=== PATIENT | male | born 1985 | race Caucasian/White ===

== ENCOUNTER 2017-10-02 22:11 | Emergency (ER) | payer MEDICAID ==
[~2017-10-02] VITALS: Ht 177.8 cm; Wt 90.3 kg
[~2017-10-02 22:11] MED LIST: ARIP5TAB13 PO; CHLO100T PO; CLON0.3T47 PO; HALDOL 5 MG; LEVE500T13 PO; LISI-167 PO
[2017-10-02] MEDS ORDERED: ONDANSETRON ODT 8 MG ONE (23:49)
[2017-10-03] MEDS ORDERED: ONDANSETRON ODT 8 MG PO ONE
[2017-10-03 00:22] LABS: BASOPHILS # (AUTO) 0.03 x10^3/uL (0-0.1); BASOPHILS % (AUTO) 0 % (0-1); EOSINOPHILS # (AUTO) 0.02 x10^3/uL (0-0.4); EOSINOPHILS % (AUTO) 0 % (1-7); LYMPHOCYTES % (AUTO) 13 % (22-44); MD NO; MEAN CORPUSCULAR HEMOGLOBIN 32.1 pg (27.5-34.5); MEAN CORPUSCULAR HGB CONC 34.4 g/dL (33.2-36.2); MEAN CORPUSCULAR VOLUME 93.2 fL (81-97); MEAN PLATELET VOLUME 7.6 fL (7.4-10.4); MONOCYTES # (AUTO) 0.94 x10^3/uL (0.2-0.8); MONOCYTES % (AUTO) 11 % (2-9); NEUTROPHILS # (AUTO) 6.24 x10^3/uL (1.8-6.8); NEUTROPHILS % (AUTO) 75 % (42-75); PLATELET COUNT 277 x10^3/uL (130-400); RED BLOOD COUNT 3.97 x10^6/uL (4.38-5.82); RED CELL DISTRIBUTION WIDTH 14.3 % (9.4-14.8)
[2017-10-03 00:30] LABS: ALANINE AMINOTRANSFERASE 158 U/L (12-78); ALBUMIN 4.1 g/dL (3.4-5.0); ANION GAP 8 mmol/L (5-15); CALCIUM 9.3 mg/dL (8.5-10.1); CHLORIDE 103 mmol/L (98-107); CREATININE 1.27 mg/dL (0.7-1.3)
[2017-10-03 00:32] LABS: ALKALINE PHOSPHATASE 105 U/L (45-117); BILIRUBIN,TOTAL 0.5 mg/dL (0.2-1.0); TOTAL PROTEIN 7.9 g/dL (6.4-8.2)
[2017-10-03 00:44] VITALS: BP 128/80
[2017-10-04] MEDS ORDERED: LEVE500T53 PO (21:10)
[2017-10-04] MEDS ORDERED: LISI-170 PO (21:10)
[2017-10-04] MEDS ORDERED: ANTIBIOTIC PO (21:10)
[2017-10-04] MEDS ORDERED: DIVA500T2 PO (21:10)
== END 2017-10-03 01:40 | disposition home or self-care (01) ==
LOC: ED 23:35
DX: R11.2 Nausea with vomiting, unspecified (principal); E86.0 Dehydration; R74.0 Nonspecific elevation of levels of transaminase and lactic acid dehydrogenase [LDH]; I10 Essential (primary) hypertension; F17.210 Nicotine dependence, cigarettes, uncomplicated
CPT/HCPCS: 36415; 80053; 83690; 85025; 99284; Q0162

== ENCOUNTER 2017-10-04 20:10 | Inpatient (IN) | payer MEDICAID ==
[~2017-10-04] VITALS: Ht 177.8 cm; Wt 91.7 kg
[2017-10-04] MEDS ORDERED: LEVE500T53 PO (21:10)
[2017-10-04] MEDS ORDERED: ANTIBIOTIC PO (21:10)
[2017-10-04] MEDS ORDERED: LISI-170 PO (21:10)
[2017-10-04] MEDS ORDERED: DIVA500T2 PO (21:10)
[2017-10-04 21:41] LABS: AMPHETAMINE SCREEN, URINE Positive (Negative); BARBITURATE SCREEN, URINE Negative (Negative); BENZODIAZEPINE SCREEN, URINE Negative (Negative); CANNABINOID SCREEN, URINE Positive (Negative); COCAINE SCREEN, URINE Negative (Negative); METHADONE SCREEN, URINE Negative (Negative); OPIATE SCREEN, URINE Negative (Negative)
[2017-10-04 21:49] LABS: ALANINE AMINOTRANSFERASE 148 U/L (12-78); ALBUMIN 3.8 g/dL (3.4-5.0); ANION GAP 6 mmol/L (5-15); CALCIUM 8.7 mg/dL (8.5-10.1); CHLORIDE 109 mmol/L (98-107); CREATININE 0.92 mg/dL (0.7-1.3); SALICYLATE LEVEL 3.4 mg/dL (2.8-20.0)
[2017-10-04 21:51] LABS: ALKALINE PHOSPHATASE 109 U/L (45-117); BILIRUBIN,TOTAL 0.2 mg/dL (0.2-1.0); TOTAL PROTEIN 7.1 g/dL (6.4-8.2)
[2017-10-04 21:52] LABS: ACETAMINOPHEN < 2 mcg/mL (10-30)
[2017-10-04 22:00] LABS: BASOPHILS # (AUTO) 0.03 x10^3/uL (0-0.1); BASOPHILS % (AUTO) 0 % (0-1); EOSINOPHILS # (AUTO) 0.08 x10^3/uL (0-0.4); EOSINOPHILS % (AUTO) 1 % (1-7); LYMPHOCYTES # (AUTO) 1.45 x10^3/uL (1-3.4); LYMPHOCYTES % (AUTO) 19 % (22-44); MD NO; MEAN CORPUSCULAR HEMOGLOBIN 31.9 pg (27.5-34.5); MEAN CORPUSCULAR HGB CONC 34.2 g/dL (33.2-36.2); MEAN CORPUSCULAR VOLUME 93.6 fL (81-97); MONOCYTES # (AUTO) 0.92 x10^3/uL (0.2-0.8); MONOCYTES % (AUTO) 12 % (2-9); NEUTROPHILS % (AUTO) 68 % (42-75); PLATELET COUNT 263 x10^3/uL (130-400); RED BLOOD COUNT 3.73 x10^6/uL (4.38-5.82); RED CELL DISTRIBUTION WIDTH 13.9 % (9.4-14.8)
[2017-10-05] MEDS ORDERED: DOXYCYCLINE 100MG TABLET PO ONE (02:30)
[2017-10-05] MEDS ORDERED: DOXYCYCLINE 100MG TABLET ONE (03:05)
[2017-10-05 03:47] VITALS: BP 119/71
[2017-10-05] MEDS ORDERED: hydrALAzine 20 MG/ML, 1ML IVPush PRN (05:00)
[2017-10-05] MEDS ORDERED: GUAIFENESIN/DM 200-20MG, 10ML UDC PO PRN (05:00)
[2017-10-05] MEDS ORDERED: POLYETHYLENE GLYCOL 17 GM PACKET PO PRN (05:00)
[2017-10-05] MEDS: SODIUM CHLORIDE 0.9% 1,000 ML IV SCH ×3 (05:07→22:51)
[2017-10-05] MEDS: LEVOFLOXACIN/PMX 750MG/150ML 150 ML IV SCH (05:20)
[2017-10-05] MEDS ORDERED: ALBUTEROL SULFATE 2.5 MG/3 ML NPPB PRN (07:00)
[2017-10-05 07:37] VITALS: BP 120/69
[2017-10-05] MEDS: ENOXAPARIN 40 MG/0.4 ML SQ SCH (08:01)
[2017-10-05] MEDS: DIVALPROEX 500 MG TAB.ER.24H PO SCH (08:56)
[2017-10-05] MEDS: LEVETIRACETAM 500 MG TABLET PO SCH (08:56)
[2017-10-05] MEDS: LISINOPRIL 20 MG TABLET PO SCH (08:56)
[2017-10-05 13:17] VITALS: BP 107/66
[2017-10-05 18:47] VITALS: BP 101/65
[2017-10-06 02:30] VITALS: BP 105/66
[2017-10-06] MEDS: LEVOFLOXACIN/PMX 750MG/150ML 150 ML IV SCH (04:40)
[2017-10-06] MEDS: SODIUM CHLORIDE 0.9% 1,000 ML IV SCH ×2 (04:46→17:34)
[2017-10-06 05:34] LABS: BASOPHILS # (AUTO) 0.05 x10^3/uL (0-0.1); BASOPHILS % (AUTO) 1 % (0-1); EOSINOPHILS # (AUTO) 0.07 x10^3/uL (0-0.4); EOSINOPHILS % (AUTO) 1 % (1-7); LYMPHOCYTES # (AUTO) 1.41 x10^3/uL (1-3.4); LYMPHOCYTES % (AUTO) 26 % (22-44); MD NO; MEAN CORPUSCULAR HEMOGLOBIN 31.9 pg (27.5-34.5); MEAN CORPUSCULAR VOLUME 93.8 fL (81-97); MEAN PLATELET VOLUME 7.5 fL (7.4-10.4); MONOCYTES # (AUTO) 0.43 x10^3/uL (0.2-0.8); MONOCYTES % (AUTO) 8 % (2-9); NEUTROPHILS # (AUTO) 3.53 x10^3/uL (1.8-6.8); NEUTROPHILS % (AUTO) 64 % (42-75); PLATELET COUNT 213 x10^3/uL (130-400); RED BLOOD COUNT 3.49 x10^6/uL (4.38-5.82); RED CELL DISTRIBUTION WIDTH 13.6 % (9.4-14.8)
[2017-10-06 05:36] LABS: ALBUMIN 2.9 g/dL (3.4-5.0); CALCIUM 8.3 mg/dL (8.5-10.1); CHLORIDE 113 mmol/L (98-107)
[2017-10-06 05:41] LABS: ALANINE AMINOTRANSFERASE 180 U/L (12-78); ALKALINE PHOSPHATASE 85 U/L (45-117); ANION GAP 6 mmol/L (5-15); BILIRUBIN,TOTAL 0.4 mg/dL (0.2-1.0); CREATININE 0.92 mg/dL (0.7-1.3)
[2017-10-06 06:57] VITALS: BP 123/85
[2017-10-06] MEDS: DIVALPROEX 500 MG TAB.ER.24H PO SCH (09:16)
[2017-10-06] MEDS: LEVETIRACETAM 500 MG TABLET PO SCH (09:16)
[2017-10-06] MEDS: ENOXAPARIN 40 MG/0.4 ML SQ SCH (09:16)
[2017-10-06] MEDS: DOXYCYCLINE 100MG TABLET PO SCH ×2 (09:17→20:09)
[2017-10-06] MEDS: LISINOPRIL 20 MG TABLET PO SCH (09:17)
[2017-10-06] MEDS: CEFTRIAXONE PMX 2GM/50ML 50 ML IV SCH (12:18)
[2017-10-06] MEDS: ACETAMINOPHEN 325 MG TABLET PO PRN ×2 (12:21→20:24)
[2017-10-06 12:48] VITALS: BP 128/85
[2017-10-07 02:41] VITALS: BP 123/80
[2017-10-07 05:36] LABS: ANION GAP 6 mmol/L (5-15); CALCIUM 8.6 mg/dL (8.5-10.1); CHLORIDE 112 mmol/L (98-107); CREATININE 1.01 mg/dL (0.7-1.3)
[2017-10-07 05:40] LABS: BASOPHILS # (AUTO) 0.02 x10^3/uL (0-0.1); BASOPHILS % (AUTO) 0 % (0-1); EOSINOPHILS # (AUTO) 0.09 x10^3/uL (0-0.4); EOSINOPHILS % (AUTO) 2 % (1-7); LYMPHOCYTES # (AUTO) 1.26 x10^3/uL (1-3.4); LYMPHOCYTES % (AUTO) 24 % (22-44); MD NO; MEAN CORPUSCULAR HEMOGLOBIN 31.8 pg (27.5-34.5); MEAN CORPUSCULAR HGB CONC 34.2 g/dL (33.2-36.2); MEAN CORPUSCULAR VOLUME 93.1 fL (81-97); MONOCYTES # (AUTO) 0.48 x10^3/uL (0.2-0.8); MONOCYTES % (AUTO) 9 % (2-9); NEUTROPHILS # (AUTO) 3.53 x10^3/uL (1.8-6.8); NEUTROPHILS % (AUTO) 66 % (42-75); PLATELET COUNT 228 x10^3/uL (130-400); RED BLOOD COUNT 3.63 x10^6/uL (4.38-5.82); RED CELL DISTRIBUTION WIDTH 13.5 % (9.4-14.8)
[2017-10-07 06:56] VITALS: BP 146/90
[2017-10-07] MEDS: LEVETIRACETAM 500 MG TABLET PO SCH (08:33)
[2017-10-07] MEDS: ACETAMINOPHEN 325 MG TABLET PO PRN ×3 (08:33→23:05)
[2017-10-07] MEDS: ENOXAPARIN 40 MG/0.4 ML SQ SCH (08:33)
[2017-10-07] MEDS: DIVALPROEX 500 MG TAB.ER.24H PO SCH (08:33)
[2017-10-07] MEDS: DOXYCYCLINE 100MG TABLET PO SCH ×2 (08:33→20:42)
[2017-10-07] MEDS: CEFTRIAXONE PMX 2GM/50ML 50 ML IV SCH (08:33)
[2017-10-07] MEDS: LISINOPRIL 20 MG TABLET PO SCH (08:33)
[2017-10-07 13:39] VITALS: BP 128/79
[2017-10-07] MEDS: ONDANSETRON 2MG/ML, 2ML IVPush PRN (17:55)
[2017-10-07 19:00] VITALS: BP 151/84
[2017-10-08 01:12] VITALS: BP 144/78
[2017-10-08] MEDS: ONDANSETRON 2MG/ML, 2ML IVPush PRN ×2 (05:02→12:27)
[2017-10-08 05:24] LABS: BASOPHILS # (AUTO) 0.03 x10^3/uL (0-0.1); BASOPHILS % (AUTO) 1 % (0-1); EOSINOPHILS # (AUTO) 0.18 x10^3/uL (0-0.4); EOSINOPHILS % (AUTO) 4 % (1-7); LYMPHOCYTES # (AUTO) 1.46 x10^3/uL (1-3.4); LYMPHOCYTES % (AUTO) 31 % (22-44); MD NO; MEAN CORPUSCULAR HEMOGLOBIN 31.9 pg (27.5-34.5); MEAN CORPUSCULAR HGB CONC 34.2 g/dL (33.2-36.2); MEAN CORPUSCULAR VOLUME 93.4 fL (81-97); MEAN PLATELET VOLUME 7.9 fL (7.4-10.4); MONOCYTES # (AUTO) 0.47 x10^3/uL (0.2-0.8); MONOCYTES % (AUTO) 10 % (2-9); NEUTROPHILS # (AUTO) 2.63 x10^3/uL (1.8-6.8); NEUTROPHILS % (AUTO) 55 % (42-75); PLATELET COUNT 222 x10^3/uL (130-400); RED BLOOD COUNT 3.54 x10^6/uL (4.38-5.82); RED CELL DISTRIBUTION WIDTH 13.8 % (9.4-14.8)
[2017-10-08 05:36] LABS: ALBUMIN 2.9 g/dL (3.4-5.0); ANION GAP 7 mmol/L (5-15); CALCIUM 8.5 mg/dL (8.5-10.1); CHLORIDE 110 mmol/L (98-107); CREATININE 0.95 mg/dL (0.7-1.3)
[2017-10-08 06:44] VITALS: BP 127/80
[2017-10-08] MEDS: DOXYCYCLINE 100MG TABLET PO SCH ×2 (08:45→20:36)
[2017-10-08] MEDS: LEVETIRACETAM 500 MG TABLET PO SCH (08:45)
[2017-10-08] MEDS: DIVALPROEX 500 MG TAB.ER.24H PO SCH (08:45)
[2017-10-08] MEDS: LISINOPRIL 20 MG TABLET PO SCH (08:45)
[2017-10-08] MEDS: ENOXAPARIN 40 MG/0.4 ML SQ SCH (09:00)
[2017-10-08] MEDS: CEFTRIAXONE PMX 2GM/50ML 50 ML IV SCH (09:00)
[2017-10-08 15:15] VITALS: BP 121/71
[2017-10-08] MEDS: ACETAMINOPHEN 325 MG TABLET PO PRN (16:34)
[2017-10-08 19:34] VITALS: BP 104/64
[2017-10-09 02:44] VITALS: BP 121/81
[2017-10-09] MEDS: ACETAMINOPHEN 325 MG TABLET PO PRN ×2 (02:54→08:59)
[2017-10-09 07:00] VITALS: BP 132/79
[2017-10-09] MEDS: CEFTRIAXONE PMX 2GM/50ML 50 ML IV SCH ×2 (08:00→11:45)
[2017-10-09 08:09] LABS: BASOPHILS # (AUTO) 0.03 x10^3/uL (0-0.1); BASOPHILS % (AUTO) 1 % (0-1); EOSINOPHILS # (AUTO) 0.15 x10^3/uL (0-0.4); EOSINOPHILS % (AUTO) 3 % (1-7); LYMPHOCYTES # (AUTO) 1.08 x10^3/uL (1-3.4); LYMPHOCYTES % (AUTO) 20 % (22-44); MD NO; MEAN CORPUSCULAR HEMOGLOBIN 31.2 pg (27.5-34.5); MEAN CORPUSCULAR HGB CONC 33.8 g/dL (33.2-36.2); MEAN CORPUSCULAR VOLUME 92.3 fL (81-97); MEAN PLATELET VOLUME 7.9 fL (7.4-10.4); MONOCYTES # (AUTO) 0.37 x10^3/uL (0.2-0.8); MONOCYTES % (AUTO) 7 % (2-9); NEUTROPHILS # (AUTO) 3.88 x10^3/uL (1.8-6.8); NEUTROPHILS % (AUTO) 71 % (42-75); PLATELET COUNT 233 x10^3/uL (130-400); RED BLOOD COUNT 3.85 x10^6/uL (4.38-5.82)
[2017-10-09 08:19] LABS: ALBUMIN 3.3 g/dL (3.4-5.0); ANION GAP 7 mmol/L (5-15); CHLORIDE 109 mmol/L (98-107)
[2017-10-09 08:24] LABS: ALANINE AMINOTRANSFERASE 211 U/L (12-78); ALKALINE PHOSPHATASE 102 U/L (45-117); BILIRUBIN,TOTAL 0.4 mg/dL (0.2-1.0); CREATININE 0.88 mg/dL (0.7-1.3); TOTAL PROTEIN 6.7 g/dL (6.4-8.2)
[2017-10-09] MEDS: DIVALPROEX 500 MG TAB.ER.24H PO SCH (08:59)
[2017-10-09] MEDS: DOXYCYCLINE 100MG TABLET PO SCH ×2 (08:59→20:45)
[2017-10-09] MEDS: ONDANSETRON 2MG/ML, 2ML IVPush PRN (08:59)
[2017-10-09] MEDS: LISINOPRIL 20 MG TABLET PO SCH (09:00)
[2017-10-09] MEDS: LEVETIRACETAM 500 MG TABLET PO SCH (09:00)
[2017-10-09] MEDS: ENOXAPARIN 40 MG/0.4 ML SQ SCH (09:05)
[2017-10-09 14:33] VITALS: BP 139/94
[2017-10-09 19:37] VITALS: BP 134/83
[2017-10-10 07:26] VITALS: BP 144/89
[2017-10-10] MEDS: DOXYCYCLINE 100MG TABLET PO SCH ×2 (09:31→20:22)
[2017-10-10] MEDS: DIVALPROEX 500 MG TAB.ER.24H PO SCH (09:31)
[2017-10-10] MEDS: LEVETIRACETAM 500 MG TABLET PO SCH (09:31)
[2017-10-10] MEDS: ENOXAPARIN 40 MG/0.4 ML SQ SCH (09:31)
[2017-10-10] MEDS: LISINOPRIL 20 MG TABLET PO SCH (09:32)
[2017-10-10] MEDS ORDERED: ONDANSETRON ODT 4 MG ONE (18:30)
[2017-10-10] MEDS: ONDANSETRON 2MG/ML, 2ML IVPush PRN (18:34)
[2017-10-10 19:25] VITALS: BP 135/81
[2017-10-10] MEDS: ACETAMINOPHEN 325 MG TABLET PO PRN (20:22)
[2017-10-10] MEDS: TRAZODONE 50MG TABLET PO PRN (20:32)
[2017-10-11 07:51] VITALS: BP 113/71
[2017-10-11] MEDS: DOXYCYCLINE 100MG TABLET PO SCH ×2 (08:36→20:56)
[2017-10-11] MEDS: DIVALPROEX 500 MG TAB.ER.24H PO SCH (08:36)
[2017-10-11] MEDS: LEVETIRACETAM 500 MG TABLET PO SCH (08:36)
[2017-10-11] MEDS: LISINOPRIL 20 MG TABLET PO SCH (08:37)
[2017-10-11] MEDS: ENOXAPARIN 40 MG/0.4 ML SQ SCH (08:40)
[2017-10-11] MEDS: ZIPRASIDONE 20 MG INJ IM PRN (18:11)
[2017-10-11 21:01] VITALS: BP 107/66
[2017-10-12 07:54] VITALS: BP 116/78
[2017-10-12] MEDS: ENOXAPARIN 40 MG/0.4 ML SQ SCH (08:27)
[2017-10-12] MEDS: DIVALPROEX 500 MG TAB.ER.24H PO SCH (09:36)
[2017-10-12] MEDS: DOXYCYCLINE 100MG TABLET PO SCH ×2 (09:37→20:45)
[2017-10-12] MEDS: LISINOPRIL 20 MG TABLET PO SCH (09:38)
[2017-10-12] MEDS: LEVETIRACETAM 500 MG TABLET PO SCH (09:38)
[2017-10-12] MEDS: ZIPRASIDONE 20 MG INJ IM PRN (09:58)
[2017-10-12 20:50] VITALS: BP 99/66
[2017-10-13 01:25] VITALS: BP 124/85
[2017-10-13] MEDS: TRAZODONE 50MG TABLET PO PRN ×2 (01:26→21:51)
[2017-10-13] MEDS: ENOXAPARIN 40 MG/0.4 ML SQ SCH (08:00)
[2017-10-13 08:59] VITALS: BP 121/76
[2017-10-13] MEDS: DIVALPROEX 500 MG TAB.ER.24H PO SCH (09:05)
[2017-10-13] MEDS: LISINOPRIL 20 MG TABLET PO SCH (09:06)
[2017-10-13] MEDS: DOXYCYCLINE 100MG TABLET PO SCH ×2 (09:06→21:51)
[2017-10-13] MEDS: LEVETIRACETAM 500 MG TABLET PO SCH (09:06)
[2017-10-13] MEDS ORDERED: ONDANSETRON ODT 4 MG ONE (12:18)
[2017-10-13] MEDS: ONDANSETRON ODT 4 MG PO PRN (12:27)
[2017-10-13] MEDS: ZIPRASIDONE 20 MG INJ IM PRN (13:21)
[2017-10-13 20:00] VITALS: BP 84/52
[2017-10-14 07:57] VITALS: BP 115/78
[2017-10-14] MEDS: ENOXAPARIN 40 MG/0.4 ML SQ SCH (08:46)
[2017-10-14] MEDS: LISINOPRIL 20 MG TABLET PO SCH (08:47)
[2017-10-14] MEDS: DOXYCYCLINE 100MG TABLET PO SCH ×2 (08:47→21:00)
[2017-10-14] MEDS: LEVETIRACETAM 500 MG TABLET PO SCH (08:47)
[2017-10-14] MEDS: DIVALPROEX 500 MG TAB.ER.24H PO SCH (08:48)
[2017-10-14] MEDS: ZIPRASIDONE 20 MG INJ IM PRN (12:13)
[2017-10-14] MEDS: ONDANSETRON ODT 4 MG PO PRN (17:45)
[2017-10-14 19:27] VITALS: BP 90/57
[2017-10-14] MEDS: TRAZODONE 50MG TABLET PO PRN (21:15)
[2017-10-15 07:11] VITALS: BP 115/81
[2017-10-15] MEDS: ENOXAPARIN 40 MG/0.4 ML SQ SCH (08:17)
[2017-10-15] MEDS: LEVETIRACETAM 500 MG TABLET PO SCH (08:20)
[2017-10-15] MEDS: DIVALPROEX 500 MG TAB.ER.24H PO SCH (08:20)
[2017-10-15] MEDS: LISINOPRIL 20 MG TABLET PO SCH (08:20)
[2017-10-15] MEDS: DOXYCYCLINE 100MG TABLET PO SCH (08:20)
[2017-10-15] MEDS: ZIPRASIDONE 20 MG INJ IM PRN (11:26)
[2017-10-15] MEDS ORDERED: LEVE500T53 PO (12:40)
== END 2017-10-15 12:30 | DRG 193 ==
LOC: ED 21:23 → EDIP 10-05 02:39 → 3NE 10-05 03:30 → 2N 10-09 14:05
PROVIDERS: ADMIT Hospitalist; ATTEND Hospitalist
DX: J18.1 Lobar pneumonia, unspecified organism (principal); E43 Unspecified severe protein-calorie malnutrition; J96.01 Acute respiratory failure with hypoxia; R45.851 Suicidal ideations; E86.9 Volume depletion, unspecified; F12.90 Cannabis use, unspecified, uncomplicated; F17.210 Nicotine dependence, cigarettes, uncomplicated; F25.9 Schizoaffective disorder, unspecified; F32.9 Major depressive disorder, single episode, unspecified; G40.909 Epilepsy, unspecified, not intractable, without status epilepticus; I10 Essential (primary) hypertension; Z79.899 Other long term (current) drug therapy; Z91.14 Patient's other noncompliance with medication regimen; Z91.19 Patient's noncompliance with other medical treatment and regimen; Z91.5 Personal history of self-harm; Z68.29 Body mass index [BMI] 29.0-29.9, adult
CPT/HCPCS: 36415; 71046; 80048; 80053; 80307; 80329; 82040; 83735; 84100; 85025; 87040; 99285; J0696; J1650; J1956; J2405; J3486; Q0162; G0480; J7030

== ENCOUNTER 2017-11-03 21:41 | Emergency (ER) | payer MEDICAID ==
[~2017-11-03] VITALS: Ht 175.3 cm; Wt 100.0 kg
[~2017-11-03 21:41] MED LIST changes: +ANTIBIOTIC PO; +DIVA500T2 PO; +LEVE500T53 PO; +LISI-170 PO
[2017-11-03] MEDS ORDERED: BUSP5TAB2 PO (22:06)
[2017-11-03 22:50] LABS: BASOPHILS # (AUTO) 0.03 x10^3/uL (0-0.1); BASOPHILS % (AUTO) 0 % (0-1); EOSINOPHILS # (AUTO) 0.08 x10^3/uL (0-0.4); EOSINOPHILS % (AUTO) 1 % (1-7); LYMPHOCYTES # (AUTO) 1.27 x10^3/uL (1-3.4); LYMPHOCYTES % (AUTO) 14 % (22-44); MD NO; MEAN CORPUSCULAR HEMOGLOBIN 31.9 pg (27.5-34.5); MEAN CORPUSCULAR HGB CONC 34.8 g/dL (33.2-36.2); MEAN CORPUSCULAR VOLUME 91.6 fL (81-97); MEAN PLATELET VOLUME 7.3 fL (7.4-10.4); MONOCYTES # (AUTO) 1.17 x10^3/uL (0.2-0.8); MONOCYTES % (AUTO) 12 % (2-9); NEUTROPHILS # (AUTO) 6.85 x10^3/uL (1.8-6.8); NEUTROPHILS % (AUTO) 73 % (42-75); PLATELET COUNT 237 x10^3/uL (130-400); RED BLOOD COUNT 4.01 x10^6/uL (4.38-5.82); RED CELL DISTRIBUTION WIDTH 12.9 % (9.4-14.8)
[2017-11-03 23:02] LABS: ALANINE AMINOTRANSFERASE 122 U/L (12-78); ALBUMIN 3.8 g/dL (3.4-5.0); ANION GAP 6 mmol/L (5-15); CALCIUM 8.3 mg/dL (8.5-10.1); CHLORIDE 106 mmol/L (98-107)
[2017-11-03 23:04] LABS: ACETAMINOPHEN < 2 mcg/mL (10-30); ALKALINE PHOSPHATASE 59 U/L (45-117); BILIRUBIN,TOTAL 0.8 mg/dL (0.2-1.0); CREATININE 1.12 mg/dL (0.7-1.3)
[2017-11-04 00:47] LABS: AMPHETAMINE SCREEN, URINE Positive (Negative); BARBITURATE SCREEN, URINE Negative (Negative); BENZODIAZEPINE SCREEN, URINE Negative (Negative); CANNABINOID SCREEN, URINE Positive (Negative); COCAINE SCREEN, URINE Negative (Negative); METHADONE SCREEN, URINE Negative (Negative); OPIATE SCREEN, URINE Negative (Negative)
[2017-11-04 12:19] VITALS: BP 131/78
== END 2017-11-04 16:05 ==
LOC: ED 23:49
DX: S92.514A Nondisplaced fracture of proximal phalanx of right lesser toe(s), initial encounter for closed fracture (principal); F25.9 Schizoaffective disorder, unspecified; I10 Essential (primary) hypertension; G43.909 Migraine, unspecified, not intractable, without status migrainosus; F15.10 Other stimulant abuse, uncomplicated; F12.10 Cannabis abuse, uncomplicated; Y93.39 Activity, other involving climbing, rappelling and jumping off; Y93.89 Activity, other specified; Y92.89 Other specified places as the place of occurrence of the external cause; Y99.8 Other external cause status; Z79.899 Other long term (current) drug therapy
CPT/HCPCS: 36415; 80053; 80307; 80329; 85025; 99285; G0480

== ENCOUNTER 2017-11-29 02:04 | Observation (INO) | payer MEDICAID ==
[~2017-11-29] VITALS: Ht 175.3 cm; Wt 101.0 kg
[~2017-11-29 02:04] MED LIST changes: +BUSP5TAB2 PO
[2017-11-29 02:59] LABS: BASOPHILS # (AUTO) 0.03 x10^3/uL (0-0.1); BASOPHILS % (AUTO) 0 % (0-1); EOSINOPHILS # (AUTO) 0.06 x10^3/uL (0-0.4); EOSINOPHILS % (AUTO) 1 % (1-7); LYMPHOCYTES # (AUTO) 1.49 x10^3/uL (1-3.4); LYMPHOCYTES % (AUTO) 14 % (22-44); MD NO; MEAN CORPUSCULAR HEMOGLOBIN 30.9 pg (27.5-34.5); MEAN CORPUSCULAR HGB CONC 34.7 g/dL (33.2-36.2); MEAN CORPUSCULAR VOLUME 88.9 fL (81-97); MONOCYTES # (AUTO) 0.81 x10^3/uL (0.2-0.8); MONOCYTES % (AUTO) 7 % (2-9); NEUTROPHILS # (AUTO) 8.51 x10^3/uL (1.8-6.8); NEUTROPHILS % (AUTO) 78 % (42-75); PLATELET COUNT 261 x10^3/uL (130-400); RED CELL DISTRIBUTION WIDTH 13.1 % (9.4-14.8)
[2017-11-29 03:08] LABS: ALBUMIN 3.7 g/dL (3.4-5.0); ANION GAP 9 mmol/L (5-15); CHLORIDE 105 mmol/L (98-107); SALICYLATE LEVEL < 1.7 mg/dL (2.8-20.0)
[2017-11-29 03:10] LABS: ALANINE AMINOTRANSFERASE 69 U/L (12-78); ALKALINE PHOSPHATASE 63 U/L (45-117); BILIRUBIN,TOTAL 0.5 mg/dL (0.2-1.0); CREATININE 1.94 mg/dL (0.7-1.3); TOTAL PROTEIN 7.3 g/dL (6.4-8.2)
[2017-11-29 03:22] LABS: ACETAMINOPHEN < 2 mcg/mL (10-30)
[2017-11-29 05:01] LABS: AMPHETAMINE SCREEN, URINE Negative (Negative); BARBITURATE SCREEN, URINE Negative (Negative); BENZODIAZEPINE SCREEN, URINE Negative (Negative); CANNABINOID SCREEN, URINE Positive (Negative); COCAINE SCREEN, URINE Negative (Negative); METHADONE SCREEN, URINE Negative (Negative); OPIATE SCREEN, URINE Negative (Negative)
[2017-11-29] MEDS: HEPARIN 5,000 UNITS/ML, 1ML SQ SCH ×2 (09:00→17:00)
[2017-11-29] MEDS ORDERED: ONDANSETRON 2MG/ML, 2ML IVPush PRN (09:00)
[2017-11-29] MEDS: SODIUM CHLORIDE 0.9% 1,000 ML IV SCH ×3 (09:10→23:15)
[2017-11-29] MEDS ORDERED: HALO5TAB5 PO (09:19)
[2017-11-29] MEDS ORDERED: QUET25TA5 PO (09:19)
[2017-11-29] MEDS ORDERED: PRAZ1CAP2 PO (09:21)
[2017-11-29 10:53] VITALS: BP 104/64
[2017-11-29 13:54] VITALS: BP 113/65
[2017-11-29 18:43] VITALS: BP 104/63
[2017-11-29] MEDS ORDERED: MIRT15TA3 PO (23:06)
[2017-11-29] MEDS ORDERED: AMLO5TAB7 PO (23:06)
[2017-11-30] MEDS: HEPARIN 5,000 UNITS/ML, 1ML SQ SCH ×3 (00:27→17:39)
[2017-11-30 04:00] VITALS: BP 100/66
[2017-11-30] MEDS: SODIUM CHLORIDE 0.9% 1,000 ML IV SCH ×4 (05:30→20:25)
[2017-11-30 05:37] LABS: ANION GAP 5 mmol/L (5-15); CALCIUM 8.2 mg/dL (8.5-10.1); CHLORIDE 108 mmol/L (98-107); CREATININE 0.98 mg/dL (0.7-1.3)
[2017-11-30 05:41] LABS: BASOPHILS # (AUTO) 0.02 x10^3/uL (0-0.1); BASOPHILS % (AUTO) 0 % (0-1); EOSINOPHILS # (AUTO) 0.35 x10^3/uL (0-0.4); EOSINOPHILS % (AUTO) 5 % (1-7); LYMPHOCYTES # (AUTO) 2.07 x10^3/uL (1-3.4); LYMPHOCYTES % (AUTO) 28 % (22-44); MD NO; MEAN CORPUSCULAR HEMOGLOBIN 30.6 pg (27.5-34.5); MEAN CORPUSCULAR HGB CONC 34.1 g/dL (33.2-36.2); MEAN CORPUSCULAR VOLUME 89.8 fL (81-97); MEAN PLATELET VOLUME 8.1 fL (7.4-10.4); MONOCYTES # (AUTO) 0.84 x10^3/uL (0.2-0.8); MONOCYTES % (AUTO) 12 % (2-9); NEUTROPHILS # (AUTO) 4.02 x10^3/uL (1.8-6.8); NEUTROPHILS % (AUTO) 55 % (42-75); PLATELET COUNT 203 x10^3/uL (130-400); RED BLOOD COUNT 4.28 x10^6/uL (4.38-5.82); RED CELL DISTRIBUTION WIDTH 13.3 % (9.4-14.8)
[2017-11-30 09:18] VITALS: BP 114/71
[2017-11-30] MEDS: LEVETIRACETAM 500 MG TABLET PO SCH ×2 (12:30→20:25)
[2017-11-30 15:01] VITALS: BP 128/84
[2017-11-30 18:52] VITALS: BP 135/77
[2017-11-30] MEDS: MIRTAZAPINE 15 MG TABLET PO SCH (20:25)
[2017-11-30] MEDS: QUETIAPINE 100MG TABLET PO SCH (20:25)
[2017-12-01] MEDS: HEPARIN 5,000 UNITS/ML, 1ML SQ SCH ×2 (00:47→09:00)
[2017-12-01 00:57] VITALS: BP 143/68
[2017-12-01] MEDS: SODIUM CHLORIDE 0.9% 1,000 ML IV SCH (04:07)
[2017-12-01 07:53] VITALS: BP 115/72
[2017-12-01] MEDS: LEVETIRACETAM 500 MG TABLET PO SCH ×2 (09:15→21:40)
[2017-12-01] MEDS: QUETIAPINE 100MG TABLET PO SCH ×2 (09:15→21:40)
[2017-12-01 12:32] VITALS: BP 106/67
[2017-12-01 17:49] LABS: MICROSCOPIC NOT IND
[2017-12-01 17:52] LABS: CULTURE INDICATED? NO
[2017-12-01 19:31] VITALS: BP 145/89
[2017-12-01] MEDS: MIRTAZAPINE 15 MG TABLET PO SCH (21:41)
[2017-12-02 03:11] VITALS: BP 102/74
[2017-12-02 07:34] VITALS: BP 117/73
[2017-12-02] MEDS: QUETIAPINE 100MG TABLET PO SCH ×2 (10:10→21:03)
[2017-12-02] MEDS: LEVETIRACETAM 500 MG TABLET PO SCH ×2 (10:10→21:03)
[2017-12-02 12:28] VITALS: BP 116/76
[2017-12-02 19:39] VITALS: BP 128/82
[2017-12-02] MEDS: MIRTAZAPINE 15 MG TABLET PO SCH (21:00)
[2017-12-03 01:51] VITALS: BP 99/62
[2017-12-03 06:59] VITALS: BP 97/61
[2017-12-03] MEDS: LEVETIRACETAM 500 MG TABLET PO SCH ×2 (07:56→22:00)
[2017-12-03] MEDS: QUETIAPINE 100MG TABLET PO SCH ×2 (07:56→22:00)
[2017-12-03 13:05] VITALS: BP 130/85
[2017-12-03 20:11] VITALS: BP 116/77
[2017-12-03] MEDS: MIRTAZAPINE 15 MG TABLET PO SCH (22:01)
[2017-12-03] MEDS: ACETAMINOPHEN 325 MG TABLET PO PRN (22:07)
[2017-12-04 02:42] VITALS: BP 108/72
[2017-12-04 07:44] VITALS: BP 104/68
[2017-12-04] MEDS: QUETIAPINE 100MG TABLET PO SCH ×2 (08:55→20:13)
[2017-12-04] MEDS: LEVETIRACETAM 500 MG TABLET PO SCH ×2 (08:56→20:13)
[2017-12-04 13:40] VITALS: BP 108/69
[2017-12-04] MEDS: MIRTAZAPINE 15 MG TABLET PO SCH (20:13)
[2017-12-04] MEDS: ACETAMINOPHEN 325 MG TABLET PO PRN (20:18)
[2017-12-04 20:40] VITALS: BP 125/84
[2017-12-05 02:19] VITALS: BP 109/71
[2017-12-05 08:32] VITALS: BP 124/70
[2017-12-05] MEDS: LEVETIRACETAM 500 MG TABLET PO SCH ×2 (09:00→20:54)
[2017-12-05] MEDS: QUETIAPINE 100MG TABLET PO SCH ×2 (09:00→20:54)
[2017-12-05 13:19] VITALS: BP 115/79
[2017-12-05 19:29] VITALS: BP 137/89
[2017-12-05] MEDS: MIRTAZAPINE 15 MG TABLET PO SCH (20:55)
[2017-12-06 02:31] VITALS: BP 124/78
[2017-12-06 07:50] VITALS: BP 152/88
[2017-12-06] MEDS: LEVETIRACETAM 500 MG TABLET PO SCH ×3 (12:11→20:23)
[2017-12-06] MEDS: QUETIAPINE 100MG TABLET PO SCH ×3 (12:12→20:24)
[2017-12-06 14:00] VITALS: BP 140/90
[2017-12-06] MEDS: MIRTAZAPINE 15 MG TABLET PO SCH ×2 (20:20→20:24)
[2017-12-06 20:22] VITALS: BP 121/81
[2017-12-07 03:24] VITALS: BP 121/87
[2017-12-07] MEDS: LEVETIRACETAM 500 MG TABLET PO SCH ×2 (08:26→19:04)
[2017-12-07] MEDS: QUETIAPINE 100MG TABLET PO SCH ×2 (08:26→19:05)
[2017-12-07 14:47] VITALS: BP 132/83
[2017-12-07] MEDS: MIRTAZAPINE 15 MG TABLET PO SCH (19:04)
[2017-12-07 19:49] VITALS: BP 126/86
[2017-12-08 07:38] VITALS: BP 121/76
[2017-12-08] MEDS: LEVETIRACETAM 500 MG TABLET PO SCH ×2 (12:06→19:12)
[2017-12-08] MEDS: QUETIAPINE 100MG TABLET PO SCH ×2 (12:06→19:12)
[2017-12-08 13:35] VITALS: BP 115/73
[2017-12-08] MEDS: MIRTAZAPINE 15 MG TABLET PO SCH (19:12)
[2017-12-08 19:13] VITALS: BP 116/76
[2017-12-09 03:30] VITALS: BP 120/73
[2017-12-09 07:38] VITALS: BP 113/70
[2017-12-09] MEDS: LEVETIRACETAM 500 MG TABLET PO SCH ×2 (11:26→20:04)
[2017-12-09] MEDS: QUETIAPINE 100MG TABLET PO SCH ×2 (11:26→20:04)
[2017-12-09 13:55] VITALS: BP 109/71
[2017-12-09 19:27] VITALS: BP 106/71
[2017-12-09] MEDS: MIRTAZAPINE 15 MG TABLET PO SCH (20:04)
[2017-12-10 02:02] VITALS: BP 110/70
[2017-12-10 08:20] VITALS: BP 112/75
[2017-12-10] MEDS: QUETIAPINE 100MG TABLET PO SCH ×2 (09:23→20:54)
[2017-12-10] MEDS: LEVETIRACETAM 500 MG TABLET PO SCH ×3 (09:23→20:54)
[2017-12-10 14:17] VITALS: BP 110/69
[2017-12-10 19:15] VITALS: BP 119/82
[2017-12-10] MEDS: MIRTAZAPINE 15 MG TABLET PO SCH (20:54)
[2017-12-11 07:54] VITALS: BP 108/70
[2017-12-11] MEDS: LEVETIRACETAM 500 MG TABLET PO SCH ×2 (11:19→19:54)
[2017-12-11] MEDS: QUETIAPINE 100MG TABLET PO SCH ×2 (11:19→19:54)
[2017-12-11 13:11] VITALS: BP 122/76
[2017-12-11] MEDS: MIRTAZAPINE 15 MG TABLET PO SCH (19:53)
[2017-12-11 19:54] VITALS: BP 116/76
[2017-12-12 01:31] VITALS: BP 110/76
[2017-12-12 08:56] VITALS: BP 110/70
[2017-12-12] MEDS: QUETIAPINE 100MG TABLET PO SCH ×2 (10:38→19:53)
[2017-12-12] MEDS: LEVETIRACETAM 500 MG TABLET PO SCH ×2 (10:38→19:53)
[2017-12-12] MEDS: ACETAMINOPHEN 325 MG TABLET PO PRN (12:59)
[2017-12-12 14:50] VITALS: BP 123/81
[2017-12-12 18:49] VITALS: BP 123/83
[2017-12-12] MEDS: MIRTAZAPINE 15 MG TABLET PO SCH (19:53)
[2017-12-12] MEDS ORDERED: DOCUSATE 100 MG CAPSULE PO PRN (20:30)
[2017-12-13 00:28] VITALS: BP 131/79
[2017-12-13 08:01] VITALS: BP 123/76
[2017-12-13] MEDS: QUETIAPINE 100MG TABLET PO SCH ×2 (10:12→21:02)
[2017-12-13] MEDS: LEVETIRACETAM 500 MG TABLET PO SCH ×2 (10:12→21:01)
[2017-12-13 14:19] VITALS: BP 150/95
[2017-12-13 20:17] VITALS: BP 134/89
[2017-12-13] MEDS: MIRTAZAPINE 15 MG TABLET PO SCH (21:01)
[2017-12-14 06:56] VITALS: BP 109/70
[2017-12-14] MEDS: LEVETIRACETAM 500 MG TABLET PO SCH ×2 (10:22→22:51)
[2017-12-14] MEDS: QUETIAPINE 100MG TABLET PO SCH ×2 (10:22→22:51)
[2017-12-14 13:53] VITALS: BP 153/79
[2017-12-14 20:15] VITALS: BP 116/78
[2017-12-14] MEDS: MIRTAZAPINE 15 MG TABLET PO SCH (22:51)
[2017-12-15 09:08] VITALS: BP 128/85
[2017-12-15] MEDS: QUETIAPINE 100MG TABLET PO SCH ×2 (11:49→21:02)
[2017-12-15] MEDS: LEVETIRACETAM 500 MG TABLET PO SCH ×2 (11:50→21:02)
[2017-12-15 12:40] VITALS: BP 125/85
[2017-12-15 19:36] VITALS: BP 119/79
[2017-12-15] MEDS: MIRTAZAPINE 15 MG TABLET PO SCH (21:02)
[2017-12-15] MEDS ORDERED: LOPERAMIDE 2 MG CAPSULE PO ONE (22:00)
[2017-12-16 09:48] VITALS: BP 108/75
[2017-12-16 12:29] VITALS: BP 117/79
[2017-12-16] MEDS: LEVETIRACETAM 500 MG TABLET PO SCH ×2 (13:30→20:47)
[2017-12-16] MEDS: QUETIAPINE 100MG TABLET PO SCH ×2 (13:31→20:48)
[2017-12-16 19:57] VITALS: BP 128/85
[2017-12-16] MEDS: MIRTAZAPINE 15 MG TABLET PO SCH (20:48)
[2017-12-17 04:31] VITALS: BP 106/72
[2017-12-17 07:55] VITALS: BP_SYST 105; BP_SYST 109; BP_DIAS 72; BP_DIAS 73
[2017-12-17] MEDS: QUETIAPINE 100MG TABLET PO SCH ×3 (09:00→23:16)
[2017-12-17] MEDS: LEVETIRACETAM 500 MG TABLET PO SCH ×3 (09:00→23:16)
[2017-12-17 13:22] VITALS: BP 117/77
[2017-12-17 19:31] VITALS: BP 94/63
[2017-12-17] MEDS: MIRTAZAPINE 15 MG TABLET PO SCH (23:08)
[2017-12-18 00:47] VITALS: BP 114/80
[2017-12-18] MEDS: QUETIAPINE 100MG TABLET PO SCH (09:00)
[2017-12-18] MEDS: LEVETIRACETAM 500 MG TABLET PO SCH (09:00)
== END 2017-12-18 10:55 ==
LOC: ED 03:31 → EDIP 08:45 → 4EST 09:41 → 3NE 12-06 12:52
PROVIDERS: ADMIT Hospitalist; ATTEND Hospitalist
DX: T14.91XA Suicide attempt, initial encounter (principal); T43.592A Poisoning by other antipsychotics and neuroleptics, intentional self-harm, initial encounter; T46.4X2A Poisoning by angiotensin-converting-enzyme inhibitors, intentional self-harm, initial encounter; T43.4X2A Poisoning by butyrophenone and thiothixene neuroleptics, intentional self-harm, initial encounter; F12.90 Cannabis use, unspecified, uncomplicated; F25.9 Schizoaffective disorder, unspecified; F32.9 Major depressive disorder, single episode, unspecified; G40.909 Epilepsy, unspecified, not intractable, without status epilepticus; I10 Essential (primary) hypertension; N17.0 Acute kidney failure with tubular necrosis; Y92.89 Other specified places as the place of occurrence of the external cause; Y93.89 Activity, other specified; Y99.8 Other external cause status; Z91.5 Personal history of self-harm
CPT/HCPCS: 36415; 80048; 80053; 80307; 80329; 81003; 85025; 93005; 96372; 99285; G0378; J1644; J7030; G0480

== ENCOUNTER 2018-01-10 12:26 | Emergency (ER) | payer MEDICAID ==
[~2018-01-10] VITALS: Ht 177.8 cm; Wt 105.0 kg
[~2018-01-10 12:26] MED LIST changes: +AMLO5TAB7 PO; +HALO5TAB5 PO; +MIRT15TA3 PO; +PRAZ1CAP2 PO; +QUET25TA5 PO
[2018-01-10] MEDS ORDERED: BACITRACIN ZINC OINT 500U/GM, 0.9 GM ONE (12:52)
[2018-01-10] MEDS ORDERED: DIPH,PERTUSS(ACELL),TET VAC/PF 0.5 ML IM-VACC ONE ×2 (12:53→13:00)
[2018-01-10] MEDS ORDERED: PLEASE ENTER HEIGHT AND WEIGHT MC SCH (13:00)
[2018-01-10 13:30] VITALS: BP 139/88
[2018-01-10] MEDS ORDERED: DIAZEPAM 5 MG TABLET PO ONE (13:30)
== END 2018-01-10 16:43 ==
LOC: ED 12:37
DX: S00.83XA Contusion of other part of head, initial encounter (principal); S60.221A Contusion of right hand, initial encounter; I10 Essential (primary) hypertension; X58.XXXA Exposure to other specified factors, initial encounter; Y93.89 Activity, other specified; Y92.89 Other specified places as the place of occurrence of the external cause; Y99.8 Other external cause status
CPT/HCPCS: 90471; 90715

== ENCOUNTER 2018-01-20 18:56 | Observation (INO) | payer MEDICAID ==
[~2018-01-20] VITALS: Ht 175.3 cm; Wt 106.3 kg
[2018-01-20 20:04] LABS: ALBUMIN 4.1 g/dL (3.4-5.0); ANION GAP 10 mmol/L (5-15); CALCIUM 9.7 mg/dL (8.5-10.1); CHLORIDE 105 mmol/L (98-107); CREATININE 1.06 mg/dL (0.7-1.3)
[2018-01-20 20:05] LABS: SALICYLATE LEVEL < 1.7 mg/dL (2.8-20.0)
[2018-01-20 20:06] LABS: ACETAMINOPHEN < 2 mcg/mL (10-30)
[2018-01-20] MEDS ORDERED: MIRT30TA3 PO (20:09)
[2018-01-20] MEDS ORDERED: CEPH-368 PO (20:09)
[2018-01-20 20:10] LABS: BASOPHILS # (AUTO) 0.03 x10^3/uL (0-0.1); BASOPHILS % (AUTO) 0 % (0-1); EOSINOPHILS # (AUTO) 0.01 x10^3/uL (0-0.4); EOSINOPHILS % (AUTO) 0 % (1-7); LYMPHOCYTES # (AUTO) 1.22 x10^3/uL (1-3.4); LYMPHOCYTES % (AUTO) 10 % (22-44); MD NO; MEAN CORPUSCULAR HEMOGLOBIN 30.7 pg (27.5-34.5); MEAN CORPUSCULAR HGB CONC 35.2 g/dL (33.2-36.2); MEAN CORPUSCULAR VOLUME 87.1 fL (81-97); MEAN PLATELET VOLUME 7.8 fL (7.4-10.4); MONOCYTES # (AUTO) 1.04 x10^3/uL (0.2-0.8); MONOCYTES % (AUTO) 8 % (2-9); NEUTROPHILS # (AUTO) 10.29 x10^3/uL (1.8-6.8); NEUTROPHILS % (AUTO) 82 % (42-75); PLATELET COUNT 317 x10^3/uL (130-400); RED BLOOD COUNT 4.84 x10^6/uL (4.38-5.82); RED CELL DISTRIBUTION WIDTH 13.7 % (9.4-14.8)
[2018-01-20] MEDS ORDERED: THORAZINE PO ×2 (20:20)
[2018-01-20] MEDS ORDERED: PRAZ5CAP2 PO (20:22)
[2018-01-20 21:12] LABS: AMPHETAMINE SCREEN, URINE Negative (Negative); BARBITURATE SCREEN, URINE Negative (Negative); BENZODIAZEPINE SCREEN, URINE Negative (Negative); CANNABINOID SCREEN, URINE Positive (Negative); COCAINE SCREEN, URINE Negative (Negative); METHADONE SCREEN, URINE Negative (Negative); OPIATE SCREEN, URINE Negative (Negative)
[2018-01-20] MEDS ORDERED: ACETAMINOPHEN 325 MG TABLET ONE (21:14)
[2018-01-20] MEDS ORDERED: ACETAMINOPHEN 325 MG TABLET PO ONE (21:30)
[2018-01-20] MEDS ORDERED: IBUPROFEN 200 MG TABLET ONE (22:18)
[2018-01-20] MEDS ORDERED: IBUPROFEN 200 MG TABLET PO ONE (22:30)
[2018-01-21] MEDS ORDERED: ONDANSETRON ODT 4 MG PO PRN (01:00)
[2018-01-21] MEDS ORDERED: DOCUSATE 100 MG CAPSULE PO PRN (01:00)
[2018-01-21] MEDS ORDERED: LEVETIRACETAM 500 MG TABLET ONE ×2 (08:36→14:29)
[2018-01-21] MEDS ORDERED: CEPHALEXIN 500 MG CAPSULE ONE ×3 (08:36→20:58)
[2018-01-21] MEDS: CEPHALEXIN 500 MG CAPSULE PO SCH ×3 (08:39→21:01)
[2018-01-21] MEDS: LEVETIRACETAM 500 MG TABLET PO SCH ×2 (08:39→21:01)
[2018-01-21] MEDS: DIVALPROEX 500 MG TABLET.DR PO SCH ×2 (11:51→21:03)
[2018-01-21] MEDS: CHLORPROMAZINE 100MG TAB PO SCH ×2 (11:51→21:02)
[2018-01-21] MEDS: PRAZOSIN 5 MG CAPSULE PO SCH (21:01)
[2018-01-21] MEDS: MIRTAZAPINE 30 MG TAB.RAPDIS PO SCH (21:02)
[2018-01-22] MEDS: CHLORPROMAZINE 100MG TAB PO SCH ×2 (08:14→21:01)
[2018-01-22] MEDS: CEPHALEXIN 500 MG CAPSULE PO SCH ×3 (08:16→21:01)
[2018-01-22] MEDS: DIVALPROEX 500 MG TABLET.DR PO SCH ×2 (08:17→21:01)
[2018-01-22] MEDS: LEVETIRACETAM 500 MG TABLET PO SCH ×2 (08:17→21:01)
[2018-01-22 13:41] VITALS: BP 137/89
[2018-01-22] MEDS: LORazepam 1MG TABLET PO PRN (17:24)
[2018-01-22] MEDS: PRAZOSIN 5 MG CAPSULE PO SCH (21:01)
[2018-01-22] MEDS: MIRTAZAPINE 30 MG TAB.RAPDIS PO SCH (21:02)
[2018-01-22 22:20] VITALS: BP 89/59
[2018-01-23 07:52] VITALS: BP 126/82
[2018-01-23] MEDS: DIVALPROEX 500 MG TABLET.DR PO SCH ×2 (08:41→22:56)
[2018-01-23] MEDS: LEVETIRACETAM 500 MG TABLET PO SCH ×2 (08:41→22:56)
[2018-01-23] MEDS: CEPHALEXIN 500 MG CAPSULE PO SCH ×3 (08:41→22:56)
[2018-01-23] MEDS: CHLORPROMAZINE 100MG TAB PO SCH ×2 (08:42→22:59)
[2018-01-23] MEDS: LORazepam 1MG TABLET PO PRN (13:12)
[2018-01-23] MEDS ORDERED: ZIPRASIDONE 20 MG INJ IM ONE (17:22)
[2018-01-23] MEDS ORDERED: ZIPRASIDONE 20 MG INJ IM PRN (17:30)
[2018-01-23 22:59] VITALS: BP 120/81
[2018-01-23] MEDS: MIRTAZAPINE 30 MG TAB.RAPDIS PO SCH (22:59)
[2018-01-23] MEDS: PRAZOSIN 5 MG CAPSULE PO SCH (22:59)
[2018-01-24] MEDS: CEPHALEXIN 500 MG CAPSULE PO SCH ×3 (11:44→20:32)
[2018-01-24] MEDS: CHLORPROMAZINE 100MG TAB PO SCH ×3 (11:45→20:31)
[2018-01-24] MEDS: DIVALPROEX 500 MG TABLET.DR PO SCH ×2 (11:45→20:31)
[2018-01-24] MEDS: LEVETIRACETAM 500 MG TABLET PO SCH ×2 (11:45→20:32)
[2018-01-24 12:28] LABS: ALANINE AMINOTRANSFERASE 57 U/L (12-78); ALBUMIN 3.4 g/dL (3.4-5.0); ANION GAP 10 mmol/L (5-15); CHLORIDE 109 mmol/L (98-107); CREATININE 1.05 mg/dL (0.7-1.3)
[2018-01-24 12:30] LABS: ALKALINE PHOSPHATASE 69 U/L (45-117); BILIRUBIN,TOTAL 0.5 mg/dL (0.2-1.0); TOTAL PROTEIN 7.5 g/dL (6.4-8.2)
[2018-01-24] MEDS: LORazepam 1MG TABLET PO PRN (17:27)
[2018-01-24 19:32] VITALS: BP 118/83
[2018-01-24] MEDS: PRAZOSIN 5 MG CAPSULE PO SCH (20:32)
[2018-01-24] MEDS: MIRTAZAPINE 30 MG TAB.RAPDIS PO SCH (20:32)
[2018-01-25] MEDS: CEPHALEXIN 500 MG CAPSULE PO SCH ×2 (08:08→11:06)
[2018-01-25] MEDS: DIVALPROEX 500 MG TABLET.DR PO SCH ×3 (08:08→23:23)
[2018-01-25] MEDS: CHLORPROMAZINE 100MG TAB PO SCH ×4 (08:08→23:23)
[2018-01-25] MEDS: LEVETIRACETAM 500 MG TABLET PO SCH ×3 (08:08→23:23)
[2018-01-25 19:57] VITALS: BP 104/68
[2018-01-25] MEDS: PRAZOSIN 5 MG CAPSULE PO SCH (23:23)
[2018-01-25] MEDS: MIRTAZAPINE 30 MG TAB.RAPDIS PO SCH (23:23)
[2018-01-26] MEDS: CHLORPROMAZINE 100MG TAB PO SCH ×4 (11:58→20:27)
[2018-01-26] MEDS: LEVETIRACETAM 500 MG TABLET PO SCH ×3 (11:58→20:27)
[2018-01-26] MEDS: DIVALPROEX 500 MG TABLET.DR PO SCH ×3 (11:58→20:27)
[2018-01-26] MEDS: LORazepam 1MG TABLET PO PRN (17:18)
[2018-01-26] MEDS: MIRTAZAPINE 30 MG TAB.RAPDIS PO SCH (20:27)
[2018-01-26] MEDS: PRAZOSIN 5 MG CAPSULE PO SCH (20:28)
[2018-01-26 21:14] VITALS: BP 138/76
[2018-01-27] MEDS: DIVALPROEX 500 MG TABLET.DR PO SCH (10:36)
[2018-01-27] MEDS: LEVETIRACETAM 500 MG TABLET PO SCH (10:37)
[2018-01-27] MEDS: CHLORPROMAZINE 100MG TAB PO SCH ×3 (10:37→20:44)
[2018-01-27] MEDS: LORazepam 1MG TABLET PO PRN (17:51)
[2018-01-27 19:23] VITALS: BP 126/83
[2018-01-27] MEDS: DIVALPROEX 250 MG TABLET.DR PO SCH (20:43)
[2018-01-27] MEDS: PRAZOSIN 5 MG CAPSULE PO SCH (20:43)
[2018-01-27] MEDS: MIRTAZAPINE 30 MG TAB.RAPDIS PO SCH (20:43)
[2018-01-28] MEDS: CHLORPROMAZINE 100MG TAB PO SCH ×4 (12:00→21:00)
[2018-01-28] MEDS: LISINOPRIL 5 MG TABLET PO SCH (13:48)
[2018-01-28] MEDS: DIVALPROEX 250 MG TABLET.DR PO SCH ×3 (13:50→21:00)
[2018-01-28] MEDS: LORazepam 1MG TABLET PO PRN (17:09)
[2018-01-28] MEDS: PRAZOSIN 5 MG CAPSULE PO SCH (20:19)
[2018-01-28] MEDS: MIRTAZAPINE 30 MG TAB.RAPDIS PO SCH ×2 (20:20→21:00)
[2018-01-29] MEDS: CHLORPROMAZINE 100MG TAB PO SCH ×2 (08:29→20:14)
[2018-01-29] MEDS: DIVALPROEX 250 MG TABLET.DR PO SCH ×2 (08:29→20:14)
[2018-01-29] MEDS: LISINOPRIL 5 MG TABLET PO SCH (08:29)
[2018-01-29 19:29] VITALS: BP 125/86
[2018-01-29] MEDS: MIRTAZAPINE 30 MG TAB.RAPDIS PO SCH (20:15)
[2018-01-29] MEDS: PRAZOSIN 5 MG CAPSULE PO SCH (20:15)
[2018-01-30] MEDS: LISINOPRIL 5 MG TABLET PO SCH (08:06)
[2018-01-30] MEDS: DIVALPROEX 250 MG TABLET.DR PO SCH ×2 (08:07→19:54)
[2018-01-30] MEDS: LORazepam 1MG TABLET PO PRN (16:52)
[2018-01-30 19:39] VITALS: BP 132/88
[2018-01-30] MEDS: PRAZOSIN 5 MG CAPSULE PO SCH (19:54)
[2018-01-30] MEDS: CHLORPROMAZINE 100MG TAB PO SCH (19:54)
[2018-01-30] MEDS: MIRTAZAPINE 30 MG TAB.RAPDIS PO SCH (19:54)
[2018-01-31 07:50] VITALS: BP 101/66
[2018-01-31] MEDS: DIVALPROEX 250 MG TABLET.DR PO SCH ×3 (09:17→21:00)
[2018-01-31] MEDS: LISINOPRIL 5 MG TABLET PO SCH (09:18)
[2018-01-31] MEDS: LORazepam 1MG TABLET PO PRN (15:35)
[2018-01-31] MEDS: PRAZOSIN 5 MG CAPSULE PO SCH ×2 (20:17→21:00)
[2018-01-31] MEDS: MIRTAZAPINE 30 MG TAB.RAPDIS PO SCH ×2 (20:18→21:00)
[2018-01-31] MEDS: CHLORPROMAZINE 100MG TAB PO SCH ×2 (20:18→21:00)
[2018-02-01 07:56] VITALS: BP 106/73
[2018-02-01] MEDS: DIVALPROEX 250 MG TABLET.DR PO SCH ×2 (08:07→20:38)
[2018-02-01] MEDS: LISINOPRIL 5 MG TABLET PO SCH (08:07)
[2018-02-01] MEDS: LORazepam 1MG TABLET PO PRN (17:24)
[2018-02-01 19:20] VITALS: BP 133/84
[2018-02-01] MEDS: PRAZOSIN 5 MG CAPSULE PO SCH (20:38)
[2018-02-01] MEDS: MIRTAZAPINE 30 MG TAB.RAPDIS PO SCH (20:38)
[2018-02-01] MEDS: CHLORPROMAZINE 100MG TAB PO SCH (20:39)
[2018-02-02 08:00] VITALS: BP 109/72
[2018-02-02] MEDS: DIVALPROEX 250 MG TABLET.DR PO SCH ×2 (08:11→20:24)
[2018-02-02] MEDS: LISINOPRIL 5 MG TABLET PO SCH (08:12)
[2018-02-02 19:39] VITALS: BP 125/85
[2018-02-02] MEDS: CHLORPROMAZINE 100MG TAB PO SCH (20:24)
[2018-02-02] MEDS: PRAZOSIN 5 MG CAPSULE PO SCH (20:24)
[2018-02-02] MEDS: MIRTAZAPINE 30 MG TAB.RAPDIS PO SCH (20:24)
[2018-02-03] MEDS: DIVALPROEX 250 MG TABLET.DR PO SCH (08:16)
[2018-02-03] MEDS: LISINOPRIL 5 MG TABLET PO SCH (08:16)
[2018-02-03] MEDS: LORazepam 1MG TABLET PO PRN ×2 (13:41→14:45)
[2018-02-03] MEDS: CHLORPROMAZINE 100MG TAB PO PRN ×2 (13:41→14:45)
[2018-02-03] MEDS: DIVALPROEX 500 MG TABLET.DR PO SCH (20:24)
[2018-02-03] MEDS: MIRTAZAPINE 30 MG TAB.RAPDIS PO SCH (20:24)
[2018-02-03] MEDS: CHLORPROMAZINE 100MG TAB PO SCH (20:24)
[2018-02-03] MEDS: PRAZOSIN 5 MG CAPSULE PO SCH (20:24)
[2018-02-03 20:29] VITALS: BP 137/82
[2018-02-04] MEDS: DIVALPROEX 500 MG TABLET.DR PO SCH ×2 (08:43→19:47)
[2018-02-04] MEDS: LISINOPRIL 5 MG TABLET PO SCH (08:44)
[2018-02-04 11:48] VITALS: BP 145/90
[2018-02-04] MEDS: ACETAMINOPHEN 325 MG TABLET PO PRN (18:15)
[2018-02-04 18:50] LABS: CLOSTRIDIUM DIFFICILE ANTIGEN NEGATIVE; CLOSTRIDIUM DIFFICILE TOXIN NEGATIVE (Negative)
[2018-02-04 19:32] VITALS: BP 132/85
[2018-02-04] MEDS: MIRTAZAPINE 30 MG TAB.RAPDIS PO SCH (19:47)
[2018-02-04] MEDS: PRAZOSIN 5 MG CAPSULE PO SCH (19:47)
[2018-02-04] MEDS: CHLORPROMAZINE 100MG TAB PO SCH (19:47)
[2018-02-05] MEDS ORDERED: LOPERAMIDE 2 MG CAPSULE PO PRN
[2018-02-05] MEDS: LISINOPRIL 5 MG TABLET PO SCH (10:22)
[2018-02-05] MEDS: DIVALPROEX 500 MG TABLET.DR PO SCH (10:22)
[2018-02-05] MEDS: ACETAMINOPHEN 325 MG TABLET PO PRN (14:16)
[2018-02-05] MEDS: MIRTAZAPINE 30 MG TAB.RAPDIS PO SCH (19:56)
[2018-02-05] MEDS: PRAZOSIN 5 MG CAPSULE PO SCH (19:56)
[2018-02-05] MEDS: DIVALPROEX 500 MG TAB.ER.24H PO SCH (19:57)
[2018-02-05] MEDS: CHLORPROMAZINE 100MG TAB PO SCH (19:57)
[2018-02-06] MEDS: DIVALPROEX 500 MG TAB.ER.24H PO SCH ×2 (08:20→20:07)
[2018-02-06] MEDS: LISINOPRIL 5 MG TABLET PO SCH (08:20)
[2018-02-06 13:00] VITALS: BP 128/85
[2018-02-06] MEDS: CHLORPROMAZINE 100MG TAB PO SCH (20:06)
[2018-02-06] MEDS: PRAZOSIN 5 MG CAPSULE PO SCH (20:06)
[2018-02-06] MEDS: MIRTAZAPINE 30 MG TAB.RAPDIS PO SCH (20:07)
[2018-02-06 20:12] VITALS: BP 133/91
[2018-02-07] MEDS: DIVALPROEX 500 MG TAB.ER.24H PO SCH (09:18)
[2018-02-07] MEDS: LISINOPRIL 5 MG TABLET PO SCH (09:18)
[2018-02-07 12:24] VITALS: BP 127/81
[2018-02-07] MEDS ORDERED: LISI5TAB7 PO (16:01)
[2018-02-07] MEDS ORDERED: CHLO25TA4 PO (16:01)
[2018-02-07] MEDS ORDERED: CHLO100T6 PO (16:01)
[2018-02-07] MEDS ORDERED: DIVA500T4 PO (16:01)
== END 2018-02-07 17:46 | disposition home or self-care (01) ==
LOC: ED 21:02 → EDIP 01-21 00:15 → SUATTDRO 01-21 00:25 → 2N 01-21 21:33
PROVIDERS: ADMIT Internal Medicine; ATTEND Internal Medicine
DX: R45.851 Suicidal ideations (principal); F32.9 Major depressive disorder, single episode, unspecified; F25.9 Schizoaffective disorder, unspecified; L03.90 Cellulitis, unspecified; F15.90 Other stimulant use, unspecified, uncomplicated; F12.90 Cannabis use, unspecified, uncomplicated; E11.9 Type 2 diabetes mellitus without complications; G40.909 Epilepsy, unspecified, not intractable, without status epilepticus; I10 Essential (primary) hypertension; Z62.810 Personal history of physical and sexual abuse in childhood; Z62.811 Personal history of psychological abuse in childhood; Z91.410 Personal history of adult physical and sexual abuse
CPT/HCPCS: 36415; 80048; 80053; 80164; 80307; 80329; 82040; 85025; 87324; 93005; 96372; 99285; G0378; J3486; Q0162; G0480

== ENCOUNTER 2018-05-06 14:29 | Observation (INO) | payer MEDICAID ==
[~2018-05-06] VITALS: Ht 177.8 cm; Wt 92.1 kg
[~2018-05-06 14:29] MED LIST changes: +AMLO-150 PO; -AMLO5TAB7 PO; +CEPH-368 PO; +CHLO100T6 PO; +CHLO25TA4 PO; +DIVA500T4 PO; -LEVE500T13 PO; +LEVE500T22 PO; +LISI5TAB7 PO; +MIRT30TA3 PO; +PRAZ5CAP2 PO; +THORAZINE PO
--- NOTE | 2018-05-06 14:52 | NUR ---
PT PLACED IN SECURED ROOM #40. AMBULATORY WITH KNEE IMMOBILIZER AND CRUTCHES. URINE SAMPLE SEN TTO LAB. TWO BAGS OF BELONGINGS PLACED IN ED LOCK-UP. PT C/O SI. 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 OFF HIS MEDS X 1 WEEK PER PT. STATES HE USUALLY GOES TO [facility]. PT IS STAYING AT THE [facility].
[2018-05-06 15:10] LABS: AMPHETAMINE SCREEN, URINE Positive (Negative); BARBITURATE SCREEN, URINE Negative (Negative); BENZODIAZEPINE SCREEN, URINE Negative (Negative); CANNABINOID SCREEN, URINE Positive (Negative); COCAINE SCREEN, URINE Negative (Negative); METHADONE SCREEN, URINE Negative (Negative); OPIATE SCREEN, URINE Negative (Negative)
[2018-05-06 15:11] LABS: BASOPHILS # (AUTO) 0.02 x10^3/uL (0-0.1); BASOPHILS % (AUTO) 0 % (0-1); EOSINOPHILS # (AUTO) 0.05 x10^3/uL (0-0.4); EOSINOPHILS % (AUTO) 1 % (1-7); LYMPHOCYTES # (AUTO) 1.35 x10^3/uL (1-3.4); LYMPHOCYTES % (AUTO) 18 % (22-44); MD NO; MEAN CORPUSCULAR HEMOGLOBIN 30.2 pg (27.5-34.5); MEAN CORPUSCULAR VOLUME 88.9 fL (81-97); MEAN PLATELET VOLUME 9.4 fL (7.4-10.4); MONOCYTES # (AUTO) 0.67 x10^3/uL (0.2-0.8); MONOCYTES % (AUTO) 9 % (2-9); NEUTROPHILS # (AUTO) 5.26 x10^3/uL (1.8-6.8); NEUTROPHILS % (AUTO) 72 % (42-75); PLATELET COUNT 226 x10^3/uL (130-400); RED BLOOD COUNT 5.28 x10^6/uL (4.38-5.82); RED CELL DISTRIBUTION WIDTH 12.6 % (9.4-14.8)
[2018-05-06 15:21] LABS: ALBUMIN 3.7 g/dL (3.4-5.0); ANION GAP 9 mmol/L (5-15); CALCIUM 9.1 mg/dL (8.5-10.1); CHLORIDE 109 mmol/L (98-107); SALICYLATE LEVEL 2.6 mg/dL (2.8-20.0)
[2018-05-06 15:24] LABS: ALANINE AMINOTRANSFERASE 56 U/L (12-78); ALKALINE PHOSPHATASE 89 U/L (45-117); BILIRUBIN,TOTAL 0.9 mg/dL (0.2-1.0); CREATININE 0.98 mg/dL (0.7-1.3); TOTAL PROTEIN 7.6 g/dL (6.4-8.2)
[2018-05-06 15:25] LABS: ACETAMINOPHEN < 2 mcg/mL (10-30)
--- NOTE | 2018-05-06 16:12 | NUR ---
PT HAS SITTER OUTSIDE ROOM FOR CONTINOUS SAFETY MONITORING. PT RESTING NADN. STILL HAVING SI THOUGHTS AT THIS TIME.
--- NOTE | 2018-05-06 17:48 | NUR ---
SPOKE WITH SOC, PT GIVEN PO FLUIDS.
[2018-05-06] MEDS ORDERED: DIVALPROEX 500 MG TAB.ER.24H ONE (17:56)
[2018-05-06] MEDS ORDERED: LEVETIRACETAM 500 MG TABLET ONE (17:56)
[2018-05-06] MEDS ORDERED: ZIPRASIDONE 20MG CAPSULE ONE (17:56)
--- NOTE | 2018-05-06 18:03 | NUR ---
RECORDS REQUESTED FROM [facility].
[2018-05-06] MEDS: ZIPRASIDONE 20MG CAPSULE PO SCH (18:08)
[2018-05-06] MEDS: LEVETIRACETAM 500 MG TABLET PO SCH (18:08)
[2018-05-06] MEDS: DIVALPROEX 500 MG TABLET.DR PO SCH (18:08)
--- NOTE | 2018-05-06 18:09 | NUR ---
PER OKAY TO GIVE PT MEDS EARLY TO HELP RELAX PT AND STABILIZE.
--- NOTE | 2018-05-06 18:52 | NUR ---
PACKET FAXED TO [facility]
--- NOTE | 2018-05-06 19:19 | NUR ---
RECEIVED REPORT FROM LAZ Weston RN.
--- NOTE | 2018-05-06 20:15 | NUR ---
DIRECTOR OF DECLINED PT TO BE ADMITTED TO .
--- NOTE | 2018-05-06 20:17 | NUR ---
PT ABLE TO AMBULATE STEADILY IN HALLS WITHOUT CRUTCHES AND KNEE IMMOBILIZER. ER CHARGE AWARE. CALLED [facility], STATED THEY ARE AWAITING DIRECTOR APPROVAL BECAUSE PT HAS BEEN PROBLEMATIC IN THE PAST.
--- NOTE | 2018-05-06 21:05 | NUR ---
PT RESTING CALMLY IN BED WITH EYES CLOSED. PT GIVEN WATER PER PT REQUEST. RESP EVEN AND NON LABORED. PT HAS BEEN REFUSED BY [facility] DIRECTOR. SITTER AT DOOR FOR FREQUENT OBS
--- NOTE | 2018-05-06 22:30 | NUR ---
PT RESTING CALMLY IN BED WITH EYES CLOSED. NO STATED NEEDS AT THIS TIME. WILL CONTINUE TO MONITOR. SITTER AT DOOR FOR FREQUENT OBS.
[2018-05-06] MEDS ORDERED: POLYETHYLENE GLYCOL 17 GM PACKET PO PRN (23:00)
[2018-05-06] MEDS ORDERED: ONDANSETRON ODT 4 MG PO PRN (23:00)
[2018-05-06] MEDS ORDERED: ACETAMINOPHEN 325 MG TABLET PO PRN (23:00)
[2018-05-06] MEDS ORDERED: ZIPRASIDONE 20MG CAPSULE PO PRN (23:00)
[2018-05-06] MEDS ORDERED: CHLORPROMAZINE HCL 50 MG PO SCH (23:00)
[2018-05-06] MEDS ORDERED: BISACODYL 10 MG SUPP PR PRN (23:00)
[2018-05-06] MEDS ORDERED: TEMPLATE NON-FORMULARY MED. (Divalproex Sodium** (Depakote Er**) 1,000 MG) PO SCH (23:00)
--- NOTE | 2018-05-06 23:02 | NUR ---
PT RESTING IN BED, NO STATED NEEDS CURRENTLY. SITTER AT DOOR.
[2018-05-06] MEDS ORDERED: LORazepam 1MG TABLET PO PRN (23:30)
--- NOTE | 2018-05-07 00:30 | NUR ---
CALLED HOSPITALIST TO CLARIFY MEDS. PT CONTINUES TO REST IN BED WITH EYES CLOSED. NO STATED NEEDS AT THIS TIME. WILL CONTINUE TO MONITOR.
[2018-05-07] MEDS: CHLORPROMAZINE 100MG TAB PO SCH ×2 (00:52→22:28)
[2018-05-07] MEDS: MIRTAZAPINE 30 MG TAB.RAPDIS PO SCH ×2 (00:52→22:29)
--- NOTE | 2018-05-07 01:00 | NUR ---
PT MEDICATED WITH ORDERED MEDS PER EMAR. PT COMPLIED WITH MEDS. SITTER AT DOOR.
--- NOTE | 2018-05-07 01:19 | NUR ---
BREAK RN. PT RESTING CALMLY, NADN, EQUAL CHEST RISE/FALL OBSERVED, SITTER AT DOORWAY FOR CONTINOUS MONITORING.
--- NOTE | 2018-05-07 02:02 | NUR ---
PT RESTING IN BED. SITTER AT DOOR.
--- NOTE | 2018-05-07 03:27 | NUR ---
PT RESTING IN BED WITH EYES CLOSED. NO NEEDS STATED AT THIS TIME. SITTER AT DOOR FOR FREQUENT OBS.
--- NOTE | 2018-05-07 04:24 | NUR ---
PT RESTING IN BED WITH EYES CLOSED. RESP EVEN AND NON LABORED. SITTER AT DOOR FOR FREQUENT OBS.
--- NOTE | 2018-05-07 05:30 | NUR ---
PT RESTING IN BED WITH EYES CLOSED. RESP EVEN AND NON LABORED.
--- NOTE | 2018-05-07 06:44 | NUR ---
PT RESTING IN BED. GAVE PT WATER PER HIS REQUEST. SITTER AT DOOR FOR OBS.
[2018-05-07] MEDS ORDERED: ZIPRASIDONE 20MG CAPSULE ONE ×2 (06:53→21:37)
[2018-05-07] MEDS ORDERED: SENNA/DOCUSATE TABLET ONE (06:53)
[2018-05-07] MEDS ORDERED: LEVETIRACETAM 500 MG TABLET ONE ×2 (06:53→21:37)
--- NOTE | 2018-05-07 08:39 | NUR ---
PT IN ROOM. PT IS DIFFICULT TO AROUSE AND DOES NOT WANT TO ANSWER ANY QUESTIONS WHEN ASKED AND INSTEAD JUST MAKES AUDIBLE GRUNTING AND WHINNING NOISES.
[2018-05-07] MEDS: SENNA/DOCUSATE TABLET PO SCH (08:55)
[2018-05-07] MEDS: LEVETIRACETAM 500 MG TABLET PO SCH ×2 (08:55→22:29)
[2018-05-07] MEDS: LISINOPRIL 5 MG TABLET PO SCH (08:56)
[2018-05-07] MEDS: DIVALPROEX 500 MG TABLET.DR PO SCH ×2 (08:56→22:30)
[2018-05-07] MEDS ORDERED: DIVALPROEX 500 MG TAB.ER.24H ONE ×2 (08:59→21:37)
[2018-05-07] MEDS: ZIPRASIDONE 20MG CAPSULE PO SCH ×2 (09:00→22:29)
--- NOTE | 2018-05-07 09:24 | NUR ---
PT RESTING IN BED. PT DIFFICULT TO AROUSE AT THIS TIME. MORNING MEDS ADMIN. GEODONE WITHELD DUE TO PT BEING DIFFICULT TO AROUSE AT THIS TIME. BREAKFAST WAS OFFERED AND PT REFUSED AT THIS TIME
--- NOTE | 2018-05-07 10:37 | NUR ---
PT STILL RESTING WILL AROUSE TO TOUCH WITH LOUD VOICE. STILL REFUSING BREAKFAST.
--- NOTE | 2018-05-07 10:41 | NUR ---
PT RESTING IN BED. RESPS EVEN AND UNLABOREED. SKIN WARM, PINK AND DRY. SITTER IN HALLWAY
--- NOTE | 2018-05-07 14:50 | NUR ---
PT SLEEPING CONT 1:1
--- NOTE | 2018-05-07 15:19 | NUR ---
PT STILL RESTING IN BED. PT AROUSED BY VOICE AT THIS TIME. RESPS EVEN AND UNLABORED. SITTER AT SIDE. PT EXPRESSES NO WANTS OR NEEDS AT THIS TIME. REFUSED LUNCH WHEN IT CAME.
--- NOTE | 2018-05-07 18:25 | NUR ---
pt more awake at this time. food provided. pt up to resroom and walks with a steady gait. pt axox4 at this time. no wants or needs
--- NOTE | 2018-05-07 18:57 | NUR ---
RECEIVED BS REPORT FROM KRISHNA HANNAH. PT. RESTING ON GURNEY WITH BLANKET OVER HEAD. RESPIRATIONS VISIBLE. PER BRIELLE PT. ATE ALL OF DINNER TRAY PROVIDED AND HAD AMBULATED TO BR WITH STEADY GAIT JUST BEFORE SHIFT CHANGE. PT. HAS SITTER IN CLEMENTS AND ROOM IS SECURED. NO DISTRESS NOTED. ALL SAFETY MEASURES OBSERVED.
--- NOTE | 2018-05-07 19:53 | NUR ---
PT. CONTINUES RESTING ON GURNEY WITH NADN. LEFT SIDE LYING WITH BLANKT COVING HIM; RESP VISIBLE. SITTER REMAINS IN CLEMENTS; ROOM REMAINS SECURED.
--- NOTE | 2018-05-07 20:55 | NUR ---
PT. WAS PROVIDED WITH WATER BY SITTER; PT. WITH NADN. DENIES OTHER NEEDS. ROOM REMAINS SECURED; SITTER IN CLEMENTS.
--- NOTE | 2018-05-07 21:39 | NUR ---
MED REQUEST SENT TO PHARMACY.
--- NOTE | 2018-05-07 22:13 | NUR ---
RECEIVED MEDS FROM PHARMACY AT THIS TIME.
--- NOTE | 2018-05-07 22:37 | NUR ---
PT. MEDICATED PER JUN. VS UPDATED. PT. GIVEN MORE WATER PER REQUEST. DENIES OTHER NEEDS. CALM AND COOPERATIVE. ROOM REMAINS SECURED. SITTER IN DOORWAY.
--- NOTE | 2018-05-07 23:38 | NUR ---
PT. RESING ON GURNEY IN RIGHT SIDE LYING POSITION WITH EYES CLOSED. EVEN, NON-LABORED RESPIRATIONS VISIBLE. NADN. ALL SAFETY MEASUERS OBSERVED.
--- NOTE | 2018-05-08 01:39 | NUR ---
PT. CONTINUES RESTING ON GURNEY WITH EYES CLOSED. NADN. EVEN, NON-LABORED RESPIRATIONS.
--- NOTE | 2018-05-08 02:46 | NUR ---
PT. CONTINUES RESTING ON GURNEY WITH NADN. EVEN, NON-LABORED RESPIRATIONS VISIBLE. ROOM SECURED. SITTER IN DOORWAY.
--- NOTE | 2018-05-08 03:38 | NUR ---
report taken from Sam scales. patient sleeping and calm at this time.
--- NOTE | 2018-05-08 03:43 | NUR ---
REPORT TO KRISHNA ALEMAN TO ASSUME PT. CARE.
--- NOTE | 2018-05-08 05:01 | NUR ---
PATIENT SLEEPING SOUNDLY. WAKES TO LIGHT STIMULATION. SITTER OUTSIDE ROOM
--- NOTE | 2018-05-08 05:57 | NUR ---
ORDERED A MEAL TRAY FOR PATIENT FOR BREAKFAST. PATIENT CALM, RESTING, COOPERATIVE.
--- NOTE | 2018-05-08 07:05 | NUR ---
patient safe in [facility], observed with even unlabored respirations, appears to be sleeping soundly, sitter (marketing associate Hawk) outside room with line of sight at all times.
--- NOTE | 2018-05-08 09:19 | NUR ---
TASK RN: PT SLEEPING ON MAYRARDONAL. SHANI. SITTER REMAINS AT BEDSIDE. ROOM REMAINS SECURE. SI BREAKFAST TRAY PROVIDED.
[2018-05-08] MEDS ORDERED: SENNA/DOCUSATE TABLET ONE (10:24)
[2018-05-08] MEDS ORDERED: LISINOPRIL 10 MG TABLET ONE (10:24)
[2018-05-08] MEDS ORDERED: DIVALPROEX 500 MG TAB.ER.24H ONE (10:25)
[2018-05-08] MEDS ORDERED: LEVETIRACETAM 500 MG TABLET ONE ×2 (10:25→21:44)
[2018-05-08] MEDS: ZIPRASIDONE 20MG CAPSULE PO SCH ×3 (10:30→22:39)
[2018-05-08] MEDS: SENNA/DOCUSATE TABLET PO SCH ×2 (10:31→13:00)
[2018-05-08] MEDS: LEVETIRACETAM 500 MG TABLET PO SCH ×3 (10:31→22:38)
[2018-05-08] MEDS: LISINOPRIL 5 MG TABLET PO SCH ×2 (10:31→13:00)
--- NOTE | 2018-05-08 10:39 | NUR ---
patient refusing all morning meds, is adamant that "some lady gave them to me, I'm not taking them again" He is otherwise not agitated or uncooperative, but the medical record and this RN's presence in the vicinity of the room, do not suggest that the patient has had any of his morning medicines... This RN to attempt chief medical technologist again at approx 1100 hrs.
--- NOTE | 2018-05-08 11:49 | NUR ---
TASK RN: PT SLEEPING ON CHELE. SHANI. SITTER REMAINS AT BEDSIDE. ROOM REMAINS SECURE. SI LUNCH TRAY ORDERED. HOSPITAL BED ORDERED.
--- NOTE | 2018-05-08 12:23 | NUR ---
[facility] denied patient.
[2018-05-08] MEDS: DIVALPROEX 500 MG TABLET.DR PO SCH ×2 (13:00→22:38)
--- NOTE | 2018-05-08 16:02 | NUR ---
PATIENT CONTINUES TO REST IN BED SAFELY, NO ACUTE DISTRESS NOTED, GOOD APPETITE TODAY, HAS AMBULATED TO THE BATHROOM WITH STEADY GAIT MULTIPLE TIMES, NO ADDITIONAL NEEDS AT THIS TIME.
--- NOTE | 2018-05-08 17:43 | NUR ---
patient sleeping in bed, safety maintained, even and unlabored respirations observed from hallway, sitter present in cook at all times.
--- NOTE | 2018-05-08 19:56 | NUR ---
REPORTN CHRIS RN. PT SLEEPING WITH NO NEEDS AT THIS TIME. PT IN NAD. SITTER IN VIEW OF PT.
--- NOTE | 2018-05-08 21:00 | NUR ---
PT RESTING IN NAD. EVEN RISE AND FALL OF CHEST OBSERVED. SITTER IN VIEW OF PT.
[2018-05-08] MEDS ORDERED: ZIPRASIDONE 20MG CAPSULE ONE (21:45)
--- NOTE | 2018-05-08 21:50 | NUR ---
MEDS REQUESTED FROM [facility]. PT RESTING WITH NO NEEDS AT THIS TIME. SITTER IN VIEW OF PT.
--- NOTE | 2018-05-08 22:37 | NUR ---
PT MEDICATED. VSS. PT NOW SLEEING WITH NO OTHER NEEDS AT THIS TIME. SITTER IN VIEW OF PT
[2018-05-08] MEDS: CHLORPROMAZINE 100MG TAB PO SCH (22:38)
[2018-05-08] MEDS: MIRTAZAPINE 30 MG TAB.RAPDIS PO SCH (22:38)
--- NOTE | 2018-05-09 00:23 | NUR ---
PT SLEEPING. PT IN NAD. EVEN RISE AND FALL OF CHEST OBSERVED. SITTER IN VIEW OF PT
--- NOTE | 2018-05-09 01:58 | NUR ---
PT SLEEPING IN NAD. EVEN RISE AND FALL OF CHEST OBSERVED. SITTER IN VIEW OF PT.
--- NOTE | 2018-05-09 03:06 | NUR ---
PT SLEEPING. EVEN RISE AND FALL OF CHEST OBSERVED. PT IN VIEW OF SITTER.
--- NOTE | 2018-05-09 04:37 | NUR ---
PT SLEEPING. EVEN RISE AND FALL OF CHEST OBSERVED. PT IN VIEW OF SITTER.
--- NOTE | 2018-05-09 05:59 | NUR ---
PT SLEEPING. EVEN RISE AND FALL OF CHEST OBSERVED. PT IN VIEW OF SITTER.
--- NOTE | 2018-05-09 06:49 | NUR ---
REPORT FROM DAISY KELLER. PT IS RESTING IN BED, RESPIRATIONS EQUAL AND NON LABORED. NAD. SITTER OUTSIDE THE ROOM.
--- NOTE | 2018-05-09 07:12 | NUR ---
AM MEDICATION REQUESTED FROM PHARMACY.
--- NOTE | 2018-05-09 08:04 | NUR ---
PT GIVEN BREAKFAST TO EAT. PT IS EATING.
[2018-05-09] MEDS ORDERED: ZIPRASIDONE 20MG CAPSULE ONE (08:17)
[2018-05-09] MEDS ORDERED: SENNA/DOCUSATE TABLET ONE (08:17)
[2018-05-09] MEDS ORDERED: LEVETIRACETAM 500 MG TABLET ONE (08:18)
[2018-05-09] MEDS: DIVALPROEX 500 MG TABLET.DR PO SCH ×2 (08:21→21:00)
[2018-05-09] MEDS: LISINOPRIL 5 MG TABLET PO SCH (08:22)
[2018-05-09] MEDS: SENNA/DOCUSATE TABLET PO SCH (08:22)
[2018-05-09] MEDS: ZIPRASIDONE 20MG CAPSULE PO SCH ×2 (08:22→21:00)
[2018-05-09] MEDS: LEVETIRACETAM 500 MG TABLET PO SCH ×2 (08:22→21:00)
--- NOTE | 2018-05-09 08:23 | NUR ---
PT ANGRY AND NOT WANTING TO TAKE HIS MEDICATIONS. TRIED THREE TIMES TO GET PT TO TAKE HIS MEDICATIONS. PT DID NOT TAKE THEM AND JUST WANTS TO BE LEFT ALONE.
--- NOTE | 2018-05-09 08:42 | NUR ---
ASKED PT IF HE WAS SUICIDAL, PT STATED YES. ASKED PT IF HE HAD A PLAN, PT STATED "LIKE I'M GOING TO TELL YOU". PT WOULD NOT ANSWER ANY OTHER QUESTIONS AFTER THAT.
--- NOTE | 2018-05-09 09:52 | NUR ---
PT IS RESTING IN BED WITH EYES CLOSED, RESPIRATIONS EQUAL AND NON LABORED. NAD. SITTER OUTSIDE THE ROOM.
--- NOTE | 2018-05-09 12:13 | NUR ---
0823 LATE ENTRY. PT EDUCATED ON THE IMPORTANCE OF HIM TAKING HIS MEDICATIONS AND INFORMED HIM THAT HE COULD POSSIBLY HAVE A SEIZURE. PT REFUSED TO TAKE HIS MEDICATIONS SEVERAL TIMES.
--- NOTE | 2018-05-09 12:20 | NUR ---
PT GIVEN LUNCH TO EAT. PT IS EATING HIS FOOD. SITTER OUTSIDE THE DOOR.
--- NOTE | 2018-05-09 12:58 | NUR ---
BREAK RN-PATIENT RESTING AND WATCHING TV. PT HAS NO COMPLAINTS AT THIS TIME.
--- NOTE | 2018-05-09 14:41 | NUR ---
PT IS RESTING IN BED, WATCHING TV, RESPIRATIONS EQUAL AND NON LABORED. NAD. SITTER OUTSIDE THE ROOM.
--- NOTE | 2018-05-09 15:36 | NUR ---
PT IS RESTING IN BED, WATCHING TV, RESPIRATIONS EQUAL AND NON LABORED. NAD. SITTER OUTSIDE THE ROOM.
--- NOTE | 2018-05-09 16:24 | NUR ---
PT IS RESTING IN BED, WATCHING TV, RESPIRATIONS EQUAL AND NON LABORED. NAD. SITTER OUTSIDE THE ROOM.
--- NOTE | 2018-05-09 17:32 | NUR ---
PT IS RESTING IN BED, WATCHING TV, RESPIRATIONS EQUAL AND NON LABORED. NAD. SITTER OUTSIDE THE ROOM.
--- NOTE | 2018-05-09 18:12 | NUR ---
PT GIVEN DINNER TRAY, PT IS EATING THE FOOD. SITTER OUTSIDE THE ROOM.
--- NOTE | 2018-05-09 18:47 | NUR ---
REPORT GIVEN TO SUZY KELLER.
--- NOTE | 2018-05-09 18:53 | NUR ---
PT REPORT FROM JONATHON KELLER. THIS RN TO ASSUME CARE OF PT. PT SLEEPING COMFORTABLY IN BED. RR EVEN AND UNLABORED. NADN. ROLLER DOORS IN PLACE. SITTER IN HALLWAY.
--- NOTE | 2018-05-09 20:23 | NUR ---
PT SLEEPING COMFORTABLY IN BED. RR EVEN AND UNLABORED. NADN. ROLLER DOORS IN PLACE. SITTER IN HALLWAY.
[2018-05-09] MEDS: CHLORPROMAZINE 100MG TAB PO SCH (21:00)
[2018-05-09] MEDS: MIRTAZAPINE 30 MG TAB.RAPDIS PO SCH (21:00)
--- NOTE | 2018-05-09 21:21 | NUR ---
PT GIVEN JACLYN CRACKERS AND PUDDING PER REQUEST.
--- NOTE | 2018-05-09 22:26 | NUR ---
PT SLEEPING COMFORTABLY IN BED. RR EVEN AND UNLABORED. NADN. ROLLER DOORS IN PLACE. SITTER IN HALLWAY.
--- NOTE | 2018-05-10 01:03 | NUR ---
PT SLEEPING COMFORTABLY IN BED. RR EVEN AND UNLABORED. NADN. ROLLER DOORS IN PLACE. SITTER IN HALLWAY.
--- NOTE | 2018-05-10 04:17 | NUR ---
PT SLEEPING COMFORTABLY IN BED. RR EVEN AND UNLABORED. NADN. ROLLER DOORS IN PLACE. SITTER IN HALLWAY.
--- NOTE | 2018-05-10 05:11 | NUR ---
PT SLEEPING COMFORTABLY IN BED. RR EVEN AND UNLABORED. NADN. ROLLER DOORS IN PLACE. SITTER IN HALLWAY.
--- NOTE | 2018-05-10 06:29 | NUR ---
PT SLEEPING COMFORTABLY IN BED. RR EVEN AND UNLABORED. NADN. ROLLER DOORS IN PLACE. SITTER IN HALLWAY.
--- NOTE | 2018-05-10 07:01 | NUR ---
PT REPORT TO LUZ ELENA KELLER.
--- NOTE | 2018-05-10 07:40 | NUR ---
HANDOFF REPORT FROM SUZY KELLER. PT RESTING ON BED, ROOM SECURED, WITH SITTER IN PLACE. AROUSABLE TO VOICE. PT STATES HE CURRENTLY HAS THOUGHTS OF SI BUT DENIES ANUY PLAN AT THIS TIME. ALL CONCERNS ADRESSED AND POC DISCUSSED WITH PT. VSS. RESP EVEN AND UNLABORED.
--- NOTE | 2018-05-10 08:19 | NUR ---
PT PROVIDED WITH SECURITY DIET TRAY.
--- NOTE | 2018-05-10 08:51 | NUR ---
PT RESTING ON GUGERTRUDE. NADN. VSS. RESP EVEN AND UNLABORED. SITTER IN PLACE WITH EYES ON.
[2018-05-10] MEDS ORDERED: ZIPRASIDONE 20MG CAPSULE ONE ×2 (09:09→20:38)
[2018-05-10] MEDS ORDERED: DIVALPROEX 500 MG TAB.ER.24H ONE ×2 (09:09→20:38)
[2018-05-10] MEDS ORDERED: SENNA/DOCUSATE TABLET ONE (09:10)
[2018-05-10] MEDS ORDERED: LISINOPRIL 10 MG TABLET ONE (09:17)
[2018-05-10] MEDS: SENNA/DOCUSATE TABLET PO SCH (09:35)
[2018-05-10] MEDS ORDERED: LEVETIRACETAM 500 MG TABLET ONE ×2 (10:08→20:38)
[2018-05-10] MEDS: LISINOPRIL 5 MG TABLET PO SCH (10:09)
[2018-05-10] MEDS: ZIPRASIDONE 20MG CAPSULE PO SCH ×2 (10:09→21:10)
[2018-05-10] MEDS: DIVALPROEX 500 MG TABLET.DR PO SCH ×2 (10:09→21:09)
[2018-05-10] MEDS: LEVETIRACETAM 500 MG TABLET PO SCH ×2 (10:09→21:09)
--- NOTE | 2018-05-10 11:03 | NUR ---
PT RESTING ON CHELE. SHANI. SITTER IN PLACE WITH EYES ON PT.
--- NOTE | 2018-05-10 12:32 | NUR ---
PT PROVIDED WITH ED SECURITY MEAL TRAY. SITTER IN PLACE WITH EYES ON.
--- NOTE | 2018-05-10 13:55 | NUR ---
PT RESTING ON GURDONAL. NADN. RESP EVEN AND UNLABORED. SITTER IN PLACE.
--- NOTE | 2018-05-10 15:40 | NUR ---
PT RESTING ON GURNEY WITH EYES CLOSED. NADN. SITTER IN PLACE. RESP EVEN AND UNLABORED.
--- NOTE | 2018-05-10 18:30 | NUR ---
PT RESTING ON HOSPITAL BED, WATCHING TV. NADN. RESP EVEN AND UNLABORED. SITTER IN PLACE WITH EYES ON. ED SECURITY DIET TRAY ORDERED.
--- NOTE | 2018-05-10 18:59 | NUR ---
PT HANDOFF REPORT TO SABINO KELLER.
--- NOTE | 2018-05-10 19:00 | NUR ---
REPORT RECEIVED FROM KRISHNA LAGUNA. ASSUMED CARE OF PT. PT RESTING ON GURNEY, DENIES ANY NEEDS AT THIS TIME. HAS ALREADY HAD EVENING MEAL. ROOM REMAINS SECURE. SITTER OUTSIDE DOOR. WILL CONTINUE TO MONITOR.
--- NOTE | 2018-05-10 19:51 | NUR ---
PT SLEEPING. SITTER OUTSIDE DOOR MONITORING PT. WILL CONTINUE TO MONITOR.
--- NOTE | 2018-05-10 20:39 | NUR ---
MEDS REQUESTED FROM PHARMACY
[2018-05-10] MEDS: CHLORPROMAZINE 100MG TAB PO SCH (21:09)
[2018-05-10] MEDS: MIRTAZAPINE 30 MG TAB.RAPDIS PO SCH (21:10)
--- NOTE | 2018-05-10 21:10 | NUR ---
PT MEDICATED WITH EVENING MEDS PER EMAR. PT REFUSED GEODON STATING "I TOLD THEM I DON'T TAKE THAT ANYMORE, I NEED MY HALDOL". PT REPORTS HE TAKES HALDOL 5MG DAILY. WILL DISCUSS WITH HOSPITALIST.
--- NOTE | 2018-05-10 23:09 | NUR ---
PT SLEEPING. RESPIRATIONS EVEN AND UNLABORED. SITTER OUTSIDE DOOR, ROOM REMAINS SECURE. WILL CONTINUE TO MONITOR.
--- NOTE | 2018-05-11 00:37 | NUR ---
PT SLEEPING, ROOM REMAINS SECURE, SITTER OUTSIDE DOOR MONITORING PT.
--- NOTE | 2018-05-11 02:18 | NUR ---
PT CONTINUES TO SLEEP, OCCASIONAL MOVEMENT NOTED. RESPIRATIONS EVEN AND UNLABORED. SITTER OUTSIDE DOOR, WILL CONTINUE TO MONITOR.
--- NOTE | 2018-05-11 04:55 | NUR ---
PT SLEEPING, RESPIRATIONS EVEN AND UNLABORED. SITTER OUTSIDE DOOR MONITORING PT. ROOM REMAINS SECURE. MEAL TRAY ORDERED.
[2018-05-11] MEDS: SENNA/DOCUSATE TABLET PO SCH ×2 (09:00→09:12)
[2018-05-11] MEDS: DIVALPROEX 500 MG TABLET.DR PO SCH ×3 (09:00→21:00)
[2018-05-11] MEDS: LEVETIRACETAM 500 MG TABLET PO SCH ×2 (09:00→09:12)
[2018-05-11] MEDS: ZIPRASIDONE 20MG CAPSULE PO SCH (09:00)
[2018-05-11] MEDS: LISINOPRIL 5 MG TABLET PO SCH (09:00)
[2018-05-11] MEDS ORDERED: SENNA/DOCUSATE TABLET ONE (09:06)
[2018-05-11] MEDS ORDERED: DIVALPROEX 500 MG TAB.ER.24H ONE (09:06)
[2018-05-11] MEDS ORDERED: LEVETIRACETAM 500 MG TABLET ONE (09:06)
[2018-05-11] MEDS ORDERED: DIVALPROEX 500 MG TABLET.DR ONE (09:15)
--- NOTE | 2018-05-11 09:20 | NUR ---
PT REFUSING ALL MORNING MEDS AT THIS TIME. PT WAS AWAKE FOR BREAKFAST AND CONSUMED ENTIRE MEAL.
--- NOTE | 2018-05-11 09:45 | NUR ---
PT IN ROOM RESTING. RESPS EVEN AND UNLABORED. SITTER AT BEDSIDE.
--- NOTE | 2018-05-11 10:01 | NUR ---
PT REFUSING AM MEDS AFTER SCANNING AND OPENING. PILLS WASTED AND QUINN KELLER WITNESSED.
--- NOTE | 2018-05-11 11:02 | NUR ---
[facility] CALLED AND THE PACKET IS UNDER REVIEW
--- NOTE | 2018-05-11 11:07 | NUR ---
UPDATES FAXED TO [facility]
--- NOTE | 2018-05-11 11:12 | NUR ---
[facility] CALLED BACK SPOKE W/MAY THEY DO NOT TAKE HIS INSURANCE
--- NOTE | 2018-05-11 11:56 | NUR ---
pt resting in bed. resps even and unlabored. meal tray ordered.
--- NOTE | 2018-05-11 17:57 | NUR ---
PT IN BED WATCHING TV. MEAL TRAY PROVIDED. NO NEEDS AT THIS TIME.
--- NOTE | 2018-05-11 19:01 | NUR ---
Note balaji in EDM - 05/11/18 at 1903 by MEY BS REPORT OF PT FROM KRISHNA HANNAH. ASSUMING CARE OF PT AT THIS TIME. PT IS RESTING IN [facility] COMFORTABLY AT THIS TIME WITH SITTER FOR DIRECT OBSERVATION.
--- NOTE | 2018-05-11 19:03 | NUR ---
BS REPORT OF PT FROM KRISHNA HANNAH. ASSUMING CARE OF PT AT THIS TIME. PT IS RESTING IN [facility] COMFORTABLY AT THIS TIME WITH SITTER FOR DIRECT OBSERVATION.
[2018-05-11] MEDS ORDERED: DIPHENHYDRAMINE 50 MG/ML, 1ML ONE (19:48)
[2018-05-11] MEDS ORDERED: LORazepam 2 MG/ML, 1ML ONE (19:48)
[2018-05-11] MEDS ORDERED: HALOPERIDOL 5 MG/ML ONE (19:48)
--- NOTE | 2018-05-11 20:06 | NUR ---
pt became agitated. pt threatening this rn saying he is going to stab me and kill me, and stating this RN is a "fucking faggot". Pt medicated per verbal orders of Dr. England. Awaiting orders to scan meds a this time. Pt cooperated with medication administration in presence of 2nd RN. Sitters outside of room at this time for direct observation. crutches removed from pt's room for pt and staff safety.
[2018-05-11] MEDS ORDERED: HALOPERIDOL 5 MG/ML IM ONE (20:30)
[2018-05-11] MEDS ORDERED: DIPHENHYDRAMINE 50 MG/ML, 1ML IM ONE (20:30)
[2018-05-11] MEDS ORDERED: LORazepam 2 MG/ML, 1ML IM ONE (20:30)
[2018-05-11] MEDS: MIRTAZAPINE 30 MG TAB.RAPDIS PO SCH (21:00)
--- NOTE | 2018-05-11 22:12 | NUR ---
pt asleep in [facility] at this time; rodrick. pt has sitter outside of room for direct pt observation.
--- NOTE | 2018-05-11 23:35 | NUR ---
pt sleeping in [facility]. pt has sitter outside of room for direct observation.
--- NOTE | 2018-05-12 00:54 | NUR ---
PT ASLEEP IN [facility] AT THIS TIME WITH SITTER OUTSIDE OF ROOM FOR DIRECT OBSERVATION. REPORT OF PT GIVEN TO FAVIAN ARSHAD RN.
--- NOTE | 2018-05-12 01:59 | NUR ---
PT SLEEPING IN [facility] AT THIS TIME. SITTER OUTSIDE OF PT ROOM FOR DIRECT OBSERVATION.
--- NOTE | 2018-05-12 03:31 | NUR ---
pt asleep in [facility] at this time; nadn. bilateral equal rise and fall of chest noted. pt has sitter outside of room for direct observation.
--- NOTE | 2018-05-12 05:26 | NUR ---
PT ASLEEP IN [facility] AT THIS TIME; NADN. PT HAS SITTER OUTSIDE OF ROOM FOR DIRECT OBSERVATION. EQUAL BILATERAL RISE AND FALL OF CHEST NOTED.
--- NOTE | 2018-05-12 05:58 | NUR ---
sitter outside of the pt room at this time for direct observation. pt continues to sleep with equal bilateral rise and fall of chest noted.
--- NOTE | 2018-05-12 06:24 | NUR ---
PT VSS AND UPDATED IN EMR. SITTER AT BS.
--- NOTE | 2018-05-12 07:01 | NUR ---
BS REPORT OF PT TO GEOGRAPHY PROFESSORKARISHMA. ALL QUESTIONS ANSWERED.
--- NOTE | 2018-05-12 08:22 | NUR ---
ELILOTT RN NOTE: PATIENT GIVEN MEAL TRAY
[2018-05-12] MEDS ORDERED: ZIPRASIDONE 20MG CAPSULE ONE (09:25)
[2018-05-12] MEDS ORDERED: DIVALPROEX 500 MG TABLET.DR ONE (09:26)
[2018-05-12] MEDS ORDERED: LEVETIRACETAM 500 MG TABLET ONE (09:26)
[2018-05-12] MEDS ORDERED: SENNA/DOCUSATE TABLET ONE (09:26)
[2018-05-12] MEDS: SENNA/DOCUSATE TABLET PO SCH (10:00)
[2018-05-12] MEDS: DIVALPROEX 500 MG TABLET.DR PO SCH ×2 (10:00→20:51)
[2018-05-12] MEDS: LEVETIRACETAM 500 MG TABLET PO SCH (10:00)
[2018-05-12] MEDS: LISINOPRIL 5 MG TABLET PO SCH (10:00)
[2018-05-12] MEDS: ZIPRASIDONE 20MG CAPSULE PO SCH (10:00)
--- NOTE | 2018-05-12 10:00 | NUR ---
PT REFUSING ALL MEDS AT THIS TIME. PT STATES THAT HE NO LONGER TAKES GEODON THAT IT WAS CHANGED TO HALDOL 5MG QD. PT VERBALIZES "I'M NOT GOING TO TAKE ANY OF MY OTHER MEDS UNTIL YOU GUYS GET THE GEODON FIXED" ABOVE INTERACTION DISCUSSED WITH CLINT HOLDEN APN. CLINT REQUESTED RN TO VERIFY WITH PTS PHARMACY HIS MEDICATIONS AND LAST TIME FILLED.
--- NOTE | 2018-05-12 10:45 | NUR ---
[facility] CONFIRMED PT REC'D RX FOR HALDOL 10MG 1 TAB BID ON 11/28/2017 (60 TABS) NO REFILLS. RX WRITTEN BY DR. ALVAREZ. INFORMATION RELAYED TO CLINT HOLDEN APN. NO NEW ORDERS REC'D. CLINT STATED SHE WOULD SEE THE PT LATER TODAY.
--- NOTE | 2018-05-12 13:15 | NUR ---
SUICIDE MEAL TRAY PROVIDED, PT CONSUMED 100%. PT OOB AMBULATE TO BATHROOM, TOOTHBRUSH AND TOOTHPASTE PROVIDED. SHOWER OFFERED, PT DECLINES AT THIS TIME. PT RTD TO ROOM W/O INCIDENT
--- NOTE | 2018-05-12 15:22 | NUR ---
BREAK RN: PATIENT RESTING COMFORTABLY AT THIS TIME, WATCHING TELEVISION WITH SITTER AT BEDSIDE. NO ACUTE DISTRESS.
--- NOTE | 2018-05-12 17:18 | NUR ---
Pati carpio in [facility] - 05/12/18 at 1719 by YVONNE PT AMB TO SHOWER ROOM USING CRUTCHES, COMPLETE BED LINI
--- NOTE | 2018-05-12 17:19 | NUR ---
PT AMB TO SHOWER ROOM USING CRUTCHES. COMPLETE BED LINEN CHANGE. SITTER AT SHOWER DOOR.
--- NOTE | 2018-05-12 17:27 | NUR ---
PT RTD TO ROOM AFTER COMPLETING SHOWER. SUICIDE MEAL TRAY PROVIDED.
[2018-05-12] MEDS: CHLORPROMAZINE 100MG TAB PO SCH (20:50)
[2018-05-12] MEDS: PRAZOSIN 5 MG CAPSULE PO SCH (20:51)
[2018-05-12] MEDS: MIRTAZAPINE 30 MG TAB.RAPDIS PO SCH (20:53)
--- NOTE | 2018-05-12 20:55 | NUR ---
NIGHT MEDS GIVEN W/O INCIDENT.
--- NOTE | 2018-05-12 21:06 | NUR ---
JOSE RPT TO KRISHNA EVANS
--- NOTE | 2018-05-12 22:18 | NUR ---
PT RESTING ON GURNEY. RR EVEN AND UNLABORED. NAD NOTED. ROOM SECURED WITH ROLLER DOORS IN PLACE. SITTER OUTSIDE OF ROOM FOR SAFETY.
--- NOTE | 2018-05-12 23:43 | NUR ---
NO CHANGE IN PT STATUS. PT RESTING ON GURNEY. RR EVEN AND UNLABORED. PT DENIES NEEDS ATT. PT IS CALM AND COOPERATIVE. ROOM SECURED. SITTER OUTSIDE OF ROOM FOR SAFETY
--- NOTE | 2018-05-13 02:01 | NUR ---
VISITORS WERE LET BACK TO "VISIT" PT. SOON THEY ENTERED HIS ROOM, THEY STARTED YELLING AT THE PATIENT STATING HE STOLE STUFF. THIS RN TOLD THE VISITORS TO LEAVE. THEY SAID "HE'S A THIEF, HE STOLE STUFF." THIS RN TOLD THEM TO LEAVE THE DEPARTMENT. VISITORS LEFT WITHOUT ALTERCATION. NO VISITORS ALLOWED FOR THIS PT ATT. MAIL CARRIER TECHNICIAN NOTIFIED
--- NOTE | 2018-05-13 02:30 | NUR ---
received report from KRISHNA Casas
--- NOTE | 2018-05-13 03:30 | NUR ---
patient sleeping, respiration unlabored.
--- NOTE | 2018-05-13 06:58 | NUR ---
bedside report to KRISHNA Jose.
--- NOTE | 2018-05-13 07:07 | NUR ---
RECEIVED REPORT FROM FAVIAN KELLER
--- NOTE | 2018-05-13 07:34 | NUR ---
ORDERED MEAL TRAY FOR PATIENT. SITTER OUTSIDE OF ROOM. PT SLEEPING AT THIS TIME. ROOM SECURED.
--- NOTE | 2018-05-13 08:55 | NUR ---
PT GIVEN MEAL TRAY. PT SLEEPING AT THIS TIME.
--- NOTE | 2018-05-13 09:30 | NUR ---
pt refusing to wake up for blood pressure.
[2018-05-13] MEDS ORDERED: SENNA/DOCUSATE TABLET ONE (10:31)
[2018-05-13] MEDS ORDERED: DIVALPROEX 500 MG TAB.ER.24H ONE (10:32)
[2018-05-13] MEDS ORDERED: DIVALPROEX 500 MG TABLET.DR ONE (10:43)
--- NOTE | 2018-05-13 10:45 | NUR ---
pt refusing to take medications. pt allowed md to do blood pressure. pt keeps pulling blankets over his head. pt uncooperative. Will try and give meds when pt more awake.
--- NOTE | 2018-05-13 10:57 | NUR ---
pt ate 100% meal tray
--- NOTE | 2018-05-13 11:19 | NUR ---
pt sleeping in bed. meal tray ordered for lunch
--- NOTE | 2018-05-13 11:25 | NUR ---
health care social worker at bedside. pt refusing to wake up and talk.
--- NOTE | 2018-05-13 11:57 | NUR ---
public area attendant into speak with pt. pt refusing to talk with public area attendant.
[2018-05-13] MEDS: DIVALPROEX 500 MG TABLET.DR PO SCH ×2 (12:18→20:52)
[2018-05-13] MEDS: LISINOPRIL 5 MG TABLET PO SCH (12:19)
[2018-05-13] MEDS: SENNA/DOCUSATE TABLET PO SCH (12:19)
--- NOTE | 2018-05-13 12:20 | NUR ---
pt given meal tray. pt up to br and voided with crutches. pt alert and oriented. pt able to take medications at this time. pt refusing thorazine at this time, stating " It makes me too drowsy."
--- NOTE | 2018-05-13 13:44 | NUR ---
pt requesting 2nd meal tray
--- NOTE | 2018-05-13 13:56 | NUR ---
report given to qi cummings
--- NOTE | 2018-05-13 14:05 | NUR ---
REPORT FROM KRISHNA KING. PT SITTING UP IN [facility], CALM AND COOPERATIVE. NAD NOTED. ROOM SECURE. SITTER PRESENT. NO PERSONAL BELONGINGS NOTED IN ROOM. SI COMPLIANT MEAL TRAY PROVIDED. PT DENIES PHYSICAL CO OR NEED FOR PAIN MEDICATIONS.
--- NOTE | 2018-05-13 14:50 | NUR ---
SPOKE WITH HOSPITALIST CLINT NAIK REGARDING REFUSED MEDICATIONS. PER PRIOR RN PT WAS TOO DROWSY TO COMPLETE LEGAL EVALUATION FOR [facility] [employer] HEARING. PT BELIEVES THIS IS DUE TO HIS MEDICATION, THORAZINE. CLINT NAIK STATES THAT THE DOSES WRITEN ARE WHAT THE PT WAS DC'D FROM PSYCH FACILITY ON AND SHOULD BE AVAILABLE RX'D. SHE IS AWARE OF PT REFUSAL.
--- NOTE | 2018-05-13 15:38 | NUR ---
Pati carpio in [facility] - 05/13/18 at 1543 by TOSHIA PT AMBUALTED STEADILY TO BATHROOM USING OWN CRUTCHES. PT REMAINS CALM AND COOPERATIVE. PT DENIES FURTHER NEEDS.
--- NOTE | 2018-05-13 15:43 | NUR ---
PT AMBUALTED STEADILY TO BATHROOM USING OWN CRUTCHES. PT REMAINS CALM AND COOPERATIVE. PT DENIES FURTHER NEEDS.
--- NOTE | 2018-05-13 16:41 | NUR ---
PT PROVIDED SI COMPLIANT MEAL TRAY. NAD NOTED. PT DENIES FURTHER NEEDS
--- NOTE | 2018-05-13 17:30 | NUR ---
PT RESTING W/ EYES CLOSED. EVEN/REGULAR RESPIRATIONS NOTED. ROOM SECURE. SITTER AT DOORWAY
--- NOTE | 2018-05-13 18:41 | NUR ---
PT RESTING IN HOSPITAL BED W/ EYES CLOSED. EVEN/REGULAR RESPIRATIONS NOTED. ROOM REMAINS SECURE. SITTER AT DOORWAY
--- NOTE | 2018-05-13 18:52 | NUR ---
BREAK RN-PATIENT UP TO RESTROOM AND AMBULATES STEADILY WITH CRUTCHES. FRESH WATER PROVIDED.
--- NOTE | 2018-05-13 19:42 | NUR ---
PT RESTING CALMLY IN [facility] NOTED. ROOM SECURE. SITTER PRESENT.
--- NOTE | 2018-05-13 20:30 | NUR ---
MEDICATIONS REQUESTED FROM PHARMACY
[2018-05-13] MEDS: CHLORPROMAZINE 100MG TAB PO SCH (20:52)
[2018-05-13] MEDS: MIRTAZAPINE 30 MG TAB.RAPDIS PO SCH (20:53)
[2018-05-13] MEDS: PRAZOSIN 5 MG CAPSULE PO SCH (20:54)
--- NOTE | 2018-05-13 21:08 | NUR ---
PT MEDICATED PER EMAR. PT CALM AND COOPERATIVE WITH WIRE HANGER. PT DENIES PAIN/NAUSEA OR NEEDS. SITTER REMAINS PRESENT.
--- NOTE | 2018-05-13 22:57 | NUR ---
PT RESTING IN HOSPITAL BED W/ EYES CLOSED. EVEN/REGULAR RESPIRATIONS NOTED. ROOM SECURE. SITTER PRESENT.
--- NOTE | 2018-05-13 23:31 | NUR ---
PT CONTINUES TO REST QUIETLY IN HOSPITAL BED. RESPIRATIONS EVEN/UNLABORED. SITTER PRESENT. ROOM SECURE
--- NOTE | 2018-05-14 00:26 | NUR ---
PT CONTINUES TO REST QUIETLY IN HOSPITAL BED. RESPIRATIONS EVEN/UNLABORED. SITTER PRESENT. ROOM SECURE
--- NOTE | 2018-05-14 01:29 | NUR ---
PT CONTINUES TO REST QUIETLY IN HOSPITAL BED. RESPIRATIONS EVEN/UNLABORED. SITTER PRESENT. ROOM SECURE
--- NOTE | 2018-05-14 01:39 | NUR ---
Pati carpio in [facility] - 05/14/18 at 0139 by [email or web address] REPORT TO KRISHNA EVANS
--- NOTE | 2018-05-14 01:39 | NUR ---
REPORT TO KRISHNA EVANS
--- NOTE | 2018-05-14 02:26 | NUR ---
PT RESTING IN [facility]. RR EVEN AND UNLABORED. ROOM SECURED WITH ROLLER DOORS IN PLACE. SITTER OUTSIDE OF ROOM FOR SAFETY
--- NOTE | 2018-05-14 02:49 | NUR ---
REPORT RECEIVED, CARE ASSUMED, PT SLEEPING IN SECURE ROOM WITH SITTER AT DOOR.
--- NOTE | 2018-05-14 04:34 | NUR ---
PT CONT SLEEPING IN SECURE ROOM WITH SITTER AT DOOR.
--- NOTE | 2018-05-14 05:52 | NUR ---
PT CONT SLEEPING, CONT IN SECURE ROOM WITH SITTER AT DOOR.
--- NOTE | 2018-05-14 07:00 | NUR ---
REPORT TO INNA KELLER
--- NOTE | 2018-05-14 07:48 | NUR ---
Pt sleeping on gurney. All SI precautions in place. Pt has unlabored respirations with chest rise and fall equal bilaterally. NADN. Sitter near doorway in direct line of sight for observation. No needs expressed at this time.
[2018-05-14] MEDS ORDERED: DIVALPROEX 500 MG TAB.ER.24H ONE (08:34)
[2018-05-14] MEDS ORDERED: LISINOPRIL 10 MG TABLET ONE (08:34)
[2018-05-14] MEDS ORDERED: SENNA/DOCUSATE TABLET ONE (08:34)
--- NOTE | 2018-05-14 08:45 | NUR ---
Pt provided breakfast tray. Pt allows vital signs to be taken. Pt offered morning medications per EMAR. Pt states, "I don't really want to take them." Offered to pt to ask him when he is more awake. Pt states, "Yes please." Pt sits up in hospital bed and begins eating breakfast tray. Pt requests lights to remain off. NADN. No needs expressed at this time. All SI/HI precautions remain in place. Sitter near doorway in direct line of sight for observation.
--- NOTE | 2018-05-14 09:01 | NUR ---
Pt ambulates with crutches to restroom with SI sitter. Pt back to room. Pt states, "I am ready to take my morning meds."
[2018-05-14] MEDS: DIVALPROEX 500 MG TABLET.DR PO SCH ×2 (09:09→21:27)
[2018-05-14] MEDS: LISINOPRIL 5 MG TABLET PO SCH (09:10)
[2018-05-14] MEDS: SENNA/DOCUSATE TABLET PO SCH (09:10)
[2018-05-14] MEDS: CHLORPROMAZINE 100MG TAB PO SCH ×2 (09:10→21:27)
--- NOTE | 2018-05-14 09:14 | NUR ---
Provided pt hospital socks. Pt appreciative. Provided pt morning medications per EMAR. Pt refusing stool softeners at this time. NADN. No needs expressed at this time. Pt laying on hospital bed resting.
--- NOTE | 2018-05-14 10:16 | NUR ---
Pt resting on hospital bed. NADN. No needs expressed at this time. Sitter near doorway in direct line of sight of pt. Pt ate 100% of breakfast tray.
--- NOTE | 2018-05-14 13:16 | NUR ---
LATE NOTE ENTRY FOR 1100: Pt resting on hospital bed. NADN. No needs expressed at this time. Sitter near doorway in direct line of sight for observation.
--- NOTE | 2018-05-14 13:17 | NUR ---
LATE NOTE ENTRY FOR 1200: Pt provided lunch tray and pt appreciative. NADN. No needs expressed at this time. Sitter near doorway in direct line of sight for observation.
--- NOTE | 2018-05-14 13:53 | NUR ---
Pt resting on hospital bed asleep. NADN. No needs expressed at this time. Sitter near doorway in direct line of sight for observation.
--- NOTE | 2018-05-14 15:41 | NUR ---
LATE NOTE ENTRY FOR 1400: Pt resting on hospital bed awake. Pt requests water. Sitter provided water. Pt declined any other needs.
--- NOTE | 2018-05-14 15:42 | NUR ---
Pt resting on hospital bed. NADN. No needs expressed at this time. Sitter near doorway in direct line of sight for observation.
--- NOTE | 2018-05-14 15:43 | NUR ---
Dinner SI tray ordered
--- NOTE | 2018-05-14 17:20 | NUR ---
Pt requested shower. Provided pt new bed linens, new hospital gown, new socks, toiletries, and towels. Escorted pt to shower. EDRN sitter near doorway in direct line of sight for observation while pt took shower. Pt appreciative to have shower and new bed linens. Pt back to hospital bed. Pt requesting more food. Pt provided extra additional SI dinner tray. Pt appreciative. No other needs requested at this time.
--- NOTE | 2018-05-14 18:17 | NUR ---
Pt watching TV and resting on hospital bed. NADN. No needs requested at this time. Sitter near doorway in direct line of sight for observation.
--- NOTE | 2018-05-14 18:59 | NUR ---
Attempted to provide pt with activity papers from activity binder. Pt agitated stating, "I want books." Pt states, "I am this close to leaving here, the evelin the other day is treating me different, why did he treat me different the patient's up on the psych floor?"
--- NOTE | 2018-05-14 19:00 | NUR ---
Pati carpio in [facility] - 05/14/18 at 1901 by BERHANE g
--- NOTE | 2018-05-14 19:01 | NUR ---
Provided bedside report to KRISHNA Don. All questions answered. KRISHNA Don to assume care of pt.
--- NOTE | 2018-05-14 19:13 | NUR ---
BEDSIDE REPORT RECEIVED FROM KRISHNA KEITH. ASSUMED CARE OF PT. PT SITTING ON GURNEY QUIETLY WATCHING TV. ROOM REMAINS SECURE. SITTER OUTSIDE DOOR. WILL CONTINUE TO MONITOR.
--- NOTE | 2018-05-14 19:41 | NUR ---
PT PROVIDED WITH SPRITE UPON REQUEST. RESTING ON GURNEY, CALM AND COOPERATIVE AT THIS TIME. WILL CONTINUE TO MONITOR. SITTER OUTSIDE DOOR. ROOM REMAINS SECURE
--- NOTE | 2018-05-14 20:21 | NUR ---
PT PROVIDED WITH BOOKS AND MAGAZINES TO READ
--- NOTE | 2018-05-14 20:50 | NUR ---
MEDS REQUESTED FROM PHARMACY
[2018-05-14] MEDS ORDERED: NICOTINE 14MG/24 HR PATCH.TD24 ONE (21:20)
[2018-05-14] MEDS: NICOTINE 14MG/24 HR PATCH.TD24 TD SCH (21:27)
[2018-05-14] MEDS: MIRTAZAPINE 30 MG TAB.RAPDIS PO SCH (21:27)
[2018-05-14] MEDS: PRAZOSIN 5 MG CAPSULE PO SCH (21:27)
--- NOTE | 2018-05-14 21:28 | NUR ---
PT MEDICATED PER EMAR. 5 RIGHTS ADDRESSED. VITALS ASSESSED. STABLE. PT CALM AND COOPERATIVE AT THIS TIME. EXPRESSES APPRECIATION FOR THE BOOK. APPEARS TO BE IN A BETTER MOOD. DENIES ANY OTHER NEEDS AT THIS TIME. PROVIDED WITH MORE SPRITE. SITTER OUTSIDE DOOR MONITORING PT. WILL CONTINUE TO MONITOR.
--- NOTE | 2018-05-14 22:46 | NUR ---
PT IS READING QUIETLY IN ROOM. DENIES ANY OTHER NEEDS AT THIS TIME. SITTER REMAINS OUTSIDE DOOR. ROOM REMAINS SECURE, WILL CONTINUE TO MONITOR.
--- NOTE | 2018-05-15 00:29 | NUR ---
PT NOW SLEEPING. SITTER OUTSIDE DOOR MONITORING PT. ROOM REMAINS SECURE. WILL CONTINUE TO MONITOR.
--- NOTE | 2018-05-15 01:56 | NUR ---
PT SLEEPING, SITTER OUTSIDE DOOR MONITORING PT. WILL CONTINUE TO MONITOR.
[2018-05-15] MEDS ORDERED: ACETAMINOPHEN 325 MG TABLET ONE (03:20)
--- NOTE | 2018-05-15 03:53 | NUR ---
PT SLEEPING, SITTER OUTSIDE DOOR MONITORING PT. ROOM REMAINS SECURE.
--- NOTE | 2018-05-15 03:56 | NUR ---
MEAL TRAY ORDERED FOR BREAKFAST
--- NOTE | 2018-05-15 06:28 | NUR ---
PT AWAKE, SITTING IN BED READING. SITTER OUTSIDE DOOR MONITORING PT. ROOM REMAINS SECURE
--- NOTE | 2018-05-15 07:26 | NUR ---
REC BBS REPORT PT RESTING WAITING ON A MEAL
--- NOTE | 2018-05-15 08:01 | NUR ---
MEAL GIVEN SITTER IN THE [place]
[2018-05-15] MEDS ORDERED: SENNA/DOCUSATE TABLET ONE (08:56)
[2018-05-15] MEDS ORDERED: DIVALPROEX 500 MG TAB.ER.24H ONE (08:56)
[2018-05-15] MEDS ORDERED: LISINOPRIL 10 MG TABLET ONE (08:56)
[2018-05-15] MEDS: DIVALPROEX 500 MG TABLET.DR PO SCH ×2 (09:04→21:17)
[2018-05-15] MEDS: LISINOPRIL 5 MG TABLET PO SCH (09:05)
[2018-05-15] MEDS: SENNA/DOCUSATE TABLET PO SCH (09:05)
[2018-05-15] MEDS: CHLORPROMAZINE 100MG TAB PO SCH ×2 (10:53→21:17)
--- NOTE | 2018-05-15 15:45 | NUR ---
UP AMBULATORY IN THE [place] Rosy FELIZ MADE A PHONE CALL
--- NOTE | 2018-05-15 18:59 | NUR ---
RECEIVED REPORT FROM KRISHNA SEGOVIA. PT. RESTING ON [facility] RIGHT SIDE LYING WITH EYES CLOSED. RESP VISIBLE AND NON-LABORED. ROOM IS SECURED AND SITTER IN [place]. Addendum: 05/15/18 at 1902 by ISAAC PT. IS ON HOSPITAL BED NOT [facility]
--- NOTE | 2018-05-15 19:11 | NUR ---
PT. AMBULATORY TO BR WITH STEADY GAIT.
--- NOTE | 2018-05-15 20:28 | NUR ---
PT. RESTING ON HOSPITAL BED IN LEFT SIDE LYING POSITION, EYES CLOSED. NADN.
[2018-05-15] MEDS ORDERED: NICOTINE 14MG/24 HR PATCH.TD24 ONE (20:39)
--- NOTE | 2018-05-15 20:39 | NUR ---
MED REQUEST SENT TO PHARMACY
[2018-05-15] MEDS: PRAZOSIN 5 MG CAPSULE PO SCH (21:17)
[2018-05-15] MEDS: MIRTAZAPINE 30 MG TAB.RAPDIS PO SCH (21:17)
[2018-05-15] MEDS: NICOTINE 14MG/24 HR PATCH.TD24 TD SCH (21:17)
--- NOTE | 2018-05-15 21:24 | NUR ---
VS UPDATED. PT. MEDICATED PER MAR. PT. PROVIDED WITH FRESH WATER. VERY CALM AND COOPERATIVE WITH THIS RN. DENIES NEEDS AT [facility]. ROOM SECURED. SITTER IN [place].
--- NOTE | 2018-05-15 22:26 | NUR ---
PT. PROVIDED WITH SANDWICH PER REQUEST AND AMBULATORY TO BR WITH STEADY GAIT. DENIES OTHER NEEDS.
--- NOTE | 2018-05-15 23:05 | NUR ---
SBAR report received from RN, Diane. Pt sleeping on ADITI bahena sitter outside of room for pt safety.
--- NOTE | 2018-05-16 00:45 | NUR ---
Pt continues sleeping on ADITI bahena. Sitter outside of room for pt safety.
--- NOTE | 2018-05-16 01:58 | NUR ---
Pt sleeping, will assess vitals when awake. Pt [place] occassionally. Room remains secure, sitter outside of room for pt safety.
--- NOTE | 2018-05-16 03:27 | NUR ---
PT CONTINUES TO REST QUIETLY IN HOSPITAL BED. RESPIRATIONS EVEN/UNLABORED. SITTER OUTSIDE OF ROOM FOR PT SAFETY. ROOM SECURE.
--- NOTE | 2018-05-16 04:21 | NUR ---
REPORT REC, SITTER OUTSIDE ROOM FOR PT SAFETY, RESTING QUEITLY.
--- NOTE | 2018-05-16 04:22 | NUR ---
PER REPORT, PT HAS BEEN CALM AND COOPERATIVE FOR THE SHIFT.
--- NOTE | 2018-05-16 05:02 | NUR ---
RESTING QUIETLY, SITTER OUTSIDE ROOM FOR PT SAFETY.
--- NOTE | 2018-05-16 06:01 | NUR ---
NO CHANGES AT THIS TIME, RESTING QUIETLY, SITTER OUTSIDE ROOM FOR PT SAFETY AND IN [place] ROOM
--- NOTE | 2018-05-16 06:56 | NUR ---
Report from Malina KELLER. Pt is resting in bed, respirations equal and non labored. NAD. Sitter outside the room.
--- NOTE | 2018-05-16 08:03 | NUR ---
Pt given breakfast to eat. PT is currently eating and watching TV. Sitter outside the room.
--- NOTE | 2018-05-16 08:37 | NUR ---
Called pharmacy asking about ETA of requested daily medications. He stated that he will work on that next.
--- NOTE | 2018-05-16 08:58 | NUR ---
Pt requested a Ham sandwich. Dietary called and sent a Ham sandwich. Pt given the sandwich. Sitter outside the room.
--- NOTE | 2018-05-16 09:06 | NUR ---
Only a few of the pts daily medications were sent from pharmacy. Called pharmacy and requested the rest of his daily medications. They stated that they will send them.
[2018-05-16] MEDS: LISINOPRIL 5 MG TABLET PO SCH (09:19)
[2018-05-16] MEDS: DIVALPROEX 500 MG TABLET.DR PO SCH ×2 (09:19→20:27)
[2018-05-16] MEDS: SENNA/DOCUSATE TABLET PO SCH (09:19)
[2018-05-16] MEDS: CHLORPROMAZINE 100MG TAB PO SCH ×2 (09:20→20:24)
--- NOTE | 2018-05-16 09:56 | NUR ---
PT IS RESTING IN BED WITH EYES CLOSED, RESPIRATIONS EQUAL AND NON LABORED. NAD. SITTER OUTSIDE THE ROOM.
--- NOTE | 2018-05-16 09:58 | NUR ---
PT REFUSED DOCUSATE SENNA.
--- NOTE | 2018-05-16 10:45 | NUR ---
PT IS RESTING IN BED WITH EYES CLOSED, RESPIRATIONS EQUAL AND NON LABORED. NAD. SITTER OUTSIDE THE ROOM.
--- NOTE | 2018-05-16 12:09 | NUR ---
PT IS RESTING IN BED WITH EYES CLOSED, RESPIRATIONS EQUAL AND NON LABORED. NAD. SITTER OUTSIDE THE ROOM.
--- NOTE | 2018-05-16 12:14 | NUR ---
PT GIVEN LUNCH TRAY.
--- NOTE | 2018-05-16 12:53 | NUR ---
PT IS RESTING IN BED WITH EYES CLOSED, RESPIRATIONS EQUAL AND NON LABORED. NAD. SITTER OUTSIDE THE ROOM.
--- NOTE | 2018-05-16 14:06 | NUR ---
PT IS RESTING IN BED WITH EYES CLOSED, RESPIRATIONS EQUAL AND NON LABORED. NAD. SITTER OUTSIDE THE ROOM.
--- NOTE | 2018-05-16 14:57 | NUR ---
PT IS RESTING IN BED WITH EYES CLOSED, RESPIRATIONS EQUAL AND NON LABORED. NAD. SITTER OUTSIDE THE ROOM.
--- NOTE | 2018-05-16 15:32 | NUR ---
PT AMBULATED TO THE BATHROOM WITH STEADY GAIT. SITTER OUTSIDE THE DOOR.
--- NOTE | 2018-05-16 15:54 | NUR ---
PT IS RESTING IN BED WATCHING TV, RESPIRATIONS EQUAL AND NON LABORED. NAD. SITTER OUTSIDE THE ROOM.
--- NOTE | 2018-05-16 16:39 | NUR ---
PT GIVEN DINNER TRAY.
--- NOTE | 2018-05-16 17:33 | NUR ---
PT AMBULATED TO THE BATHROOM WITH STEADY GAIT. PTS BED CHANGED. PT GIVEN SOCKS TO WEAR. PT IS ALERT, ORIENTED, WITH NAD. SITTER OUTSIDE THE ROOM.
--- NOTE | 2018-05-16 18:39 | NUR ---
PT IS RESTING IN BED, WATCHING TV, RESPIRATIONS EQUAL AND NON LABORED. NAD. SITTER OUTSIDE THE ROOM.
--- NOTE | 2018-05-16 18:54 | NUR ---
REPORT GIVEN TO FLY KELLER.
--- NOTE | 2018-05-16 19:42 | NUR ---
PT RESTING ON [employer] TV, STATED " I'M STILL SUICIDAL", PT DENIES PLAN, ROOM SECURED, SITTER AT DOORWAY FOR CONTINOUS MONITORING.
[2018-05-16] MEDS: NICOTINE 14MG/24 HR PATCH.TD24 TD SCH (20:23)
[2018-05-16] MEDS: MIRTAZAPINE 15 MG TABLET PO SCH (20:24)
[2018-05-16] MEDS: PRAZOSIN 5 MG CAPSULE PO SCH (20:25)
[2018-05-16] MEDS ORDERED: DIVALPROEX 500 MG TABLET.DR ONE (20:26)
--- NOTE | 2018-05-16 20:31 | NUR ---
PROVIDED PT WITH SANDWICH AND DRINK USING SI SAFETY PRECAUTIONS, PT MEDICATED PER JUN. PT SITTING UP WATCHING TV, SITTER AT DOORWAY FOR CONTINOUS MONITORING.
--- NOTE | 2018-05-16 21:18 | NUR ---
PT RESTING ON GURNEY WATCHING TV, NAD, DENIES NEEDS AT THIS TIME, SITTER AT DOORWAY FOR CONTINOUS MONITORING.
--- NOTE | 2018-05-16 22:03 | NUR ---
PT RESTING WITH EYES CLOSED. RESPIRATIONS EVEN AND UNLABORED. SITTER OUTSIDE DOOR MONITORING PT. ROOM REMAINS SECURE.
--- NOTE | 2018-05-16 23:19 | NUR ---
PT RESTING WITH EYES CLOSED. NADN, EQUAL CHEST RISE/FALL OBSERVED. SITTER OUTSIDE DOOR MONITORING PT.
--- NOTE | 2018-05-17 00:22 | NUR ---
PT RESTING WITH EYES CLOSED. PT FREQUENTLY REPOSITIONS SELF IN BED, EQUAL CHEST RISE/FALL OBSERVED. SITTER OUTSIDE DOOR MONITORING PT.
--- NOTE | 2018-05-17 01:09 | NUR ---
PT RESTING WITH EYES CLOSED, NADN, RESPIRATIONS EVEN AND UNLABORED, SITTER AT DOORWAY FOR CONTINOUS MONITORING.
--- NOTE | 2018-05-17 02:09 | NUR ---
PT RESTING WITH EYES CLOSED. RESPIRATIONS EVEN AND UNLABORED. SITTER OUTSIDE DOOR MONITORING PT.
--- NOTE | 2018-05-17 03:12 | NUR ---
PT RESTING WITH EYES CLOSED. RESPIRATIONS EVEN AND UNLABORED. SITTER OUTSIDE DOORWAY FOR CONTINOUS MONITORING
--- NOTE | 2018-05-17 04:14 | NUR ---
PT RESTING WITH EYES CLOSED. NADN. RESPIRATIONS EVEN AND UNLABORED. SITTER OUTSIDE DOOR MONITORING PT.
--- NOTE | 2018-05-17 05:10 | NUR ---
PT RESTING IN BED WITH EYES CLOSED. EQUAL CHEST RISE/FALL OBSERVED. NO NEEDS STATED AT THIS TIME. SITTER AT DOOR FOR CONTINOUS MONITORING.
--- NOTE | 2018-05-17 06:12 | NUR ---
PT RESTING WITH EYES CLOSED. RESPIRATIONS EVEN AND UNLABORED. SITTER OUTSIDE DOOR MONITORING PT.
--- NOTE | 2018-05-17 06:57 | NUR ---
REPORT GIVEN TO KRISHNA WALL
--- NOTE | 2018-05-17 07:55 | NUR ---
DIET TRAY DELIVERED TO PATIENT.
--- NOTE | 2018-05-17 07:57 | NUR ---
LATE ENTRY FOR 0655 RECEIVED BEDSIDE REPORT FROM KRISHNA BILL. PT SLEEPING ON HOSPITAL BED. ALL SAFETY MEASURES OBTAINED. SITTER AT DOORWAY, PT WITHIN FULL VIEW. WILL CONTINUE TO MONITOR. PT CRUTCHES IN ANTE ROOM, SAFELY AWAY FROM PATIENT.
--- NOTE | 2018-05-17 08:56 | NUR ---
PT COMPLETED BREAKFAST TRAY PER SITTERS. PT NOW SLEEPING ON HOSP BED. PT DID NOT WAKE UP WHEN THIS RN IN TO TAKE VITALS. RESPS EQUAL AND UNLABORED. ALL SAFETY MEASURES OBTAINED. WILL CONTINUE TO MONITOR. SITTER AT DOORWAY, PT WITHIN FULL VIEW.
--- NOTE | 2018-05-17 10:03 | NUR ---
PT SLEEPING ON GURNEY. RESPS EQUAL AND UNLABORED. ALL SAFETY MEASURES OBTAINED. SITTER AT DOORWAY. PT WITHIN FULL VIEW. WILL CONTINUE TO MONITOR.
--- NOTE | 2018-05-17 10:56 | NUR ---
PT SLEEPING ON GURNEY. NO ACUTE DISTRESS NOTED. RESPS EQUAL AND UNLABORED. ALL SAFETY MEASURES OBTAINED. SITTER AT DOORWAY, PT WITHIN FULL VIEW.
--- NOTE | 2018-05-17 12:18 | NUR ---
DIET TRAY DELIVERED. PT VSS. NO ACUTE DISTRESS NOTED. ALL SAFETY MEASURES OBTAINED. SITTER AT DOORWAY. WILL CONTINUE TO MONITOR.
[2018-05-17] MEDS ORDERED: LISINOPRIL 10 MG TABLET ONE (12:21)
[2018-05-17] MEDS ORDERED: DIVALPROEX 500 MG TAB.ER.24H ONE (12:21)
[2018-05-17] MEDS: DIVALPROEX 500 MG TABLET.DR PO SCH ×2 (12:22→20:59)
[2018-05-17] MEDS: SENNA/DOCUSATE TABLET PO SCH (12:23)
[2018-05-17] MEDS: LISINOPRIL 5 MG TABLET PO SCH (12:23)
--- NOTE | 2018-05-17 12:47 | NUR ---
PT STANDING AT DOOR WITH STEADY GAIT. PT STATES "I DON'T USE MY KNEE IMMOBILIZER OR CRUTCHES ANYMORE." NO ACUTE DISTRESS NOTED. ALL SAFETY MEASURES OBTAINED.
--- NOTE | 2018-05-17 13:05 | NUR ---
Patient took walk around ED with sitter. Steady gait.
--- NOTE | 2018-05-17 13:29 | NUR ---
CALLED PHARMACY. MEDICATION TO BE RESENT.
--- NOTE | 2018-05-17 13:29 | NUR ---
LATE ENTRY FOR 1230 SENT PHARMACY REQ FOR MEDICATION.
[2018-05-17] MEDS: CHLORPROMAZINE 100MG TAB PO SCH ×3 (13:30→20:59)
--- NOTE | 2018-05-17 13:30 | NUR ---
PT RESTING ON GURNEY. NO ACUTE DISTRESS NOTED. ALL SAFETY MEASURES OBTAINED. ORDERED DIET TRAY FOR PT. PT REQUESTING MORE D/T BEING HUNGRY STILL. NO OTHER NEEDS REQUESTED AT THIS TIME
--- NOTE | 2018-05-17 14:34 | NUR ---
DIET TRAY DELIVERED. PT APPRECIATIVE AND CALM. NO ACUTE DISTRESS NOTED. ALL SAFETY MEASURES OBTAINED. SITTER AT DOORWAY, PT WITHIN FULL VIEW. NO NEEDS REQUESTED AT THIS TIME
--- NOTE | 2018-05-17 15:40 | NUR ---
PT WENT ON WALK AROUND UNIT WITH SITTER. PT WAS CALM AND COOPERATIVE. PT NOW BACK TO ROOM. RESTING ON HOSPITAL BED. ALL SAFETY MEASURES OBTAINED. NO NEEDS REQUESTED AT THIS TIME.
--- NOTE | 2018-05-17 17:00 | NUR ---
PT AMBULATORY WITH STEADY GAIT TO BATHROOM. PT CALM AND POLITE. NO ACUTE DISTRESS NOTED. ALL SAFETY MEASURES OBTAINED. NO NEEDS REQUESTED AT THIS TIME. DIET TRAY ORDERED. WILL CONTINUE TO MONITOR.
--- NOTE | 2018-05-17 18:12 | NUR ---
DIET TRAY DELIVERED. PT AGITATED BECAUSE THERE IS BBQ SAUCE ON THE [place]. PT STATES "THE DR AND EVERYONE KNOWS I DON'T LIKE BBQ SAUCE. IT MAKES ME NAUSEOUS." THIS RN EXPLAINED TO PT THAT I WAS THE ONE WHO CALLED DIETARY ASKING FOR A WARM MEAL FOR HIM INSTEAD OF SANDWICH AND I WAS UNAWARE THAT HE FELT THAT WAY ABOUT BBQ SAUCE. PT REFUSING THE MEAL TRAY AT THIS TIME. NO ACUTE DISTRESS NOTED. ALL SAFETY MEASURES OBTAINED. SITTER AT DOORWAY, PT WITHIN FULL VIEW.
--- NOTE | 2018-05-17 18:43 | NUR ---
PT APOLOGIZED FOR BEING UPSET ABOUT THE DIET TRAY. PT STATES "I'M SORRY FOR EARLIER. I JUST SCRAPED OFF THE BBQ SAUCE OFF. I JUST OVER REACTED." PT CALM AND POLITE. ALL SAFETY MEASURES OBTAINED. SITTER AT DOORWAY, PT WITHIN FULL VIEW.
--- NOTE | 2018-05-17 19:10 | NUR ---
ASSUMED CARE OF PATIENT.
--- NOTE | 2018-05-17 19:13 | NUR ---
BEDSIDE REPORT TO KRISHNA QUINTANA.
--- NOTE | 2018-05-17 20:29 | NUR ---
ASSUMED CARE OF PATIENT. NO ACUTE DISTRESS NOTED. SITTER AT DOOR. CALL LIGHT IN PLACE.
[2018-05-17] MEDS ORDERED: CHLORPROMAZINE 100MG TAB ONE (20:53)
[2018-05-17] MEDS ORDERED: MIRTAZAPINE 15 MG TABLET ONE (20:53)
[2018-05-17] MEDS ORDERED: DIVALPROEX 500 MG TABLET.DR ONE (20:53)
[2018-05-17] MEDS ORDERED: PRAZOSIN 5 MG CAPSULE ONE (20:54)
[2018-05-17] MEDS: MIRTAZAPINE 15 MG TABLET PO SCH (20:59)
[2018-05-17] MEDS: PRAZOSIN 5 MG CAPSULE PO SCH (20:59)
--- NOTE | 2018-05-17 21:00 | NUR ---
PT MEDICATED PER MAR
--- NOTE | 2018-05-17 21:25 | NUR ---
PATIENT GIVEN A SANDWICH. NO ACUTE DISTRESS NOTED. SITTER AT DOOR. WILL CONTINUE TO MONITOR.
[2018-05-17] MEDS ORDERED: NICOTINE 14MG/24 HR PATCH.TD24 ONE (21:27)
[2018-05-17] MEDS: NICOTINE 14MG/24 HR PATCH.TD24 TD SCH (21:31)
--- NOTE | 2018-05-17 22:07 | NUR ---
PT RESTING IN ROOM. NO ACUTE DISTRESS NOTED. SITTER AT DOOR. WILL CONTINUE TO MONITOR.
--- NOTE | 2018-05-17 22:59 | NUR ---
PT RESTING IN ROOM. NO ACUTE DISTRESS NOTED. SITTER AT DOOR. WILL CONTINUE TO MONITOR.
--- NOTE | 2018-05-18 01:35 | NUR ---
RESTING QUIETLY, RESP RATE EVEN AND REG, SITTER OUTSIDE ROOM FOR PT SAFETY
--- NOTE | 2018-05-18 01:41 | NUR ---
TASK RN: PT RESTING IN BED WITH EYES CLOSED. EVEN/REGULAR RESPIRATIONS NOTED. ROOM SECURE. SITTER PRESENT.
--- NOTE | 2018-05-18 03:07 | NUR ---
PT RESTING IN ROOM. NO ACUTE DISTRESS NOTED. SITTER AT DOOR. WILL CONTNIUE TO MONITOR.
--- NOTE | 2018-05-18 04:21 | NUR ---
PT RESTING IN ROOM. SITTER AT DOOR. NO ACUTE DISTRESS NOTED. WILL CONTINUE TO MONITOR.
--- NOTE | 2018-05-18 05:26 | NUR ---
PATIENT RESTING IN ROOM. NO ACUTE DISTRESS NOTED. SITTER AT DOOR. WILL CONTINUE TO MONITOR.
--- NOTE | 2018-05-18 06:44 | NUR ---
PT RESTING IN ROOM. REGULAR RESP. NO ACUTE DISTRESS NOTED. SITTER AT DOOR. WILL CONTINUE TO MONITOR.
--- NOTE | 2018-05-18 06:57 | NUR ---
REPORT GIVEN TO KRISHNA KEITH
--- NOTE | 2018-05-18 07:13 | NUR ---
Recieved bedside report from KRISHNA Kate. All questions answered. Assuming care of pt. Pt sleeping in ED room on hospital bed. NADN. Pt has even chest rise and fall with unlabored respirations equal bilaterally. No needs expressed at this time. Sitter near doorway in direct line of sight for observation. All SI precautions remain in place.
--- NOTE | 2018-05-18 08:07 | NUR ---
Pt awake and requesting breakfast. Pt informed breakfast tray ordered and will be delivered once it is here. Pt appreciative. Pt requests to use restroom. Pt ambulates to restroom with steady gait and balance. NADN. No defecits observed. ED sitter near doorway in direct line of sight for observation.
[2018-05-18] MEDS ORDERED: DIVALPROEX 500 MG TABLET.DR ONE ×3 (09:19→21:19)
[2018-05-18] MEDS ORDERED: SENNA/DOCUSATE TABLET ONE ×2 (09:19→12:40)
[2018-05-18] MEDS ORDERED: CHLORPROMAZINE 100MG TAB ONE ×3 (09:20→21:18)
[2018-05-18] MEDS ORDERED: LISINOPRIL 5 MG TABLET ONE ×2 (09:20→12:40)
[2018-05-18] MEDS: DIVALPROEX 500 MG TABLET.DR PO SCH ×4 (09:23→21:00)
[2018-05-18] MEDS: CHLORPROMAZINE 100MG TAB PO SCH ×5 (09:23→21:00)
[2018-05-18] MEDS: SENNA/DOCUSATE TABLET PO SCH ×3 (09:23→12:44)
[2018-05-18] MEDS: LISINOPRIL 5 MG TABLET PO SCH ×3 (09:23→12:44)
--- NOTE | 2018-05-18 09:28 | NUR ---
LATE NOTE ENTRY FOR 0900: Pt provided breakfast tray. Pt ate 100% of breakfast tray. Pt went back to sleep on hospital bed. NADN. No needs expressed. All SI precautions remain in place. Sitter at bedside in direct line of sight for observation.
--- NOTE | 2018-05-18 09:29 | NUR ---
Went to provide pt medications per EMAR. Pt sleeping on hospital bed. Over head light turned on. Asked pt if he could please wake up and take morning meds. Asked pt numerous times. Pt kept eyes shut and made unaudible grunting noises. Pt did not respond to RN request or voice. Pt had unlabored repirations equal bilaterally with even chest rise and fall. SHANI.
--- NOTE | 2018-05-18 10:53 | NUR ---
Late note entry for 1000: Pt sleeping on hospital bed. NADN. Pt has even chest rise and fall equal bilaterally. All SI precautions reamin in place. Sitter near doorway in direct line of sight for observation.
--- NOTE | 2018-05-18 11:26 | NUR ---
Pt remains sleeping in hospital bed. Pt has unlabored respirations equal bilaterally. All SI precautions remain in place. Sitter near doorway in direct line of sight for observation. No needs expressed. SHANI.
--- NOTE | 2018-05-18 12:49 | NUR ---
LUNCH RN: SECOND LUNCH TRAY ORDERED FOR PT PER REQUEST. SITTER IN [place], WILL CONTINUE TO MONITOR.
--- NOTE | 2018-05-18 13:26 | NUR ---
LATE NOTE ENTRY FOR 1248: Pt requested to take his morning meds at this time. Provided medications per EMAR.
--- NOTE | 2018-05-18 13:26 | NUR ---
Pt watching TV resting on hospital bed. NADN. No needs expressed at this time. Sitter near doorway in direct line of sight for observation.
--- NOTE | 2018-05-18 13:28 | NUR ---
Pt states to ED RN, "I always feeling like wanting to kill myself. I don't have a plan. I don't want to hurt anyone else."
--- NOTE | 2018-05-18 14:26 | NUR ---
Pt sleeping on hospital bed. NADN. Pt has unlabored respirations equal bilaterally. No needs expressed at this time. Sitter near doorway in direct line of sight for observation.
--- NOTE | 2018-05-18 15:02 | NUR ---
Pt sleeping on hospital bed. NADN. No needs expressed. Sitter near doorway in direct line of sight for observation.
--- NOTE | 2018-05-18 15:20 | NUR ---
Spoke to pharmacy regarding retiming of Depakote medication in EMAR. Pharmcy reset timing.
--- NOTE | 2018-05-18 16:40 | NUR ---
Pt sleeping on hospital bed. NADN. No needs requested. Sitter near doorway in direct line of sight for observation. Pt has unlabored respirations equal bilaterally.
--- NOTE | 2018-05-18 17:33 | NUR ---
Pt provided two dinner trays. Pt sleeping on hospital bed. Pt did not want to eat at this time. Dinner trays have pt ID stickers on and are placed in ED PT fridge. NADN. Pt has unlabored respirations equal bilaterally. Sitter near doorway in direct line of sight for observation.
--- NOTE | 2018-05-18 17:37 | NUR ---
Pt awake and requesting dinner trays. Dinner trays provided to pt.
--- NOTE | 2018-05-18 17:50 | NUR ---
Pt ate one dinner tray and requested second dinner tray to be placed back in pt fridge.
--- NOTE | 2018-05-18 17:51 | NUR ---
Pt requesting new pair of socks. Pt provided socks.
--- NOTE | 2018-05-18 18:48 | NUR ---
Pt resting in hospital bed talking with sitters. NADN. No needs requested at this time. Sitter near doorway in direct line of sight for observation.
--- NOTE | 2018-05-18 19:05 | NUR ---
Pati carpio in ED - 05/18/18 at 1905 by PHILLIP REPORT OF PT FROM KRISHNA KEITH AND ASSUMING CARE OF PT AT THIS TIME.
--- NOTE | 2018-05-18 19:05 | NUR ---
REPORT OF PT FROM KRISHNA KEITH AND ASSUMING CARE OF PT AT THIS TIME.
--- NOTE | 2018-05-18 19:06 | NUR ---
Provided bedside report to KRISHNA Ge. All questions answered. Joo to assume care of pt at this time.
--- NOTE | 2018-05-18 19:06 | NUR ---
Pt requested to shower. Sitter near doorway in direct line of sight for observation. Pt back to bed from shower at this time. New linens provided for pt.
--- NOTE | 2018-05-18 20:22 | NUR ---
PT RESTING IN GURNEY AT THIS TIME; NADN. PT DENIES ANY NEEDS AT THIS TIME. SITTER OUTSIDE OF BEDROOM FOR DIRECT PATIENT OBSERVATION.
[2018-05-18] MEDS: PRAZOSIN 5 MG CAPSULE PO SCH (21:00)
[2018-05-18] MEDS: NICOTINE 14MG/24 HR PATCH.TD24 TD SCH (21:00)
[2018-05-18] MEDS: MIRTAZAPINE 15 MG TABLET PO SCH (21:00)
[2018-05-18] MEDS ORDERED: PRAZOSIN 5 MG CAPSULE ONE (21:18)
[2018-05-18] MEDS ORDERED: MIRTAZAPINE 15 MG TABLET ONE (21:19)
--- NOTE | 2018-05-18 21:22 | NUR ---
pt medicated per mar.
--- NOTE | 2018-05-18 21:57 | NUR ---
pt vss and updated in emr.
[2018-05-18] MEDS ORDERED: NICOTINE 14MG/24 HR PATCH.TD24 ONE (22:04)
--- NOTE | 2018-05-18 23:44 | NUR ---
PT SLEEPING IN GURNEY; NADN. EQUAL BILATERAL RISE AND FALL OF CHEST OBSERVED. SITTER OUTSIDE OF PT ROOM FOR DIRECT OBSERVATION OF PT.
--- NOTE | 2018-05-19 00:22 | NUR ---
TASK RN: PT RESTING IN GURNEY, AWAKE/ALERT. PT DENIES NEEDS. CALM AND COOPERATIVE. ROOM SECURE, SITTER PRESENT
--- NOTE | 2018-05-19 01:59 | NUR ---
PT ASLEEP IN GURNEY; NADN. EQUAL BILATERAL RISE AND FALL OF CHEST NOTED. SITTER OUTSIDE OF ROOM FOR DIRECT OBSERVATION.
--- NOTE | 2018-05-19 03:29 | NUR ---
pt asleep in [facility]. receptionist doctor's office outside of room for direct observation.
--- NOTE | 2018-05-19 04:36 | NUR ---
pt asleep in [facility]. pt has bilateral equal rise and fall of chest observed by this rn. pt has sitter outside of room for direct observation.
--- NOTE | 2018-05-19 05:35 | NUR ---
Pt asleep in [facility] at this time; nadn. visible bilateral rise and fall of chest observed. pt has sitter outside of room for direct observation.
--- NOTE | 2018-05-19 07:07 | NUR ---
report from eden cummings. pt resting in bed, respirations even and unlabored. sitter in cook.
--- NOTE | 2018-05-19 08:03 | NUR ---
pt resting in bed. meal provided. room secure and sitter in hallway
[2018-05-19] MEDS ORDERED: DIVALPROEX 500 MG TABLET.DR ONE ×2 (08:46→20:00)
[2018-05-19] MEDS ORDERED: SENNA/DOCUSATE TABLET ONE (08:46)
[2018-05-19] MEDS ORDERED: CHLORPROMAZINE 100MG TAB ONE ×2 (08:47→20:01)
[2018-05-19] MEDS ORDERED: LISINOPRIL 5 MG TABLET ONE (08:47)
--- NOTE | 2018-05-19 10:02 | NUR ---
pt refusing morning meds at this time.. will try again in an hour.
[2018-05-19] MEDS: DIVALPROEX 500 MG TABLET.DR PO SCH ×2 (10:41→20:06)
[2018-05-19] MEDS: LISINOPRIL 5 MG TABLET PO SCH (10:42)
[2018-05-19] MEDS: CHLORPROMAZINE 100MG TAB PO SCH ×2 (10:43→20:06)
--- NOTE | 2018-05-19 13:42 | NUR ---
pt in bed at this time. lunch consumed completely. room secure and sitter in hallway
--- NOTE | 2018-05-19 18:23 | NUR ---
QPT IN BED AT THIS TIME. ROOM SECURE AND SITTER IN [place]. MEAL PROVIDED
--- NOTE | 2018-05-19 19:03 | NUR ---
RECEIVED BS REPORT FROM KRISHNA HANNAH TO ASSUME PT. CARE. SITTER IN [place]; ROOM SECURED.
--- NOTE | 2018-05-19 19:34 | NUR ---
PT. PROVIDED WITH CRACKERS AND CHICKEN BROTH PER REQUEST. PT. SHOUTING AND EXPRESSING FRUSTRATION OVER NOT BEING AT [facility]; LET PT. KNOW THAT HE HAS ANOTHER MEETING WITH THE PHARMACY PICKING TECHNICIAN TOMORROW(PER JULIETH, YVROSE). PT. SHOUTING; THIS RN SET LIMITS WITH PT. AND REQUESTED HIM TO LOWER HIS VOICE. AT THIS TIME PT. COOPERATIVE. WILL CONTINUE TO MONITOR. SITTER IN DIRECT VIEW. ROOM SECURED.
[2018-05-19] MEDS ORDERED: NICOTINE 14MG/24 HR PATCH.TD24 ONE (20:01)
[2018-05-19] MEDS ORDERED: MIRTAZAPINE 15 MG TABLET ONE (20:01)
[2018-05-19] MEDS ORDERED: PRAZOSIN 5 MG CAPSULE ONE (20:01)
--- NOTE | 2018-05-19 20:03 | NUR ---
YVROSE MUKHERJEE AT TO DISCUSS POC FOR TOMORROW WITH PT.
[2018-05-19] MEDS: PRAZOSIN 5 MG CAPSULE PO SCH (20:05)
[2018-05-19] MEDS: MIRTAZAPINE 15 MG TABLET PO SCH (20:06)
[2018-05-19] MEDS: NICOTINE 14MG/24 HR PATCH.TD24 TD SCH (20:12)
--- NOTE | 2018-05-19 20:27 | NUR ---
PT. MEDICTED PER JUN. VS UPDATED. SANDWICH AND CHIPS PROVIDED. WATER PROVIDED. PT. DENIES OTHER NEEDS. ROOM REMAINS SECURED. SITTER IN DOORWAY. PT. CONTINUES TO BE COOPERATIVE AND CALM WITH THIS RN.
--- NOTE | 2018-05-19 23:31 | NUR ---
PT. RESTING ON HOSPITAL BED WITH NADN, EYES CLOSED. RESP EVEN, NON-LABORED. ROOM SECURED. SITTER IN DOORWAY.
--- NOTE | 2018-05-20 01:07 | NUR ---
PT. CONTINUES RESTING IN HOSPITAL BED WITH NADN. EVEN, NON-LABORED RESPIRATIONS. ROOM SECURED. SITTER IN CLEMENTS.
--- NOTE | 2018-05-20 02:25 | NUR ---
PT. CONTINUES RESTING ON HOSPITAL BED WITH NADN. EVEN CHEST RISE/FALL VISIBLE. ROOM SECURED. SITTER IN DOORWAY.
--- NOTE | 2018-05-20 03:38 | NUR ---
PT. RESTING IN HOSPITAL BED WITH EYES CLOSED. EVEN CHEST RISE/FALL VISIBLE. NADN. SITTER IN CLEMENTS. ROOM SECURED.
--- NOTE | 2018-05-20 04:39 | NUR ---
PT. GIVEN CRACKERS AND WATER PER REQUEST. PT. DENIES OTHER NEEDS. SITTER IN CLEMENTS. ROOM SECURED.
--- NOTE | 2018-05-20 06:02 | NUR ---
PT. RESTING ON HOSPITAL BED WITH EYES CLOSED. NADN. EVEN CHEST RISE/FALL VISIBLE. ROOM SECURED. SITTER IN CLEMENTS.
--- NOTE | 2018-05-20 07:41 | NUR ---
LATE NOTE FOR 0645: Recieved bedside report from KRISHNA Contreras. All questions answered. Assuming care of pt. Pt standing in doorway speaking to sitter. NADN. No needs expressed at this time. All SI precautions remain in place.
[2018-05-20] MEDS ORDERED: DIVALPROEX 500 MG TABLET.DR ONE ×2 (09:11→19:38)
--- NOTE | 2018-05-20 09:59 | NUR ---
Pt refusing morning medications, physical assessment and vital signs. Pt states, "Get out of here you bitch," to ED RN. Pt states, "I need my doctor to come down here, I have some choice words for him or her."
[2018-05-20] MEDS ORDERED: SENNA/DOCUSATE TABLET ONE (10:55)
[2018-05-20] MEDS ORDERED: CHLORPROMAZINE 100MG TAB ONE ×3 (10:56→19:38)
[2018-05-20] MEDS ORDERED: LISINOPRIL 5 MG TABLET ONE (10:56)
[2018-05-20] MEDS: CHLORPROMAZINE 100MG TAB PO SCH ×2 (11:07→19:53)
[2018-05-20] MEDS: SENNA/DOCUSATE TABLET PO SCH (11:07)
[2018-05-20] MEDS: LISINOPRIL 5 MG TABLET PO SCH (11:08)
[2018-05-20] MEDS: DIVALPROEX 500 MG TABLET.DR PO SCH ×2 (11:08→19:53)
--- NOTE | 2018-05-20 11:14 | NUR ---
Pt cooperative at this time. Pt took all morning medications. Pt allowed vital signs to be taken and physical assessment and suicide reassessment to be done.
--- NOTE | 2018-05-20 11:14 | NUR ---
LATE NOTE ENTRY FOR 0800: Pt sleeping on hospital bed. NADN. Pt has even chest rise and fall bilaterally. All SI precautions remain in place. Sitter near doorway in direct line of sight for observation.
--- NOTE | 2018-05-20 11:17 | NUR ---
Late note entry for 0900: Pt provided breakfast tray. Pt ate 100% of breakfast tray.
--- NOTE | 2018-05-20 13:28 | NUR ---
LATE NOTE ENTRY FRO 1225: Pt provided two lunch trays. Pt appreciative. Sitter near doorway in direct line of sight. NADN. No other needs requested.
--- NOTE | 2018-05-20 14:11 | NUR ---
Pt resting on hospital bed watching TV. Sitter near doorway in direct line of sight for observation. NADN. No needs expressed.
--- NOTE | 2018-05-20 17:15 | NUR ---
LATE NOTE ENTRY FOR 1500: Pt sleeping on hospital bed. NADN. Pt has unlabored respirations equal bilaterally. Sitter near doorway in direct line of sight for observation. No needs expressed.
--- NOTE | 2018-05-20 17:16 | NUR ---
LATE NOTE ENTRY FOR 1600: Pt sleeping on hospital bed. NADN. Pt has unlabored respirations equal bilaterally. Sitter near doorway in direct line of sight for observation. No needs expressed.
--- NOTE | 2018-05-20 17:16 | NUR ---
Pt sleeping on hospital bed. NADN. Pt has unlabored respirations equal bilaterally. Sitter near doorway in direct line of sight for observation. No needs expressed. Dinner tray ordered
[2018-05-20] MEDS ORDERED: ACETAMINOPHEN 325 MG TABLET ONE (19:37)
[2018-05-20] MEDS ORDERED: PRAZOSIN 5 MG CAPSULE ONE (19:38)
[2018-05-20] MEDS ORDERED: NICOTINE 14MG/24 HR PATCH.TD24 ONE (19:39)
[2018-05-20] MEDS ORDERED: MIRTAZAPINE 15 MG TABLET ONE (19:39)
[2018-05-20] MEDS: PRAZOSIN 5 MG CAPSULE PO SCH (19:53)
[2018-05-20] MEDS: MIRTAZAPINE 15 MG TABLET PO SCH (19:54)
[2018-05-20] MEDS: NICOTINE 14MG/24 HR PATCH.TD24 TD SCH (19:54)
--- NOTE | 2018-05-20 20:00 | NUR ---
LATE ENTRY 1900- PT RESTING CALMLY WATCHING TV, SHANI, DENIES NEEDS, ROSITA AT DOORWAY FOR CONTINOUS MONITORING
--- NOTE | 2018-05-20 20:01 | NUR ---
PT RESTING WATCHING TV, PROVIDED PT WITH SI SANDWICH AND DRINK, ROOM SECURED, GARAGE DOORS DOWN, PT MEDICATED PER JUN, SITTER AT DOORWAY FOR CONTINOUS MONITORING
--- NOTE | 2018-05-20 21:14 | NUR ---
PT RESTING WITH EYES CLOSED, DENIES NEEDS AT THIS TIME, ROOM REMAINS SECURED, SITTER AT DOORWAY FOR CONTINOUS MONITORING.
--- NOTE | 2018-05-20 22:12 | NUR ---
PT RESTING WITH EYES CLOSED, NADN, EQUAL CHEST RISE/FALL OBSERVED, SITTER AT DOORWAY FOR CONTINOUS MONITORING.
--- NOTE | 2018-05-20 23:15 | NUR ---
PT SPILT WATER ON BED, LINEN CHARGED, PROVIDED PT WITH FRESH WATER, DENIES FURTHER NEED, SITTER AT DOORWAY FOR CONTINOUS MONITORING.
--- NOTE | 2018-05-21 00:02 | NUR ---
PT RESTING WATCHING TV, NAD, DENIES NEEDS, ROOM SECURED, SITTER AT DOORWAY FOR CONTINOUS MONITORING.
--- NOTE | 2018-05-21 01:19 | NUR ---
PT RESSTING WITH EYES CLOSED, REPOSITIONED SELF IN BED, NAD, EQUAL CHEST RISE/FALL OBSERVED, SITTER AT DOORWAY FOR CONTINOUS MONITORING.
--- NOTE | 2018-05-21 02:05 | NUR ---
PT RESTING ON GURNEY WITH EYES CLOSED, NADN, EQUAL CHEST RISE/FALL OBSERVED, SITTER AT DOORWAY FOR CONTINOUS MONITORING
--- NOTE | 2018-05-21 03:10 | NUR ---
PT RESTING WITH EYES CLOSED, NAD, EQUAL CHEST RISE/FALL OBSERVED, SITTER AT DOORWAY FOR CONTINOUS MONITORING.
--- NOTE | 2018-05-21 04:09 | NUR ---
PT RESTING ON GURNEY WITH EYES CLOSED, NADN, EQUAL CHEST RISE/FALL OBSERVED, SITTER AT DOORWAY FOR CONTINOUS MONITORING
--- NOTE | 2018-05-21 05:04 | NUR ---
PT RESTING WITH EYES CLOSED. NADN. RESPIRATIONS EVEN AND UNLABORED. SITTER OUTSIDE DOOR MONITORING PT.
--- NOTE | 2018-05-21 06:06 | NUR ---
PT RESTING ON GURNEY WITH EYES CLOSED, REPOSITIONED SELF IN BED, EQUAL CHEST RISE/FALL OBSERVED, SITTER AT DOORWAY FOR CONTINOUS MONITORING
--- NOTE | 2018-05-21 07:03 | NUR ---
REPORT GIVEN TO KRISHNA LRAIOS
--- NOTE | 2018-05-21 07:42 | NUR ---
ASSUMED CARE OF PT, BEDSIDE REPORT COMPLETED. SAFETY MEASURES MAINTAINED, SITTER OUTSIDE ROOM.
[2018-05-21] MEDS: DIVALPROEX 500 MG TABLET.DR PO SCH ×2 (09:00→21:22)
[2018-05-21] MEDS ORDERED: LISINOPRIL 5 MG TABLET ONE (09:06)
[2018-05-21] MEDS ORDERED: CHLORPROMAZINE 100MG TAB ONE (09:06)
[2018-05-21] MEDS ORDERED: SENNA/DOCUSATE TABLET ONE (09:06)
[2018-05-21] MEDS ORDERED: DIVALPROEX 500 MG TAB.ER.24H ONE (09:06)
[2018-05-21] MEDS: SENNA/DOCUSATE TABLET PO SCH (09:08)
[2018-05-21] MEDS: LISINOPRIL 5 MG TABLET PO SCH (09:09)
[2018-05-21] MEDS: CHLORPROMAZINE 100MG TAB PO SCH ×2 (09:09→22:04)
--- NOTE | 2018-05-21 09:15 | NUR ---
PT GIVEN BREAKFAST AND AM MEDICATIONS. STILL C/O SI WITH NO PLAN AT THIS TIME. GINA. KIA.
--- NOTE | 2018-05-21 10:22 | NUR ---
NO CHANGES AT THIS TIME.
--- NOTE | 2018-05-21 15:19 | NUR ---
TASK RN: Pt requesting sprite. Provided pt sprite. Pt appreciative. Pt requesting to walk. Sitter took pt to walk around unit. Pt appreciative. NADN. No other needs expressed at this time.
--- NOTE | 2018-05-21 16:01 | NUR ---
BREAK RN: PT RESTING QUIETLY, SITTER OUTSIDE ROOM.
--- NOTE | 2018-05-21 18:20 | NUR ---
PT GIVEN DINNER, IN BED WATCHING TV. CALM/COOPERATIVE, FLAT AFFECT. NO OTHER NEEDS AT THIS TIME
--- NOTE | 2018-05-21 19:00 | NUR ---
RECEIVED REPORT FROM DESIREE KELLER. PT RESTING IN BED WITH EYES OPEN. NOT DISTRESS NOTED AT THIS TIME. SITTER AT DOOR FOR OBS.
--- NOTE | 2018-05-21 20:04 | NUR ---
PT REMAINS RESTING IN BED. NO STATED NEEDS CURRENTLY. WILL CONTINUE TO MONITOR. SITTER AT DOOR.
--- NOTE | 2018-05-21 21:10 | NUR ---
PT RESTING IN BED. SITTER AT DOOR.
[2018-05-21] MEDS: PRAZOSIN 5 MG CAPSULE PO SCH (21:22)
[2018-05-21] MEDS: MIRTAZAPINE 15 MG TABLET PO SCH (21:22)
[2018-05-21] MEDS ORDERED: NICOTINE 14MG/24 HR PATCH.TD24 ONE (21:28)
[2018-05-21] MEDS: NICOTINE 14MG/24 HR PATCH.TD24 TD SCH (21:36)
--- NOTE | 2018-05-21 22:06 | NUR ---
PT HAS BEEN MEDICATED WITH SCHEDULED MEDS. SITTER AT DOOR. PT GIVEN SANDWICH AND WATER TO SOOTHE STOMACH WITH MEDS PER PT REQUEST. PT READING BOOK. SITTER AT DOOR. PT COOPERATIVE.
--- NOTE | 2018-05-21 23:06 | NUR ---
PT RESTING IN BED WATCHING TV. SITTER AT DOOR. WILL CONTINUE TO MONITOR.
--- NOTE | 2018-05-22 00:08 | NUR ---
PT RESTING IN BED. PT CALM. PT GIVEN WATER PER PT REQUEST. SITTER AT DOOR.
--- NOTE | 2018-05-22 01:36 | NUR ---
PT RESTING IN BED. SITTER AT DOOR. NO STATED NEEDS.
--- NOTE | 2018-05-22 02:10 | NUR ---
PT RESTING IN BED, SITTER AT BEDSIDE. RESP EVEN AND NON LABORED.
--- NOTE | 2018-05-22 03:09 | NUR ---
PT RESTING IN BED WITH EYES CLOSED. PT RESTING ON SIDE. NO NEEDS AT THIS TIME. WILL CONTINUE TO MONITOR.
--- NOTE | 2018-05-22 04:10 | NUR ---
PT RESTING CALMLY IN BED. NO NEEDS SITTER AT DOOR.
--- NOTE | 2018-05-22 05:09 | NUR ---
PT CONTINUES TO REST IN BED WITH EYES CLOSED AND EVEN RESPS. NO STATED NEEDS AT THIS TIME. SITTER OBSERVING PT.
--- NOTE | 2018-05-22 06:56 | NUR ---
received bedside report from KRISHNA Baumann. PT SLEEPING ON HOSP BED. NO ACUTE DISTRESS NOTED. RESPS EQUAL AND UNLABORED. ALL SAFETY MEAUSURES OBTAINED.
--- NOTE | 2018-05-22 06:57 | NUR ---
REPORT TO MAE KELLER. PT RESTING IN BED WITH EYES CLOSED.
--- NOTE | 2018-05-22 07:42 | NUR ---
PT AMBUALTORY WITH STEADY GAIT TO BATHROOM. SITTER WITH PT. NO ACUTE DISTRESS NOTED.
--- NOTE | 2018-05-22 08:17 | NUR ---
PT SLEEPING ON HOSP BED. NO ACUTE DISTRESS NOTED. RESPS EQUAL AND UNLABORED. SITTER AT DOORWAY. PT WITHIN FULL VIEW. WILL CONTINUE TO MONITOR.
[2018-05-22] MEDS ORDERED: DIVALPROEX 500 MG TAB.ER.24H ONE (08:21)
[2018-05-22] MEDS ORDERED: LISINOPRIL 5 MG TABLET ONE (08:22)
[2018-05-22] MEDS ORDERED: CHLORPROMAZINE 100MG TAB ONE ×2 (08:22→20:36)
[2018-05-22] MEDS: DIVALPROEX 500 MG TABLET.DR PO SCH ×2 (08:23→21:03)
[2018-05-22] MEDS: LISINOPRIL 5 MG TABLET PO SCH (08:23)
[2018-05-22] MEDS: CHLORPROMAZINE 100MG TAB PO SCH ×2 (08:24→21:03)
--- NOTE | 2018-05-22 08:29 | NUR ---
PT ATE 100% OF DIET TRAY. VSS. NO ACUTE DISTRESS NOTED. PT STATES "I DIDN'T GO TO SLEEP UNTIL 1 AM LAST NIGHT. I'M TIRED." PT LAYING ON HOSPITAL BED. ALL SAFETY MEASURES OBTAINED. SITTER AT DOORWAY, PT WITHIN FULL VIEW.
[2018-05-22] MEDS: SENNA/DOCUSATE TABLET PO SCH (09:00)
--- NOTE | 2018-05-22 09:10 | NUR ---
PT SLEEPING ON HOSP BED. NO ACUTE DISTRESS NOTED. RESPS EQUAL AND UNLABORED. ALL SAFETY MEASURES OBTAINED. WILL CONTINUE TO MONITOR.
--- NOTE | 2018-05-22 10:16 | NUR ---
PT CONTINUES TO SLEEP ON HOSP BED. NO ACUTE DISTRESS NOTED. RESPS EQUAL AND UNLABORED. ALL SAFETY MEASURES OBTAINED. WILL CONTINUE TO MONITOR.
--- NOTE | 2018-05-22 11:34 | NUR ---
PT SLEEPING ON HOSP BED. ALL SAFETY MEASURES OBTAINED. RESPS EQUAL AND UNLABORED. SITTER AT DOORWAY. PT WITHIN FULL VIEW. DIET TRAY ORDERED. WILL CONTINUE TO MONITOR.
--- NOTE | 2018-05-22 12:10 | NUR ---
BREAK RN: LUNCH DELIVERED; PT SLEEPING. SITTER OUTSIDE ROOM.
--- NOTE | 2018-05-22 14:06 | NUR ---
LATE ENTRY FOR 1300 PT SLEEPING ON HOSP BED. NO ACUTE DISTRESS NOTED. RESPS EQUAL AND UNLABORED. ALL SAFETY MEASURES OBTAINED. SITTER AT DOORWAY.
--- NOTE | 2018-05-22 14:18 | NUR ---
PT CONTINUES TO SLEEP ON HOSP BED. NO ACUTE DISTRESS NOTED. RESPS EQUAL AND UNLABORED. ALL SAFETY MEASURES OBTAINED.
--- NOTE | 2018-05-22 15:55 | NUR ---
LATE ENTRY FOR 1500 PT CONTINUES TO SLEEP ON HOSP BED. RESPS EQUAL AND UNLABORED. ALL SAFETY MEASURES OBTAINED. WILL CONTINUE TO MONTIOR. SITTER AT DOORWAY, PT WITHIN FULL VIEW.
--- NOTE | 2018-05-22 15:56 | NUR ---
NO ACUTE DISTRESS NOTED. PT SLEEPING ON HOSP BED. RESPS EQUAL AND UNLABORED. ALL SAFETY MEASURES OBTAINED. WCTM
--- NOTE | 2018-05-22 17:52 | NUR ---
LATE ENTRY FOR 1700 DIET TRAY DELIVERED TO PT. PT RUTHIE ON HOSP BED. NO ACUTE DISTRESS NOTED. ALL SAFETY MEASURES OBTAINED. NO NEEDS REQUESTED AT THIS TIME.
--- NOTE | 2018-05-22 17:53 | NUR ---
PT WATCHING TV ON HOSP BED. NO ACUTE DISTRESS NOTED. ALL SAFETY MEASURES OBTAINED. NO NEEDS REQUESTED AT THIS TIME.
--- NOTE | 2018-05-22 19:04 | NUR ---
BEDSIDE REPORT TO KRISHNA JIMENEZ.
[2018-05-22] MEDS ORDERED: PRAZOSIN 5 MG CAPSULE ONE (20:36)
[2018-05-22] MEDS ORDERED: DIVALPROEX 500 MG TABLET.DR ONE (20:36)
[2018-05-22] MEDS ORDERED: MIRTAZAPINE 15 MG TABLET ONE (20:36)
[2018-05-22] MEDS ORDERED: NICOTINE 14MG/24 HR PATCH.TD24 ONE (20:36)
[2018-05-22] MEDS: PRAZOSIN 5 MG CAPSULE PO SCH (21:04)
[2018-05-22] MEDS: NICOTINE 14MG/24 HR PATCH.TD24 TD SCH (21:04)
[2018-05-22] MEDS: MIRTAZAPINE 15 MG TABLET PO SCH (21:04)
--- NOTE | 2018-05-22 21:06 | NUR ---
Pt medicated per EMAR, given cereal, milk, pudding, applesauce per request. Denies any needs/concerns at this time, Pt calm, cooperative with staff. Sitter remains at door watching pt
--- NOTE | 2018-05-22 22:08 | NUR ---
Pt given more water and crackers per request, pt offered a shower, pt states he is too tired and he will wait for tomorrow, remains cooperative, calm. Sitter remains at door watching pt.
--- NOTE | 2018-05-22 23:15 | NUR ---
Pt sleeping in room/on gurney, bilateral chest rise noted. Sitter remains at door watching pt
--- NOTE | 2018-05-23 02:13 | NUR ---
Pt remains asleep, bilateral chest rise noted. Sitter remains at door
--- NOTE | 2018-05-23 02:31 | NUR ---
REPORT RECEIVED FROM KRISHNA JIMENEZ. ASSUMED CARE OF PT. PT SLEEPING ON HOSPITAL BED, ROOM REMAINS SECURE, SITTER OUTSIDE DOOR MONITORING PT.
--- NOTE | 2018-05-23 05:15 | NUR ---
PT CONTINUES TO SLEEP, SITTER OUTSIDE DOOR MONITORING PT. ROOM REMAINS SECURE.
--- NOTE | 2018-05-23 05:16 | NUR ---
MEAL TRAY ORDERED FOR BREAKFAST
--- NOTE | 2018-05-23 07:18 | NUR ---
ASSUMED CARE OF PT. PT SLEEPING AT THIS TIME. RECEIVED REPORT FROM SABINO KELLER
--- NOTE | 2018-05-23 08:20 | NUR ---
PROVIDED BREAKFAST TRAY
--- NOTE | 2018-05-23 10:30 | NUR ---
PER SITTER PT AMBULATED TO BATHROOM STEADY GAIT WITH NO ASSISTANCE OR CRUTCHES
[2018-05-23] MEDS ORDERED: DIVALPROEX 500 MG TABLET.DR ONE (10:35)
[2018-05-23] MEDS ORDERED: SENNA/DOCUSATE TABLET ONE (10:35)
[2018-05-23] MEDS ORDERED: LISINOPRIL 5 MG TABLET ONE (10:36)
[2018-05-23] MEDS ORDERED: CHLORPROMAZINE 100MG TAB ONE ×2 (10:36→19:50)
[2018-05-23] MEDS: CHLORPROMAZINE 100MG TAB PO SCH ×2 (10:39→20:14)
[2018-05-23] MEDS: LISINOPRIL 5 MG TABLET PO SCH (10:40)
[2018-05-23] MEDS: SENNA/DOCUSATE TABLET PO SCH (10:40)
[2018-05-23] MEDS: DIVALPROEX 500 MG TABLET.DR PO SCH ×2 (10:40→20:16)
--- NOTE | 2018-05-23 10:50 | NUR ---
PT SLEEPING. AWOKE HIM TO GIVE MORNING MEDS
--- NOTE | 2018-05-23 11:42 | NUR ---
TASK RN: LUNCH TRAY ORDERED FOR PT. PT RESTING IN BED. NADN. SITTER AT BEDSIDE. ROOM REMAINS SECURE.
--- NOTE | 2018-05-23 13:30 | NUR ---
awake watching tv
--- NOTE | 2018-05-23 16:05 | NUR ---
PROVIDED SANDWICH TRAY
--- NOTE | 2018-05-23 17:33 | NUR ---
WATCHING TV, NO DISTRESS
--- NOTE | 2018-05-23 18:27 | NUR ---
PT SLEEPING. VITAL SIGNS UPDATED.
--- NOTE | 2018-05-23 19:07 | NUR ---
REPORT RECIEVED FROM KRISHNA CUEVA. ASSUMED PT CARE
[2018-05-23] MEDS ORDERED: DIVALPROEX 500 MG TAB.ER.24H ONE (19:49)
[2018-05-23] MEDS ORDERED: NICOTINE 14MG/24 HR PATCH.TD24 ONE (19:49)
[2018-05-23] MEDS ORDERED: MIRTAZAPINE 15 MG TABLET ONE (19:50)
[2018-05-23] MEDS ORDERED: PRAZOSIN 5 MG CAPSULE ONE (19:50)
[2018-05-23] MEDS: NICOTINE 14MG/24 HR PATCH.TD24 TD SCH (20:15)
[2018-05-23] MEDS: MIRTAZAPINE 15 MG TABLET PO SCH (20:15)
[2018-05-23] MEDS: PRAZOSIN 5 MG CAPSULE PO SCH (20:16)
--- NOTE | 2018-05-23 20:17 | NUR ---
PT GIVEN SANDWICH PER REQUEST, MEDICATED PER eMAR, PT CONTINUES TO HAVE SI WITH NO PLAN, CALM AND COOPERATIVE, VOICED NO COMPLAINTS,
--- NOTE | 2018-05-23 21:19 | NUR ---
TP: SPOKE WITH MALLORIE FROM [facility] WHOM STATES THE DOCTORS HAVE THE CHART FOR REVIEW AT THIS TIME. MALLORIE REQUESTS WE CALL BACK AT 0800 TOMORROW TO CHECK ON PLACEMENT DUE TO THEM CURRENTLY BEING FULL.
--- NOTE | 2018-05-23 22:42 | NUR ---
PT SLEEPING, NO DISTRESS NOTED, SITTER OUTSIDE DOOR
--- NOTE | 2018-05-24 01:04 | NUR ---
PT SLEEPING, NO DISTRESS NOTED, SITTER OUTSIDE DOOR
--- NOTE | 2018-05-24 02:53 | NUR ---
PT SLEEPING, NO CHANGES, SITTER OUTSIDE DOOR
--- NOTE | 2018-05-24 05:12 | NUR ---
PT SLEEPING, NO DISTRESS NOTED, SITTER OUTSIDE DOOR
--- NOTE | 2018-05-24 06:30 | NUR ---
PT SLEEPING, NO DISTRESS NOTED, SITTER OUTSIDE DOOR
--- NOTE | 2018-05-24 07:13 | NUR ---
RECEIVED REPORT FROM MIKAEL BERRY RN. PT SLEEPING IN BED. SITTER REMAINS AT BEDSIDE. ROOM REMAINS SECURE.
--- NOTE | 2018-05-24 08:16 | NUR ---
PT SLEEPING IN BED. NADN. SITTER REMAINS AT BEDSIDE. ROOM REMAINS SECURE.
[2018-05-24] MEDS ORDERED: LISINOPRIL 10 MG TABLET ONE (09:08)
[2018-05-24] MEDS ORDERED: SENNA/DOCUSATE TABLET ONE (09:08)
[2018-05-24] MEDS ORDERED: DIVALPROEX 500 MG TABLET.DR ONE (09:08)
[2018-05-24] MEDS ORDERED: CHLORPROMAZINE 100MG TAB ONE ×2 (09:08→20:34)
[2018-05-24] MEDS: SENNA/DOCUSATE TABLET PO SCH (09:12)
[2018-05-24] MEDS: DIVALPROEX 500 MG TABLET.DR PO SCH ×2 (09:12→20:44)
[2018-05-24] MEDS: CHLORPROMAZINE 100MG TAB PO SCH ×2 (09:13→20:44)
[2018-05-24] MEDS: LISINOPRIL 5 MG TABLET PO SCH ×2 (09:13→09:19)
--- NOTE | 2018-05-24 09:21 | NUR ---
PT PROVIDED W/ SI BREAKFAST TRAY. SITTER REMAINS AT BEDSIDE. ROOM REMAINS SECURE. BP NOTED TO BE 95/59. LISINOPRIL HELD THIS AM.
--- NOTE | 2018-05-24 10:05 | NUR ---
PT RESTING IN BED. NADN. SITTER AT BEDSIDE. ROOM REMAINS SECURE.
--- NOTE | 2018-05-24 11:30 | NUR ---
PT RESTING IN BED. NADN. SITTER REMAINS AT BEDSIDE. ROOM REMAINS SECURE.
--- NOTE | 2018-05-24 12:31 | NUR ---
PT RESTING IN BED. NADN. SITTER REMAINS AT BEDSIDE. ROOM REMAINS SECURE.
--- NOTE | 2018-05-24 12:42 | NUR ---
PT SLEEPING IN BED. GINAN. VSS. PT PROVIDED W/ SI LUNCH TRAY. SITTER REMAINS AT BEDSIDE. ROOM REMAINS SECURE.
--- NOTE | 2018-05-24 12:51 | NUR ---
PT YELLING IN ROOM AND THROWING THINGS. ATTEMPTED TO CALM DOWN PT. PT CONTINUES TO YELL AND THROW THINGS. SPOKE W/ DR RYAN. NEW ORDER FOR GEODON 20 MG IM ONCE. REASSESSED PT WHO IS CURRENTLY CALM AND UNDERTSANDS HE CANNOT YELL AND THROW THINGS WHILE IN ED.
[2018-05-24] MEDS ORDERED: ZIPRASIDONE 20 MG INJ IM ONE (13:00)
--- NOTE | 2018-05-24 13:19 | NUR ---
LUNCH BREAK NOTE: PT CALM AND COOPERATIVE SLEEPING IN BED BEING OBSERVED BY SITTER.
--- NOTE | 2018-05-24 14:34 | NUR ---
PT SLEEPING IN BED. NADN. SITTER AT BEDSIDE. ROOM REMAINS SECURE.
--- NOTE | 2018-05-24 15:46 | NUR ---
PT SLEEPING IN BED. NADN. SITTER REMAINS AT BEDSIDE. ROOM REMAINS SECURE.
--- NOTE | 2018-05-24 16:30 | NUR ---
PT SLEEPING IN BED. NADN. SITER REMAINS AT BEDSIDE. ROOM REMAINS SECURE.
--- NOTE | 2018-05-24 17:12 | NUR ---
PT RESTING IN BED. NADN. PT PROVIDED W/ SI DINNER TRAY. SITTER AT BEDSIDE. ROOM REMAINS SECURE.
--- NOTE | 2018-05-24 18:25 | NUR ---
PT SLEEPING IN BED. NADN. SITER REMAINS AT BEDSIDE. ROOM REMAINS SECURE.
--- NOTE | 2018-05-24 18:57 | NUR ---
BEDSIDE REPORT GIVEN TO MIKAEL ALMONTE RN.
--- NOTE | 2018-05-24 19:15 | NUR ---
PT BEDSIDE REPORT FROM LAURA KELLER. THIS RN TO ASSUME CARE OF PT. ROLLER DOORS IN PLACE. SITTER IN HALLWAY. GIVEN SPRITE BY DSRN. NO OTHER IMMEDIATE NEEDS.
--- NOTE | 2018-05-24 19:53 | NUR ---
PT GIVEN SUPPLIES FOR SHOWER AND WALKED TO SHOWER W/ SITTER AT THIS TIME. GIVEN FRESH GOWNS AND LINENS.
[2018-05-24] MEDS ORDERED: MIRTAZAPINE 15 MG TABLET ONE (20:34)
[2018-05-24] MEDS ORDERED: PRAZOSIN 5 MG CAPSULE ONE (20:34)
[2018-05-24] MEDS ORDERED: DIVALPROEX 500 MG TAB.ER.24H ONE (20:34)
[2018-05-24] MEDS ORDERED: NICOTINE 14MG/24 HR PATCH.TD24 ONE (20:34)
[2018-05-24] MEDS: PRAZOSIN 5 MG CAPSULE PO SCH (20:44)
[2018-05-24] MEDS: NICOTINE 14MG/24 HR PATCH.TD24 TD SCH (20:44)
[2018-05-24] MEDS: MIRTAZAPINE 15 MG TABLET PO SCH (20:44)
--- NOTE | 2018-05-24 20:45 | NUR ---
PT GIVEN MEDS PER MAR AND SANDWICH PER REQUEST. VSS. ROLLER DOORS IN PLACE. SITTER IN HALLWAY. NO IMMEDIATE NEEDS.
--- NOTE | 2018-05-24 23:00 | NUR ---
PT SLEEPIGN COMFORTABLY ON GURNEY. NADN. RR EVEN AND UNLABORED. ROLLER DOORS IN PLACE. SITTER IN HALLWAY.
--- NOTE | 2018-05-25 00:48 | NUR ---
PT SLEEPIGN COMFORTABLY ON GURNEY. NADN. RR EVEN AND UNLABORED. ROLLER DOORS IN PLACE. SITTER IN HALLWAY.
--- NOTE | 2018-05-25 01:48 | NUR ---
PT SLEEPING COMFORTABLY ON GURNEY. NADN. RR EVEN AND UNLABORED. ROLLER DOORS IN PLACE. SITTER IN HALLWAY.
--- NOTE | 2018-05-25 03:59 | NUR ---
PT SLEEPING COMFORTABLY ON HOSPITAL BED. NADN. RR EVEN AND UNLABORED. ROLLER DOORS IN PLACE. SITTER IN HALLWAY.
--- NOTE | 2018-05-25 04:54 | NUR ---
PT SLEEPING COMFORTABLY ON HOSPITAL BED. NADN. RR EVEN AND UNLABORED. ROLLER DOORS IN PLACE. SITTER IN HALLWAY.
[2018-05-25] MEDS ORDERED: SENNA/DOCUSATE TABLET ONE (09:31)
[2018-05-25] MEDS ORDERED: DIVALPROEX 500 MG TABLET.DR ONE ×2 (09:31→21:08)
[2018-05-25] MEDS ORDERED: CHLORPROMAZINE 100MG TAB ONE ×2 (09:32→21:07)
[2018-05-25] MEDS ORDERED: LISINOPRIL 5 MG TABLET ONE (09:32)
[2018-05-25] MEDS: SENNA/DOCUSATE TABLET PO SCH (09:33)
[2018-05-25] MEDS: DIVALPROEX 500 MG TABLET.DR PO SCH ×2 (09:34→21:13)
[2018-05-25] MEDS: CHLORPROMAZINE 100MG TAB PO SCH ×2 (09:34→21:13)
[2018-05-25] MEDS: LISINOPRIL 5 MG TABLET PO SCH (09:34)
--- NOTE | 2018-05-25 09:37 | NUR ---
PT CONSUMED ENTIRE BREAKFAST. RESTING IN BED. ROOM SECURE WITH BELONGINGS IN LOCKER. SITTER AT BEDSIDE. PT MEDICATED PER ORDER AND PT EXPRESSES NO WANTS OR NEEDS AT THIS TIME.
--- NOTE | 2018-05-25 18:45 | NUR ---
REPORT TO SIMEON KELLER
[2018-05-25] MEDS ORDERED: IBUPROFEN 200 MG TABLET ONE (19:09)
[2018-05-25] MEDS: IBUPROFEN 200 MG TABLET PO PRN (19:14)
--- NOTE | 2018-05-25 19:47 | NUR ---
PT MEDICATED PER COMPLAINT OF HEADACHE. PT DENIES FURTHER NEEDS AT THIS TIME. HS MED REQ TUBED TO PHARM
[2018-05-25] MEDS ORDERED: DIVALPROEX 500 MG TAB.ER.24H ONE (21:06)
[2018-05-25] MEDS ORDERED: MIRTAZAPINE 15 MG TABLET ONE (21:07)
[2018-05-25] MEDS ORDERED: PRAZOSIN 5 MG CAPSULE ONE (21:07)
[2018-05-25] MEDS: MIRTAZAPINE 15 MG TABLET PO SCH (21:13)
[2018-05-25] MEDS: PRAZOSIN 5 MG CAPSULE PO SCH (21:13)
--- NOTE | 2018-05-25 21:13 | NUR ---
PT MEDICATED PER MAR FOR HS MEDS. PT GIVEN SANDWICH AT THIS TIME PER REQUEST. POC DISCUSSED. PT DENIES FURTHER NEEDS AT THIS TIME
--- NOTE | 2018-05-25 21:13 | NUR ---
PT MEDICATED PER MAR FOR HS MEDS. PT GIVEN SANDWICH AT THIS TIME PER REQUEST. POC DISCUSSED. PT DENIES FURTHER NEEDS AT THIS TIME.
--- NOTE | 2018-05-25 21:42 | NUR ---
CALLED [facility] TO INQUIRE ABOUT PT, WAS TOLD I WOULD BE PLACED ON HOLD TO SPEAK WITH THE CHARGE NURSE. PLACED ON HOLD FOR 10 MINUTES WITHOUT ANSWER.
--- NOTE | 2018-05-25 22:35 | NUR ---
PT SLEEPING. PT AWOKEN FOR VITALS. VSS. PT DENIES FURTHER NEEDS AT THIS TIME. SITTER REMAINS IN PLACE.
--- NOTE | 2018-05-26 00:47 | NUR ---
PT REMAINS ASLEEP AT THIS TIME. RR 14 AND UNLABORED. SITTER REMAINS IN PLACE.
--- NOTE | 2018-05-26 01:45 | NUR ---
PT SLEEPING RR 16 AND UNLABORED. SITTER REMAINS IN PLACE.
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
--- NOTE | 2018-05-26 02:55 | NUR ---
INFORMED SIMEON KELLER OF PT'S STATUS WITH [facility].
--- NOTE | 2018-05-26 03:09 | NUR ---
PT SLEEPING RR 16 AND UNLABORED. SITTER REMAINS IN PLACE.
--- NOTE | 2018-05-26 04:42 | NUR ---
PT REMAINS ASLEEP. RR 14 AND UNLABORED. SITTER IN PLACE.
--- NOTE | 2018-05-26 05:56 | NUR ---
PT SLEEPING. RR 14 AND UNLABORED. SITTER IN PLACE.
--- NOTE | 2018-05-26 06:54 | NUR ---
PT REMAINS SLEEPING. NAD.
--- NOTE | 2018-05-26 06:56 | NUR ---
received BEDSIDE REPORT FROM KRISHNA HENDRIX. PT SLEEPING ON HOSP BED. ALL SAFETY MEASURES OBTAINED. SITTER AT DOORWAY. WILL CONTINUE TO MONITOR. RESPS EQUAL AND UNLABORED.
--- NOTE | 2018-05-26 07:48 | NUR ---
DIET TRAY ORDERED. PT CONTINUES TO SLEEP ON HOSP BED. NO ACUTE DISTRESS NOTED. RESPS EQUAL AND UNLABORED. ALL SAFETY MEASURES OBTAINED.
--- NOTE | 2018-05-26 08:23 | NUR ---
DIET TRAY DELIVERED
--- NOTE | 2018-05-26 08:41 | NUR ---
PT SLEEPING ON HOSP BED. PT ATE 100% OF DIET TRAY. TRIED TO WAKE PT UP VERBALLY. PT CONTINUES TO SLEEP. WILL CONTINUE TO MONITOR. ALL SAFETY MEASURES OBTAINED.
--- NOTE | 2018-05-26 09:09 | NUR ---
PT SLEEPING IN [facility]. NAD NOTED AT THIS TIME. BREATHING REGULAR AND UNLABORED. WILL CONTINUE TO MONITOR.
[2018-05-26] MEDS ORDERED: SENNA/DOCUSATE TABLET ONE (10:56)
[2018-05-26] MEDS ORDERED: DIVALPROEX 500 MG TAB.ER.24H ONE ×2 (10:56→10:59)
[2018-05-26] MEDS ORDERED: CHLORPROMAZINE 100MG TAB ONE ×2 (10:57→21:11)
[2018-05-26] MEDS ORDERED: LISINOPRIL 5 MG TABLET ONE (10:57)
--- NOTE | 2018-05-26 11:03 | NUR ---
PT CONTINUES TO SLEEP IN [facility]. NAD NOTED AT THIS TIME. EQUAL RISE AND FALL OF CHEST NOTED. SITTER IN PLACE. WILL CONTINUE TO MONITOR.
[2018-05-26] MEDS: SENNA/DOCUSATE TABLET PO SCH (12:20)
[2018-05-26] MEDS: LISINOPRIL 5 MG TABLET PO SCH (12:20)
[2018-05-26] MEDS: CHLORPROMAZINE 100MG TAB PO SCH ×3 (12:20→21:23)
[2018-05-26] MEDS: DIVALPROEX 500 MG TABLET.DR PO SCH ×2 (12:20→21:22)
--- NOTE | 2018-05-26 12:21 | NUR ---
PT AWAKE. MEDICATED PER Jun.10 RIGHTS VERIFIED PRIOR. 3 P'S ADDRESSED. PT GIVEN FOOD TRAY.
--- NOTE | 2018-05-26 13:46 | NUR ---
PT SLEEPING AT THIS TIME. EQUAL RISE AND FALL OF CHEST. NAD NOTED. SITTER AT BEDSIDE. WILL CONTINUE TO MONITOR.
--- NOTE | 2018-05-26 15:00 | NUR ---
PT SLEEPING IN RNEY. EQUAL RISE AND FALL OF CHEST. NAD NOTED AT THIS TIME. SITTER IN PLACE. WILL CONTINUE TO MONITOR.
--- NOTE | 2018-05-26 16:00 | NUR ---
PT SLEEPING IN GURNEY. EQUAL RISE AND FALL OF CHEST. NAD NOTED. FOOD TRAY ORDERED.
--- NOTE | 2018-05-26 17:01 | NUR ---
TASK RN: DIET TRAY DELIVERED.
--- NOTE | 2018-05-26 18:00 | NUR ---
PT WATCHING TV. NO NEEDS AT THIS TIME. SITTER AT BEDSIDE.
--- NOTE | 2018-05-26 20:14 | NUR ---
PT WATCHING TV. NO NEEDS AT THIS TIME. SITTER AT BEDSIDE.
--- NOTE | 2018-05-26 20:54 | NUR ---
REPORT TO KRISHNA EVANS.
[2018-05-26] MEDS ORDERED: IBUPROFEN 600 MG TABLET ONE (21:11)
[2018-05-26] MEDS ORDERED: MIRTAZAPINE 15 MG TABLET ONE (21:11)
[2018-05-26] MEDS ORDERED: ONDANSETRON ODT 4 MG ONE (21:11)
[2018-05-26] MEDS ORDERED: DIVALPROEX 500 MG TABLET.DR ONE (21:11)
[2018-05-26] MEDS ORDERED: PRAZOSIN 5 MG CAPSULE ONE (21:12)
[2018-05-26] MEDS: NICOTINE 14MG/24 HR PATCH.TD24 TD SCH ×2 (21:21→21:23)
[2018-05-26] MEDS: PRAZOSIN 5 MG CAPSULE PO SCH (21:22)
[2018-05-26] MEDS: MIRTAZAPINE 15 MG TABLET PO SCH (21:22)
[2018-05-26] MEDS: IBUPROFEN 200 MG TABLET PO PRN (21:23)
--- NOTE | 2018-05-26 21:52 | NUR ---
provided pt with a sandwich. pt denies needs att. room secured. sitter outside of room for safety
--- NOTE | 2018-05-26 23:46 | NUR ---
PT RESTING ON GURNEY, RR EVEN AND UNLABORED. DENIES PAIN OR NEEDS ATT. PT'S ROOM SECURED. SITTER OUTSIDE OF ROOM FOR SAFETY
--- NOTE | 2018-05-27 02:35 | NUR ---
PT GIVEN TOOTHBRUSH AND TOOTHPASTE TO BRUSH TEETH. WALKED TO BATHROOM WITH SITTER
--- NOTE | 2018-05-27 03:34 | NUR ---
PT IS SLEEPING SITTER AT DOOR NO NEEDS AT THIS TIME
--- NOTE | 2018-05-27 05:16 | NUR ---
PT IS SLEEPING NO NEEDS AT THIS TIME SITTER AT DOOR
--- NOTE | 2018-05-27 07:12 | NUR ---
GIVEN REPORT TO KRISHNA LAGUNA
--- NOTE | 2018-05-27 07:20 | NUR ---
PT RESTING ON HOSPITAL BED. SITTER IN PLACE WITH EYES ON. NADN. RESP EVEN AND UNLABORED. SECURITY DIET TRAY ORDERED.
--- NOTE | 2018-05-27 08:11 | NUR ---
PT REFUSING ORAL TEMP DURING VITALS ASSESSMENT. STATED I DON'T LIKE THINGS UNDER MY TONGUE. PROVIDED WITH SECURITY DIET TRAY. SITTER IN PLACE. ALL CONCNERNS ADRESSED.
[2018-05-27] MEDS ORDERED: LISINOPRIL 5 MG TABLET ONE (09:38)
[2018-05-27] MEDS ORDERED: SENNA/DOCUSATE TABLET ONE (09:38)
[2018-05-27] MEDS ORDERED: CHLORPROMAZINE 100MG TAB ONE ×2 (09:38→20:58)
[2018-05-27] MEDS ORDERED: DIVALPROEX 500 MG TABLET.DR ONE (09:38)
[2018-05-27] MEDS: LISINOPRIL 5 MG TABLET PO SCH (09:41)
[2018-05-27] MEDS: CHLORPROMAZINE 100MG TAB PO SCH ×2 (09:41→21:02)
[2018-05-27] MEDS: SENNA/DOCUSATE TABLET PO SCH (09:41)
[2018-05-27] MEDS: DIVALPROEX 500 MG TABLET.DR PO SCH ×2 (09:41→21:00)
--- NOTE | 2018-05-27 09:44 | NUR ---
PT RESTING ON GURDONAL. REMIANS COOPERATIVE WITH STAFF AT THIS TIME. SHANI. SITTER IN PLACE WITH EYES ON PT. RESP EVEN AND UNLABORED.
--- NOTE | 2018-05-27 11:09 | NUR ---
PT RESTING ON GURNEY WITH EYES CLOSED. RESP EVEN AND UNLABORED. SKIN W/D/P. NADN. SITTER IN PLACE WITH EYES ON.
--- NOTE | 2018-05-27 13:40 | NUR ---
LUNCH RN: LUNCH TRAY GIVEN TO PT. PT CURRENTLY EATING IN ROOM, NADN. ALL NEEDS MET AT THIS TIME. SITTER IN CLEMENTS FOR CONTINUOUS MONITORING.
--- NOTE | 2018-05-27 16:07 | NUR ---
PT RESTING ON SHANI ELAINE. SITTER IN PLACE. ALL CONCERNS ADRESSED.
--- NOTE | 2018-05-27 17:38 | NUR ---
PT SITTING ON EDGE OF BED, TALKING TO SITTER. NADN. PT CALM AND COOPERATIVE WITH STAFF.
--- NOTE | 2018-05-27 19:09 | NUR ---
PT PROVIDED WITH SECURITY/SAFETY MEAL TRAY. REPORT TO KRISHNA CROFT.
--- NOTE | 2018-05-27 19:10 | NUR ---
REPORT RECEIVED FROM KRISHNA LAGUNA. ASSUMED CARE OF PT
--- NOTE | 2018-05-27 20:24 | NUR ---
PT GIVEN COFFEE PER REQUEST. TALKING WITH SITTER
[2018-05-27] MEDS ORDERED: DIVALPROEX 500 MG TAB.ER.24H ONE (20:46)
[2018-05-27] MEDS ORDERED: NICOTINE 14MG/24 HR PATCH.TD24 ONE (20:46)
[2018-05-27] MEDS ORDERED: MIRTAZAPINE 15 MG TABLET ONE ×2 (20:47→20:52)
[2018-05-27] MEDS ORDERED: PRAZOSIN 5 MG CAPSULE ONE (20:47)
[2018-05-27] MEDS: PRAZOSIN 5 MG CAPSULE PO SCH (21:01)
[2018-05-27] MEDS: MIRTAZAPINE 15 MG TABLET PO SCH (21:01)
[2018-05-27] MEDS: NICOTINE 14MG/24 HR PATCH.TD24 TD SCH (21:02)
--- NOTE | 2018-05-27 21:45 | NUR ---
PT MOVED TO ROOM 39
--- NOTE | 2018-05-27 23:00 | NUR ---
PT SLEEPING, NO DISTRESS NOTED, SITTER OUTSIDE DOOR
--- NOTE | 2018-05-28 00:30 | NUR ---
PT CONTIUES TO SLEEP, NO DISTRESS NOTED, SITTER OUTSIDE DOOR
--- NOTE | 2018-05-28 02:00 | NUR ---
PT SLEEPING, NO DISTRESS NOTED, SITTER OUTSIDE DOOR
--- NOTE | 2018-05-28 03:30 | NUR ---
PT CONTINUES TO SLEEP, NO DISTRESS NOTED, SITTER OUTSIDE DOOR
--- NOTE | 2018-05-28 05:00 | NUR ---
PT SLEEPING, NO DISTRESS NOTED, SITTER OUTSIDE DOOR
--- NOTE | 2018-05-28 06:30 | NUR ---
PT SLEEPING, NO DISTRESS NOTED, SITTER OUTSIDE DOOR
--- NOTE | 2018-05-28 07:05 | NUR ---
received report from Vinod. pt sleeping calmly on gurney, NAD with equal chest rise/fall, no needs at this time, pt remains in safe environment, sitter in full view.
[2018-05-28] MEDS ORDERED: SENNA/DOCUSATE TABLET ONE (07:42)
[2018-05-28] MEDS ORDERED: LISINOPRIL 5 MG TABLET ONE (07:42)
[2018-05-28] MEDS ORDERED: DIVALPROEX 500 MG TABLET.DR ONE ×2 (07:42→20:07)
[2018-05-28] MEDS ORDERED: CHLORPROMAZINE 100MG TAB ONE ×2 (07:42→20:07)
--- NOTE | 2018-05-28 08:02 | NUR ---
Pati carpio in ED - 05/28/18 at 0823 by MALINI pt laying on gurney awake, calm & cooperative, responds approp to staff, NAD, comfort measures provided incl breakfast tray given, pt remains in safe enivronment, sitter in full view.
--- NOTE | 2018-05-28 08:02 | NUR ---
pt sleeping on gurney, refused meds, VS & meal tray, NAD, no needs at this time, pt remains in safe environment, sitter in full view. Addendum: 05/28/18 at 1031 by MALINI pt sleeping on gurney, refused VS, meal tray & meds despite educ of importance in med compliance, NAD, no needs at this time, pt remains in safe environment, sitter in full view.
[2018-05-28] MEDS: DIVALPROEX 500 MG TABLET.DR PO SCH ×4 (08:05→20:44)
[2018-05-28] MEDS: CHLORPROMAZINE 100MG TAB PO SCH ×4 (08:05→20:43)
[2018-05-28] MEDS: SENNA/DOCUSATE TABLET PO SCH ×3 (08:05→14:03)
[2018-05-28] MEDS: LISINOPRIL 5 MG TABLET PO SCH ×3 (08:05→14:03)
--- NOTE | 2018-05-28 09:01 | NUR ---
pt continues to sleep on gurney, NAD with equal chest rise/fall, no needs at this time, pt remains in safe environment, sitter in full view.
--- NOTE | 2018-05-28 10:04 | NUR ---
pt continues to sleep on hospital bed, NAD with equal chest rise/fall, no needs at this time, pt remains in safe environment, sitter in full view.
--- NOTE | 2018-05-28 11:00 | NUR ---
pt sleeping on hospital bed, NAD with equal chest rise/fall, no needs at this time, pt remains in safe environment, sitter in full view.
--- NOTE | 2018-05-28 12:01 | NUR ---
pt continues to sleep on hospital bed, NAD with equal chest rise/fall, no needs at this time, pt remains in safe environment, sitter in full view.
--- NOTE | 2018-05-28 13:00 | NUR ---
pt sleeping on hospital bed, NAD with equal chest rise/fall, no needs at this time, pt remains in safe environment, sitter in full view, refused lunch tray at this time. Addendum: 05/28/18 at 1303 by MALINI pt sleeping on hospital bed, NAD with equal chest rise/fall, no needs at this time, pt remains in safe environment, sitter in full view; refused lunch tray, meds & VS at this time.
--- NOTE | 2018-05-28 13:58 | NUR ---
pt laying on gurney with eyes closed, keith to doze off but easily rousable, calm & copperative, ate lunch, given AM meds per pt request, VS taken (refused temp), NAD, comfort measures provided, pt remains in safe environment, sitter in full view.
--- NOTE | 2018-05-28 15:04 | NUR ---
pt sleeping on hospital bed, NAD with equal chest rise/fall, no needs at this time, pt remains in safe environment, sitter in full view.
--- NOTE | 2018-05-28 16:01 | NUR ---
pt continues to sleep on hospital bed, NAD with equal chest rise/fall, no needs at this time, pt remains in safe environment, sitter in full view.
--- NOTE | 2018-05-28 17:01 | NUR ---
pt sleeping on hospital bed, NAD with equal chest rise/fall, no needs at this time, pt remains in safe environment, sitter in full view. refused meal tray, meds & VS at this time
--- NOTE | 2018-05-28 17:15 | NUR ---
pt ate dinner
--- NOTE | 2018-05-28 18:00 | NUR ---
pt continues to sleep on hospital bed, NAD with equal chest rise/fall, no needs at this time, pt remains in safe environment, sitter in full view.
--- NOTE | 2018-05-28 19:10 | NUR ---
REPORT FROM MARIALUISA KELLER, ASSUME CARE OF PT AT THIS TIME. PT RESTING, NAD, SITTER AT DOORWAY.
--- NOTE | 2018-05-28 19:11 | NUR ---
report given to Gavi
[2018-05-28] MEDS ORDERED: NICOTINE 14MG/24 HR PATCH.TD24 ONE (20:06)
[2018-05-28] MEDS ORDERED: PRAZOSIN 5 MG CAPSULE ONE (20:07)
[2018-05-28] MEDS ORDERED: MIRTAZAPINE 15 MG TABLET ONE (20:07)
[2018-05-28] MEDS: MIRTAZAPINE 15 MG TABLET PO SCH (20:44)
[2018-05-28] MEDS: NICOTINE 14MG/24 HR PATCH.TD24 TD SCH (20:44)
[2018-05-28] MEDS: PRAZOSIN 5 MG CAPSULE PO SCH (20:44)
--- NOTE | 2018-05-28 20:44 | NUR ---
CRACKERS AND SPRITE PROVIDED ON REQUEST BY PT. HS MEDS GIVEN PER ERP ORDER. PT PLEASANT, COOPERATIVE WITH CARE. SITTER AT DOORWAY.
--- NOTE | 2018-05-28 22:12 | NUR ---
PT SLEEPING, NAD, SITTER AT DOORWAY.
--- NOTE | 2018-05-28 23:34 | NUR ---
PT SLEEPING, NAD, SITTER AT DOORWAY.
--- NOTE | 2018-05-29 00:53 | NUR ---
REPORT TO DAISY KELLER, TRANSFER OF CARE AT THIS TIME.
--- NOTE | 2018-05-29 01:30 | NUR ---
REPORT FROM VASILE KELLER. PT SLEEPING IN NAD. EVEN RISE AND FALL OF CHEST OBSERVED. SITTER IN VIEW OF PT
--- NOTE | 2018-05-29 02:45 | NUR ---
PT SLEEPING IN NAD. SITTER IN VIEW OF PT
--- NOTE | 2018-05-29 04:00 | NUR ---
EVEN RISE AND FALL OF CHEST OBSERVED. VSS. SITTER IN VIEW OF PT.
--- NOTE | 2018-05-29 05:17 | NUR ---
PT SLEEPING.PT IN NAD. SITTER IN VIEW OF PT
--- NOTE | 2018-05-29 07:00 | NUR ---
received report from Sandra. pt sleeping on hospital bed, NAD with equal chest rise/fall, no needs at this time, pt remains in safe environment, sitter in full view.
[2018-05-29] MEDS ORDERED: LISINOPRIL 5 MG TABLET ONE (08:00)
[2018-05-29] MEDS ORDERED: CHLORPROMAZINE 100MG TAB ONE ×2 (08:00→20:07)
[2018-05-29] MEDS ORDERED: DIVALPROEX 500 MG TABLET.DR ONE ×2 (08:00→20:06)
[2018-05-29] MEDS ORDERED: SENNA/DOCUSATE TABLET ONE (08:00)
--- NOTE | 2018-05-29 08:05 | NUR ---
pt on hospital bed mostly sleeping, easily rousable, calm & copperative, ate breakfast, given AM meds, VS taken (refused temp), NAD, comfort measures provided, pt remains in safe environment, sitter in full view.
[2018-05-29] MEDS: LISINOPRIL 5 MG TABLET PO SCH (08:08)
[2018-05-29] MEDS: SENNA/DOCUSATE TABLET PO SCH (08:08)
[2018-05-29] MEDS: DIVALPROEX 500 MG TABLET.DR PO SCH ×2 (08:08→20:10)
[2018-05-29] MEDS: CHLORPROMAZINE 100MG TAB PO SCH ×2 (08:08→20:11)
--- NOTE | 2018-05-29 09:30 | NUR ---
TASK RN: PT SLEEPING IN BED. SITTER REMAINS AT BEDSIDE. ROOM REMAINS SECURE.
--- NOTE | 2018-05-29 09:49 | NUR ---
report given to Michael KELLER
--- NOTE | 2018-05-29 10:21 | NUR ---
PT IS RESTING IN BED WITH NADN AT THIS TIME. PT HAS EQUAL CHEST RISE AND UNLABORED RESPIRATIONS. PT IN DEEP SLEEP. ASSESMENT REVEALS NO ABNODMALITY.
--- NOTE | 2018-05-29 11:40 | NUR ---
PT IS RESTING IN BED WITH NADN AT THIS TIME. PT HAS EQUAL CHEST RISE AND UNLABORED RESPIRATIONS. PT IN DEEP SLEEP. SITTER OUTSIDE ROOM FOR CONTINOUS MONTIORING.
--- NOTE | 2018-05-29 13:34 | NUR ---
PT GIVEN MEAL TRAY AND REPORTING HE WOULD LIKE TO EAT IT. SITTER OUTSIDE ROOM FOR CONTINOUS SAFETY MONITORING.
--- NOTE | 2018-05-29 17:15 | NUR ---
PT AMBULATING AROUND ROOM WITH NADN. PT HAS NO NEEDS AT THIS TIME.
[2018-05-29] MEDS ORDERED: NICOTINE 14MG/24 HR PATCH.TD24 ONE (20:06)
[2018-05-29] MEDS ORDERED: PRAZOSIN 5 MG CAPSULE ONE (20:07)
[2018-05-29] MEDS ORDERED: TEMAZEPAM 15 MG CAPSULE ONE (20:07)
[2018-05-29] MEDS: PRAZOSIN 5 MG CAPSULE PO SCH (20:10)
[2018-05-29] MEDS: MIRTAZAPINE 15 MG TABLET PO SCH (20:11)
[2018-05-29] MEDS ORDERED: MIRTAZAPINE 15 MG TABLET ONE (20:11)
[2018-05-29] MEDS: NICOTINE 14MG/24 HR PATCH.TD24 TD SCH (20:12)
--- NOTE | 2018-05-29 22:11 | NUR ---
ASSUMED CARE OF PATIENT. REPORT GIVEN FROM KRISHNA NESBITT. PT RESTING IN ROOM. SITTER AT DOOR. WILL CONTINUE TO MONITOR.
--- NOTE | 2018-05-29 22:41 | NUR ---
PATIENT GIVEN CRACKERS. SITTER AT DOOR. WILL CONTINUE TO MONITOR.
--- NOTE | 2018-05-29 23:28 | NUR ---
PT RESTING IN ROOM. NO ACUTE DISTRESS NOTED. SITTER AT DOOR. WILL CONTINUE TO MONITOR.
--- NOTE | 2018-05-30 00:31 | NUR ---
PT RESTING IN ROOM. NO ACUTE DISTRESS NOTED. SITTER AT DOOR. WILL CONTINUE TO MONITOR.
--- NOTE | 2018-05-30 01:00 | NUR ---
PT AWAKE AND WATCHING TV. NO ACUTE DISTRESS NOTED. SITTER AT DOOR. WILL CONTINUE TO MONITOR.
--- NOTE | 2018-05-30 02:02 | NUR ---
PT RESTING IN ROOM. REGULAR RESP. NO ACUTE DISTRESS NOTED. SITTER AT DOOR. WILL CONTINUE TO MONITOR.
--- NOTE | 2018-05-30 02:46 | NUR ---
PT RESTING IN ROOM. NO ACUTE DISTRESS NOTED. SITTER AT DOOR. WILL CONTINUE TO MONITOR.
--- NOTE | 2018-05-30 03:43 | NUR ---
PT RESTING IN ROOM. NO ACUTE DISTRESS NOTED. SITTER AT DOOR. WILL CONTINUE TO MONITOR.
--- NOTE | 2018-05-30 04:27 | NUR ---
PT RESTING IN ROOM. REGULAR RESP. NO ACUTE DISTRESS NOTED. SITTER AT DOOR. WILL CONTINUE TO MONITOR.
--- NOTE | 2018-05-30 05:19 | NUR ---
PT RESTING IN ROOM. NO ACUTE DISTRESS NOTED. SITTER AT DOOR. WILL CONTINUE TO MONITOR.
--- NOTE | 2018-05-30 07:00 | NUR ---
Report from Lavinia KELLER.
--- NOTE | 2018-05-30 07:01 | NUR ---
REPORT GIVEN TO KRISHNA HOLT
[2018-05-30] MEDS ORDERED: CHLORPROMAZINE 100MG TAB ONE ×2 (07:50→19:52)
[2018-05-30] MEDS ORDERED: DIVALPROEX 500 MG TABLET.DR ONE ×2 (07:50→19:53)
[2018-05-30] MEDS: CHLORPROMAZINE 100MG TAB PO SCH ×2 (07:54→20:23)
[2018-05-30] MEDS: DIVALPROEX 500 MG TABLET.DR PO SCH ×2 (07:54→20:23)
[2018-05-30] MEDS: SENNA/DOCUSATE TABLET PO SCH (07:55)
--- NOTE | 2018-05-30 07:56 | NUR ---
Pt is sitting up at the side of the bed eating breakfast. Discussed pts blood pressure and his current blood pressure. Pt stated that he would like to hold off on taking his BP med this morning. BP med held.
[2018-05-30] MEDS: LISINOPRIL 5 MG TABLET PO SCH (09:00)
--- NOTE | 2018-05-30 09:48 | NUR ---
pt is resting in bed with eyes closed, respirations equal and non labored. NAD. sitter at bedside.
--- NOTE | 2018-05-30 10:41 | NUR ---
Pt is resting in bed with eyes closed, respirations equal and non labored. NAD. Sitter outside door.
--- NOTE | 2018-05-30 11:59 | NUR ---
Pt is sitting at the side of the bed eating lunch. Pt is alert, oriented, with NAD. Sitter outside the room.
--- NOTE | 2018-05-30 12:57 | NUR ---
Pt is resting in bed with eyes closed, respirations equal and non labored. NAD. Sitter outside door.
--- NOTE | 2018-05-30 14:03 | NUR ---
Pt is resting in bed with eyes closed, respirations equal and non labored. NAD. Sitter outside door.
--- NOTE | 2018-05-30 14:56 | NUR ---
Pt is resting in bed with eyes closed, respirations equal and non labored. NAD. Sitter outside door.
--- NOTE | 2018-05-30 16:04 | NUR ---
Pt is resting in bed with eyes closed, respirations equal and non labored. NAD. Sitter outside door.
--- NOTE | 2018-05-30 17:04 | NUR ---
Pt is resting in bed, watching TV, respirations equal and non labored. NAD. Sitter outside the room.
--- NOTE | 2018-05-30 18:18 | NUR ---
Pt is sitting on the side of the bed, drinking decaf coffee. Pt is alert, oriened, with NAD. Sitter outside the room.
--- NOTE | 2018-05-30 19:11 | NUR ---
Report given to Niesha KELLER.
--- NOTE | 2018-05-30 19:37 | NUR ---
pt resting watching tv, stated he continous to feel suicidal, denies plan. room secured, garage doors down, sitter at doorway for continous monitoring.
[2018-05-30] MEDS ORDERED: PRAZOSIN 5 MG CAPSULE ONE (19:53)
[2018-05-30] MEDS ORDERED: MIRTAZAPINE 15 MG TABLET ONE (19:53)
[2018-05-30] MEDS ORDERED: NICOTINE 14MG/24 HR PATCH.TD24 ONE (19:54)
[2018-05-30] MEDS: PRAZOSIN 5 MG CAPSULE PO SCH (20:23)
[2018-05-30] MEDS: MIRTAZAPINE 15 MG TABLET PO SCH (20:23)
[2018-05-30] MEDS: NICOTINE 14MG/24 HR PATCH.TD24 TD SCH (20:24)
[2018-05-30] MEDS ORDERED: IBUPROFEN 200 MG TABLET ONE (20:28)
[2018-05-30] MEDS: IBUPROFEN 200 MG TABLET PO PRN (20:28)
--- NOTE | 2018-05-30 20:31 | NUR ---
PT RESTING CALMLY, MEDICATED PER JUN, PT REFUSED NICOTINE PATCH, REQUESTIG MOTRIN FOR RIGHT LEG PAIN. PT MEDICATED, PROVIDED PT WITH SANDWICH SI MEASURES MAINTAINED,, SITTER AT DOORWAY FOR CONTINOUS MONITORING.
--- NOTE | 2018-05-30 20:32 | NUR ---
LATE ENTRY 1950- PT UP TO RR WITH CRUTCH USE, SITTERR AT PT'S SIDE, PT NOW RESTING IN ROOM, DENIES FURTHER NEEDS.
--- NOTE | 2018-05-30 21:07 | NUR ---
PT RESTING AND WATCHING TV, DENIES NEEDS, NAD, ROOM REMAINS SECURED, SITTER AT DOORWAY FOR CONTINOUS MONITORING.
--- NOTE | 2018-05-30 21:38 | NUR ---
PROVIDED PT WITH DRINK PER HIS REQUEST, SI MEASURES MAINTAINED
--- NOTE | 2018-05-30 22:07 | NUR ---
PT RESTING AND WATCHING TV, DENIES NEEDS, NAD, SITTER AT DOORWAY FOR CONTINOUS MONITORING.
--- NOTE | 2018-05-30 23:11 | NUR ---
PT RESTING AND WATCHING TV, PROVIDED PT WITH SNACK, CRACKERS PER HIS REQUEST, NAD, SITTER AT DOORWAY FOR CONTINOUS MONITORING.
--- NOTE | 2018-05-31 00:28 | NUR ---
CALLED BETHANY GLOVER W/ZENY TO SEE WHEN PT WILL BE ABLE TO GO. SHE STATES THAT PROSPER IS THE ADMISSION RN AND SHE WILL BE ABLE TO GIVE MORE INFORMATION ABOUT WHEN THE PT WILL BE ACCEPTED
--- NOTE | 2018-05-31 00:48 | NUR ---
PT RESTING AND WATCHING TV, DENIES NEEDS, NAD, SITTER AT DOORWAY FOR CONTINOUS MONITORING.
--- NOTE | 2018-05-31 01:25 | NUR ---
PT RESTING WITH EYES CLOSED, NAD, EQUAL CHEST RISE/FALL OBSERVED, SITTER AT DOORWAY FOR CONTINOUS MONITORING.
--- NOTE | 2018-05-31 02:32 | NUR ---
PT RESTING WITH EYES CLOSED, NAD, EQUAL CHEST RISE/FALL OBSERVED, PT REPOSITIONED SELF IN BED, SITTER AT DOORWAY FOR CONTINOUS MONITORING.
--- NOTE | 2018-05-31 04:01 | NUR ---
LATE ENTRY 0310-PT RESTING WITH EYES CLOSED, NAD, EQUAL CHEST RISE/FALL OBSERVED, SITTER AT DOORWAY FOR CONTINOUS MONITORING.
--- NOTE | 2018-05-31 04:02 | NUR ---
PT RESTING WITH EYES CLOSED, NAD, EQUAL CHEST RISE/FALL OBSERVED, PT REPOSITIONED SELF IN BED, SITTER AT DOORWAY FOR CONTINOUS MONITORING.
--- NOTE | 2018-05-31 05:17 | NUR ---
PT RESTING WITH EYES CLOSED, NAD, EQUAL CHEST RISE/FALL OBSERVED, SITTER AT DOORWAY FOR CONTINOUS MONITORING.
--- NOTE | 2018-05-31 06:05 | NUR ---
PT RESTING WITH EYES CLOSED, REPOSITIONED SELF IN BED, EQUAL CHEST RISE/FALL OBSERVED, SITTER AT DOORWAY FOR CONTINOUS MONITORING.
--- NOTE | 2018-05-31 07:01 | NUR ---
REPORT GIVEN TO KRISHNA DENG
--- NOTE | 2018-05-31 08:36 | NUR ---
PT AROUSES TO VERBAL STIMULI BUT RELUCTANT TO ANSWER ASSESSMENT QUESTION. PT PROVIDED WITH MEAL TRAY AND SITTING AT BEDSIDE. NO ACUTE S/S OF DISTRESS, SITTER MONITORING FROM [place] FOR SAFETY
[2018-05-31] MEDS ORDERED: DIVALPROEX 500 MG TABLET.DR ONE ×2 (09:31→19:52)
[2018-05-31] MEDS ORDERED: CHLORPROMAZINE 100MG TAB ONE ×2 (09:32→19:52)
[2018-05-31] MEDS ORDERED: LISINOPRIL 10 MG TABLET ONE (09:32)
[2018-05-31] MEDS ORDERED: SENNA/DOCUSATE TABLET ONE (09:33)
[2018-05-31] MEDS: LISINOPRIL 5 MG TABLET PO SCH (09:37)
[2018-05-31] MEDS: DIVALPROEX 500 MG TABLET.DR PO SCH ×2 (09:37→20:02)
[2018-05-31] MEDS: CHLORPROMAZINE 100MG TAB PO SCH ×2 (09:37→20:02)
[2018-05-31] MEDS: SENNA/DOCUSATE TABLET PO SCH (09:38)
--- NOTE | 2018-05-31 09:39 | NUR ---
PT REFUSING TO TAKE AM MEDICATIONS. DISCUSSED WITH PT POC, MANUFACTURING MACHINE OPERATOR SCHEDULE AND PURPOSE, PT VERBALIZES UNDERSTANDING.
--- NOTE | 2018-05-31 12:45 | NUR ---
PT REFUSES VS CHECK AT THIS TIME. DISCUSSED NEED TO RECHECK DUE TO REFUSING MEDICATION ADMIN EARLIER. PT VERBALIZES UNDERSTANDING BUT REFUSES VS AT THIS TIME. NO ACUTE S/S OF DISTRESS AT THIS TIME. SITTER MONITORING FROM [facility]
--- NOTE | 2018-05-31 13:52 | NUR ---
PT PROVIDED WITH MEAL TRAY, NO S/S OF DISTRESS, SITTER MONITORING FROM HALLWAY. PT DENEIES FURTHER NEEDS AT THIS TIME
--- NOTE | 2018-05-31 17:19 | NUR ---
PT RECEIVED AND ATE MEAL TRAY AND WATER X2, AMBULATED TO BATHROOM AND TOLERATED WELL. SITTER MONITORING FROM [facility]
--- NOTE | 2018-05-31 19:00 | NUR ---
PT BEDSIDE REPORT FROM FREDA KELLER. THIS RN TO ASSUME CARE OF PT. NO IMMEDIATE NEEDS FROM PT. SITTER IN HALLWAY. ROLLER DOORS IN PLACE.
[2018-05-31] MEDS ORDERED: PRAZOSIN 5 MG CAPSULE ONE (19:52)
[2018-05-31] MEDS ORDERED: TEMAZEPAM 15 MG CAPSULE ONE (19:52)
[2018-05-31] MEDS ORDERED: MIRTAZAPINE 15 MG TABLET ONE (19:59)
[2018-05-31] MEDS: MIRTAZAPINE 15 MG TABLET PO SCH (20:01)
[2018-05-31] MEDS: PRAZOSIN 5 MG CAPSULE PO SCH (20:02)
[2018-05-31] MEDS: NICOTINE 14MG/24 HR PATCH.TD24 TD SCH (20:06)
--- NOTE | 2018-05-31 20:50 | NUR ---
PT GIVEN SANDWICH W/ NIGHT TIME MEDS. NO OTHER IMMEDIATE NEEDS AT THIS TIME.
--- NOTE | 2018-06-01 01:02 | NUR ---
PT RESTING COMFORTABLY ON BED. NADN. NO IMMEDIATE NEEDS.
--- NOTE | 2018-06-01 02:42 | NUR ---
PT RESTING COMFORTABLY ON BED. NADN. NO IMMEDIATE NEEDS.PT RESTING COMFORTABLY ON BED. NADN. NO IMMEDIATE NEEDS.
--- NOTE | 2018-06-01 03:36 | NUR ---
PT RESTING COMFORTABLY ON BED. NADN. NO IMMEDIATE NEEDS.
--- NOTE | 2018-06-01 07:20 | NUR ---
REC BS REPORT SITTER IN [facility]
--- NOTE | 2018-06-01 08:51 | NUR ---
MEAL GIVEN PT RESTING GINA LUJANTER IN THE ALL WATCHING THE PT
[2018-06-01] MEDS: SENNA/DOCUSATE TABLET PO SCH (09:00)
[2018-06-01] MEDS: DIVALPROEX 500 MG TABLET.DR PO SCH ×2 (09:00→20:11)
[2018-06-01] MEDS: CHLORPROMAZINE 100MG TAB PO SCH ×2 (09:00→20:12)
[2018-06-01] MEDS ORDERED: DIVALPROEX 500 MG TABLET.DR ONE ×2 (09:07→20:08)
[2018-06-01] MEDS ORDERED: SENNA/DOCUSATE TABLET ONE (09:07)
[2018-06-01] MEDS ORDERED: CHLORPROMAZINE 100MG TAB ONE ×2 (09:08→20:08)
[2018-06-01] MEDS ORDERED: LISINOPRIL 10 MG TABLET ONE (09:08)
--- NOTE | 2018-06-01 09:16 | NUR ---
PT CONSUMED ALL OF HIS MEAL REFUSING MEDS AT THIS TIME WILL TRY AGAIN LATER
--- NOTE | 2018-06-01 12:40 | NUR ---
MEAL GIVEN DECLINES ALL MEDS
[2018-06-01] MEDS: LISINOPRIL 5 MG TABLET PO SCH (15:35)
--- NOTE | 2018-06-01 18:58 | NUR ---
REPORT RECEIVED FROM LUCA KELLER.
[2018-06-01] MEDS ORDERED: NICOTINE 14MG/24 HR PATCH.TD24 ONE (20:08)
[2018-06-01] MEDS ORDERED: PRAZOSIN 5 MG CAPSULE ONE (20:09)
[2018-06-01] MEDS ORDERED: MIRTAZAPINE 15 MG TABLET ONE (20:09)
[2018-06-01] MEDS: MIRTAZAPINE 15 MG TABLET PO SCH (20:11)
[2018-06-01] MEDS: PRAZOSIN 5 MG CAPSULE PO SCH (20:12)
[2018-06-01] MEDS: NICOTINE 14MG/24 HR PATCH.TD24 TD SCH (20:13)
--- NOTE | 2018-06-01 20:34 | NUR ---
PT MEDICATED PER EMAR. PT TOLERATED WELL. PT REFUSED NICOTINE PATCH AT THIS TIME. PT'S AOX4. RESPS EVEN AND UNLABORED. SITTER MONITORING FROM HALLWAY. ROOM REMAINS SECURE.
--- NOTE | 2018-06-01 20:47 | NUR ---
pt is taking shower per request. sitter monitoring pt. new gowns provided.
--- NOTE | 2018-06-01 22:14 | NUR ---
pt watching tv in [facility]. pt's aox4. resps even and unlabored. sitter monitoring from [address]. room remains secure.
--- NOTE | 2018-06-01 23:34 | NUR ---
PT SLEEPING IN [facility]. SITTER MONITORING FROM [facility]. ROOM REMAINS SECURE.
[2018-06-01] MEDS ORDERED: IBUPROFEN 200 MG TABLET ONE (23:47)
[2018-06-01] MEDS: IBUPROFEN 200 MG TABLET PO PRN (23:48)
--- NOTE | 2018-06-01 23:50 | NUR ---
PT C/O [facility] AT THIS TIME. PT MEDICATED PER EMAR FOR [facility]. PT'S AOX4. RESPS EVEN AND UNLABORED.
--- NOTE | 2018-06-02 00:59 | NUR ---
PT IS SLEEPING IN [facility]. RESPS EVEN AND UNLABORED. SITTER MONITORING FROM HALLWAY FOR SAFETY. ROOM REMAINS SECURE.
--- NOTE | 2018-06-02 01:44 | NUR ---
pt sleeping in [place]. resps even and unlabored. sitter monitoring pt from hallway for safety. room remains secure.
--- NOTE | 2018-06-02 02:30 | NUR ---
Pati carpio in [facility] - 06/02/18 at 0231 by YOAN Follow up with [] in [] days.
--- NOTE | 2018-06-02 02:31 | NUR ---
Patient is resting comfortably in bed. SITTER MONITORING FROM HALLWAY FOR SAFETY. ROOM REMAINS SECURE.
--- NOTE | 2018-06-02 03:37 | NUR ---
[place] in [place] resps even and unlabored. sitter monitoring pt from hallway for safety. room remains secure.
--- NOTE | 2018-06-02 04:35 | NUR ---
pt sleeping in [place]. resps even and unlabored. sitter monitoring pt from hallway for safety. room remains secure.
--- NOTE | 2018-06-02 05:43 | NUR ---
pt sleeping in [place]. resps even and unlabored. sitter monitoring pt from hallway for safety. room remains secure.
--- NOTE | 2018-06-02 06:18 | NUR ---
pt sleeping in [place]. resps even and unlabored. sitter monitoring pt from hallway for safety. room remains secure.
--- NOTE | 2018-06-02 06:55 | NUR ---
report given to jenn cummings.
--- NOTE | 2018-06-02 07:27 | NUR ---
report received on patient, he is asleep soundly and has a sitter outside door. will order breakfast suicide tray and then lump care and wake him with breakfast/meds to do assesment/vitals.
[2018-06-02] MEDS ORDERED: SENNA/DOCUSATE TABLET ONE (07:41)
[2018-06-02] MEDS ORDERED: LISINOPRIL 10 MG TABLET ONE (07:41)
[2018-06-02] MEDS ORDERED: DIVALPROEX 500 MG TABLET.DR ONE ×3 (07:42→20:21)
[2018-06-02] MEDS ORDERED: CHLORPROMAZINE 100MG TAB ONE ×2 (07:42→20:29)
[2018-06-02] MEDS ORDERED: LISINOPRIL 5 MG TABLET ONE (07:44)
[2018-06-02] MEDS: CHLORPROMAZINE 100MG TAB PO SCH ×4 (09:00→20:39)
[2018-06-02] MEDS: DIVALPROEX 500 MG TABLET.DR PO SCH ×2 (09:00→09:12)
[2018-06-02] MEDS: SENNA/DOCUSATE TABLET PO SCH (09:12)
[2018-06-02] MEDS: LISINOPRIL 5 MG TABLET PO SCH (09:12)
--- NOTE | 2018-06-02 09:17 | NUR ---
patient ate all of his breakfast. he is grumpy and angry. he is refusing to take his medications. uncharted the medications. patient educated on thier importance but is refusing. irisn is not cooperative and is back sleeping.
--- NOTE | 2018-06-02 10:49 | NUR ---
ORDERED LUNCH. PATIENT ASLEEP. HE WAKES TO LIGHT STIMULATION.
--- NOTE | 2018-06-02 11:45 | NUR ---
SPOKE WITH ALEKSEY AT [facility]. THEY ARE GOING TO ACCEPT HIM TOMORROW 06/03 AROUND 1400. WE WILL SPEAK WITH ALEKSEY TOMORROW FOR DETAILS
--- NOTE | 2018-06-02 12:45 | NUR ---
gave patient lunch. he hate 100% of lunch. he then rolled over and went back to bed. denies pain.
--- NOTE | 2018-06-02 14:01 | NUR ---
patient resting quietly - no s/s of distress or pain.
--- NOTE | 2018-06-02 15:02 | NUR ---
PATIENT VOIDED FULL URINAL ABOUT 550 OUT. PATIENT CALM, SLEEPING MOST OF DAY.
--- NOTE | 2018-06-02 16:29 | NUR ---
PATIETN CALM IN ROOM AND READING. NO COMPLAINTS. ORDERED DINNER TRAY
--- NOTE | 2018-06-02 17:21 | NUR ---
PATIENT WALKING CALMLY AROUND ROOM. NO COMPLAINTS
--- NOTE | 2018-06-02 18:14 | NUR ---
PATIENT NOW RESTING QUIETLY. DENIES PAIN. ATE ALL OF DINNER. CALM.
--- NOTE | 2018-06-02 18:46 | NUR ---
PATIENT WALKING AROUND UNIT WITH SITTER. GREAT ON FEET. CALM.
--- NOTE | 2018-06-02 19:01 | NUR ---
RECEIVED REPORT FROM KRISHNA ALEMAN TO ASSUME PT. CARE AT THIS TIME. PT. RESTING ON HOSPITAL BED WITH NADN. ROOM IS SECURED. SITTER IN DOORWAY.
--- NOTE | 2018-06-02 19:18 | NUR ---
PT. AMBULATING IN [place] WITH SITTER AT THIS TIME. PT. CALM/COOPERATIVE.
[2018-06-02] MEDS ORDERED: PRAZOSIN 5 MG CAPSULE ONE (20:21)
[2018-06-02] MEDS ORDERED: MIRTAZAPINE 15 MG TABLET ONE (20:21)
[2018-06-02] MEDS: MIRTAZAPINE 15 MG TABLET PO SCH (20:30)
[2018-06-02] MEDS: NICOTINE 14MG/24 HR PATCH.TD24 TD SCH (20:30)
[2018-06-02] MEDS: PRAZOSIN 5 MG CAPSULE PO SCH (20:30)
--- NOTE | 2018-06-02 20:48 | NUR ---
SUMMARY: VS HAVE BEEN UPDATED. PT. PROVIDED WITH SANDWICH PER REQUEST. WATER ALSO PROVIDED. PT. MEDICATED PER JUN. CALLED PHARMACY ABOUT HOW TO ADMIN MEDS THAT HAD BEEN NON-ADMIN BY PREVIOUS RN. NEW ONE X ORDER PLACED NECESSARY PER PHARMACY. PT. DECLINED NICOTINE PATCH STATING "I HAVEN'T BEEN USING THAT FOR A FEW DAYS NOW AND I AM NOT HAVING ANY CRAVINGS". PT. TOOK ALL OTHER HS MEDS. PT. DENIES ANY FURTHER NEEDS AT THIS TIME. SITTER REMAINS IN [place]. ROOM SECURED.
[2018-06-02] MEDS ORDERED: DIVALPROEX 500 MG TABLET.DR PO SCH (21:00)
--- NOTE | 2018-06-02 21:24 | NUR ---
PT. AMBULATING AROUND UNIT WITH SITTER.
[2018-06-02] MEDS ORDERED: DIVALPROEX 500 MG TABLET.DR PO ONE (21:30)
--- NOTE | 2018-06-02 21:51 | NUR ---
PT. HAD BEEN PROVIDED WITH 4 CUPS OF COFFEE ON THIS SHIFT PER SITTER; PT. REQUESTING MORE COFFEE; OFFERED DECAF; PT. REFUSED. LIMIT SET AND PT. MADE AWARE NO MORE COFFEE TO BE GIVEN AT THIS TIME. WATER OFFERED. PT. DENIES OTHER NEEDS. ROOM REMAINS SECURED. SITTER IN [place].
--- NOTE | 2018-06-02 23:01 | NUR ---
PT. RESTING ON HOSPITAL BED WITH TV ON AND APPEARS TO BE WATCHING TV. EVEN CHEST RISE/FALL VISIBLE. ROOM SECURED. SITTER IN [place].
--- NOTE | 2018-06-03 00:04 | NUR ---
PT. RESTING ON HOSPITAL BED WITH NADN. EVEN RESP VISIBLE. SITTER IN [place]. ROOM SECURED.
[2018-06-03] MEDS ORDERED: IBUPROFEN 600 MG TABLET ONE (00:37)
[2018-06-03] MEDS: IBUPROFEN 200 MG TABLET PO PRN (00:39)
--- NOTE | 2018-06-03 00:39 | NUR ---
PT REQUESTED A MOTRIN. MEDICATED PT PER EMAR
--- NOTE | 2018-06-03 01:11 | NUR ---
PT. RESTING ON GURNEY LEFT SIDE LYING. RESP VISIBLE AND NON-LABORED. NADN. ROOM REMAINS SECURED. SITTER IN [place].
--- NOTE | 2018-06-03 04:39 | NUR ---
PT. RESTING ON HOSPITAL BED WITH NADN. EVEN, NON-LABORED RESPIRATIONS VISIBLE. ROOM SECURED. SITTER IN DOORWAY.
--- NOTE | 2018-06-03 06:15 | NUR ---
PT. CONTINUES RESTING ON HOSPITAL BED WITH NADN. NO CHANGE FROM PREVIOUS NOTE.
--- NOTE | 2018-06-03 07:02 | NUR ---
Recieved bedside report from KRISHNA Contreras. All questions answered. Pt sleeping on hospital bed. NADN. PT has even chest rise and fall. All SI precautions reamin in place. Sitter near doorway in direct line of sight for observation. No needs expressed.
--- NOTE | 2018-06-03 08:06 | NUR ---
Pt recieved breakfast tray from task RN.
[2018-06-03] MEDS ORDERED: CHLORPROMAZINE 100MG TAB ONE (09:02)
[2018-06-03] MEDS ORDERED: LISINOPRIL 5 MG TABLET ONE (09:02)
[2018-06-03] MEDS ORDERED: SENNA/DOCUSATE TABLET ONE (09:02)
[2018-06-03] MEDS: SENNA/DOCUSATE TABLET PO SCH (09:51)
[2018-06-03] MEDS: LISINOPRIL 5 MG TABLET PO SCH (09:51)
[2018-06-03] MEDS: CHLORPROMAZINE 100MG TAB PO SCH (09:53)
[2018-06-03] MEDS: DIVALPROEX 500 MG TABLET.DR PO SCH (09:54)
--- NOTE | 2018-06-03 09:55 | NUR ---
Provided pt medication per EMAR. Pt poliet and appreciative. Provided pt water. Pt discussing books he enjoys reading. NADN. Pt allowed assessment and vital signs to be taken. No needs expressed at this time. Pt states, "I am going to go back to sleep now." Pt aware of plan of care. Sitter near doorway in direct line of sight for observation.
[2018-06-03 09:57] VITALS: BP 130/85
[2018-06-03] MEDS ORDERED: PRAZ5CAP2 PO (13:07)
[2018-06-03] MEDS ORDERED: CHLO100T6 PO ×2 (13:07)
--- NOTE | 2018-06-03 14:06 | NUR ---
Pt states, "I am donating these books to the [facility]." Pt donated Addendum: 06/03/18 at 1406 by MCIRAC Pt donated, Summer days by Laura Li book with missing torn cover, and pt dontated [employer]ent [employer], by Zana Coker, to the [facility].
--- NOTE | 2018-06-03 14:07 | NUR ---
Pt left with steady gait and balance with EMS to transport to [facility]. Pt left with all personal belongings (two personal belonging bags) from ED locker and all personal books in pt room. Pt donated two books to hospital, please see prior note. GINAN. Pt poliet and cooperative on discharge.
--- NOTE | 2018-06-03 14:12 | NUR ---
Pt crutches accidently left behind. Pt's cruthes sent by Riana fletcher to [facility]
== END 2018-06-03 14:00 ==
LOC: ED 16:18 → EDIP 21:19
PROVIDERS: ADMIT Internal Medicine; ATTEND Internal Medicine
DX: R45.851 Suicidal ideations (principal); F12.90 Cannabis use, unspecified, uncomplicated; F15.10 Other stimulant abuse, uncomplicated; F25.9 Schizoaffective disorder, unspecified; G40.909 Epilepsy, unspecified, not intractable, without status epilepticus; I10 Essential (primary) hypertension; Z91.5 Personal history of self-harm
CPT/HCPCS: 36415; 80053; 80164; 80307; 80329; 85025; 96372; 99284; G0378; J1200; J1630; J2060; Q0162; G0480

== ENCOUNTER 2018-10-03 20:34 | Inpatient (IN) | payer MEDICAID, OTHER ==
[~2018-10-03] VITALS: Ht 172.7 cm; Wt 90.0 kg
--- NOTE | 2018-10-03 20:43 | NUR ---
PT IN CHAIR IN FRONT OF NURSES STATION, NO DISTRESS NOTED, STATES HE CANNOT REMEMBER WHAT MEDICATION HE IS ON.
[2018-10-03 21:39] LABS: BASOPHILS # (AUTO) 0.02 x10^3/uL (0-0.1); BASOPHILS % (AUTO) 0 % (0-1); EOSINOPHILS # (AUTO) 0.12 x10^3/uL (0-0.4); EOSINOPHILS % (AUTO) 1 % (1-7); LYMPHOCYTES # (AUTO) 2.26 x10^3/uL (1-3.4); LYMPHOCYTES % (AUTO) 25 % (22-44); MD NO; MEAN CORPUSCULAR HEMOGLOBIN 30.6 pg (27.5-34.5); MEAN CORPUSCULAR HGB CONC 33.7 g/dL (33.2-36.2); MEAN CORPUSCULAR VOLUME 90.9 fL (81-97); MEAN PLATELET VOLUME 9.4 fL (7.4-10.4); MONOCYTES # (AUTO) 0.82 x10^3/uL (0.2-0.8); MONOCYTES % (AUTO) 9 % (2-9); NEUTROPHILS % (AUTO) 64 % (42-75); PLATELET COUNT 216 x10^3/uL (130-400); RED BLOOD COUNT 5.29 x10^6/uL (4.38-5.82); RED CELL DISTRIBUTION WIDTH 12.5 % (9.4-14.8)
[2018-10-03 21:48] LABS: ALBUMIN 4.2 g/dL (3.4-5.0); ANION GAP 8 mmol/L (5-15); CALCIUM 9.1 mg/dL (8.5-10.1); CHLORIDE 107 mmol/L (98-107); CREATININE 1.03 mg/dL (0.7-1.3); SALICYLATE LEVEL 3.2 mg/dL (2.8-20.0)
--- NOTE | 2018-10-03 21:55 | NUR ---
PT AWARE OF NEED FOR URINE, NO COMPLAINTS AT THIS TIME
--- NOTE | 2018-10-03 22:51 | NUR ---
PT IN VIEW OF NURSES STATION, AGAIN MADE AWARE OF NEED FOR URINE, OFFERED WATER AND DECLINED
--- NOTE | 2018-10-03 23:05 | NUR ---
PT TO RM 38, ROOM SECURE, BELONGINGS IN SAFE KEEPING, SITTER IN VIEW, URINE SENT
[2018-10-03 23:25] LABS: AMPHETAMINE SCREEN, URINE Positive (Negative); BARBITURATE SCREEN, URINE Negative (Negative); BENZODIAZEPINE SCREEN, URINE Negative (Negative); CANNABINOID SCREEN, URINE Positive (Negative); COCAINE SCREEN, URINE Negative (Negative); METHADONE SCREEN, URINE Negative (Negative); OPIATE SCREEN, URINE Negative (Negative)
--- NOTE | 2018-10-04 00:21 | NUR ---
Pt asleep. Respirations even and unlabored. Awaiting Tele-psyc. Will continue to monitor.
--- NOTE | 2018-10-04 02:23 | NUR ---
Pt currently sleeping. Even respirations observed. Will continue to monitor.
--- NOTE | 2018-10-04 02:33 | NUR ---
Received call from tele-psyc nutrition representative and said pt will be assessed "in a few hours," and apologized for the long wait.
--- NOTE | 2018-10-04 03:45 | NUR ---
Pt currently sleeping. Even respirations observed. Will continue to monitor.
--- NOTE | 2018-10-04 04:50 | NUR ---
Pt currently sleeping. Even and normal respirations observed. Still wating for Tele-psyc. Will continue to monitor.
--- NOTE | 2018-10-04 06:00 | NUR ---
Pt currently patt juarez-psyced.
--- NOTE | 2018-10-04 06:30 | NUR ---
Tele-psyc completed. Pt currently sleeping. Respirations are even and unlabored. Will continue to monitor.
--- NOTE | 2018-10-04 08:08 | NUR ---
Patient asleep on [place]. Respirations even and unlabored, color pink. Moves around in sleep at times.
[2018-10-04] MEDS ORDERED: RISPERIDONE 1 MG TABLET PO SCH (09:00)
--- NOTE | 2018-10-04 09:27 | NUR ---
Patient continues to sleep on [facility]. Respirations regular and even. Sitter at door of room.
--- NOTE | 2018-10-04 11:00 | NUR ---
Patient sleeping, respirations even and regular. Sitter at doorway.
--- NOTE | 2018-10-04 12:30 | NUR ---
Patient asleep, respirations even and regular.
--- NOTE | 2018-10-04 13:11 | NUR ---
received bedside report from KRISHNA POOLE.
--- NOTE | 2018-10-04 13:45 | NUR ---
PT SLEEPING ON HOSP BED. NO ACUTE DSITRESS NOTED. RESPS EQUAL AND UNLABORED. ALL SAFETY MEASURES OBTAINED. SITTER AT DOORWAY. WILL CONTINUE TO MONITOR
--- NOTE | 2018-10-04 14:12 | NUR ---
PACKET FAXED TO [facility] AND [facility]
--- NOTE | 2018-10-04 14:50 | NUR ---
GUMARO PAGE LEFT PT ROOM. PT RESTING ON HOSP BED. NO ACUTE DISTRESS NOTED. RESPS EQUAL AND UNLABORED. PER CUTTER GAS, PT WAS COOPERATIVE AND SPOKE WITH HER. NO NEEDS REQUESTED AT THIS TIME. ALL SAFETY MEASURES OBTAINED. SITTER AT DOORWAY. WILL CONTINUE TO MONITOR.
[2018-10-04] MEDS ORDERED: QUETIAPINE 25MG TABLET PO PRN ×2 (15:00)
--- NOTE | 2018-10-04 16:04 | NUR ---
PT CONTINUES TO SLEEP ON HOSP BED. NO ACUTE DISTRESS NOTED. RESPS EQUAL AND UNLABORED. ALL SAFETY MEASURES OBTAINED. SITTER AT DOORWAY, PT WITHIN FULL VIEW.
--- NOTE | 2018-10-04 16:40 | NUR ---
PT OFFERED FOOD AND WATER. PT REFUSES AT THIS TIME.
--- NOTE | 2018-10-04 18:33 | NUR ---
PT ASKED FOR DIET TRAY. DIET TRAY ORDERED. PT LAYING ON HOSP BED. NO ACUTE DISTRESS NOTED. NO OTHER NEEDS REQUESTED AT THIS TIME. ALL SAFETY MEASURES OBTAINE.D
--- NOTE | 2018-10-04 18:33 | NUR ---
LATE ENTRY FOR 1730 PT SLEEPING ON HOSP BED. ALL SAFETY MEASURES OBTAINED. SITTER AT DOORWAY. PT WITHIN FULL VIEW. WILL CONTINUE TO MONITOR.
--- NOTE | 2018-10-04 18:42 | NUR ---
PT GIVEN WARM BLANKET. PT STATES "DONT YOU HAVE A BIGGER BLANKET?? I'M PRETTY SURE YOU HAVE ONE." PT EDUCATED REGARDING LINEN THAT IS IN THE ED. DIET TRAY DELIVERED TO PT. NO ACUTE DISTRESS NOTED. ALL SAFETY MEASURES OBTAINED.
--- NOTE | 2018-10-04 19:00 | NUR ---
BEDSIDE REPORT TO KRISHNA BAKER
--- NOTE | 2018-10-04 19:02 | NUR ---
Assumed care for patient. Report taken from KRISHNA Padron.
[2018-10-04] MEDS ORDERED: QUETIAPINE 100MG TABLET ONE (21:33)
[2018-10-04] MEDS ORDERED: DIVALPROEX 500 MG TABLET.DR ONE (21:33)
[2018-10-04] MEDS ORDERED: PRAZOSIN 5 MG CAPSULE ONE (21:34)
[2018-10-04] MEDS ORDERED: CHLORPROMAZINE 100MG TAB ONE (21:34)
[2018-10-04] MEDS: QUETIAPINE 100MG TABLET PO SCH (21:37)
[2018-10-04] MEDS: DIVALPROEX 500 MG TABLET.DR PO SCH (21:37)
[2018-10-04] MEDS: chlorPROMAZINE 10MG TABLET PO SCH (21:37)
[2018-10-04] MEDS: PRAZOSIN 5 MG CAPSULE PO SCH (21:42)
--- NOTE | 2018-10-04 21:49 | NUR ---
Woke pt for meds and VS's. All VS's within normal limits. Pt compliant with medication administration and nursing care. Pt remains lethargic and withdrawn. Sitter in place. Will continue to monitor.
--- NOTE | 2018-10-04 22:36 | NUR ---
Pt currently sleeping. Normal and symmetrical chest respirations observed. Sitter in doorway. Will continue to monitor.
--- NOTE | 2018-10-05 00:06 | NUR ---
Pt currently sleeping. Normal and symmetrical chest respirations observed. Sitter in doorway. Will continue to monitor.
--- NOTE | 2018-10-05 01:00 | NUR ---
Pt currently sleeping. Normal and symmetrical chest respirations observed. Sitter in doorway. Will continue to monitor.
--- NOTE | 2018-10-05 02:18 | NUR ---
Pt currently sleeping. Normal and symmetrical chest respirations observed. Sitter in doorway. Will continue to monitor.
--- NOTE | 2018-10-05 03:41 | NUR ---
Pt currently sleeping. Normal and symmetrical chest respirations observed. Sitter in doorway. Will continue to monitor.
--- NOTE | 2018-10-05 04:51 | NUR ---
Pt currently sleeping. Normal and symmetrical chest respirations observed. Sitter in doorway. Will continue to monitor.
--- NOTE | 2018-10-05 07:15 | NUR ---
REPORT FROM KRISHNA BAKER. PT RESTING ON BED. SITTER IN PLACE WITH EYES. ON ROOM SECURED. NADN. RESP EVEN AND UNLABORED. ALL CONCERNS ADRESSED.
--- NOTE | 2018-10-05 08:23 | NUR ---
PT RESTING ON BED. SITTER IN PLACE. NADN. RESP EVEN AND UNLABORED.
--- NOTE | 2018-10-05 09:30 | NUR ---
PT PROVIDED WITH SECURITY DIET TRAY.
[2018-10-05] MEDS ORDERED: DIVALPROEX 500 MG TABLET.DR ONE (09:35)
[2018-10-05] MEDS: DIVALPROEX 500 MG TABLET.DR PO SCH ×2 (09:40→20:24)
--- NOTE | 2018-10-05 09:41 | NUR ---
UPON ATTEMPT TO ADMINISTER PT MEDS, PT TOOK MEDS IN HAND AND STATED "I DON'T WANT THIS SHIT, WHERE ARE MY OTHER ONES?" EDUCATION PROVIDED ON PTS CURRENT LIST OF MEDICATIONS TO BE ADMINISTERED AND THROUGHOUT DAY. PT WOULD NOT ELLABORATE ON WHICH MEDS HE WANTED. PT REFUSING DEPAKOTE AT THIS TIME. SITTER REMAINS IN PLACE.
--- NOTE | 2018-10-05 09:46 | NUR ---
SBAR REPORT TO KRISHNA HANNAH. CARE TRANSFERRED.
--- NOTE | 2018-10-05 09:56 | NUR ---
report from rock cummings
--- NOTE | 2018-10-05 09:58 | NUR ---
pt in room at this time. room is secure, sitter in hallway. pt refused morning
--- NOTE | 2018-10-05 10:25 | NUR ---
THROUGHPUT RN: Called [facility] Lee to discuss patient's application status, they could not locate his referral packet. Packet faxed for a second time. Confirmation fax received.
--- NOTE | 2018-10-05 12:57 | NUR ---
Receive dreport from Ike KELLER; assumed care of patient; pt is in his room at this time; appears quiet, calm, avoiding eye contact, avoiding assessment; asked for water to drink; room is secure; sitter by the door.
--- NOTE | 2018-10-05 13:44 | NUR ---
Patient is resting on a gurney; not in distress; respiratiors unlabored; room secure; sitter by the hallway for continuous monitoring.
--- NOTE | 2018-10-05 14:40 | NUR ---
Patient is resting on a gurney; not in distress; unlabored respirations; room secure; sitter by the hallway for continuous monitoring.
--- NOTE | 2018-10-05 15:49 | NUR ---
Patient is sleeping on a gurney; not in distress; room secure; sitter by the hallway for continuous monitoring.
--- NOTE | 2018-10-05 16:23 | NUR ---
Patient is awake, turned his call light on and asked for water to drink. this nurse came in to his room and brought water, he said, "I've been asking for remote since I've been here. I waited for 3 and half hours for water. I'm sick and tired of this bullshit."
--- NOTE | 2018-10-05 16:52 | NUR ---
Patient is sleeping on a gurney; not in distress; room secure; sitter by the hallway for continuous monitoring.
--- NOTE | 2018-10-05 17:36 | NUR ---
Patient is resting on the gurney; not in distress; unlabored respirations; room is secure; sitter by the hallway.
--- NOTE | 2018-10-05 18:00 | NUR ---
Patient is eating his dinner; sitter by the hallway.
--- NOTE | 2018-10-05 18:41 | NUR ---
report given to Ike KELLER.
[2018-10-05] MEDS: chlorPROMAZINE 10MG TABLET PO SCH (20:25)
[2018-10-05] MEDS: QUETIAPINE 100MG TABLET PO SCH (20:25)
[2018-10-05] MEDS: PRAZOSIN 5 MG CAPSULE PO SCH (20:25)
--- NOTE | 2018-10-05 20:39 | NUR ---
LATE NOTE 194. PT AWAKE AT THIS TIME REQUESTING WATER. VITAL SIGNS OBTAINED AND WATER PROVIDED. PT REFUSING PM MEDS.
--- NOTE | 2018-10-05 20:40 | NUR ---
PT RESTING AT THIS TIME. SITTER IN HALLWAY, ROOM SECURED.
--- NOTE | 2018-10-05 22:17 | NUR ---
REPORT OF PT FROM KRISHNA HANNAH AND ASSUMING CARE OF PT AT THIS TIME.
--- NOTE | 2018-10-05 23:22 | NUR ---
PT ASLEEP IN [facility] AT THIS TIME; SHANI. SITTER OUTSIDE OF PT ROOM FOR DIRECT OBSERVATION.
--- NOTE | 2018-10-06 00:21 | NUR ---
pt asleep in [facility] at this time; nadn. visbile rise and fall of chest noted bilaterally. pt has sitter outside of room for direct observation of pt at this time.
--- NOTE | 2018-10-06 01:52 | NUR ---
pt asleep in [facility] at this time; rodrick. sitter outside of pt room for direct observation of pt at this time.
--- NOTE | 2018-10-06 02:55 | NUR ---
PT WOKE UP AND REQUESTING WATER. PT PROVIDED WATER PER REQUEST. PT DENIES ANY OTHER NEEDS AT THIS TIME. PT HAS SITTER OUTSIDE OF ROOM FOR DIRECT OBSERVATION OF PT.
--- NOTE | 2018-10-06 04:29 | NUR ---
pt sleeping in [facility] at this time; rodrick. pt has sitter outside of room for direct observation of pt.
--- NOTE | 2018-10-06 05:25 | NUR ---
pt sleeping in [facility] at this time; rodrick. sitter outside of room for direct observation of pt.
--- NOTE | 2018-10-06 08:29 | NUR ---
Patient in bed, eyes closed, respirations are even and unlabored. Sitter is monitoring patient from room doorway on constant watch. Security/suicide watch meal tray has been ordered for patient. Will continue to monitor.
[2018-10-06] MEDS: DIVALPROEX 500 MG TABLET.DR PO SCH ×2 (09:00→22:21)
[2018-10-06] MEDS ORDERED: DIVALPROEX 500 MG TABLET.DR ONE (09:27)
--- NOTE | 2018-10-06 10:10 | NUR ---
Client is resting, eyes closed, respirations are even and unlabored. He is refusing to acknowledge staff upon prompting for breakfast tray. Unable to assess or administer ordered medication. Patient is monitored constantly for safety by staff.
--- NOTE | 2018-10-06 11:31 | NUR ---
Pt. is awake in bed, eating meal tray. He refuses assessments or conversation of any kind presently. Will continue to monitor and attempt to assess at a later time upon consent.
[2018-10-06] MEDS ORDERED: QUETIAPINE 25MG TABLET ONE (11:48)
--- NOTE | 2018-10-06 12:25 | NUR ---
Marky fernández offered & refused. Pt states he wants to file an "official legal complaint about my treatment". When asked what he would like to report, will not answer.
[2018-10-06] MEDS ORDERED: ACETAMINOPHEN 325 MG TABLET PO PRN (13:00)
[2018-10-06] MEDS: ENOXAPARIN 40 MG/0.4 ML SQ SCH (13:00)
[2018-10-06] MEDS ORDERED: HALOPERIDOL 5 MG/ML ONE (13:12)
[2018-10-06] MEDS ORDERED: HALOPERIDOL 5 MG/ML IM ONE (13:30)
--- NOTE | 2018-10-06 13:37 | NUR ---
bedside report from alexis rn, pt just medicated per mar by rn with security. pt calm at this time. pt to move to room 40 to have working tv
--- NOTE | 2018-10-06 14:32 | NUR ---
pt resting in [facility] with sitter at bedside, meal tray ordered
--- NOTE | 2018-10-06 15:21 | NUR ---
pt resting in [facility], 2n here to take pt. pt does not want to leave, security called to escort pt upstairs with 2n KRISHNA espinoza. pt agreeable, meal tray taken with pt
[2018-10-06 15:51] VITALS: BP 129/86
[2018-10-06 19:21] VITALS: BP 116/78
[2018-10-06] MEDS ORDERED: DIPHENHYDRAMINE 50 MG/ML, 1ML IM PRN (21:00)
[2018-10-06] MEDS ORDERED: HALOPERIDOL 5 MG/ML IM PRN (21:00)
[2018-10-06] MEDS ORDERED: LORazepam 2 MG/ML, 1ML IM PRN (21:00)
[2018-10-06] MEDS: QUETIAPINE 200 MG TABLET PO SCH (22:21)
[2018-10-06] MEDS: PRAZOSIN 5 MG CAPSULE PO SCH (22:21)
[2018-10-07 11:57] VITALS: BP 130/89
[2018-10-07] MEDS: DIVALPROEX 500 MG TABLET.DR PO SCH ×2 (12:18→20:35)
[2018-10-07] MEDS: NICOTINE 21 MG/24 HR PATCH.TD24 TD SCH (12:19)
[2018-10-07] MEDS: LISINOPRIL 5 MG TABLET PO SCH (12:20)
[2018-10-07] MEDS: ENOXAPARIN 40 MG/0.4 ML SQ SCH (13:00)
[2018-10-07] MEDS: PRAZOSIN 5 MG CAPSULE PO SCH (20:35)
[2018-10-07] MEDS: QUETIAPINE 200 MG TABLET PO SCH (20:35)
[2018-10-07 20:39] VITALS: BP 127/74
[2018-10-08] MEDS: DIVALPROEX 500 MG TABLET.DR PO SCH (09:00)
[2018-10-08] MEDS: LISINOPRIL 5 MG TABLET PO SCH (09:00)
[2018-10-08] MEDS: NICOTINE 21 MG/24 HR PATCH.TD24 TD SCH (09:00)
[2018-10-08] MEDS ORDERED: CHLO25TA4 PO (10:04)
[2018-10-08] MEDS ORDERED: QUET25TA7 PO (10:04)
[2018-10-08] MEDS ORDERED: QUET200T PO (10:04)
== END 2018-10-08 11:13 | DRG 885 ==
LOC: ED 21:03 → EDIP 10-06 11:16 → 2N 10-06 15:22
PROVIDERS: ADMIT Internal Medicine; ATTEND Internal Medicine
DX: F25.9 Schizoaffective disorder, unspecified (principal); R45.851 Suicidal ideations; F15.20 Other stimulant dependence, uncomplicated; Z83.3 Family history of diabetes mellitus; F12.10 Cannabis abuse, uncomplicated; F17.210 Nicotine dependence, cigarettes, uncomplicated; F41.9 Anxiety disorder, unspecified; G40.909 Epilepsy, unspecified, not intractable, without status epilepticus; I10 Essential (primary) hypertension; Z91.14 Patient's other noncompliance with medication regimen; Z91.5 Personal history of self-harm; Z88.8 Allergy status to other drugs, medicaments and biological substances
CPT/HCPCS: 36415; 80048; 80307; 82040; 85025; 96372; G0378; J1630

== ENCOUNTER 2018-10-23 19:29 | Emergency (ER) | payer MEDICAID, OTHER ==
[~2018-10-23] VITALS: Ht 170.2 cm; Wt 96.1 kg
[~2018-10-23 19:29] MED LIST changes: +QUET200T PO; +QUET25TA7 PO
[2018-10-23 20:07] LABS: MEAN CORPUSCULAR HGB CONC 34.1 g/dL (33.2-36.2); MEAN CORPUSCULAR VOLUME 90.8 fL (81-97); MEAN PLATELET VOLUME 7.9 fL (7.4-10.4); PLATELET COUNT 267 x10^3/uL (130-400); RED BLOOD COUNT 5.19 x10^6/uL (4.38-5.82); RED CELL DISTRIBUTION WIDTH 13.2 % (9.4-14.8)
[2018-10-23 20:14] LABS: ALBUMIN 4.7 g/dL (3.4-5.0); ANION GAP 10 mmol/L (5-15); CALCIUM 9.8 mg/dL (8.5-10.1); CHLORIDE 105 mmol/L (98-107)
[2018-10-23 20:17] LABS: ALANINE AMINOTRANSFERASE 109 U/L (12-78); ALKALINE PHOSPHATASE 80 U/L (45-117); BILIRUBIN,TOTAL 1.2 mg/dL (0.2-1.0); CREATININE 1.38 mg/dL (0.7-1.3); TOTAL PROTEIN 8.8 g/dL (6.4-8.2)
[2018-10-23 20:22] LABS: BASOPHILS # (AUTO) 0.01 x10^3/uL (0-0.1); BASOPHILS % (AUTO) 0 % (0-1); EOSINOPHILS # (AUTO) 0.01 x10^3/uL (0-0.4); EOSINOPHILS % (AUTO) 0 % (1-7); LYMPHOCYTES # (AUTO) 1.33 x10^3/uL (1-3.4); LYMPHOCYTES % (AUTO) 10 % (22-44); MD SCAN; MONOCYTES # (AUTO) 1.71 x10^3/uL (0.2-0.8); MONOCYTES % (AUTO) 13 % (2-9); NEUTROPHILS # (AUTO) 9.83 x10^3/uL (1.8-6.8); NEUTROPHILS % (AUTO) 76 % (42-75)
[2018-10-23] MEDS ORDERED: SODIUM CHLORIDE 0.9% 1,000ML IVBOLUS ONE (20:30)
[2018-10-23] MEDS ORDERED: ONDANSETRON 2MG/ML, 2ML IVPush ONE (20:30)
[2018-10-23] MEDS ORDERED: SODIUM CHLORIDE FLUSH 10ML SYR IVF ONE (20:30)
[2018-10-23] MEDS ORDERED: LORazepam 2 MG/ML, 1ML IVPush ONE (20:30)
[2018-10-23 20:53] VITALS: BP 188/107
--- NOTE | 2018-10-23 20:55 | NUR ---
PT HERE FOR EQUILIBRIUM IMBALANCES AFTER DOING SOME HITS OF METH TODAY AND MARIJUANA. PT REPORTS HE KNOWS HIS BODY AND DOES THIS AMOUNT OF DRUGS ON A NORAML BASIS. PT REPORTS THAT WHEN HE WALKS HE FEELS FUNNY AND UNABLE TO KEEP HIS BALANCE. PT CONNECTED TO MONITORS AND VSS. MEDICATED PER EMAR. PT DENIES LOSS OF LOC OR TRUMAA.
--- NOTE | 2018-10-23 21:46 | NUR ---
Patient/Caregiver given discharge instructions and they have confirmed that they understand the instructions. Patient ambulatory with steady gait.
== END 2018-10-23 21:48 | disposition home or self-care (01) ==
LOC: ED 21:32
DX: R55 Syncope and collapse (principal); E86.0 Dehydration; R11.2 Nausea with vomiting, unspecified; R05 Cough; R56.9 Unspecified convulsions; F20.9 Schizophrenia, unspecified; F32.9 Major depressive disorder, single episode, unspecified; I10 Essential (primary) hypertension; F17.200 Nicotine dependence, unspecified, uncomplicated; Z90.89 Acquired absence of other organs
CPT/HCPCS: 36415; 71045; 80053; 85025; 93005; 96374; 96375; 99284; J2060; J2405; J7030

== ENCOUNTER 2018-10-30 20:36 | Emergency (ER) | payer MEDICAID ==
[~2018-10-30] VITALS: Ht 175.3 cm; Wt 96.8 kg
[2018-10-31 12:31] VITALS: BP 122/66
== END 2018-10-31 13:17 ==
LOC: ED 22:36
DX: F32.1 Major depressive disorder, single episode, moderate (principal); I12.9 Hypertensive chronic kidney disease with stage 1 through stage 4 chronic kidney disease, or unspecified chronic kidney disease; N18.9 Chronic kidney disease, unspecified; F32.9 Major depressive disorder, single episode, unspecified; F20.9 Schizophrenia, unspecified; F17.200 Nicotine dependence, unspecified, uncomplicated; Z90.89 Acquired absence of other organs
CPT/HCPCS: 36415; 80048; 80053; 80307; 85025; 99285

== ENCOUNTER 2018-11-12 21:23 | Emergency (ER) | payer MEDICAID ==
[~2018-11-12] VITALS: Ht 177.8 cm; Wt 99.7 kg
[2018-11-13 04:00] VITALS: BP 130/78
== END 2018-11-13 04:42 | disposition home or self-care (01) ==
LOC: ED 22:33
DX: S40.811A Abrasion of right upper arm, initial encounter (principal); Z72.9 Problem related to lifestyle, unspecified; I10 Essential (primary) hypertension; F20.9 Schizophrenia, unspecified; F32.9 Major depressive disorder, single episode, unspecified; F17.200 Nicotine dependence, unspecified, uncomplicated; Z90.89 Acquired absence of other organs; X78.8XXA Intentional self-harm by other sharp object, initial encounter; Y93.89 Activity, other specified; Y92.89 Other specified places as the place of occurrence of the external cause; Y99.8 Other external cause status
CPT/HCPCS: 36415; 80053; 80307; 85025; 90471; 90715; 99284

== ENCOUNTER 2019-01-29 04:08 | Emergency (ER) | payer MEDICAID ==
[~2019-01-29] VITALS: Ht 177.8 cm; Wt 99.1 kg
--- NOTE | 2019-01-29 04:28 | NUR ---
PT STATES THAT HE WAS SMOKING WEED TONIGHT AND THINKS IT WAS LACED WITH SOMETHING. MONITORS APPLIED, SIDERAILS UP X2, CALL LIGHT WITHIN REACH
[2019-01-29] MEDS ORDERED: HYDR10TA4 PO (04:36)
[2019-01-29 05:16] LABS: BASOPHILS # (AUTO) 0.02 x10^3/uL (0-0.1); BASOPHILS % (AUTO) 0 % (0-1); EOSINOPHILS # (AUTO) 0.06 x10^3/uL (0-0.4); EOSINOPHILS % (AUTO) 1 % (1-7); LYMPHOCYTES # (AUTO) 1.37 x10^3/uL (1-3.4); LYMPHOCYTES % (AUTO) 14 % (22-44); MD NO; MEAN CORPUSCULAR HEMOGLOBIN 31.8 pg (27.5-34.5); MEAN CORPUSCULAR HGB CONC 34.3 g/dL (33.2-36.2); MEAN CORPUSCULAR VOLUME 92.8 fL (81-97); MONOCYTES % (AUTO) 10 % (2-9); NEUTROPHILS # (AUTO) 7.41 x10^3/uL (1.8-6.8); NEUTROPHILS % (AUTO) 75 % (42-75); PLATELET COUNT 237 x10^3/uL (130-400); RED CELL DISTRIBUTION WIDTH 13.4 % (9.4-14.8)
[2019-01-29 05:28] LABS: ANION GAP 7 mmol/L (5-15); CALCIUM 9.4 mg/dL (8.5-10.1); CHLORIDE 100 mmol/L (98-107); CREATININE 0.98 mg/dL (0.7-1.3)
[2019-01-29 05:31] LABS: TROPONIN I < 0.015 ng/mL (0.000-0.045)
[2019-01-29 05:37] VITALS: BP 134/84
== END 2019-01-29 06:49 | disposition home or self-care (01) ==
LOC: ED 05:38
DX: F12.10 Cannabis abuse, uncomplicated (principal); R07.89 Other chest pain; R11.2 Nausea with vomiting, unspecified; R42 Dizziness and giddiness; F20.9 Schizophrenia, unspecified; I10 Essential (primary) hypertension; Z90.49 Acquired absence of other specified parts of digestive tract; Z90.89 Acquired absence of other organs; Z88.5 Allergy status to narcotic agent; Z88.2 Allergy status to sulfonamides; Z88.8 Allergy status to other drugs, medicaments and biological substances
CPT/HCPCS: 36415; 71046; 80048; 84484; 85025; 93005; 99284

== ENCOUNTER 2019-02-27 12:38 | Emergency (ER) | payer MEDICAID ==
[~2019-02-27] VITALS: Ht 177.8 cm; Wt 90.0 kg
[~2019-02-27 12:38] MED LIST changes: +HYDR10TA4 PO
[2019-02-27 13:03] LABS: BASOPHILS # (AUTO) 0.04 x10^3/uL (0-0.1); BASOPHILS % (AUTO) 0 % (0-1); EOSINOPHILS # (AUTO) 0.26 x10^3/uL (0-0.4); EOSINOPHILS % (AUTO) 2 % (1-7); LYMPHOCYTES # (AUTO) 1.35 x10^3/uL (1-3.4); LYMPHOCYTES % (AUTO) 11 % (22-44); MD NO; MEAN CORPUSCULAR HEMOGLOBIN 31.7 pg (27.5-34.5); MEAN CORPUSCULAR HGB CONC 33.9 g/dL (33.2-36.2); MEAN CORPUSCULAR VOLUME 93.7 fL (81-97); MONOCYTES # (AUTO) 1.06 x10^3/uL (0.2-0.8); MONOCYTES % (AUTO) 9 % (2-9); NEUTROPHILS # (AUTO) 9.72 x10^3/uL (1.8-6.8); NEUTROPHILS % (AUTO) 78 % (42-75); PLATELET COUNT 269 x10^3/uL (130-400); RED BLOOD COUNT 4.61 x10^6/uL (4.38-5.82); RED CELL DISTRIBUTION WIDTH 12.9 % (9.4-14.8)
[2019-02-27 13:25] LABS: ANION GAP 5 mmol/L (5-15); CALCIUM 9.4 mg/dL (8.5-10.1); CHLORIDE 109 mmol/L (98-107)
--- NOTE | 2019-02-27 13:27 | NUR ---
BIB EMS FOR SI WITH RECENT ATTEMPT OF CUTTING BILAT ARMS 3-4 DAYS AGO, PER PATIENT. PT ALSO STATES THAT HE HAS A PLAN TO SHOOT HIMSELF IN THE FACE AND HAS ACCESS TO FIREARMS. PT STATES THAT HE HEARS VOICES THAT ARE TELLING HIM TO HARM HIMSELF. PT STATES THAT HE SELF-HARMS TO RELIEVE THE VOICES IN HIS HEAD. PT WAS SEEN AT [facility] FOR THE SAME THIS AM AND WALKED TO [facility], WHERE PATIENT WAS PUT ON A LEGAL HOLD.
[2019-02-27 13:28] LABS: ALANINE AMINOTRANSFERASE 57 U/L (12-78); CREATININE 0.95 mg/dL (0.7-1.3)
--- NOTE | 2019-02-27 13:28 | NUR ---
CAROL VILLARREAL AT BEDSIDE.
[2019-02-27 13:29] LABS: SALICYLATE LEVEL < 1.7 mg/dL (2.8-20.0)
[2019-02-27 13:30] LABS: ALKALINE PHOSPHATASE 67 U/L (45-117); BILIRUBIN,TOTAL 1.1 mg/dL (0.2-1.0); TOTAL PROTEIN 8.2 g/dL (6.4-8.2)
[2019-02-27 13:52] LABS: AMPHETAMINE SCREEN, URINE Negative (Negative); BARBITURATE SCREEN, URINE Negative (Negative); BENZODIAZEPINE SCREEN, URINE Negative (Negative); CANNABINOID SCREEN, URINE Positive (Negative); COCAINE SCREEN, URINE Negative (Negative); METHADONE SCREEN, URINE Negative (Negative); OPIATE SCREEN, URINE Negative (Negative)
[2019-02-27 15:01] LABS: MICROSCOPIC NOT IND
[2019-02-27 15:59] LABS: CULTURE INDICATED? NO
--- NOTE | 2019-02-27 16:11 | NUR ---
THROUGHPUT RN: TORREY DECLINED PT.
--- NOTE | 2019-02-27 16:32 | NUR ---
THROUGHPUT RN: BELEN LEE AT [facility] AT [phone] WHO STATES THEY WILL SEND A MOBILE WELL SURVEYING ENGINEER. INFORMATION FAXED TO [phone]. CONFIRMATION RECEIVED.
--- NOTE | 2019-02-27 16:33 | NUR ---
PATIENT RESTING ON GURNEY WATCHING TV AND CONVERSATING WITH STAFF. DENIES FURTHER NEEDS AT THIS TIME.
--- NOTE | 2019-02-27 16:50 | NUR ---
THROUGHPUT RN: PACKET FAXED TO [facility], [facility], AND [facility].
[2019-02-27] MEDS ORDERED: IBUPROFEN 600 MG TABLET ONE (17:01)
--- NOTE | 2019-02-27 17:01 | NUR ---
THROUGHPUT RN: [facility] CALLED AND DECLINED PT.
[2019-02-27] MEDS: IBUPROFEN 200 MG TABLET PO PRN (17:04)
--- NOTE | 2019-02-27 18:22 | NUR ---
THROUGHPUT RN: SPOKE W/ CRYSTAL AT [facility] WHO STATES PT IS NOT CLINICALLY APPROPRIATE FOR THEIR FACILITY.
--- NOTE | 2019-02-27 18:57 | NUR ---
Pt report from julio cummings. This rn to assume care of pt. Pt watching tv comfortably on [facility]. Roller doors in place. Sitter in hallway. No immediate needs from pt.
[2019-02-27] MEDS ORDERED: BENZONATATE 100 MG CAPSULE PO ONE (19:00)
[2019-02-27] MEDS ORDERED: BENZONATATE 100 MG CAPSULE ONE (19:22)
--- NOTE | 2019-02-27 20:00 | NUR ---
Pt resting comfortably. Nadn at this time. Watching tv.
--- NOTE | 2019-02-27 21:08 | NUR ---
Pt resting comfortably. Nadn at this time. Watching tv.
--- NOTE | 2019-02-27 22:00 | NUR ---
Pt resting comfortably. Nadn at this time. Watching tv. Given chicken broth and water per request.
--- NOTE | 2019-02-27 23:26 | NUR ---
Pt resting comfortably. Nadn at this time. Watching tv.
--- NOTE | 2019-02-28 00:15 | NUR ---
Pt sleeping comfortably on gurney. Rr even and unlabored. Nadn.
--- NOTE | 2019-02-28 01:28 | NUR ---
Pt sleeping comfortably on gurney. Rr even and unlabored. Nadn.
--- NOTE | 2019-02-28 02:23 | NUR ---
Pt sleeping comfortably on gurney. Rr even and unlabored. Nadn.
--- NOTE | 2019-02-28 03:57 | NUR ---
Pt sleeping comfortably on gurney. Rr even and unlabored. Nadn.
--- NOTE | 2019-02-28 05:47 | NUR ---
Pt sleeping comfortably on gurney. Rr even and unlabored. Nadn.
--- NOTE | 2019-02-28 07:00 | NUR ---
ASSUMED CARE. PT SLEEPING. PT IN ROOM WITH SUPPLIES AND EQUIPMENT SECURED BEHIND PULL DOWN DOORS AND PT IN DIRECT VIEW OF SITTER.
--- NOTE | 2019-02-28 09:10 | NUR ---
[facility] bed
--- NOTE | 2019-02-28 10:00 | NUR ---
INFORMED ER MD THAT PT HAD BEEN SWITCHED FROM [facility] TO TRILEPTAL BECAUSE HE HAD ELEVATED AMONIA LEVEL ON [facility] THAT WAS ATTRIBUTED TO [facility]. PT NEVER GOT TRILEPTAL SCRIP FILLED. PT HAS NOT RECEIVED ANY ANTI-SEIZURE MEDS SINCE ARRIVAL. MD TO REACH OUT TO NEUROLOGIST
[2019-02-28] MEDS ORDERED: LEVETIRACETAM 1,000 MG in SODIUM CHLORIDE 0.9% 100 ML IV ONE (10:30)
--- NOTE | 2019-02-28 12:49 | NUR ---
AWAITING KEPPRA PER ORDERS, IV ESTABLISHED FOR SAME.
--- NOTE | 2019-02-28 14:09 | NUR ---
PROVIDER AT BEDSIDE COMPLETING MHE
[2019-02-28] MEDS: FLUOXETINE 10 MG CAP PO SCH (14:30)
--- NOTE | 2019-02-28 18:30 | NUR ---
UOB AND AMBULATED TO BATHROOM WITH SITTER AT SIDE
--- NOTE | 2019-02-28 18:39 | NUR ---
REPORT TO SIMEON KELLER.
--- NOTE | 2019-02-28 18:56 | NUR ---
damian fernández ordered. awaiting its arrival
--- NOTE | 2019-02-28 19:01 | NUR ---
PT GIVEN DINNER TRAY, MILK, AND WATER PER REQUEST.
--- NOTE | 2019-02-28 20:17 | NUR ---
PT NOW RESTING QUIETLY IN BED. DENIES COMPLAINTS. SITTER IN PLACE.
--- NOTE | 2019-02-28 20:18 | NUR ---
PER OKAY TO HOLD PROZAC UNTIL TOMORROW MORNING IT CAN CAUSE INSOMNIA IF NOT GIVEN IN AM.
[2019-02-28] MEDS ORDERED: LEVETIRACETAM 500 MG TABLET ONE (21:03)
[2019-02-28] MEDS ORDERED: PRAZOSIN 5 MG CAPSULE ONE (21:03)
[2019-02-28] MEDS: LEVETIRACETAM 500 MG TABLET PO SCH (21:10)
[2019-02-28] MEDS: PRAZOSIN 5 MG CAPSULE PO SCH (21:10)
--- NOTE | 2019-02-28 21:15 | NUR ---
PT AWOKEN AND MEDICAL PER JUN. POC DISCUSSED. PT DENIES FURTHER NEEDS AT THIS TIME. SITTER REMAINS IN PLACE.
--- NOTE | 2019-02-28 22:58 | NUR ---
PT SLEEPING. NAD. SITTER REMAINS IN PLACE.
--- NOTE | 2019-02-28 23:59 | NUR ---
PT GIVEN WATER AND CRANBERRY JUICE PER REQUEST. PT DENIES FURTHER NEEDS AT THIS TIME. SITTER IN PLACE.
--- NOTE | 2019-03-01 02:27 | NUR ---
PT REMAINS ASLEEP. SITTER IN PLACE.
--- NOTE | 2019-03-01 03:20 | NUR ---
PT SLEEPING. NAD. SITTER IN PLACE.
--- NOTE | 2019-03-01 05:59 | NUR ---
PT SLEEPING. MEAL TRAY ORDERED. SITTER IN PLACE.
--- NOTE | 2019-03-01 06:39 | NUR ---
PT SLEEPING. SITTER IN PLACE.
[2019-03-01] MEDS ORDERED: FLUOXETINE 10 MG CAP ONE (08:35)
[2019-03-01] MEDS ORDERED: CEPHALEXIN 500 MG CAPSULE ONE (08:35)
[2019-03-01] MEDS: LEVETIRACETAM 500 MG TABLET PO SCH ×2 (08:38→21:58)
[2019-03-01] MEDS: FLUOXETINE 10 MG CAP PO SCH (08:38)
--- NOTE | 2019-03-01 09:19 | NUR ---
PHARMACY CALLED ABOUT MISSING MEDICATION
[2019-03-01] MEDS ORDERED: IBUPROFEN 600 MG TABLET ONE (10:04)
[2019-03-01] MEDS: IBUPROFEN 200 MG TABLET PO PRN (10:05)
--- NOTE | 2019-03-01 10:05 | NUR ---
MEDICATED FOR [facility].
--- NOTE | 2019-03-01 11:48 | NUR ---
MEAL TRAY PROVIDED. SUICIDE PRECAUTIONS IN PLACE.
[2019-03-01] MEDS ORDERED: QUETIAPINE 25MG TABLET ONE (11:50)
[2019-03-01] MEDS: QUETIAPINE 25MG TABLET PO SCH (11:52)
--- NOTE | 2019-03-01 14:38 | NUR ---
BREAK RN: PT IN BED AT THIS TIME. SITTER IN HALLWAY FOR OBSERVATION. ROOM SECURE. PT EXPRESSES NO WANTS OR NEEDS AT THIS TIME.
--- NOTE | 2019-03-01 18:45 | NUR ---
REPORT TO ANGELA KELLER
--- NOTE | 2019-03-01 18:56 | NUR ---
RECIEVED REPORT FROM JOSE MARIA
[2019-03-01] MEDS ORDERED: LEVETIRACETAM 500 MG TABLET ONE (21:43)
[2019-03-01] MEDS ORDERED: PRAZOSIN 5 MG CAPSULE ONE (21:43)
[2019-03-01] MEDS ORDERED: QUETIAPINE 100MG TABLET ONE (21:43)
[2019-03-01] MEDS: PRAZOSIN 5 MG CAPSULE PO SCH (21:58)
[2019-03-01] MEDS: QUETIAPINE 100MG TABLET PO SCH (21:58)
--- NOTE | 2019-03-01 22:02 | NUR ---
VS UPDATED. PT. MEDIATED PER MAR. PROVIDED WITH MORE WATER. DENIES ANY FURTHER NEEDS. PT. COOPERATIVE WITH FLAT AFFECT. PT. IN SECURED ROOM WITH SITTER IN DOORWAY.
--- NOTE | 2019-03-02 01:11 | NUR ---
PT RESTING WITH EYES CLOSED. SITTER AT DOOR.
--- NOTE | 2019-03-02 02:15 | NUR ---
PT RESTING WITH EYES CLOSED. SITTER AT DOOR.
--- NOTE | 2019-03-02 04:36 | NUR ---
PT. RESTING ON HOSPITAL BED WITH EYES CLOSED. EVEN, NON-LABORED RESPIRATIONS VISIBLE. ROOM REMAINS SECURED, SITTER IN DOORWAY.
--- NOTE | 2019-03-02 06:35 | NUR ---
PT RESTING WITH EYES CLOSED. ROOM SECURED, SITTER IN DOORWAY.
--- NOTE | 2019-03-02 06:59 | NUR ---
I AM ASSUMING CARE OF THIS PT FROM NATHALIA (KRISHNA) AT THIS TIME. SBAR REPORT WAS EXCHANGED AT THE BEDSIDE.
--- NOTE | 2019-03-02 08:07 | NUR ---
mealtray delivered. however this pt is sleeping sonorously on a hospital bed. there have been no acute chabges noted since my arrival on shift this morning. i checked vs with no awakening. i will allow to sleep and medicate per the mar upon awakening.
[2019-03-02] MEDS ORDERED: QUETIAPINE 25MG TABLET ONE ×2 (08:59→12:23)
[2019-03-02] MEDS ORDERED: FLUOXETINE 10 MG CAP ONE (08:59)
[2019-03-02] MEDS ORDERED: LEVETIRACETAM 500 MG TABLET ONE ×2 (08:59→20:31)
[2019-03-02] MEDS: FLUOXETINE 10 MG CAP PO SCH (09:05)
[2019-03-02] MEDS: QUETIAPINE 25MG TABLET PO SCH ×2 (09:05→12:25)
[2019-03-02] MEDS: LEVETIRACETAM 500 MG TABLET PO SCH ×2 (09:05→20:33)
--- NOTE | 2019-03-02 11:56 | NUR ---
VERBAL SBAR REPORT EXCHANGED Rosy RHODES (RN) AT THE BEDSIDE. SHE IS ASSUMING CREA OF THIS PT AT THIS TIME.
--- NOTE | 2019-03-02 11:58 | NUR ---
REPORT RECEIVED FROM CRISTI KELLER.
--- NOTE | 2019-03-02 12:24 | NUR ---
LUNCH TRAY PROVIDED AT THIS TIME. PT TOLERATED WELL.
--- NOTE | 2019-03-02 12:28 | NUR ---
PT MEDICATED PER EMAR. PT TOLERATED WELL.
--- NOTE | 2019-03-02 13:15 | NUR ---
2ND LUNCH TRAY PROVIDED AT THIS TIME.
--- NOTE | 2019-03-02 14:07 | NUR ---
PT SLEEPING IN BED. RESPS EVEN AND UNLABORED. ROOM REMAINS SECURE. SITTER MONITORING FROM HALLWAY FOR SAFETY.
--- NOTE | 2019-03-02 15:48 | NUR ---
PT SLEEPING IN BED. RESPS EVEN AND UNLABORED. ROOM REMAINS SECURE. SITTER MONITORING FROM HALLWAY FOR SAFETY.
--- NOTE | 2019-03-02 16:05 | NUR ---
JUICE PROVIDED AT THIS TIME.
--- NOTE | 2019-03-02 17:17 | NUR ---
PT WANTS TO WALK AROUND THIS DEPARTMENT. THIS RN AND CHARGE NURSE DISCUSSED WITH PT THEN PT IS AGITATED AND UPSET. PT'S AOX4. RESPS EVEN AND UNLABORED. PT RESTING IN BED NOW.
--- NOTE | 2019-03-02 17:29 | NUR ---
MEAL TRAY ORDERED AT THIS TIME.
--- NOTE | 2019-03-02 17:42 | NUR ---
MEAL TRAY PROVIDED AT THIS TIME.
--- NOTE | 2019-03-02 17:45 | NUR ---
PT MEDICATED PER EMAR FOR ANXIETY. PT TOLERATED WELL.
--- NOTE | 2019-03-02 18:27 | NUR ---
PT IS WALKING AROUND WITH SITTER AT THIS TIME. PT IS CALM/AOX4. RESPS EVEN AND UNLABORED.
--- NOTE | 2019-03-02 18:38 | NUR ---
PT BACK TO ROOM WITH STEADY GAIT.
--- NOTE | 2019-03-02 18:56 | NUR ---
REPORT GIVEN TO HEATHER KELLER.
[2019-03-02] MEDS ORDERED: PRAZOSIN 5 MG CAPSULE ONE (20:30)
[2019-03-02] MEDS ORDERED: QUETIAPINE 100MG TABLET ONE (20:30)
[2019-03-02] MEDS: QUETIAPINE 100MG TABLET PO SCH (20:32)
[2019-03-02] MEDS: PRAZOSIN 5 MG CAPSULE PO SCH (20:33)
--- NOTE | 2019-03-02 20:33 | NUR ---
PT MEDICATED PER JUN. PT COOPERATIVE AND CALM AT THIS TIME. SITTER REMAINS IN HALLWAY FOR SAFETY AND MONITORING
--- NOTE | 2019-03-02 22:27 | NUR ---
PT SLEEPING ON HOSPITAL BED, SHANI, SITTER IN HALLWAY FOR SAFETY
--- NOTE | 2019-03-02 23:30 | NUR ---
PT SLEEPING ON HOSPITAL BED, EYES CLOSED RESPIRATIONS EVEN AND UNLABORED. SITTER REMAINS IN HALLWAY FOR SAFETY
--- NOTE | 2019-03-03 00:57 | NUR ---
PT RESTING ON HOSPITAL BED. SITTER STILL IN PLACE.
--- NOTE | 2019-03-03 01:28 | NUR ---
PT SLEEPING ON HOSPITAL BED. SITTER REMAINS FOR SAFETY
--- NOTE | 2019-03-03 02:46 | NUR ---
PT RESTING ON HOSPITAL BED, LIGHTS DIMMED FOR COMFORT, SITTER REMAINS IN HALLWAY FOR MONITORING.
--- NOTE | 2019-03-03 03:30 | NUR ---
PT CONTINUES TO REST ON HOSPITAL BED, NADN, SITTER IN DOORWAY FOR MONITORING AND SAFETY
--- NOTE | 2019-03-03 04:48 | NUR ---
PT SLEEPING EYES CLOSED RESPIRTATIONS EVEN AND UNLABORED, NADN,
--- NOTE | 2019-03-03 05:46 | NUR ---
PT SLEEPING, SITTER IN HALLWAY
--- NOTE | 2019-03-03 06:25 | NUR ---
DIET TRAY ORDERED, PT SLEEPING ON HOSPITAL BED, SITTER IN LINE OF SIGHT FOR SAFETY.
[2019-03-03] MEDS ORDERED: QUETIAPINE 25MG TABLET ONE ×2 (08:19→13:30)
[2019-03-03] MEDS ORDERED: LEVETIRACETAM 500 MG TABLET ONE ×2 (08:19→19:34)
[2019-03-03] MEDS: LEVETIRACETAM 500 MG TABLET PO SCH ×2 (08:43→20:53)
[2019-03-03] MEDS: QUETIAPINE 25MG TABLET PO SCH ×2 (08:43→13:31)
[2019-03-03] MEDS: FLUOXETINE 10 MG CAP PO SCH (08:43)
--- NOTE | 2019-03-03 08:46 | NUR ---
PT NOW AWAKE AND AMBULATED TO BATHROOM, UPRIGHT STEADY GAIT. RTD TO ROOM WITHOUT INCIDENT AND MEAL TRAY PROVIDED. PT COOPERATIVE WITH RN OBTAINING VS BUT DOES NOT MAKE EYE CONTACT AND WHEN ASKED HOW HE IS FEELING THIS MORNING HE LOOKS DOWN AND AHKES HIS HEAD. I ASKED IF HE WAS FEELING BETTER AND HE AGAIN SHAKES HIS HEAD. I ASKED IF HE WANTED TO TALK ABOUT IT AND HE SHAKES HIS HEAD. SITTER AT DOORWAY WITH PT IN VIEW.
--- NOTE | 2019-03-03 08:46 | NUR ---
LATE ENTRY FOR 0645, SBAR RPT REC'D AND ASSUMED PT CARE. SITTER AT DOORWAY WITH PT IN DIRECT LINE OF SIGHT. PT SLEEPING, RESP EVEN NON-LABORED. NAD NOTED
--- NOTE | 2019-03-03 09:00 | NUR ---
REPORT RECEIVED FROM TRAY PIKE FROM [facility] [facility]. PT ASLEEP AT THIS TIME.
--- NOTE | 2019-03-03 10:00 | NUR ---
PT PROVIDED WITH SI SAFE SNACK. PT A&O, RESPS EVEN AND UNLABORED. PT DENIES ANY OTHER NEEDS. SITTER MONITORING FROM HALLWAY FOR SAFETY. ROOM REMAINS SECURE.
--- NOTE | 2019-03-03 12:00 | NUR ---
PT SLEEPING, ROOM REMAINS SECURE, SITTER MONITORING FROM HALLWAY FOR SAFETY.
--- NOTE | 2019-03-03 13:00 | NUR ---
LUNCH SI MEAL TRAY PROVIDED. SITTER MONITORING FROM [facility] FOR SAFETY. ROOM REMAINS SECURE.
--- NOTE | 2019-03-03 13:40 | NUR ---
PT MEDICATED PER EMAR, TOLERATED WELL. PT STATES HE IS STILL SUICIDAL, PLAN WOULD BE TO SHOOT SELF. PT IS A&OX4, RESPS EVEN AND UNLABORED. PT DENIES PAIN. PT PROVIDED WITH JUICE. PT DENIES ANY OTHER NEEDS. PT DENIES DIFFICULTY VOIDING/STOOLING TODAY. SITTER MONITORING FROM HALLWAY FOR SAFETY. ROOM REMAINS SECURE.
--- NOTE | 2019-03-03 14:45 | NUR ---
REPORT GIVEN TO KRISHNA NESBITT AT BEDSIDE. PT SLEEPING, RESPS EVEN AND UNLABORED, SITTER MONITORING FROM [facility] FOR SAFETY.
--- NOTE | 2019-03-03 15:15 | NUR ---
PT RESTING IN ROOM. NAND AND RESPIRATIOSN UNLABORED. CAP REFILL UNDER 3 SECONDS.
--- NOTE | 2019-03-03 17:28 | NUR ---
PT GIVEN MEAL TRAY, PT FINSHED 100% OF DINNER TRAY. PT REPORTING HE IS HEARING VOICES TELLING HIM TO KILL HIMSELF BY SHOOTING HIMSELF IN THE FACE. PT REPORTS HE DOES NOT WANT TO HURT ANYONE ELSE. DENIES ACCESS TO GUN, PT HOWEVER BEFORE HAS REPORTED ACCESS TO WEAPON.
--- NOTE | 2019-03-03 18:52 | NUR ---
FLOAT RN: PT RESTING IN ROOM. REGULAR RESP. SITTER OUTSIDE DOOR. WILL CONTINUE TO MONITOR WHILE PRIMARY RN IS ON BREAK.
[2019-03-03] MEDS ORDERED: QUETIAPINE 100MG TABLET ONE (19:33)
[2019-03-03] MEDS ORDERED: PRAZOSIN 5 MG CAPSULE ONE (19:33)
[2019-03-03] MEDS: QUETIAPINE 100MG TABLET PO SCH (20:53)
[2019-03-03] MEDS: PRAZOSIN 5 MG CAPSULE PO SCH (20:53)
--- NOTE | 2019-03-03 20:54 | NUR ---
PT MEDICATED PER EMAR.
--- NOTE | 2019-03-04 00:12 | NUR ---
REPORT RECEIVED FROM KRISHNA NESBITT. ASSUMED CARE OF PT
--- NOTE | 2019-03-04 01:26 | NUR ---
BREAK RN: PT. HAS BEEN RESTING IN BED WITH EYES CLOSED. EVEN NON-LABORED RESPIRATIONS VISIBLE. ROOM SECURED AND SITTER IN CLEMENTS.
--- NOTE | 2019-03-04 02:38 | NUR ---
PT SLEEPING. OCCASIONAL MOVEMENT NOTED. SITTER OUTSIDE DOOR MONITORING PT. WILL CONTINUE TO MONITOR.
--- NOTE | 2019-03-04 04:43 | NUR ---
RECEIVED REPORT FROM KRISHNA GALLO TO ASSUME CARE OF PT. AT THIS TIME. PT. RESTING ON BED WITH EYES CLOSED. EVEN, NON-LABORED RESPIRATIONS VISIBLE. SITTER IN DOORWAY. ROOM SECURED.
--- NOTE | 2019-03-04 06:26 | NUR ---
PT. CONTINUES TO REST ON BED WITH EYES CLOSED. RESPIRATIONS VISIBLE AND NON-LABORED. ROOM REMAINS SECURED. SITTER IN CLEMENTS.
--- NOTE | 2019-03-04 06:53 | NUR ---
REPORT RECEIVED FROM ANGELA KELLER.
[2019-03-04] MEDS ORDERED: QUETIAPINE 25MG TABLET ONE ×2 (07:36→11:36)
[2019-03-04] MEDS ORDERED: LEVETIRACETAM 500 MG TABLET ONE ×2 (07:36→20:20)
--- NOTE | 2019-03-04 07:55 | NUR ---
PT STILL SLEEPING. RESPS EVEN AND UNLABORED. MEAL TRAY AT BEDSIDE. SITTER MONITORINGPA FROM [facility] FOR SAFETY. ROOM REMAINS SECURE.
[2019-03-04] MEDS: LEVETIRACETAM 500 MG TABLET PO SCH ×2 (08:21→20:35)
[2019-03-04] MEDS: QUETIAPINE 25MG TABLET PO SCH ×2 (08:21→11:53)
--- NOTE | 2019-03-04 08:28 | NUR ---
pt amb to br and back to room with steady gait.
--- NOTE | 2019-03-04 08:28 | NUR ---
pt medicated per emar. pt tolerated well. pt's aox4. resps even and unlabored.
--- NOTE | 2019-03-04 10:00 | NUR ---
PT IN SHOWER WITH SITTER AT THIS TIME.
--- NOTE | 2019-03-04 10:15 | NUR ---
PT BACK TO ROOM FROM SHOWER. RESPS EVEN AND UNLABORED. ROOM REMAINS SECURE. SITTER MONITORING FROM [facility] FOR SAFETY.
--- NOTE | 2019-03-04 11:08 | NUR ---
PT WALKED AROUND THIS DEPARTMENT WITH STEADY GAIT WITH SITTER. PT'S AOX4. RESPS EVEN AND UNLABORED.
--- NOTE | 2019-03-04 11:14 | NUR ---
THROUGHPUT: SPOKE WITH VIVIANA FROM [facility], "PT IS 2ND ON THE LIST, COULD BE SATURDAY OR SATURDAY BEFORE PT CAN BE ACCEPTED", PRIMARY & VEGETABLE CANNER AWARE.
--- NOTE | 2019-03-04 11:20 | NUR ---
MEAL TRAY ORDERED AT THIS TIME.
--- NOTE | 2019-03-04 11:52 | NUR ---
MEAL TRAY PROVIDED AT THIS TIME.
--- NOTE | 2019-03-04 11:55 | NUR ---
PT MEDICATED PER EMAR. PT TOLERATED WELL.
--- NOTE | 2019-03-04 12:35 | NUR ---
PT SLEEPING IN [facility]. RESPS EVEN AND UNLABORED. SITTER MONITORING FROM [facility] FOR SAFETY. ROOM REMAINS SECURE.
--- NOTE | 2019-03-04 13:17 | NUR ---
ASSUMED CARE OF PATIENT AT THIS TIME.
--- NOTE | 2019-03-04 13:34 | NUR ---
[facility]. PT'S AOX4. RESPS EVEN AND UNLABORED. SITTER MONITORING FROM [facility] FOR SAFETY. ROOM REMAINS SECURE.
--- NOTE | 2019-03-04 14:42 | NUR ---
PT RESTING IN [facility]. PT'S AOX4. RESPS EVEN AND UNLABORED. SITTER MONITORING FROM [facility] FOR SAFETY. ROOM REMAINS SECURE.
--- NOTE | 2019-03-04 15:16 | NUR ---
PT RESTING IN [facility]. PT'S AOX4. RESPS EVEN AND UNLABORED. SITTER MONITORING FROM [facility] FOR SAFETY. ROOM REMAINS SECURE.
--- NOTE | 2019-03-04 16:06 | NUR ---
PT WITH THIS RN AMBULATED AROUND ED. PT COOPERATED AND NO ISSUES ENCOUNTERED. PT TOLD THAT IF EXEMPLIRARY BEHAVIOR CONTINUES IF TIME ALLOWS WILL GO FOR ADDITIONAL WALKS TO HELP STRETCH LEGS. PT GIVE 1 CUP OF DECAFF COFFEE WITH 2 SUGARS.
--- NOTE | 2019-03-04 16:58 | NUR ---
PT RESTING IN [facility]. PT'S AOX4. RESPS EVEN AND UNLABORED. SITTER MONITORING FROM [facility] FOR SAFETY. ROOM REMAINS SECURE.
--- NOTE | 2019-03-04 18:13 | NUR ---
TASK RN: MEAL TRAY PROVIDED. PT SITTING ON SIDE OF BED, SITTER AT DOORWAY WITH PT IN DIRECT VIEW.
--- NOTE | 2019-03-04 19:05 | NUR ---
PT RESTING IN [facility]. PT'S AOX4. RESPS EVEN AND UNLABORED. SITTER MONITORING FROM [facility]ALL[facility]AY FOR SAFETY. ROOM REMAINS SECURE.
[2019-03-04] MEDS ORDERED: DOCUSATE 100 MG CAPSULE ONE (19:37)
[2019-03-04] MEDS: DOCUSATE 100 MG CAPSULE PO PRN (19:50)
[2019-03-04] MEDS ORDERED: QUETIAPINE 100MG TABLET ONE (20:20)
[2019-03-04] MEDS ORDERED: PRAZOSIN 5 MG CAPSULE ONE (20:20)
--- NOTE | 2019-03-04 20:32 | NUR ---
PT RESTING IN [facility]. PT'S AOX4. RESPS EVEN AND UNLABORED. SITTER MONITORING FROM HALLWAY FOR SAFETY. ROOM REMAINS SECURE.
[2019-03-04] MEDS: PRAZOSIN 5 MG CAPSULE PO SCH (20:35)
[2019-03-04] MEDS: QUETIAPINE 100MG TABLET PO SCH (20:36)
--- NOTE | 2019-03-04 20:45 | NUR ---
PT MEDICATED PER EMAR AND GIVEN SNACKS.
--- NOTE | 2019-03-04 21:50 | NUR ---
PT RESTING IN [facility]. PT'S AOX4. RESPS EVEN AND UNLABORED. SITTER MONITORING FROM [facility] FOR SAFETY. ROOM REMAINS SECURE.
--- NOTE | 2019-03-04 23:39 | NUR ---
PT RESTING IN [facility]. PT'S AOX4. RESPS EVEN AND UNLABORED. SITTER MONITORING FROM HALLWAY FOR SAFETY. ROOM REMAINS SECURE.
--- NOTE | 2019-03-05 00:18 | NUR ---
REPORT TO LAZ Ortiz RN.
--- NOTE | 2019-03-05 00:27 | NUR ---
ASSUMED CARE FOR THIS PT. PT IN NO DISTRESS WITH SITTER AT BEDSIDE.
--- NOTE | 2019-03-05 01:59 | NUR ---
PT ASLEEP WITH SITTER AT BEDSIDE AND SIDE RAILS UP.
--- NOTE | 2019-03-05 03:00 | NUR ---
PT ASLEEP WITH SITTER AT BEDSIDE AND SIDE RAILS UP
--- NOTE | 2019-03-05 04:00 | NUR ---
PT ASLEEP WITH SITTER AT BEDSIDE AND SIDE RAILS UP
--- NOTE | 2019-03-05 05:00 | NUR ---
PT ASLEEP WITH SITTER AT BEDSIDE AND SIDE RAILS UP
--- NOTE | 2019-03-05 06:07 | NUR ---
PT ASLEEP WITH SITTER AT BEDSIDE AND SIDE RAILS UP
--- NOTE | 2019-03-05 06:48 | NUR ---
REPORT RECEIVED FROM LAZ KELLER.
--- NOTE | 2019-03-05 07:11 | NUR ---
MEAL TRAY ORDERED AT THIS TIME.
--- NOTE | 2019-03-05 07:55 | NUR ---
MEAL TRAY PROVIDED AT BEDSIDE. PT STILL SLEEPING AT THIS TIME.
[2019-03-05] MEDS ORDERED: QUETIAPINE 25MG TABLET ONE ×2 (08:23→11:41)
[2019-03-05] MEDS ORDERED: LEVETIRACETAM 500 MG TABLET ONE ×2 (08:23→20:41)
[2019-03-05] MEDS: LEVETIRACETAM 500 MG TABLET PO SCH ×2 (08:43→20:48)
[2019-03-05] MEDS: QUETIAPINE 25MG TABLET PO SCH ×2 (08:44→11:50)
--- NOTE | 2019-03-05 09:00 | NUR ---
PT MEDICATED PER EMAR. PT TOLERATED WELL.
[2019-03-05] MEDS ORDERED: DOCUSATE 100 MG CAPSULE ONE (09:54)
[2019-03-05] MEDS: DOCUSATE 100 MG CAPSULE PO PRN (09:55)
--- NOTE | 2019-03-05 09:56 | NUR ---
PT C/O CONSTIPATION. PT MEDICATED PER EMAR. PT TOLERATED WELL.
--- NOTE | 2019-03-05 10:56 | NUR ---
PT RESTING IN BED. PT'S AOX4. RESPS EVEN AND UNLABORED. SITTER MONITORING FROM [facility]ALLWAY FOR SAFETY. ROOM REMAINS SECURE.
--- NOTE | 2019-03-05 11:34 | NUR ---
MEAL TRAY ORDERED AT THIS TIME.
--- NOTE | 2019-03-05 11:44 | NUR ---
MEAL TRAY PROVIDED AT THIS TIME.
--- NOTE | 2019-03-05 11:53 | NUR ---
PT MEDICATED PER EMAR. PT TOLERATED WELL.
--- NOTE | 2019-03-05 12:53 | NUR ---
REPORT GIVEN TO LESLIE KELLER.
--- NOTE | 2019-03-05 13:00 | NUR ---
PT APPEARS TO BE SLEEPING. RR EVEN NON LABORED. SITTER OUTSIDE OF ROOM. WILL CTM.
--- NOTE | 2019-03-05 14:08 | NUR ---
PT RESTING ON BED, WATCHING TV. NAD. SITTER OUTSIDE OF ROOM.
--- NOTE | 2019-03-05 15:21 | NUR ---
PT WATCHING TV. IN NAD. SITTER OUTSIDE OF ROOM.
--- NOTE | 2019-03-05 16:19 | NUR ---
PT GIVEN DRINKS, CRACKERS & PUDDING. DENIES ANY OTHER NEEDS. SITTER REMAINS AT BS.
--- NOTE | 2019-03-05 17:21 | NUR ---
PT WATCHING TV. GIVNE WATER. CALM & COOPERATIVE. SITTER OUTSIDE OF ROOM.
--- NOTE | 2019-03-05 17:24 | NUR ---
DIET TRAY ORDERED
--- NOTE | 2019-03-05 18:05 | NUR ---
PT GIVEN DINNER TRAY & JUICE. DENIES ANY OTHER NEEDS. SITTER REMAINS OUTSIDE OF ROOM. WILL CTM.
--- NOTE | 2019-03-05 19:07 | NUR ---
PT WALKING TV. NAD. SITTER REMAINS OUTSIDE OF ROOM. WILL CTM.
[2019-03-05] MEDS ORDERED: QUETIAPINE 100MG TABLET ONE (20:41)
[2019-03-05] MEDS ORDERED: PRAZOSIN 5 MG CAPSULE ONE (20:41)
[2019-03-05] MEDS: PRAZOSIN 5 MG CAPSULE PO SCH (20:48)
[2019-03-05] MEDS: QUETIAPINE 100MG TABLET PO SCH (20:48)
--- NOTE | 2019-03-05 20:50 | NUR ---
MEDS PER MAR, TOLERATED WELL. SITTER REMAINS OUTSIDE OF ROOM. WILL CTM.
--- NOTE | 2019-03-05 23:19 | NUR ---
PT SLEEPING ON CART. RR EVEN NON LABORED. NAD. SITTER REMAINS OUTSIDE OF ROOM.
--- NOTE | 2019-03-05 23:58 | NUR ---
PT RESTING ON GURNEY WITH EYES CLOSED, NADN, EQUAL CHEST RISE/FALL OBSERVED, ROOM SECURED, SITTER AT DOORWAY FOR CONTINOUS MONITORING.
--- NOTE | 2019-03-06 00:55 | NUR ---
PT RESTING ON GURNEY WITH EYES CLOSED, REPOSITIONED SELF TO RIGHT SIDE, EQUAL CHEST RISE/FALL OBSERVED, SITTER AT DOORWAY FOR CONTINOUS MONITORING.
--- NOTE | 2019-03-06 01:57 | NUR ---
PT RESTING ON GURNEY WITH EYES CLOSED, NADN, EQUAL CHEST RISE/FALL OBSERVED, ROOM SECURED, SITTER AT DOORWAY FOR CONTINOUS MONITORING.
--- NOTE | 2019-03-06 03:03 | NUR ---
PT RESTING IN BED WITH EYES CLOSED, EQUAL CHEST RISE/FALL OBSERVED, SITTER AT DOORWAY FOR CONTINOUS MONITORING.
--- NOTE | 2019-03-06 04:08 | NUR ---
PT RESTING WITH EYES CLOSED, REPOSITIONED SELF IN BED, EQUAL CHEST RISE/FALL OBSERVED, SITTER AT DOORWAY FOR CONTINOUS MONITORING.
--- NOTE | 2019-03-06 04:57 | NUR ---
PT RESTING IN BED, EQUAL CHEST RISE/FALL OBSERVED, SITTER REMAINS AT DOORWAY FOR CONTINOUS MONITORING
--- NOTE | 2019-03-06 06:02 | NUR ---
PT RESTING WITH EYES CLOSED, NAD, EQUAL CHEST RISE/FALL OBSERVED, SITTER AT DOORWAY FOR CONTINOUS MONITORING.
--- NOTE | 2019-03-06 06:51 | NUR ---
RECEIVED REPORT FROM DREW KELLER, PLAN OF CARE DISCUSSED.
--- NOTE | 2019-03-06 07:07 | NUR ---
PT SLEEPING, RESP EVEN AND UNLABORED, BREAKFAST ORDERED, ROOM SECURED, SITTER AT DOOR.
[2019-03-06] MEDS ORDERED: QUETIAPINE 25MG TABLET ONE ×3 (08:04→13:41)
[2019-03-06] MEDS ORDERED: LEVETIRACETAM 500 MG TABLET ONE ×2 (08:04→21:28)
[2019-03-06] MEDS: LEVETIRACETAM 500 MG TABLET PO SCH ×2 (08:08→21:31)
[2019-03-06] MEDS: QUETIAPINE 25MG TABLET PO SCH ×2 (08:10→12:00)
[2019-03-06] MEDS ORDERED: DOCUSATE 100 MG CAPSULE ONE (08:15)
[2019-03-06] MEDS: DOCUSATE 100 MG CAPSULE PO PRN (08:16)
--- NOTE | 2019-03-06 08:20 | NUR ---
PT COMPLAINED ABOUT NOT HAVING A BM IN DAYS, COLACE GIVEN PER JUN. PT ATE 100% BREAKFAST AND REQUESTED ADDITIONAL FOOD, PROVIDED CRACKERS AND PUDDING
--- NOTE | 2019-03-06 09:40 | NUR ---
PT SLEEPING, RESP EVEN AND UNLABORED, ROOM REMAINS SECURED, SITTER AT DOOR.
--- NOTE | 2019-03-06 11:30 | NUR ---
THROUGHPUT RN: UPDATES FAXED TO [facility].
--- NOTE | 2019-03-06 11:35 | NUR ---
PT SLEEPING, RESP EVEN AND UNLABORED, ROOM SECURED, SITTER AT DOOR.
--- NOTE | 2019-03-06 12:07 | NUR ---
LUNCH MEAL PROVIDED, PT UP TO BATHROOM, ROOM REMAINS SECURED. SITTER AT DOOR
[2019-03-06] MEDS ORDERED: MAGNESIUM CITRATE 300ML ORAL SOL PO ONE (13:00)
[2019-03-06] MEDS ORDERED: MAGNESIUM CITRATE 300ML ORAL SOL ONE (13:45)
--- NOTE | 2019-03-06 13:56 | NUR ---
PT TAKING SHOWER WITH STB, ALONG WITH ORAL CARE. PT TOLERATED WELL
--- NOTE | 2019-03-06 15:25 | NUR ---
PT WALKING AROUND NURSING STATION WITH BED SETTER SBA. GAIT SLOW AND STEADY
--- NOTE | 2019-03-06 17:40 | NUR ---
MEAL PROVIDED, PT STATES HE STILL HAS NOT HAVE A BM TODAY.
--- NOTE | 2019-03-06 18:45 | NUR ---
REPORT TO SYDNEE KELLER, PLAN OF CARE DISCUSSED
--- NOTE | 2019-03-06 20:00 | NUR ---
PT PLEASENT AND STANDING AT DOORWAY. PT STATES HE HAS NOT HAD A BM SINCE HE HAS BEEN HERE AND HIS BELLY IS STARTING TO HURT. PT PROVIDED TIPS TO HELP FACILITATE A BM. PT PROVIDED H2O WELL AND ENCOURAGED TO DRINK.
[2019-03-06] MEDS ORDERED: QUETIAPINE 100MG TABLET ONE (21:28)
[2019-03-06] MEDS ORDERED: PRAZOSIN 5 MG CAPSULE ONE (21:28)
[2019-03-06] MEDS: QUETIAPINE 100MG TABLET PO SCH (21:30)
[2019-03-06] MEDS: PRAZOSIN 5 MG CAPSULE PO SCH (21:31)
--- NOTE | 2019-03-06 21:34 | NUR ---
PT MEDICATED PER EMAR.
--- NOTE | 2019-03-06 21:35 | NUR ---
PT WILL WITH NO BM. SITTER AT DOOR WAY FOR FREQUENT CHECKS.
--- NOTE | 2019-03-07 00:17 | NUR ---
PT RESTING ON GURNEY WITH EYES CLOSED. RESPIRATIONS EVEN AND UNLABORED. SITTER AT DOORWAY FOR FREQUENT CHECKS.
--- NOTE | 2019-03-07 03:07 | NUR ---
PT RESTING ON GURNEY WITH EYES CLOSED. RESPIRATIONS EVEN AND UNLABORED. SITTER AT DOORWAY FOR FREQUENT CHECKS.
--- NOTE | 2019-03-07 06:16 | NUR ---
PT RESTING ON GURNEY WITH EYES CLOSED. RESPIRATIONS EVEN AND UNLABORED. SITTER AT DOORWAY FOR FREQUENT CHECKS
--- NOTE | 2019-03-07 06:52 | NUR ---
report to emiliano rose
--- NOTE | 2019-03-07 07:05 | NUR ---
REPORT RECIEVED FROM MIKAEL RN, ASSUMED CARE OF PT. AT THIS TIME PT IS RESTING ON GURNEY ASLEEP, VISIBLE CHEST RISE AND FALL NOTED, NAD AT THIS TIME
[2019-03-07] MEDS ORDERED: QUETIAPINE 25MG TABLET ONE ×2 (07:53→16:08)
[2019-03-07] MEDS ORDERED: LEVETIRACETAM 500 MG TABLET ONE ×3 (07:53→23:53)
[2019-03-07] MEDS: QUETIAPINE 25MG TABLET PO SCH ×2 (08:01→16:10)
[2019-03-07] MEDS: LEVETIRACETAM 500 MG TABLET PO SCH ×4 (08:01→23:54)
--- NOTE | 2019-03-07 08:06 | NUR ---
PT ATE 100% OF BREAKFAST TRAY, PT MEDICATED PER MAR, VSS. NAD NOTED, SI PRECAUTIONS IN PLACE
--- NOTE | 2019-03-07 10:17 | NUR ---
PT WATCHING TV IN RM, NAD NOTED. DENIES NEEDS AT THIS TIME
--- NOTE | 2019-03-07 11:00 | NUR ---
PT REQUESTING PRN MED FOR ANXIETY. PT MEDICATED PER MAR, PROVIDED WITH SNACKS PER PT REQUEST. PT AMBULATED TO BR, PT HAD LARGE BM. NO OTHER NEEDS AT THIS TIME
--- NOTE | 2019-03-07 11:59 | NUR ---
BREAK RN NOTE: PT SLEEPING ON HOSPITAL BED. RESPS EVEN AND UNLABORED. SITTER MONITORING FROM [facility]AY FOR SAFETY. ROOM REMAINS SECURE.
--- NOTE | 2019-03-07 12:20 | NUR ---
BREAK RN NOTE: PT PROVIDED WITH SI MEAL TRAY. PT SLEEPING, RESPS EVEN AND UNLABORED. SITTER MONITORING FROM [facility] FOR SAFETY. ROOM REMAINS SECURE.
--- NOTE | 2019-03-07 12:47 | NUR ---
REPORT GIVEN BACK TO PRIMARY KRISHNA JIMENEZ.
--- NOTE | 2019-03-07 14:25 | NUR ---
PT RESTING IN BED AT THIS TIME, VISIBLE CHEST RISE AND FALL NOTED. NAD
--- NOTE | 2019-03-07 15:59 | NUR ---
PT CONTINUES TO REST ON BED, DENIES NEEDS AT THIS TIME, DIET TRAY ORDERED
--- NOTE | 2019-03-07 19:10 | NUR ---
pt resting on gurkyung, stated that he continues to have suicidal thoughts, "plan is to shoot myself in the face" pt also stated that he does have access to gun. vss, pt denies needs at this time. room secured, sitter at doorway for continous monitoring
--- NOTE | 2019-03-07 20:26 | NUR ---
pt resting on gurney, denies needs, respirations even and unlabored, sitter at doorway for continous monitoring
[2019-03-07] MEDS ORDERED: QUETIAPINE 100MG TABLET ONE (20:56)
[2019-03-07] MEDS ORDERED: PRAZOSIN 5 MG CAPSULE ONE (20:56)
[2019-03-07] MEDS: PRAZOSIN 5 MG CAPSULE PO SCH (20:59)
[2019-03-07] MEDS: QUETIAPINE 100MG TABLET PO SCH (20:59)
--- NOTE | 2019-03-07 21:06 | NUR ---
pt medicated per jun, pt refused keppra at this time.
--- NOTE | 2019-03-07 21:25 | NUR ---
pt resting on gurney, supine position, denies needs, respirations even and unlabored, sitter at doorway for monitoring
--- NOTE | 2019-03-07 22:13 | NUR ---
PT CONTINUES TO REST ON BED WITH EYES CLOSED, RESPIRATIONS VISIBLE AND NON-LABORED, SITTER IN [place] FOR MONITORING.
--- NOTE | 2019-03-07 23:03 | NUR ---
PT RESTING IN BED WITH EYES CLOSED, NAD, RESPIRATIONS EVEN AND UNLABORED, SITTER IN [place] FOR CONTINOUS MONITORING.
--- NOTE | 2019-03-07 23:53 | NUR ---
PT RESTING CALMLY, NAD, REQUESTING KEPPRA DOSE AT THIS TIME, PT MEDICATED PER MAR
--- NOTE | 2019-03-08 01:15 | NUR ---
PT RESTING IN BED WITH EYES CLOSED, NAD, RESPIRATIONS EVEN AND UNLABORED, SITTER IN [place] FOR CONTINOUS MONITORING.
--- NOTE | 2019-03-08 02:28 | NUR ---
FLOAT RN: PT RESTING IN ROOM. NO ACUTE DISTRESS NOTED. SITTER AT DOOR WILL CONTINUE TO MONITOR WHILE PRIMARY RN IS ON BREAK.
--- NOTE | 2019-03-08 02:56 | NUR ---
PT RESTING IN BED WITH EYES CLOSED, NAD, EQUAL CHEST RISE/FALL OBSERVED, SITTER IN [place] FOR CONTINOUS MONITORING.
--- NOTE | 2019-03-08 04:15 | NUR ---
PT RESTING IN BED WITH EYES CLOSED, NAD, RESPIRATIONS EVEN AND UNLABORED, SITTER IN [place] FOR CONTINOUS MONITORING.
--- NOTE | 2019-03-08 05:07 | NUR ---
PT RESTING IN BED WITH EYES CLOSED, EQUAL CHEST RISE/FALL OBSERVED, SITTER IN [place] FOR CONTINOUS MONITORING.
--- NOTE | 2019-03-08 06:24 | NUR ---
PT RESTING IN BED WITH EYES CLOSED, NAD, RESPIRATIONS EVEN AND UNLABORED, SITTER IN [place] FOR CONTINOUS MONITORING.
--- NOTE | 2019-03-08 07:57 | NUR ---
LATE ENTRY FOR 0700. SBAR RPT REC'D FROM KRISHNA BILL AND PT CARE ASSUMED. SITTER AT DOORWAY WITH PT IN VIEW. PT CURRENTLY SLEEPING, RESP EVEN AND NON-LABORED.
[2019-03-08] MEDS ORDERED: QUETIAPINE 25MG TABLET ONE ×2 (08:52→12:20)
[2019-03-08] MEDS ORDERED: LEVETIRACETAM 500 MG TABLET ONE (08:52)
--- NOTE | 2019-03-08 08:57 | NUR ---
PT CONTINUES SLEEPING, PT HAS THE BED COVERS OVER HIS HEAD. I ATTEMPTED TO ARROUSE THE PAT AND REMOVED THE COVERS FROM HIS HEAD BUT HE ROLLED OVER ONTO HIS STOMACH AND PULLED TO COVERS UP OVER HIS HEAD AND REFUSED TO ANG RN. I TOLD PT I PLACED HIS BREAKFAST TRAY ON THE BEDSIDE TABLE. SITTER REMAINS AT DOORWAY WITH PT IN VIEW, REQUESTED SITTER TO NOTIFY RN WHEN PT REMOVES COVERS.
[2019-03-08] MEDS: LEVETIRACETAM 500 MG TABLET PO SCH ×2 (09:55→21:25)
[2019-03-08] MEDS: QUETIAPINE 25MG TABLET PO SCH ×2 (09:55→12:20)
--- NOTE | 2019-03-08 09:55 | NUR ---
PT AWAKE AND SITTING ON SIDE OF BED. NO EYE CONTACT WHEN SPEAKING WITH THIS RN. PT VERBALIZES "I DON'T WANT ANY OF THAT FOOD, I'M SO TIRED OF THE SAME THING DAY AFTER DAY" PT COOPERATIVE IN TAKING AM MEDICATIONS AND VSS. THIS RN ASKED PT WHAT HE WOULD LIKE AND HE REQUESTED A COFFEE FROMT HE COFFEE CART AND A KENYAN.
--- NOTE | 2019-03-08 10:30 | NUR ---
LARGE DECAF MOCHA COFFEE AND HUNGARIAN FROM COFFEE CART PROVIDED TO PT. PT VERY THANKFUL. PT ASKING MULTIPLE QUESTIONS REGARDING HIS MEDICATIONS. I REVIEWED HIS MEDICATION DOSAGES AND SCHEDULE WITH HIM. HE STATED THAT IN THE PAST HE BELIEVES THAT HE WAS TAKING KLONOPIN A SCHEDULED MEDICATION BID. HE ALSO MENTIONED THAT HIS SEROQUEL DOSAGE WAS HE THINKS 1300MG A DAY. HE STATED THAT HE DID NOT WANT TO BE ON THAT HIGH OF A DOSE BUT THOUGHT THAT HE MIGHT START TO FEEL BETTER IF HIS CURRENT DOSE WAS INCREASED A LITTLE. HE REQUESTED TO SEE THE PSYCH SCHOOL SPEECH THERAPIST TO DISCUSS. I GAVE HIM HIS PRN DOSE OF KLONOPIN AND TOLD HIM THAT I WOULD MAKE SURE THAT NURSING WAS OFFERING HIM THE PRN DOSE UNTIL THE SCHOOL SPEECH THERAPIST HAD TIME TO REVIEW HIS MEDS WITH HIM. I ALSO ASSURED HIM THAT I WOULD CALL AND LEAVE A MESSAGE FOR THE SCHOOL SPEECH THERAPIST.
--- NOTE | 2019-03-08 12:22 | NUR ---
CHICKEN WRAP PROVIDED FOR LUNCH. PT VERY THANKFUL AND PLEASANT.
--- NOTE | 2019-03-08 13:00 | NUR ---
PT ATE 100% OF HIS LUNCH. I EXPLAINED TO PT THAT HE WILL EITHER GO TO [facility] TOMORROW OR WILL BE SEEN BY PSYCH GRINDER SET UP OPERATOR EXTERNAL AND CAN DISCUSS WITH THEM ANY CHANGES REGARDING HIS MEDICATIONS. PT VERBALIZES UNDERSTANDING.
--- NOTE | 2019-03-08 14:25 | NUR ---
rerc report from mars pt resting at this time cooperative sitter in the cook watching the pt
[2019-03-08] MEDS: QUETIAPINE 100MG TABLET PO SCH (21:25)
[2019-03-08] MEDS: PRAZOSIN 5 MG CAPSULE PO SCH (21:25)
--- NOTE | 2019-03-09 01:13 | NUR ---
pt sleeping in bed with sitter bed side, si precautions active. pt has no needs at this time.
--- NOTE | 2019-03-09 03:51 | NUR ---
pt sleeping in bed with sitter bed side, si precautions active. pt has no needs at this time.
--- NOTE | 2019-03-09 06:05 | NUR ---
pt sleeping in bed with sitter bed side, si precautions active. pt has no needs at this time.
--- NOTE | 2019-03-09 07:27 | NUR ---
LATE ENTRY FOR 0700, SBAR RPT REC'D FROM KRISHNA MCGHEE. ASSUMED PT CARE. PT SLEEPING, RESP EVEN NON-LABORED. SITTER AT DOORWAY WITH PT IN VIEW.
[2019-03-09] MEDS: QUETIAPINE 25MG TABLET PO SCH ×2 (08:00→12:00)
--- NOTE | 2019-03-09 08:23 | NUR ---
ATTEMPT TO ARROUSE PT. PT REPOSITIONED SELF AND PULLED COVERS OVER HIS HEAD. SITTER AT DOORWAY WITH PT IN VIEW. BREAKFAST TRAY AT BEDSIDE.
[2019-03-09] MEDS: LEVETIRACETAM 500 MG TABLET PO SCH ×2 (09:00→21:09)
--- NOTE | 2019-03-09 10:42 | NUR ---
SPOKE WITH JAELYN AT [facility], NO MALE BEDS AVAILABLE AT THIS TIME. PT IS "HIGH ON LIST" AND WE SHOULD CHECK AGAIN TOMORROW
--- NOTE | 2019-03-09 13:30 | NUR ---
late entry d/t patient care: pt sitting on hospital bed, filling out diet menu with sitter assist. pt a&o, resps even and unlabored, nadn. room remains secure.
--- NOTE | 2019-03-09 14:48 | NUR ---
REPORT OF PT FROM KRISHNA AG AND ASSUMING CARE AT THIS TIME. PT IS PACING ROOM, CALM AND COOPERATIVE. SITTER OUTSIDE OF ROOM FOR DIRECT OBSERVATION OF PT. PT DENIES ANY NEEDS AT THIS TIME.
--- NOTE | 2019-03-09 15:08 | NUR ---
CALLED PHARMACY AND SPOKE TO SHELBY ABOUT MISSED DOSES OF MORNING MEDS. PER SHELBY, GIVE MORNING MEDS NOW, AND RESCHEDULE EVENING DOSE UNTIL AROUND 2300 TO SPACE MEDICATIONS APPROPRIATELY.
[2019-03-09] MEDS ORDERED: LEVETIRACETAM 500 MG TABLET ONE (15:19)
[2019-03-09] MEDS ORDERED: QUETIAPINE 25MG TABLET ONE ×2 (15:19→15:35)
--- NOTE | 2019-03-09 15:31 | NUR ---
PT MEDICATED PER JUN. PT SITTING IN [facility]; SHANI. SITTER OUTSIDE OF PT ROOM AT THIS TIME.
--- NOTE | 2019-03-09 15:42 | NUR ---
PER PT, PT RECEIVED MORNING DOSE OF KEPPRA ALREADY AND REFUSED DOSE. PT MEDICATED PER MAR FOR PRN ANXIETY AND AFTERNOON PSYCH MEDS.
--- NOTE | 2019-03-09 16:47 | NUR ---
pt asleep in [facility] at this time; rodrick. sitter outside of pt room for direct observation of pt.
--- NOTE | 2019-03-09 17:49 | NUR ---
pt resting in [facility] at this time with sitter outside of room for direct observation of pt.
[2019-03-09] MEDS: PRAZOSIN 5 MG CAPSULE PO SCH (21:09)
[2019-03-09] MEDS: QUETIAPINE 100MG TABLET PO SCH (21:10)
--- NOTE | 2019-03-10 | NUR ---
pt sleeping in bed with sitter bed side, si precautions active. pt has no needs at this time.
[2019-03-10 00:26] VITALS: BP 128/74
--- NOTE | 2019-03-10 03:51 | NUR ---
pt sleeping in bed with sitter bed side, si precautions active. pt has no needs at this time.
--- NOTE | 2019-03-10 06:20 | NUR ---
pt sleeping in bed with sitter bed side, si precautions active. pt has no needs at this time.
--- NOTE | 2019-03-10 07:04 | NUR ---
REPORT RECIEVED FROM MIKAEL RN. PT CALM, RESTING ON BED AT THIS TIME IN SECURE RM, NAD NOTED, BREAKFAST TRAYS ORDERED
[2019-03-10] MEDS ORDERED: LEVETIRACETAM 500 MG TABLET ONE (07:57)
[2019-03-10] MEDS ORDERED: QUETIAPINE 25MG TABLET ONE ×2 (07:57→12:07)
--- NOTE | 2019-03-10 08:21 | NUR ---
PT ANGRY AND UPSET WHEN GIVEN HOSPITAL TRAY. PT STATES HE TURNED IN MENU YESTERDAY AND WAS GIVEN THE WRONG MEAL. WHEN ASKED WHAT HE ORDERED PT STATES "I DONT EVEN REMEMBER, IT DOESNT EVEN MATTER IF THEY CANT FOLLOW DIRECTIONS, THEY SHOULDNT EVEN BE WORKING HERE" THIS RN TRIED TO CALM PT. ASKED WHAT THE PT WANTED TO HAVE FOR MEAL INSTEAD AND HE JUST BECAME MORE ANGRY WITH THIS RN, PT ALSO REFUSED VS AND AM MEDICATIONS
--- NOTE | 2019-03-10 08:37 | NUR ---
Note balaji in EDM - 03/10/19 at 0848 by AMCCOMB TROP RESULT 1.1, PT STILL WITH ACTIVE CP, WILL BEGIN HEPARIN GTT PER MD ORDER. LAB CALLED TO ADD 10A TO BLOOD IN LAB
[2019-03-10] MEDS: QUETIAPINE 25MG TABLET PO SCH ×2 (08:46→12:13)
[2019-03-10] MEDS: LEVETIRACETAM 500 MG TABLET PO SCH (08:47)
--- NOTE | 2019-03-10 09:54 | NUR ---
VIVIANA FROM [facility] CALLED, THIS PATIENT IS NEXT ON THIS LIST FOR A BED, WILL HAVE THE MD REVIEW THE CHART AND SHOULD BE ABLE TO TRANSFER TODAY.
--- NOTE | 2019-03-10 10:42 | NUR ---
PT ASKING TO SPEAK TO THIS RN, PT APPOLOGETIC FOR BECOMING ANGRY AND CUSSING AT THIS RN, PT NOW CALM. PT STATES HE DOES NOT THINK HIS CLONAPIN IS WORKING AND WOULD LIKE TO DISCUSS WITH MD ALTERNATIVE MEDICATION, WILL PASS ALONG TO MD. NO OTHER NEEDS AT THIS TIME
--- NOTE | 2019-03-10 11:21 | NUR ---
REPORT GIVEN TO AMRITA LR RN
--- NOTE | 2019-03-10 12:24 | NUR ---
PT GIVEN LUNCH TRAY. MEDICATED PER MAR, DENIES ANY NEEDS AT THIS TIME
--- NOTE | 2019-03-10 12:49 | NUR ---
PT D/C WITH ONE BELONGING BAG, PT VERIFIED ALL BELONGINS, PT TO NNAMNS VIA AMBULANCE
== END 2019-03-10 12:52 ==
LOC: ED 16:38
DX: F20.9 Schizophrenia, unspecified (principal); R45.851 Suicidal ideations; I10 Essential (primary) hypertension; Z90.49 Acquired absence of other specified parts of digestive tract
CPT/HCPCS: 36415; 80053; 80307; 81003; 85025; 96365; 99285; J1953

== ENCOUNTER 2019-06-04 07:16 | Emergency (ER) | payer MEDICAID ==
[~2019-06-04] VITALS: Ht 177.8 cm; Wt 95.2 kg
[~2019-06-04 07:16] MED LIST changes: +CLON0.3T PO; -CLON0.3T47 PO; +HYDR-2995 PO; -HYDR10TA4 PO
--- NOTE | 2019-06-04 07:24 | NUR ---
Pati carpio in [facility] - 06/04/19 at 0727 by [email or web address] SKATE HOP: SAMY DONE IN TRIAGE.
--- NOTE | 2019-06-04 07:38 | NUR ---
PATIENT ARRIVES TO ER WITH NAUSEA AND VOMITING FOR TWO WEEKS AND DIFFICULTY KEEPING FOOD DOWN. PATIENT STATES ABDOMINAL PAIN PERIUMBILICUS.
[2019-06-04] MEDS ORDERED: MORPHINE SULFATE 4 MG/ML, 1ML IVPush PRN (08:00)
[2019-06-04] MEDS ORDERED: ONDANSETRON 2MG/ML, 2ML IVPush ONE (08:00)
[2019-06-04] MEDS ORDERED: FAMOTIDINE 20 MG/2 ML IVPush ONE (08:00)
[2019-06-04] MEDS ORDERED: SODIUM CHLORIDE FLUSH 10ML SYR IVF ONE (08:00)
[2019-06-04] MEDS ORDERED: ONDANSETRON 2MG/ML, 2ML ONE (08:04)
[2019-06-04] MEDS ORDERED: MORPHINE SULFATE 4 MG/ML, 1ML ONE (08:04)
[2019-06-04] MEDS ORDERED: FAMOTIDINE 20 MG/2 ML ONE (08:04)
--- NOTE | 2019-06-04 08:59 | NUR ---
patient on a tele hold. patient is calm in bed on montior no s/s distress
[2019-06-04 09:00] LABS: ALANINE AMINOTRANSFERASE 79 U/L (12-78); ALBUMIN 4.4 g/dL (3.4-5.0); ANION GAP 9 mmol/L (5-15); CALCIUM 9.5 mg/dL (8.5-10.1); CHLORIDE 107 mmol/L (98-107); CREATININE 0.92 mg/dL (0.7-1.3)
[2019-06-04 09:02] LABS: ALKALINE PHOSPHATASE 75 U/L (45-117); BILIRUBIN,TOTAL 0.7 mg/dL (0.2-1.0); TOTAL PROTEIN 8.3 g/dL (6.4-8.2)
[2019-06-04 09:08] LABS: MICROSCOPIC NOT IND
[2019-06-04 09:15] LABS: CULTURE INDICATED? NO
[2019-06-04 09:31] LABS: BASOPHILS # (AUTO) 0.03 x10^3/uL (0-0.1); BASOPHILS % (AUTO) 0 % (0-1); EOSINOPHILS # (AUTO) 0.01 x10^3/uL (0-0.4); EOSINOPHILS % (AUTO) 0 % (1-7); LYMPHOCYTES # (AUTO) 1.23 x10^3/uL (1-3.4); LYMPHOCYTES % (AUTO) 11 % (22-44); MD NO; MEAN CORPUSCULAR HEMOGLOBIN 30.5 pg (27.5-34.5); MEAN CORPUSCULAR HGB CONC 34.2 g/dL (33.2-36.2); MEAN CORPUSCULAR VOLUME 89.4 fL (81-97); MEAN PLATELET VOLUME 7.8 fL (7.4-10.4); MONOCYTES # (AUTO) 0.69 x10^3/uL (0.2-0.8); MONOCYTES % (AUTO) 6 % (2-9); NEUTROPHILS # (AUTO) 8.84 x10^3/uL (1.8-6.8); NEUTROPHILS % (AUTO) 82 % (42-75); PLATELET COUNT 240 x10^3/uL (130-400); RED BLOOD COUNT 5.13 x10^6/uL (4.38-5.82)
[2019-06-04] MEDS ORDERED: MAALOX/HYOSCYAMINE/LIDOCAINE 45 ML BTL ONE (09:45)
[2019-06-04 09:48] VITALS: BP 134/88
--- NOTE | 2019-06-04 09:49 | NUR ---
PATIENT STATES GI COCKTAIL HELPING
[2019-06-04] MEDS ORDERED: MAALOX/HYOSCYAMINE/LIDOCAINE 45 ML BTL PO ONE (10:00)
== END 2019-06-04 10:27 | disposition home or self-care (01) ==
LOC: ED 10:17
DX: K29.00 Acute gastritis without bleeding (principal); F20.9 Schizophrenia, unspecified; Z90.49 Acquired absence of other specified parts of digestive tract
CPT/HCPCS: 36415; 74022; 80053; 81003; 83690; 85025; 96374; 96375; 99284; J2270; J2405; J3490

== ENCOUNTER 2019-06-04 16:13 | Emergency (ER) | payer MEDICAID ==
[~2019-06-04] VITALS: Ht 177.8 cm; Wt 94.4 kg
--- NOTE | 2019-06-04 16:37 | NUR ---
first contact with pt. SI denies HI. pt wants to slit wrist. started today. has multiple SA. pt's aox4. resps even and unlabored. belongings put into the locker by emt. room secure.
--- NOTE | 2019-06-04 16:48 | NUR ---
water provided. edmd at bedside to evaluate at this time.
[2019-06-04 17:08] LABS: BASOPHILS # (AUTO) 0.02 x10^3/uL (0-0.1); BASOPHILS % (AUTO) 0 % (0-1); EOSINOPHILS # (AUTO) 0.05 x10^3/uL (0-0.4); EOSINOPHILS % (AUTO) 1 % (1-7); LYMPHOCYTES # (AUTO) 1.76 x10^3/uL (1-3.4); LYMPHOCYTES % (AUTO) 21 % (22-44); MD NO; MEAN CORPUSCULAR HEMOGLOBIN 30.6 pg (27.5-34.5); MEAN CORPUSCULAR HGB CONC 34.1 g/dL (33.2-36.2); MEAN CORPUSCULAR VOLUME 89.6 fL (81-97); MONOCYTES # (AUTO) 0.78 x10^3/uL (0.2-0.8); MONOCYTES % (AUTO) 9 % (2-9); NEUTROPHILS # (AUTO) 5.85 x10^3/uL (1.8-6.8); NEUTROPHILS % (AUTO) 69 % (42-75); PLATELET COUNT 234 x10^3/uL (130-400); RED BLOOD COUNT 5.09 x10^6/uL (4.38-5.82)
[2019-06-04 17:16] LABS: ALANINE AMINOTRANSFERASE 84 U/L (12-78); ALBUMIN 4.2 g/dL (3.4-5.0); ANION GAP 7 mmol/L (5-15); CHLORIDE 104 mmol/L (98-107); CREATININE 1.06 mg/dL (0.7-1.3)
[2019-06-04 17:18] LABS: ALKALINE PHOSPHATASE 72 U/L (45-117); TOTAL PROTEIN 7.8 g/dL (6.4-8.2)
[2019-06-04 17:20] LABS: SALICYLATE LEVEL < 1.7 mg/dL (2.8-20.0)
[2019-06-04 17:39] LABS: AMPHETAMINE SCREEN, URINE Positive (Negative); BARBITURATE SCREEN, URINE Negative (Negative); BENZODIAZEPINE SCREEN, URINE Negative (Negative); CANNABINOID SCREEN, URINE Positive (Negative); COCAINE SCREEN, URINE Negative (Negative); METHADONE SCREEN, URINE Negative (Negative); OPIATE SCREEN, URINE Positive (Negative)
--- NOTE | 2019-06-04 18:38 | NUR ---
DENIED BY [facility]
--- NOTE | 2019-06-04 18:42 | NUR ---
PACKET FAXED TO [facility], [facility], [facility]
[2019-06-04] MEDS ORDERED: ONDANSETRON ODT 8 MG ONE (19:00)
[2019-06-04] MEDS ORDERED: ONDANSETRON ODT 4 MG PO PRN ×2 (19:00→19:30)
--- NOTE | 2019-06-04 19:09 | NUR ---
Pt continues to vomit with PO intake. Pt requesting broth. Pt advised that medication may help with vomiting. Pt stated he received Zofran last night and "it did nothing". informed and 8 mg Zofran ODT ordered. Pt offered Zofran and became agitated stating "the nurses here don't do their job" and "I just want someone to care". Pt went on to request to speak to a [employer]. Pt given Zofran and informed that a cup of water will be brought to him in 30 minutes. Pt agreed to this.
--- NOTE | 2019-06-04 19:33 | NUR ---
Pt given ice water following Zofran ODT. Pt now more calm.
--- NOTE | 2019-06-04 19:51 | NUR ---
Pt able to drink ice water without nausea. Pt given meal tray.
--- NOTE | 2019-06-04 21:01 | NUR ---
Pt now sleeping.
--- NOTE | 2019-06-04 22:01 | NUR ---
Pt now awake and requesting broth to drink. Pt remains calm.
--- NOTE | 2019-06-05 05:46 | NUR ---
Pt assessed for SI. Pt states he wants to slit his wrists "like always".
--- NOTE | 2019-06-05 07:00 | NUR ---
assumed care of pt. report from Jesus KELLER. pt here for SI. pt is curently sleeping with sitter at bedside. per report pt has been cooperative. awaiting psych placement. no family at bedside. room is secure
--- NOTE | 2019-06-05 08:30 | NUR ---
meal tray has been delivered. no family at bedside. sitter present. room secure. pt easily arousable
--- NOTE | 2019-06-05 09:01 | NUR ---
pt watching TV. reports that he is sill feeling suicidal. reports that his plan is to slit his wrists. reports previous attempts by OD and hanging a few years ago. pt reports that he is schizophrenic and that he is hearing voices and that it is his baseline. pt updated on POC. reports hat he wants his seizure medications. Md brown
[2019-06-05] MEDS ORDERED: OXCARBAZEPINE 150 MG TABLET PO ONE (09:30)
--- NOTE | 2019-06-05 09:43 | NUR ---
attempted to update pt on POC and that am awaiting delivery og seizure meds from pharmacy. pt becoming very agiitate and making threats to leave. pt swearing at staff.
--- NOTE | 2019-06-05 10:00 | NUR ---
pt now restin quietly on his side in position of comfort. room secure. sitter present
--- NOTE | 2019-06-05 10:18 | NUR ---
DENIED BY [facility]
--- NOTE | 2019-06-05 11:06 | NUR ---
pharmacy contacted regarding medication. pt sittign in room in no apparent distress. PO snack given. room secure. sitter present
--- NOTE | 2019-06-05 12:00 | NUR ---
pt resting calmly in position of comfort. watching TV. updated on POC. room secure. sitter present
--- NOTE | 2019-06-05 12:10 | NUR ---
repot to Hanh KELLER for lunch
[2019-06-05] MEDS ORDERED: ONDANSETRON ODT 8 MG ONE (12:32)
--- NOTE | 2019-06-05 12:50 | NUR ---
care of this pt has been asumed by Boaz KELLER, report given
--- NOTE | 2019-06-05 12:58 | NUR ---
DENIED BY [facility]
--- NOTE | 2019-06-05 14:47 | NUR ---
GUMARO PAGE AT BEDSIDE.
--- NOTE | 2019-06-05 14:51 | NUR ---
HOSPITAL BED ORDERED FOR PATIENT COMFORT.
--- NOTE | 2019-06-05 19:13 | NUR ---
Pt now reporting left side headache for "half the day". Pt rates pain at 6/10.
[2019-06-05] MEDS ORDERED: ACETAMINOPHEN 500 MG TABLET ONE (19:16)
[2019-06-05] MEDS ORDERED: ACETAMINOPHEN 500 MG TABLET PO ONE (19:30)
--- NOTE | 2019-06-05 20:08 | NUR ---
Suicide reassessment completed. Pt states "yes" and "same as yesterday".
[2019-06-05] MEDS ORDERED: OXCARBAZEPINE 150 MG TABLET PO SCH (21:00)
[2019-06-05] MEDS ORDERED: QUETIAPINE 100MG TABLET ONE (21:04)
[2019-06-05] MEDS ORDERED: PRAZOSIN 5 MG CAPSULE ONE (21:04)
[2019-06-05] MEDS: PRAZOSIN 5 MG CAPSULE PO SCH (21:17)
[2019-06-05] MEDS: QUETIAPINE 100MG TABLET PO SCH (21:18)
--- NOTE | 2019-06-05 21:20 | NUR ---
Pt spilled some water on his bed sheet when taking night time meds. The fitted sheet was changed for a flat sheet and pt became agitated. Pt's agitation required response of staff. Pt was instructed that aggressive and disruptive behavior would result in restraint.
[2019-06-05] MEDS: OXCARBAZEPINE 300MG TABLET PO SCH (21:37)
--- NOTE | 2019-06-06 00:18 | NUR ---
covering primary nurse, pt resting quietly at this time, sitter outside room for pt safety
--- NOTE | 2019-06-06 00:48 | NUR ---
Pt continues to sleep.
--- NOTE | 2019-06-06 07:47 | NUR ---
PT RESTING IN BED, SAFETY PRECAUTIONS IN PLACE.
[2019-06-06] MEDS ORDERED: QUETIAPINE 100MG TABLET ONE ×2 (08:15→20:42)
[2019-06-06] MEDS: OXCARBAZEPINE 300MG TABLET PO SCH ×3 (08:18→21:08)
[2019-06-06] MEDS: QUETIAPINE 100MG TABLET PO SCH ×2 (08:19→21:06)
--- NOTE | 2019-06-06 11:59 | NUR ---
MEAL PROVIDED. SAFETY PRECAUTIONS IN PLACE
--- NOTE | 2019-06-06 13:14 | NUR ---
Note balaji in ED - 06/06/19 at 1317 by MICHAEL BREAK RN: PT RESTING IN ROOM. NO ACUTE DISTRESS NOTED. CALL LIGHT IN PLACE. WILL CONTINUE TO MONITOR WHILE PRIMARY RN IS ON BREAK.
--- NOTE | 2019-06-06 13:17 | NUR ---
BREAK RN: PT RESTING IN ROOM. NO ACUTE DISTRESS NOTED. SITTER AT DOOR. WILL CONTINUE TO MONITOR WHILE PRIMARY RN IS ON BREAK.
--- NOTE | 2019-06-06 13:39 | NUR ---
REPORT GIVEN TO KRISHNA MOISE
--- NOTE | 2019-06-06 18:00 | NUR ---
MEAL PROVIDED, STEADY AMBULATION TO BATHROOM. BACK RESTING IN BED. SAFETY PRECAUTIONS IN PLACE.
--- NOTE | 2019-06-06 18:49 | NUR ---
REPORT FROM JOSE MARIA KELLER, ASSUMING CARE OF PT AT THIS TIME.
--- NOTE | 2019-06-06 19:07 | NUR ---
PT RESTING ON HOSPITAL BED, SITTER REMAINS IN HALLWAY FOR SAFETY AND MONITORING, SHANI.
[2019-06-06] MEDS ORDERED: PRAZOSIN 5 MG CAPSULE ONE (20:42)
--- NOTE | 2019-06-06 20:44 | NUR ---
MED REQ SENT TO PHARM
[2019-06-06] MEDS: PRAZOSIN 5 MG CAPSULE PO SCH (21:07)
--- NOTE | 2019-06-06 21:10 | NUR ---
PT MEDICATED PER SHANI SHARP SITTER REMAINS IN [address]
--- NOTE | 2019-06-06 22:02 | NUR ---
PT RESTING ON HOSPITAL BED, LIGHTS DIMMED FOR COMFORT, NADN. SITTER REMAINS IN [place] FOR SAFETY AND CONTINUED MONITORING.
--- NOTE | 2019-06-06 23:09 | NUR ---
PT RESTING ON HOSPITAL BED, TAI MCLEODTER IN [facility]
--- NOTE | 2019-06-07 00:08 | NUR ---
PT RESTING ON GURNEY, PROVIDED WITH SNACKS AND JUICE REQ. SHANI FLEIZ IN HALLWAY FOR MONITORING AND SAFETY
--- NOTE | 2019-06-07 02:34 | NUR ---
PT SLEEPING ON HOSP BED, NADN, NO NEEDS AT THIS TIME SITTER IN [place] FOR SAFETY AND MONITORING
--- NOTE | 2019-06-07 03:11 | NUR ---
PT CONTINUES TO SLEEP ON BED, [facility], NO NEEDS AT THIS TIME.
--- NOTE | 2019-06-07 04:45 | NUR ---
PT SLEEPING ON HOSPITAL BED, LIGHTS DIMMED FOR COMFORT, SITTER REMAINS IN [place] FOR MONITORING
--- NOTE | 2019-06-07 05:35 | NUR ---
PT RESTING ON HOSPITAL BED, SITTER IN [place] FOR SAFETY
--- NOTE | 2019-06-07 07:09 | NUR ---
REPORT RECIEVED FROM SABINO KELLER. PT SLEEPING IN BED. SAFETY PRECAUTIONS IN PLACE
[2019-06-07] MEDS ORDERED: QUETIAPINE 100MG TABLET ONE ×2 (08:37→20:20)
[2019-06-07] MEDS: OXCARBAZEPINE 300MG TABLET PO SCH ×2 (08:39→20:40)
[2019-06-07] MEDS: QUETIAPINE 100MG TABLET PO SCH ×2 (08:39→20:40)
--- NOTE | 2019-06-07 10:00 | NUR ---
PT RESTING IN BED. SAFETY PRECAUTIONS IN PLACE.
--- NOTE | 2019-06-07 12:29 | NUR ---
MEAL PROVIDED. SAFTEY PRECAUTIONS IN PLACE.
--- NOTE | 2019-06-07 13:30 | NUR ---
REPORT RECEIVED FROM KRISHNA MOISE. ASSUMED CARE OF PT. PT CURRENTLY SLEEPING ON GURNEY IN QUIET, DARK ROOM. BELONGINGS IN LOCKED LOCKER. GARAGE DOORS DOWN IN ROOM. SITTER AT DOORSIDE. WILL CONT TO MONITOR PT.
--- NOTE | 2019-06-07 14:30 | NUR ---
PT CURRENTLY DOZING ON GURWALTERS. NO ACUTE DISTRESS NOTED. SKIN PWD. RESP EVEN AND UNLABORED. PT AWAKENS EASILY TO NAME BEING CALLED. GARAGE DOORS DOWN IN ROOM. SITTER AT DOORSIDE.
--- NOTE | 2019-06-07 15:43 | NUR ---
PT CURRENTLY RESTING ON [facility]. NO ACUTE DISTRESS NOTED. PT REQUESTED AND WAS PROVIDED WITH CRANBERRY JUICE. GARAGE DOORS DOWN IN ROOM. SITTER AT DOORSIDE.
--- NOTE | 2019-06-07 16:24 | NUR ---
BREAK RN: PT RESTING IN ROOM. NO ACUTE DISTRESS NOTED. SITTER AT DOOR. WILL CONITNUE TO MONITOR WHILE PRIMARY RN IS ON BREAK.
--- NOTE | 2019-06-07 17:13 | NUR ---
PT CURRENTLY SLEEPING ON BED. NO ACUTE DISTRESS NOTED. RESP EVEN AND UNLABORED. SKIN PWD. GARAGE DOORS DOWN IN ROOM. BELONGINGS IN LOCKED LOCKER. SITTER AT DOORSIDE.
--- NOTE | 2019-06-07 17:29 | NUR ---
PT PROVIDED WITH MEAL TRAY AND JUICE. PT DENIES OTHER NEEDS. PT AO X 4. PT CALM AND COOPERATIVE AT THIS TIME. GARAGE DOORS DOWN IN ROOM. SITTER AT DOORSIDE.
--- NOTE | 2019-06-07 18:47 | NUR ---
REPORT TO KRISHNA ALMONTE AND KRISHNA VIERA WHO ASSUMED CARE OF PT. PT CURRENTLY RESTING IN ROOM IN QUIET, DARK ENVIRONMENT. PT CALM AND COOPERATIVE AT THIS TIME. GARAGE DOORS DOWN IN ROOM. SITTER AT DOORSIDE.
--- NOTE | 2019-06-07 19:20 | NUR ---
Met patient; resting in bed with no complaints. Provided juice. Belongings locked in cabinet. Sitter outside.
[2019-06-07] MEDS ORDERED: PRAZOSIN 5 MG CAPSULE ONE (20:20)
[2019-06-07] MEDS: PRAZOSIN 5 MG CAPSULE PO SCH (20:40)
--- NOTE | 2019-06-07 20:40 | NUR ---
Patient resting in gurney with no complaints. Respirations even and unlabored. Sitter outside room.
--- NOTE | 2019-06-07 21:30 | NUR ---
Patient resting in gurney with no complaints. Respirations even and unlabored. Sitter outside room.
--- NOTE | 2019-06-07 22:45 | NUR ---
Patient resting in gurney with no complaints. Respirations even and unlabored. Sitter outside room.
--- NOTE | 2019-06-07 23:27 | NUR ---
Patient resting in gurney with no complaints. Respirations even and unlabored. Sitter outside room.
--- NOTE | 2019-06-08 00:20 | NUR ---
Patient sleeping in hospital bed. Respirations even and unlabored. Sitter outside room.
--- NOTE | 2019-06-08 01:58 | NUR ---
Patient sleeping in hospital bed. Respirations even and unlabored. Sitter outside room.
--- NOTE | 2019-06-08 03:11 | NUR ---
Patient sleeping in hospital bed. Respirations even and unlabored. Sitter outside room.
--- NOTE | 2019-06-08 04:59 | NUR ---
Patient sleeping in [place]. Respirations even and unlabored. Sitter outside room.
--- NOTE | 2019-06-08 05:45 | NUR ---
Patient sleeping in [place]. Respirations even and unlabored. Sitter outside room.
--- NOTE | 2019-06-08 06:34 | NUR ---
Patient sleeping in [place]. Respirations even and unlabored. Sitter outside room.
[2019-06-08] MEDS ORDERED: QUETIAPINE 100MG TABLET ONE ×2 (08:18→21:31)
--- NOTE | 2019-06-08 08:30 | NUR ---
ED SUICIDE TRAY PROVIDED. PT ATE 100%.
[2019-06-08] MEDS: OXCARBAZEPINE 300MG TABLET PO SCH ×2 (08:58→21:54)
[2019-06-08] MEDS: QUETIAPINE 100MG TABLET PO SCH ×2 (08:58→21:39)
--- NOTE | 2019-06-08 09:40 | NUR ---
LATE ENTRY 0700, SBAR RPT REC'D AND PT CARE ASSUMED. PT SLEEPING ON HOSPITAL BED, RESP EVEN NON-LABORED, NAD NOTED. SITTER AT DOORWAY WITH PT IN DIRECT SIGHT. GARAGE DOORS IN ROOM.
--- NOTE | 2019-06-08 10:55 | NUR ---
PT REPORT FROM KRISHNA VEGA. PT CARE TO BE ASSUMED. PT CURRENTLY ASLEEP ON BED. SITTER AT DOORWAY.
--- NOTE | 2019-06-08 12:02 | NUR ---
LUNCH TRAY DELIEVERED. PT EASILY AWAKENED.
--- NOTE | 2019-06-08 14:54 | NUR ---
PT RESTING QUIETLY ON BED. SITTER OUTSIDE ROOM.
--- NOTE | 2019-06-08 16:30 | NUR ---
PT RESTING QUIETLY ON BED, WATCHING TV. SITTER OUTSIDE ROOM.
--- NOTE | 2019-06-08 18:09 | NUR ---
PT ENDORSED TO BREAK RN: LORNE
--- NOTE | 2019-06-08 19:09 | NUR ---
PT QUESTIONING WHY HE'S NOT GETTING HIS LISINOPRIL. CHART REVIEWED. LISINOPRIL LISTED IN MED REC, BUT NOT IN EMAR ORDERS. Addendum: 06/08/19 at 1951 by KURT PT REPORTS HE TAKES LISINOPRIL 5MG PO Q MORNING.
--- NOTE | 2019-06-08 19:52 | NUR ---
CONSULTED KEYONA Valdivia NP RE: PT'S LISINOPRIL. ORDER NOW IN EMAR FOR 06/09/2019 AT 1930. WILL NOTIFY SHABBIR RAND OR MELISA KELLER THAT DOSE SHOULD BE AM DOSE.
--- NOTE | 2019-06-08 20:23 | NUR ---
CONSULTED KEYONA Valdivia NP RE: LISINOPRIL ORDER. TIME TO BE CHANGED TO MORNING DOSE.
--- NOTE | 2019-06-08 21:19 | NUR ---
SANDWICH AND CHIPS DELIVERED TO PT.
[2019-06-08] MEDS ORDERED: PRAZOSIN 5 MG CAPSULE ONE (21:25)
--- NOTE | 2019-06-08 21:30 | NUR ---
OXCARBAZEPINE REQUEST TUBED TO PHARMACY
--- NOTE | 2019-06-08 21:36 | NUR ---
LISINOPRIL ORDER CHANGED TO MORNING DOSE PER KEYONA Valdivia NP.
[2019-06-08] MEDS: PRAZOSIN 5 MG CAPSULE PO SCH (21:39)
--- NOTE | 2019-06-08 21:42 | NUR ---
SEROQUEL AND PRAZOSIN GIVEN PER EMAR.
--- NOTE | 2019-06-08 21:56 | NUR ---
OXCARBAZEPINE GIVEN PER EMAR. PT RESTING QUIETLY ON BED, WATCHING TV. NO ADDITIONAL NEEDS AT THIS TIME. SITTER OUTSIDE ROOM.
--- NOTE | 2019-06-08 22:59 | NUR ---
PT INHALER FOUND IN RN DESK DRAWER NEAR TRIAGE. INHALER MOVED TO MED ROOM.
--- NOTE | 2019-06-08 23:10 | NUR ---
PT REPORT TO KRISHNA LUU. PT CARE TRANSFERRED. PT ASLEEP ON BED. SITTER OUTSIDE ROOM.
--- NOTE | 2019-06-09 02:31 | NUR ---
Pt resting comfortably, bathroom offered to patient but declined. Will continue to monitor.
[2019-06-09] MEDS ORDERED: LISINOPRIL 5 MG TABLET ONE ×2 (06:02→07:11)
[2019-06-09] MEDS: LISINOPRIL 5 MG TABLET PO SCH ×2 (06:33→08:39)
--- NOTE | 2019-06-09 06:56 | NUR ---
REPORT FROM NOC RN RECIEVED, PT RESTING COMFORTABLY AT THIS TIME ON HOSPITAL BED, NAD NOTED, VISIBLE CHEST RISE AND FALL NOTED. BREAKFAST TRAY ORDRERED
[2019-06-09] MEDS ORDERED: QUETIAPINE 100MG TABLET ONE ×2 (07:12→20:59)
[2019-06-09] MEDS: QUETIAPINE 100MG TABLET PO SCH ×2 (08:39→21:07)
[2019-06-09] MEDS: OXCARBAZEPINE 300MG TABLET PO SCH ×2 (08:39→21:37)
--- NOTE | 2019-06-09 08:40 | NUR ---
PT MEDICATED PER MAR, PT ATE 100% BREAKFAST TRAY. PT COOPERATIVE WITH CARE. NAD NOTED
--- NOTE | 2019-06-09 11:09 | NUR ---
PT RESTING ON HOSPITAL BED, DIET TRAY ORDERED FOR PT, NAD NOTED AT THIS TIME.
--- NOTE | 2019-06-09 11:52 | NUR ---
PT PROVIDED WITH MEAL TRAY. NO OTHER NEEDS AT THIS TIME, SI PRECAUTIONS REMAIN IN PLACE
--- NOTE | 2019-06-09 13:14 | NUR ---
Received bedside report from KRISHNA Condon. All questions answered, assuming care of pt at this time.
--- NOTE | 2019-06-09 13:29 | NUR ---
Obtained vital signs, physical assessment, and SI reassessment. Pt would not discuss with EDRN plan of how SA would occur. Pt resting on hospital bed supine with unlabored respirations and even chest rise and fall. No needs requested at this time.
--- NOTE | 2019-06-09 14:58 | NUR ---
Pt resting with eyes closed on stomach on hospital bed. No needs expressed at this time. Pt has unlabored respirations with even chest and back rise and fall. Sitter near doorway in direct line of sight for observation.
--- NOTE | 2019-06-09 15:37 | NUR ---
Pt resting with eyes closed on left lateral side on hospital bed. Pt has unlabored respirations with even chest rise and fall. No needs expressed at this time. Sitter near doorway in direct line of sight for observation. Dinner tray ordered for pt.
--- NOTE | 2019-06-09 17:20 | NUR ---
LATE NOTE ENTRY FOR 1630: Pt ambulated with steady gait and balance from room to restroom with sitter near doorway. No needs expressed. Pt ambulated back to room. Sitter near doorway in direct line of sight for observation.
--- NOTE | 2019-06-09 17:21 | NUR ---
Pt food tray re-ordered. Pt resting on hospital bed. Pt has unlabored respirations with even chest rise and fall. NADN. No needs expressed.
--- NOTE | 2019-06-09 17:38 | NUR ---
Provided food tray for pt. Provided decaf coffee and cream and sugar for pt per request. Pt appreciative. No other needs requested at this time. Pt sitting on hospital bed watching T.V. Sitter near doorway in direct line of sight for observaton. SI and HI precautions remain in place.
--- NOTE | 2019-06-09 17:42 | NUR ---
Pt's sister called. Pt gave verbal consent to speak to his sister. Pt's sister stated, "please let him know I will be there shortly".
--- NOTE | 2019-06-09 18:35 | NUR ---
Pt's sister visited. Pt's sister now gone. Provided pt with drinks per request. No other needs expressed. Pt watching T.V. and resting on hospital bed with unlabored respirations and even chest rise and fall. Sitter near doorway in direct line of sight for observation.
--- NOTE | 2019-06-09 18:53 | NUR ---
Report from Kimberley KELLER. Pt resting on bed watching tv, call light within reach, sitter at bedside.
--- NOTE | 2019-06-09 18:56 | NUR ---
Provided bedside report to KRISHNA Murillo. All questions answered. Chidi RN to assume care of pt at this time.
[2019-06-09] MEDS ORDERED: LISINOPRIL 10 MG TABLET PO SCH (19:30)
--- NOTE | 2019-06-09 20:03 | NUR ---
PT C/O CONSTIPATION X3 DAYS, REQUESTING [employer], UPDATED PROVIDER.
[2019-06-09] MEDS ORDERED: POLYETHYLENE GLYCOL 17 GM PACKET NG ONE (20:30)
[2019-06-09] MEDS ORDERED: POLYETHYLENE GLYCOL 17 GM PACKET ONE (20:59)
[2019-06-09] MEDS ORDERED: PRAZOSIN 5 MG CAPSULE ONE (20:59)
[2019-06-09] MEDS: PRAZOSIN 5 MG CAPSULE PO SCH (21:07)
--- NOTE | 2019-06-09 21:37 | NUR ---
Provided pt with snacks and water.
--- NOTE | 2019-06-09 22:32 | NUR ---
PT SLEEPING, EQUAL CHEST RISE, NO ACUTE DISTRESS NOTED. SITTER AT BEDSIDE.
--- NOTE | 2019-06-10 00:14 | NUR ---
TASK RN: PT ASLEEP IN [facility] AT THIS TIME WITH SITTER OUTSIDE OF PT ROOM FOR DIRECT OBSERVATION OF PT.
--- NOTE | 2019-06-10 03:00 | NUR ---
PT SLEEPING, EQUAL CHEST RISE OBSERVED, NO DISTRESS NOTED. SITTER AT BEDSIDE.
--- NOTE | 2019-06-10 03:10 | NUR ---
LATE ENTRY 06/09/2019 1900: PHONE NUMBER FOR PT'S SISTER FABI [phone].
--- NOTE | 2019-06-10 04:19 | NUR ---
PT SLEEPING PROFOUNDLY, NAD NOTED, EVEN RESPIRATIONS, SITTER AT BEDSIDE.
--- NOTE | 2019-06-10 06:36 | NUR ---
SLEEPING RESPIRATIONS EQUAL AND UNLABORED, NO DISTRESS NOTED. SITTER AT BEDSIDE.
--- NOTE | 2019-06-10 06:51 | NUR ---
Report given to Kimberley KELLER.
--- NOTE | 2019-06-10 07:15 | NUR ---
Obtained vital signs, physical assessment, and suicide reassessment. Pt resting on hospital bed supine. Pt states, "my plans are the same." Pt admits SI today. Pt has unlabored respirations with even chest rise and fall. Breakfast tray ordered. No other needs expressed at this time.
[2019-06-10] MEDS: LISINOPRIL 5 MG TABLET PO SCH (08:55)
[2019-06-10] MEDS: OXCARBAZEPINE 300MG TABLET PO SCH ×2 (08:55→21:00)
[2019-06-10] MEDS: QUETIAPINE 100MG TABLET PO SCH ×2 (08:56→21:00)
--- NOTE | 2019-06-10 09:07 | NUR ---
LATE NOTE ENTRY FOR 0800. Pt povided breakfast tray. Pt ate 100% of breakfast tray. No needs expressed at this time.
--- NOTE | 2019-06-10 09:09 | NUR ---
Pt provided morning medicaitons per EMAR. Pt appreciative. No needs expressed at this time. Pt resting on hospital bed watching T.V. Sitter near doorwa in direct line of sight for observation.
--- NOTE | 2019-06-10 09:52 | NUR ---
Provided decaf coffee for pt per request. Pt watching T.V. sitting on hospital bed. No other needs requested at this time. Sitter in doorway in direct line of sight for observation.
--- NOTE | 2019-06-10 10:27 | NUR ---
Pt resting on hospital bed watching T.V. No needs expressed at this time. Sitter near doorway in direct line of sight for observation.
--- NOTE | 2019-06-10 11:22 | NUR ---
Pt sitting on hospital bed watching T.V. No needs expressed at this time. Sitter in direct line of sight for observation.
--- NOTE | 2019-06-10 12:53 | NUR ---
Called diet office to request update on pt's lunch tray. Diet office to send SI lunch tray "soon". Pt aware. Pt sitting on hospital bed watching T.V. No other needs requested. Sitter in direct line of sight for observation.
--- NOTE | 2019-06-10 13:03 | NUR ---
RECEIVED REPORT FROM CHARLIE KEITH UPRIGHT ON HOSPITAL BED WITH LUNCH TRAY, CALM & COOPERATIVE, RESPONDS APPROP TO STAFF, GINA, PT REMAINS IN SAFE ENVIRONMENT, SITTER IN VIEW.
--- NOTE | 2019-06-10 14:01 | NUR ---
PT REMAINS UPRIGHT ON HOSPITAL BED WATCHING TV, CALM & COOPERATIVE, RESPONDS APPROP TO STAFF, NAD, NO NEEDS AT THIS TIME, PT REMAINS IN SAFE ENVIRONMENT, SITTER IN VIEW.
--- NOTE | 2019-06-10 15:00 | NUR ---
PT UPRIGHT ON HOSPITAL BED WATCHING TV, CALM & COOPERATIVE, RESPONDS APPROP TO STAFF, NAD, COMFORT MEASURES PROVIDED, PT REMAINS IN SAFE ENVIRONMENT, SITTER IN VIEW.
--- NOTE | 2019-06-10 17:03 | NUR ---
PT UPRIGHT ON HOSPITAL BED WATCHING TV, CALM & COOPERATIVE, RESPONDS APPROP TO STAFF, NAD, NO NEEDS AT THIS TIME, PT REMAINS IN SAFE ENVIRONMENT, SITTER IN VIEW.
--- NOTE | 2019-06-10 18:03 | NUR ---
PT REMAINS UPRIGHT ON HOSPITAL BED WATCHING TV, CALM & COOPERATIVE, RESPONDS APPROP TO STAFF, NAD, DINNER TRAY GIVEN, NO OTHER NEEDS AT THIS TIME, PT REMAINS IN SAFE ENVIRONMENT, SITTER IN VIEW.
--- NOTE | 2019-06-10 18:44 | NUR ---
REPORT GIVEN TO BELL
--- NOTE | 2019-06-10 19:33 | NUR ---
PT REMAINS UPRIGHT ON HOSPITAL BED WATCHING TV, CALM & COOPERATIVE, RESPONDS APPROP TO STAFF, NAD, DINNER TRAY REMOVED FROM ROOM, NO OTHER NEEDS AT THIS TIME, PT REMAINS IN SAFE ENVIRONMENT, SITTER IN VIEW.
--- NOTE | 2019-06-10 20:10 | NUR ---
Pt supine, resting comfortably. In no acute distress at this time. Sitter in hallway.
[2019-06-10] MEDS: PRAZOSIN 5 MG CAPSULE PO SCH (21:00)
--- NOTE | 2019-06-10 22:33 | NUR ---
Pt became hostile with sitter, security called to resolve situation. Pt now calm and cooperative
--- NOTE | 2019-06-11 00:23 | NUR ---
Pt resting comfortably in bed, sitter at bedside. Will continue to monitor.
--- NOTE | 2019-06-11 03:35 | NUR ---
Pt asleep, resp regular and unlabored. Sitter at bedside, will continue to monitor
--- NOTE | 2019-06-11 06:48 | NUR ---
Received report. Pt resting quietly at this time. Sitter remains in view of pt.
[2019-06-11 08:09] VITALS: BP 109/75
--- NOTE | 2019-06-11 08:10 | NUR ---
Provided w/ breakfast and one cup of coffee.
[2019-06-11] MEDS: QUETIAPINE 100MG TABLET PO SCH (08:20)
[2019-06-11] MEDS: LISINOPRIL 5 MG TABLET PO SCH (08:20)
--- NOTE | 2019-06-11 08:23 | NUR ---
Medicated as ordered. Pt aware only able to have one cup of coffee at this time. Declined water.
[2019-06-11] MEDS: OXCARBAZEPINE 300MG TABLET PO SCH (09:11)
--- NOTE | 2019-06-11 09:12 | NUR ---
Pt medicated as ordered. Remains calm and cooperative at this time. Repositioned self in bed, denies any needs at this time.
--- NOTE | 2019-06-11 09:50 | NUR ---
Nader remains in view of pt.
--- NOTE | 2019-06-11 10:50 | NUR ---
Pt sitting up in bed quietly watching TV. Sitter remains in direct view of pt.
--- NOTE | 2019-06-11 11:55 | NUR ---
Pt resting quietly in bed at this time. Sitter remains in view of pt.
--- NOTE | 2019-06-11 12:22 | NUR ---
Pt eating lunch, reports was told will be discharged after lunch. Sitter remains in direct view of pt.
--- NOTE | 2019-06-11 13:03 | NUR ---
Spoke w/ Dr. Cuellar, verified pt cleared for discharge. LH paperwork signed. Reviewed discharge instructions and prescriptions x 4 w/ pt, verbalized understanding to information provided including follow up care w/ resources provided by Dr. Cuellar and return precautions, denied questions/concerns. Belongings returned to pt, verbalized all belongings in possession. Pt ambulated from ED.
== END 2019-06-11 13:08 | disposition home or self-care (01) ==
LOC: ED 18:40
DX: R45.851 Suicidal ideations (principal); F33.9 Major depressive disorder, recurrent, unspecified; I10 Essential (primary) hypertension
CPT/HCPCS: 36415; 80053; 80307; 85025; 99285; Q0162

== ENCOUNTER 2019-06-12 05:17 | Emergency (ER) | payer MEDICAID ==
[~2019-06-12] VITALS: Ht 177.8 cm; Wt 95.7 kg
[~2019-06-12 05:17] MED LIST changes: +LISINOPRIL 5 MG TABLET ONE; +PRAZOSIN 5 MG CAPSULE ONE; +QUETIAPINE 100MG TABLET ONE
[2019-06-12 05:20] VITALS: BP 165/93
--- NOTE | 2019-06-12 05:41 | NUR ---
Before meeting pt, this RN heard pt cursing and was told by sitter that he threw his belonging bag out of the room and into the hallway. This RN labeled bag and secured it. Afterwards, this RN was walking back and was leaving room and informed RN that pt was to be d/c'd. Pt demanded his clothes back and stated "you better fucking hurry". Pt changed and as he was walking out of ER, took a drink from a small alcohol bottle.
== END 2019-06-12 05:47 | disposition home or self-care (01) ==
LOC: ED 05:41
DX: F39 Unspecified mood [affective] disorder (principal); F15.10 Other stimulant abuse, uncomplicated; F25.9 Schizoaffective disorder, unspecified; R45.851 Suicidal ideations
CPT/HCPCS: 99284

== ENCOUNTER 2019-11-07 21:56 | Emergency (ER) | payer MEDICAID ==
[~2019-11-07] VITALS: Ht 177.8 cm; Wt 73.0 kg
[~2019-11-07 21:56] MED LIST changes: -LISINOPRIL 5 MG TABLET ONE; -PRAZOSIN 5 MG CAPSULE ONE; -QUETIAPINE 100MG TABLET ONE
--- NOTE | 2019-11-07 22:22 | NUR ---
TASK RN: PT TO ED WITH C/O OF NOT TAKING HIS PSCHIATRIC MEDICATION FOR APPX 3 WEEKS, REPORTS " I JUST DON'T LIKE TAKING IT". PT REPORTS CURRENT FEELINGS OF SI AND DEPRESSION WITHOUT A PLAN X3DAYS. REPORTS TAKING METH AND HEROIN, WITH WORSENING SYMPTOMS. 1 OF 1 BAGS OF BELONGINGS REMOVED AND PLACED IN SECURED LOCKER, PT PROVIDED HOSPITAL GOWN, SOCKS, AND WARM BLANKET. ROOM SECURED, SITTER IN HALLWAY WITHIN LINE OF SIGHT. PT PROVIDED CALL LIGHT AND WATER AT THIS TIME. UA COLLECTED AND SENT TO LAB.
[2019-11-07 22:36] LABS: BASOPHILS # (AUTO) 0.02 x10^3/uL (0-0.1); BASOPHILS % (AUTO) 0 % (0-1); EOSINOPHILS # (AUTO) 0.31 x10^3/uL (0-0.4); EOSINOPHILS % (AUTO) 4 % (1-7); LYMPHOCYTES # (AUTO) 2.13 x10^3/uL (1-3.4); LYMPHOCYTES % (AUTO) 30 % (22-44); MD NO; MEAN CORPUSCULAR HEMOGLOBIN 30.5 pg (27.5-34.5); MEAN CORPUSCULAR VOLUME 89.6 fL (81-97); MEAN PLATELET VOLUME 9.3 fL (7.4-10.4); MONOCYTES # (AUTO) 0.56 x10^3/uL (0.2-0.8); MONOCYTES % (AUTO) 8 % (2-9); NEUTROPHILS # (AUTO) 4.19 x10^3/uL (1.8-6.8); NEUTROPHILS % (AUTO) 58 % (42-75); PLATELET COUNT 222 x10^3/uL (130-400); RED BLOOD COUNT 4.91 x10^6/uL (4.38-5.82); RED CELL DISTRIBUTION WIDTH 13.1 % (9.4-14.8)
[2019-11-07 22:45] LABS: ALANINE AMINOTRANSFERASE 249 U/L (12-78); ALBUMIN 3.5 g/dL (3.4-5.0); ANION GAP 9 mmol/L (5-15); CALCIUM 8.6 mg/dL (8.5-10.1); CHLORIDE 107 mmol/L (98-107)
[2019-11-07 22:46] LABS: SALICYLATE LEVEL < 1.7 mg/dL (2.8-20.0)
[2019-11-07 22:47] LABS: AMPHETAMINE SCREEN, URINE Positive (Negative); BARBITURATE SCREEN, URINE Negative (Negative); BENZODIAZEPINE SCREEN, URINE Negative (Negative); CANNABINOID SCREEN, URINE Positive (Negative); COCAINE SCREEN, URINE Negative (Negative); METHADONE SCREEN, URINE Negative (Negative); OPIATE SCREEN, URINE Positive (Negative)
[2019-11-07 22:48] LABS: ALKALINE PHOSPHATASE 107 U/L (45-117); BILIRUBIN,TOTAL 1.4 mg/dL (0.2-1.0); TOTAL PROTEIN 6.9 g/dL (6.4-8.2)
--- NOTE | 2019-11-07 23:35 | NUR ---
PT RESTING ON CHELE MCLEOD. SITTER IN CLEMENTS FOR SAFETY NO NEEDS AT THIS TIME
--- NOTE | 2019-11-08 00:49 | NUR ---
PT RESTING ON CHELE MCLEOD. SITTER IN CLEMENTS FOR SAFETY NO NEEDS AT THIS TIME. TELE ROBOT PLACED IN ROOM FOR EVAL
--- NOTE | 2019-11-08 01:44 | NUR ---
PT CONTINUES TO REST NO NEEDS AT THIS TIME RESP EVEN AND UNLABORED AWAITING TELEPSYCH EVAL SITTER IN CLEMENTS FOR SAFETY AND MONITORING
--- NOTE | 2019-11-08 03:21 | NUR ---
PT RESTING ON CHELE MCLEOD. SITTER IN CLEMENTS FOR SAFETY NO NEEDS AT THIS TIME
--- NOTE | 2019-11-08 04:07 | NUR ---
PT RESTING ON GURNEY RESP EVEN AND UNLABORED SITTER IN SIGHT NO NEEDS AT THIS TIME
--- NOTE | 2019-11-08 07:00 | NUR ---
REC BS REPORT PT SLEEPING IN THE ROOM SITTER IN THE CLEMENTS
--- NOTE | 2019-11-08 08:30 | NUR ---
MEAL GIVEN ALONG WITH EXTRA FLUIDS PT AWARE OF THE NEED FOR THE UA
--- NOTE | 2019-11-08 09:04 | NUR ---
Break RN note: Pt resting in bed with eyes closed, resp even and unlabored, NADN. Room is secured, sitter within eyesight of pt, all safety measures observed.
--- NOTE | 2019-11-08 12:23 | NUR ---
PER PADMA TORRES PT REPORTS HE IS GOING TO KILL HIMSELF ANY WAY HE CAN
[2019-11-08 15:15] VITALS: BP 136/92
--- NOTE | 2019-11-08 17:00 | NUR ---
PACKET FAXED TO [facility] AND [facility]
--- NOTE | 2019-11-08 18:55 | NUR ---
REPORT FROM KRISHNA SEGOVIA. PT CARE RESPONSIBLITIES ASSUMED. SITTER CONTINUES IN DIRECT LINE OF SIGHT.
--- NOTE | 2019-11-08 19:35 | NUR ---
REPORT CALLED TO [facility]. PT AWAITING TRANSPORT AT THIS TIME.
[2019-11-08] MEDS ORDERED: QUETIAPINE 100MG TABLET PO SCH (21:00)
[2019-11-08] MEDS ORDERED: PRAZOSIN 1 MG CAPSULE PO SCH (21:00)
== END 2019-11-08 19:30 ==
LOC: ED 11-08 19:28
DX: F32.1 Major depressive disorder, single episode, moderate (principal); F15.129 Other stimulant abuse with intoxication, unspecified; Z72.9 Problem related to lifestyle, unspecified; Z91.19 Patient's noncompliance with other medical treatment and regimen
CPT/HCPCS: 36415; 80053; 80307; 85025; 99284; 99285

== ENCOUNTER 2019-11-20 00:04 | Emergency (ER) | payer MEDICAID ==
[~2019-11-20] VITALS: Ht 180.3 cm; Wt 71.0 kg
[2019-11-20 00:07] VITALS: BP 140/93
--- NOTE | 2019-11-20 00:11 | NUR ---
Pt presents to ed c/o "someone stole my seizure medication and now i think im going to have a seizure." States increased muscular activity and anxiety. Denies any auras or seizures today. All monitoring applied. VSS. Call light within reach. WCTM.
== END 2019-11-20 00:53 | disposition home or self-care (01) ==
LOC: ED 00:52
DX: R56.9 Unspecified convulsions (principal); R11.10 Vomiting, unspecified; I10 Essential (primary) hypertension; F17.210 Nicotine dependence, cigarettes, uncomplicated; Z90.49 Acquired absence of other specified parts of digestive tract
CPT/HCPCS: 99283; 99406

== ENCOUNTER 2019-11-20 23:51 | Emergency (ER) | payer MEDICAID ==
[~2019-11-20] VITALS: Ht 177.8 cm; Wt 76.1 kg
[2019-11-21 00:48] LABS: BASOPHILS # (AUTO) 0.02 x10^3/uL (0-0.1); BASOPHILS % (AUTO) 0 % (0-1); EOSINOPHILS # (AUTO) 0.16 x10^3/uL (0-0.4); EOSINOPHILS % (AUTO) 2 % (1-7); LYMPHOCYTES # (AUTO) 2.44 x10^3/uL (1-3.4); LYMPHOCYTES % (AUTO) 23 % (22-44); MD NO; MEAN CORPUSCULAR HEMOGLOBIN 30.4 pg (27.5-34.5); MEAN CORPUSCULAR HGB CONC 33.5 g/dL (33.2-36.2); MEAN CORPUSCULAR VOLUME 90.8 fL (81-97); MEAN PLATELET VOLUME 8.3 fL (7.4-10.4); MONOCYTES # (AUTO) 0.89 x10^3/uL (0.2-0.8); MONOCYTES % (AUTO) 8 % (2-9); NEUTROPHILS # (AUTO) 7.04 x10^3/uL (1.8-6.8); NEUTROPHILS % (AUTO) 67 % (42-75); PLATELET COUNT 285 x10^3/uL (130-400); RED BLOOD COUNT 4.85 x10^6/uL (4.38-5.82); RED CELL DISTRIBUTION WIDTH 13.6 % (9.4-14.8)
[2019-11-21 01:02] LABS: ALANINE AMINOTRANSFERASE 196 U/L (12-78); ALBUMIN 3.8 g/dL (3.4-5.0); ANION GAP 7 mmol/L (5-15); CALCIUM 8.8 mg/dL (8.5-10.1); CHLORIDE 108 mmol/L (98-107); CREATININE 0.85 mg/dL (0.7-1.3)
[2019-11-21 01:04] LABS: ALKALINE PHOSPHATASE 80 U/L (45-117); BILIRUBIN,TOTAL 1.2 mg/dL (0.2-1.0); TOTAL PROTEIN 7.4 g/dL (6.4-8.2)
[2019-11-21 01:12] LABS: SALICYLATE LEVEL < 1.7 mg/dL (2.8-20.0)
[2019-11-21 01:49] LABS: AMPHETAMINE SCREEN, URINE Positive (Negative); BARBITURATE SCREEN, URINE Negative (Negative); BENZODIAZEPINE SCREEN, URINE Negative (Negative); CANNABINOID SCREEN, URINE Positive (Negative); COCAINE SCREEN, URINE Negative (Negative); METHADONE SCREEN, URINE Negative (Negative); OPIATE SCREEN, URINE Negative (Negative)
--- NOTE | 2019-11-21 02:00 | NUR ---
TELEPSYCH HAVING DIFFICULTY WITH THE TELE MONITOR. REPLACED TELEPSYCH MONITOR IN ROOM, CALLED TO NOTIFY OF CHANGE OF MONITOR.
--- NOTE | 2019-11-21 02:25 | NUR ---
Pt speaking with Telepsych MD for danae.
--- NOTE | 2019-11-21 03:37 | NUR ---
PT PLACED ON HOLD BY TELEPSYCH .
--- NOTE | 2019-11-21 04:29 | NUR ---
pt belongings secured in locker on top shelf. 1 bag of belongings labeled.
--- NOTE | 2019-11-21 04:30 | NUR ---
REPORT RECIEVED FROM KRISHNA MARTEL. PATIENT RESTING IN BED, NO NOTED ACUTE DISTRESS. SITTER IN VIEW OF PATIENT. WILL CONTINUE TO MONITOR
--- NOTE | 2019-11-21 05:34 | NUR ---
PATIENT RESTING IN BED, NO NOTED ACUTE DISTRESS. SITTER IN VIEW OF PATIENT. WILL CONTINUE TO MONITOR
--- NOTE | 2019-11-21 05:37 | NUR ---
SUICIDE DIET TRAY ORDERED
--- NOTE | 2019-11-21 05:58 | NUR ---
Called [facility] to see if they would like to accept patient.
--- NOTE | 2019-11-21 06:04 | NUR ---
Spoke with Jesusita from who states that they are unable to get prior authorization from patients insurance company at this time. Will fax packet to [facility], [facility], and [employer] as he has Medicaid [employer].
--- NOTE | 2019-11-21 06:26 | NUR ---
AM VITAL SIGNS OBTAINED, PATIENT TOLERATED WELL. SITTER WITHIN VIEW OF PATIENT. NO CHANGE IN STATUS. PATIENT UPDATED ON PLAN OF CARE.
--- NOTE | 2019-11-21 06:41 | NUR ---
Conformation received from faxes to [facility], and [facility].
--- NOTE | 2019-11-21 07:06 | NUR ---
SBAR HAND-OFF REPORT RECEIVED FROM KRISHNA PORTER. ASSUMING CARE OF PATIENT. PATEINT REMAINS UNDER THE CONSTANT SUPERVISION OF SITTER AND REMAIN SAFE.
--- NOTE | 2019-11-21 08:12 | NUR ---
Report from Boaz KELLER. Pt moved to rm 1, ambulatory with steady gait, and positioned for comfort in hospital bed. Meal tray provided to pt with SI precautions. Room is secured, sitter within eyesight of pt.
--- NOTE | 2019-11-21 08:18 | NUR ---
SBAR HAND-OFF REPORT GIVEN TO KRISHNA POOLE. PATIENT MOVED TO ROOM 1 AND PUT ON HOSPITAL BED FOR COMFORT. BREAKFAST TRAY SERVED.
--- NOTE | 2019-11-21 09:55 | NUR ---
Pt provided water per request, denies other needs.
--- NOTE | 2019-11-21 10:54 | NUR ---
Pt provided water per request, denies other needs.
--- NOTE | 2019-11-21 11:46 | NUR ---
Pt continues resting in bed watching TV, NADN.
--- NOTE | 2019-11-21 13:47 | NUR ---
TASK RN: PT WATCHING TV QUIETLY
--- NOTE | 2019-11-21 15:01 | NUR ---
RECEIVED REPORT FROM ZULEMA RN AND ASSUMED CARE. PT NOTED TO BE IN ROOM WITH EQUIPMENT SECURED BEHIND PULL DOWN DOORS AND IN DIRECT VIEW OF SITTER. KAYLEE NAIK AT BEDSIDE
[2019-11-21] MEDS ORDERED: DIVALPROEX 500 MG TABLET.DR PO ONE (15:30)
[2019-11-21] MEDS ORDERED: QUETIAPINE 25MG TABLET PO ONE (15:30)
[2019-11-21] MEDS ORDERED: DIVALPROEX 500 MG TABLET.DR ONE (16:18)
[2019-11-21] MEDS ORDERED: QUETIAPINE 25MG TABLET ONE (16:19)
--- NOTE | 2019-11-21 16:23 | NUR ---
MEDICATED NOTED ON MAR PER ORDERS. PT QUIETLY WATCHING TELEVISION
--- NOTE | 2019-11-21 18:10 | NUR ---
PT SLEEPING. REMAINS IN DIRECT VIEW OF SITTER
--- NOTE | 2019-11-21 19:05 | NUR ---
assumed care of pt. report from Hue KELLER. pt here for SI and is currently on a Legal Hold. room secure and sitter present for safety. pt sleeping at this time. no apparent distress.
--- NOTE | 2019-11-21 19:07 | NUR ---
REPORT TO MILADY KELLER
--- NOTE | 2019-11-21 19:30 | NUR ---
pt sleeping. easily arousable. suicide re-assessment completed pt reports that he drank bleach in an attempt to end his life. reports that he has past SA as well. pt reports that he has a hx of schizophrenai and that he has been off of his meds for a few weeks. pt reporta that he is supposed to take depakote, seroquel and pizosin. pt reports hat he is having auditory hallucinaitons which has has had in the past but denies visual hallucinations or delusions. no physical c/o at this time. no apparent distress pt updated on POC room secure and sitter present for safety. no family at bedside. pt is resting in position of comfort on a hospital bed meal tray delivered
--- NOTE | 2019-11-21 20:30 | NUR ---
pt sleeping in position of comfort. lights dimmed. no apparent distress. room secured. sitter present for safety
--- NOTE | 2019-11-21 21:26 | NUR ---
no changes. pt continues sleeping. no apparent distress. room secure. sitter present for safety
--- NOTE | 2019-11-21 22:30 | NUR ---
no changes. pt sleeping in position of comfort with lights dimmed. no apparent distress. room secure. sitter preset for safety
--- NOTE | 2019-11-21 23:30 | NUR ---
no changes. pt sleeping room secure. sitter present
--- NOTE | 2019-11-22 00:30 | NUR ---
pt continues sleeping in position of comfort on hospital bed. room secure. sitter present for safety
--- NOTE | 2019-11-22 01:26 | NUR ---
no changes. pt resting
--- NOTE | 2019-11-22 01:44 | NUR ---
report to Florencia KELLER for lunch
--- NOTE | 2019-11-22 02:30 | NUR ---
pt sleeping. no apparent distress. room secure. sitter present for safety
--- NOTE | 2019-11-22 03:39 | NUR ---
pt sleeping. will continue to monitor room secure. sitter present for safety
--- NOTE | 2019-11-22 04:28 | NUR ---
no new c/o. no apparnt distress. pt sleepingin position of comfort. lights dimmed. room secure. sitter at bedside
--- NOTE | 2019-11-22 05:04 | NUR ---
[facility]
--- NOTE | 2019-11-22 05:53 | NUR ---
pt sleeping. respirations even. no apparent distress. room secure. sitter present for safety
--- NOTE | 2019-11-22 06:45 | NUR ---
pt continues sleeping. no apparent distress. report to Ranulfo RN room secure. sitter present for safety
--- NOTE | 2019-11-22 06:48 | NUR ---
patient report taken, patient has sitter outside room. sleeping. hospital bed. rails up
--- NOTE | 2019-11-22 08:26 | NUR ---
PATIENT CONTINUES TO REST QUIETLY, WITH CALM MOTION. SITTER OUTSIDE ROOM. WILL CONTINUE TO MONITOR.
--- NOTE | 2019-11-22 08:30 | NUR ---
got patient breakfast. he woke up and said thank you. then went back to sleep
--- NOTE | 2019-11-22 08:37 | NUR ---
patient woke up, ate all of breakfast.
--- NOTE | 2019-11-22 10:17 | NUR ---
patient calm in bed. no complaints and denies pain
--- NOTE | 2019-11-22 12:34 | NUR ---
patient ate all his lunch. requested water, drank two glasses.
[2019-11-22] MEDS ORDERED: QUETIAPINE 100MG TABLET ONE ×2 (13:32→20:19)
--- NOTE | 2019-11-22 14:13 | NUR ---
got MD Foster for patient because he was rthymically rocking in bed back and forth; still responsive but continuously rocking. got his seroquel ordered. TRIM ATTACHER here rounding on patient.
[2019-11-22] MEDS ORDERED: QUETIAPINE 100MG TABLET PO PRN (14:30)
--- NOTE | 2019-11-22 15:01 | NUR ---
patient resting quietly
--- NOTE | 2019-11-22 19:00 | NUR ---
RECEVIED REPORT FROM KRISHNA ALEMNA. PT SLEEPING, EYES CLOSED, RESPIRATIONS EVEN AND UNLABORED. IN VIEW OF THE SITTER.
[2019-11-22] MEDS ORDERED: DIVALPROEX 500 MG TAB.ER.24H ONE (20:18)
[2019-11-22] MEDS: QUETIAPINE 100MG TABLET PO SCH (20:59)
[2019-11-22] MEDS: PRAZOSIN 1 MG CAPSULE PO SCH (20:59)
[2019-11-22] MEDS: DIVALPROEX 500 MG TAB.ER.24H PO SCH (20:59)
--- NOTE | 2019-11-22 20:59 | NUR ---
PT SLEEPING IN VIEW OF THE SITTER, ALL NEEDS MET AT THIS TIME.
[2019-11-22] MEDS ORDERED: QUETIAPINE 100MG TABLET PO SCH (21:00)
--- NOTE | 2019-11-23 01:13 | NUR ---
PT CONDITION UNCHANGED.
--- NOTE | 2019-11-23 03:58 | NUR ---
PT REMAINS LAYING IN BED, EYES CLOSED, RESPIRATIONS EVEN AND UNLABORED.
--- NOTE | 2019-11-23 06:00 | NUR ---
PT SLEEPING IN BED, EYES CLOSED, RESPIRATIONS EVEN AND UNLABORED, IN VIEW OF THE SITTER.
--- NOTE | 2019-11-23 07:04 | NUR ---
REPORT GIVEN TO KRISHNA COOK.
--- NOTE | 2019-11-23 07:10 | NUR ---
pt resting calmly in bed with eyes closed. sitter at door. will continue to monitor.
--- NOTE | 2019-11-23 08:33 | NUR ---
BREAK RN: MEAL PROVIDED FOR PATIENT
--- NOTE | 2019-11-23 08:52 | NUR ---
VITALS STABLE, SEE CHARTED. PT ROOM CLEARED OF DEBRI. PT FOLLOWING COMMANDS. SITTER AT DOOR. WILL CONTINUE TO MONITOR.
--- NOTE | 2019-11-23 09:30 | NUR ---
REPORT RECEIVED FROM KRISHNA KRUGER, THIS RN ASSUMING CARE. PT SLEEPING ON HOSPITAL BED, RESPS EVEN AND UNLABORED. GINAN. SITTER MONITORING FROM [facility], ROOM SECURE.
--- NOTE | 2019-11-23 10:30 | NUR ---
LATE ENTRY FOR 1030: PT SLEEPING ON HOSPITAL BED, RESPS EVEN AND UNLABORED, SITTER MONITORING FROM HALLWAY FOR SAFETY, ROOM SECURE.
--- NOTE | 2019-11-23 11:57 | NUR ---
PT AWAKENED FOR REASSESSMENT, PT IS SUICIDAL, STATES PLAN WOULD BE TO DRINK BLEACH. PT DENIES PAIN, DENIES ANY COMPLAINT WITH EXCEPTION TO CONSTIPATION, LBM 3 DAYS AGO. VS REASSESSED, STABLE. LUNCH ORDERED. SITTER MONITORING FROM [facility] FOR SAFETY, ROOM SECURE.
[2019-11-23] MEDS ORDERED: SEROQUEL PO (12:02)
[2019-11-23] MEDS ORDERED: LISI5TAB7 PO (12:02)
[2019-11-23] MEDS ORDERED: DIVA500T2 PO (12:02)
--- NOTE | 2019-11-23 13:34 | NUR ---
SI MEAL TRAY PROVIDED.
--- NOTE | 2019-11-23 13:57 | NUR ---
GUMARO VILLARREAL NOTIFIED THAT PT STATES HE TAKES LISINOPRIL 5 MG, AND OMITTED PRAZOSIN FROM MED REC WHEN OBTAINED THIS AM FROM THIS RN. METALLURGICAL TESTER STATES PT TOLD HIM HE TAKES 5 MG PRAZOSN DAILY FOR NIGHTMARES, PT HAS NOT BEEN TAKING THIS MED FOR PAST SEVERAL WEEKS. METALLURGICAL TESTER STATES MD LIAO WAS NOTIFIED YESTERDAY THAT PT TAKES 5 MG LISINOPRIL DAILY BUT THIS HAS NOT BEEN CONTINUED. DECLINED TO CONTINUE LISINOPRIL IN ED PT IS NORMOTENSIVE. METALLURGICAL TESTER STATES PRAZOSIN IS TO BE STARTED AT A LOWER DOSE PT HAS NOT BEEN TAKING THIS MED AT HOME.
--- NOTE | 2019-11-23 14:15 | NUR ---
STOOL SOFTENER REQUESTED FROM MD MARQUIS FOR PT C/O CONSTIPATION X 3 DAYS.
--- NOTE | 2019-11-23 14:20 | NUR ---
PT SLEEPING ON HOSPITAL BED, RESPS EVEN AND UNLABOARED. ROOM REMAINS SECURE. SITTER MONITORING FROM [facility]ALLWAY FOR SAFETY.
[2019-11-23] MEDS ORDERED: DOCUSATE 100 MG CAPSULE PO PRN (14:30)
--- NOTE | 2019-11-23 14:49 | NUR ---
PT SLEEPING ON HOSPITAL BED, RESPS EVEN AND UNLABORED, NO COMPLAINT AT THIS TIME. SITTER MONITORING FROM [facility] FOR SAFETY. ROOM SECURE.
--- NOTE | 2019-11-23 14:58 | NUR ---
REPORT GIVEN TO KRISHNA KRUGER WHO IS ASSUMING CARE AT THIS TIME.
--- NOTE | 2019-11-23 15:23 | NUR ---
PT RESTING CALMLY IN BED WITH EYES CLOSED. SITTER AT DOOR FOR FREQUENT OBS. NO STATED NEEDS BY PT.
--- NOTE | 2019-11-23 16:46 | NUR ---
PT YELLING AT SITTER FOR WATER. PER SITTER, PT MAKING THREATS TO GO CRAZY. THIS RN WENT IN TO GIVE PT WATER AND TALK TO PT ABOUT BEHAVIOR, PT LAYING DOWN IN BED WITH EYES CLOSED. WATER LEFT AT BEDSIDE. WILL CONTINUE TO MONITOR. SITTER AT DOOR FOR OBS.
--- NOTE | 2019-11-23 17:21 | NUR ---
PT RESTING CALMLY IN BED WITH EYES CLOSED. NO STATED NEEDS AT THIS TIME. SITTER AT DOOR FOR OBS.
--- NOTE | 2019-11-23 18:15 | NUR ---
PT STANDING IN DOORWAY AWAITING MEAL TRAY. GAVE PT MEAL TRAY. NO OTHER STATED NEEDS. SITTER AT DOOR. WILL CONTINUE TO MONITOR.
--- NOTE | 2019-11-23 19:10 | NUR ---
BEDSIDE REPORT TO LITZY KELLER
--- NOTE | 2019-11-23 19:23 | NUR ---
[facility] PATIENT IN SECURE ROOM IN SIGHT OF SITTER. ALL SAFETY MEASURES IN PLACE.
[2019-11-23] MEDS ORDERED: QUETIAPINE 100MG TABLET ONE (21:42)
[2019-11-23] MEDS ORDERED: LEVETIRACETAM 500 MG TABLET ONE (21:43)
[2019-11-23] MEDS: QUETIAPINE 100MG TABLET PO SCH (22:20)
[2019-11-23] MEDS: DIVALPROEX 500 MG TAB.ER.24H PO SCH (22:20)
[2019-11-23] MEDS: PRAZOSIN 1 MG CAPSULE PO SCH (22:20)
--- NOTE | 2019-11-23 22:20 | NUR ---
PATIENT MEDICATED PER EMAR, VITALS AND ASSESSMENT DONE. PATIENT GIVEN SNACKS. NO S/S OF DISTRESS. IN LINE OF SIGHT OF SITTER.
[2019-11-23] MEDS ORDERED: DIVALPROEX 500 MG TAB.ER.24H ONE (22:22)
--- NOTE | 2019-11-24 00:55 | NUR ---
PATIENT SLEEPING IN BED. RESPIRATIONS UNLABORED, SAFETY MEASURES IN PLACE. IN LINE OF SIGHT OF SITTER
--- NOTE | 2019-11-24 01:50 | NUR ---
PATIENT STILL SLEEPING IN BED, RESPIRATIONS UNLABORED, NO S/S OF DISTRESS. SITTER IN LINE OF SIGHT
--- NOTE | 2019-11-24 02:58 | NUR ---
PATIENT RESTING COMFORTABLY, NO S/S OF DISTRESS, RESPIRATIONS EVEN AND UNLABORED. IN LINE OF SIGHT OF SITTER
--- NOTE | 2019-11-24 04:24 | NUR ---
PATIENT SLEEPING IN BED. NO S/S OF DISTRESS, RESPIRATIONS REGULAR/UNLABORED. IN LINE OF SIGHT OF SITTER
--- NOTE | 2019-11-24 05:37 | NUR ---
PATIENT STILL SLEEPING, RESPIRATIONS REGULAR/UNLABORED. NO S/S OF DISTRESS. IN LINE OF SIGHT OF SITTER
--- NOTE | 2019-11-24 06:37 | NUR ---
PATIENT SLEEPING IN BED. NO S/S OF DISTRESS, RESPIRATIONS REGULAR/UNLABORED. SITTER WATCHING PATIENT
--- NOTE | 2019-11-24 07:02 | NUR ---
report received from fabrizio cummings.
--- NOTE | 2019-11-24 07:05 | NUR ---
diet tray ordered at this time.
--- NOTE | 2019-11-24 08:00 | NUR ---
pt still sleeping at this time. resps even and unlabored. sitter monitoring from hallway for safety. room remains secure.
--- NOTE | 2019-11-24 08:29 | NUR ---
DIET TRAY PROVIDED AT THIS TIME.
[2019-11-24 09:39] VITALS: BP 107/68
--- NOTE | 2019-11-24 09:39 | NUR ---
PT RESTING IN HOSPITAL BED. PT'S AOX4. RESPS EVEN AND UNLABORED. SITTER MONITORING FROM HALLWAY FOR SAFETY. ROOM REMAINS SECURE.
--- NOTE | 2019-11-24 09:55 | NUR ---
HOT KETTLE TENDER AT BEDSIDE AT THIS TIME.
--- NOTE | 2019-11-24 10:50 | NUR ---
pt still sleeping at this time. resps even and unlabored. sitter monitoring from hallway for safety. room remains secure.
--- NOTE | 2019-11-24 11:10 | NUR ---
DIET TRAY ORDERED AT THIS TIME.
--- NOTE | 2019-11-24 11:57 | NUR ---
diet tray provided at this time.
--- NOTE | 2019-11-24 12:47 | NUR ---
pt sleeping at this time. resps even and unlabored. sitter monitoring from hallway for safety. room remains secure.
--- NOTE | 2019-11-24 14:01 | NUR ---
pt sleeping at this time. resps even and unlabored. sitter monitoring from hallway for safety. room remains secure.
--- NOTE | 2019-11-24 14:38 | NUR ---
rn psychiatric at bedside at this time.
--- NOTE | 2019-11-24 15:31 | NUR ---
Patient given discharge instructions and they have confirmed that they understand the instructions. Patient ambulatory with steady gait.
== END 2019-11-24 15:32 | disposition home or self-care (01) ==
LOC: ED 11-21 00:31
DX: R45.851 Suicidal ideations (principal); F15.10 Other stimulant abuse, uncomplicated; I10 Essential (primary) hypertension; G43.909 Migraine, unspecified, not intractable, without status migrainosus; Z72.9 Problem related to lifestyle, unspecified; Z90.49 Acquired absence of other specified parts of digestive tract
CPT/HCPCS: 36415; 80053; 80307; 85025; 99285

== ENCOUNTER 2020-06-03 01:21 | Emergency (ER) | payer MEDICAID ==
[~2020-06-03] VITALS: Ht 177.8 cm; Wt 100.4 kg
[~2020-06-03 01:21] MED LIST changes: +SEROQUEL PO
[2020-06-03] MEDS ORDERED: DEXAMETHASONE 4 MG TABLET ONE (01:55)
[2020-06-03] MEDS ORDERED: IBUPROFEN 800 MG TABLET ONE (01:55)
[2020-06-03] MEDS ORDERED: IBUPROFEN 800 MG TABLET PO ONE (02:00)
[2020-06-03] MEDS ORDERED: DEXAMETHASONE 4 MG TABLET PO ONE (02:00)
[2020-06-03 02:49] VITALS: BP 143/92
== END 2020-06-03 02:50 | disposition home or self-care (01) ==
LOC: ED 02:08
DX: J02.8 Acute pharyngitis due to other specified organisms (principal); Z20.822 Contact with and (suspected) exposure to COVID-19; F12.10 Cannabis abuse, uncomplicated; M79.10 Myalgia, unspecified site; R05 Cough; R11.0 Nausea; I10 Essential (primary) hypertension; R06.02 Shortness of breath; R50.9 Fever, unspecified; R94.31 Abnormal electrocardiogram [ECG] [EKG]; G43.909 Migraine, unspecified, not intractable, without status migrainosus; F17.210 Nicotine dependence, cigarettes, uncomplicated; Z72.9 Problem related to lifestyle, unspecified; Z90.89 Acquired absence of other organs; Z90.49 Acquired absence of other specified parts of digestive tract
CPT/HCPCS: 71045; 87081; 87635; 87880; 93005; 99285; 99406

== ENCOUNTER 2020-06-05 01:17 | Emergency (ER) | payer MEDICAID ==
[~2020-06-05] VITALS: Ht 177.8 cm; Wt 95.6 kg
[2020-06-05 01:19] VITALS: BP 158/86
--- NOTE | 2020-06-05 01:31 | NUR ---
BREAK RN. CC OF LEFT HAND PAIN X 1 WEEK. PT HAD BROKEN HAND AND WAS IN CAST, GOT CAST TAKEN OFF SATURDAY AND STARTED SWELLING RIGHT AFTER AND BECOMING PAINFUL. REDNESS AND SWELLING NOTED TO HAND. PT STATES NUMBNESS AND TINGLING IS PRESENT FOR X 2 DAYS AND HE IS UNABLE TO MODELING DIRECTOR THINGS. PULSE PRESENT, + CMS.
[2020-06-05] MEDS ORDERED: LIDOCAINE-MPF 1%, 5ML ONE (01:42)
[2020-06-05] MEDS ORDERED: LIDOCAINE-MPF 1%, 5ML INFIL ONE (02:00)
[2020-06-05] MEDS ORDERED: NEOSPORIN OINT. PKT 1 PACKET ONE (02:08)
== END 2020-06-05 02:19 | disposition home or self-care (01) ==
LOC: ED 02:17
DX: L02.511 Cutaneous abscess of right hand (principal); L03.113 Cellulitis of right upper limb; I10 Essential (primary) hypertension; F17.210 Nicotine dependence, cigarettes, uncomplicated; Z90.49 Acquired absence of other specified parts of digestive tract
CPT/HCPCS: 10060; 99283; 99406

== ENCOUNTER 2020-06-09 03:45 | Emergency (ER) | payer MEDICAID ==
[~2020-06-09] VITALS: Ht 177.8 cm; Wt 94.4 kg
--- NOTE | 2020-06-09 03:50 | NUR ---
ALL PATIENTS BELONGINGS IN PATIENT BELONGING BAGS AND PLACED IN SECURED LOCKED CABINET. PLACED IN HOSPITAL GOWN AND NONSLIP SOCKS. WARM BLANKET PROVIDED
--- NOTE | 2020-06-09 04:41 | NUR ---
PATIENT RESTING IN BED IN NAD. PATIENT APPEARS DEPRESSED. LOOKING DOWN AT HIS FEET WHILE RESTING IN BED WITH HIS ARMS CROSSED OVER CHEST. REPORTS GOING TO A FEW PARKING GARAGES "AND I WAS JUST SITTING THERE CONTEMPLATING JUMPING OFF TO KILL MYSELF". PATIENT REPORTS THIS IS AN ONGOING THOUGHT. REPORTS AH BUT DENIES VH. REPORTS NOT TAKING HIS MEDICATIONS FOR PMH OF SCHIZOPHRENIA BECAUSE HE PHYSICALLY DOES NOT LIKE TAKING PILLS. PATIENT DOES STATE THAT HIS PRESCRIBED MEDICATIONS DO MAKE HIM FEEL BETTER THOUGH. PATIENT REPORTS HAVING A HISTORY A TEENAGER OF SA BUT NONE RECENTLY. RN MAKING 15 MINUTE CHECKS. TYPE MAPPER NOTIFIED RIGHT AWAY WHEN PATIENT PLACED IN ROOM 2 THAT HE WILL NEED A SITTER FOR ACTIVE SI
[2020-06-09 05:00] LABS: BASOPHILS % (AUTO) 1 % (0-1); EOSINOPHILS % (AUTO) 1 % (1-7); LYMPHOCYTES % (AUTO) 27 % (22-44); MEAN CORPUSCULAR HEMOGLOBIN 31.6 pg (27.5-34.5); MEAN CORPUSCULAR HGB CONC 34.5 g/dL (33.2-36.2); MEAN PLATELET VOLUME 7.8 fL (7.4-10.4); MONOCYTES % (AUTO) 11 % (2-9); NEUTROPHILS % (AUTO) 60 % (42-75); PLATELET COUNT 258 x10^3/uL (130-400); RED BLOOD COUNT 4.68 x10^6/uL (4.38-5.82); RED CELL DISTRIBUTION WIDTH 12.6 % (9.4-14.8)
[2020-06-09 05:01] LABS: AMPHETAMINE SCREEN, URINE Positive (Negative); BARBITURATE SCREEN, URINE Negative (Negative); BENZODIAZEPINE SCREEN, URINE Negative (Negative); CANNABINOID SCREEN, URINE Positive (Negative); COCAINE SCREEN, URINE Negative (Negative); METHADONE SCREEN, URINE Negative (Negative); OPIATE SCREEN, URINE Negative (Negative)
[2020-06-09 05:04] LABS: ALANINE AMINOTRANSFERASE 47 U/L (12-78); ALBUMIN 3.9 g/dL (3.4-5.0); ANION GAP 5 mmol/L (5-15); CHLORIDE 107 mmol/L (98-107); CREATININE 0.98 mg/dL (0.7-1.3)
[2020-06-09 05:07] LABS: MD NO
[2020-06-09 05:09] LABS: ALKALINE PHOSPHATASE 66 U/L (45-117); SALICYLATE LEVEL 2.7 mg/dL (2.8-20.0); TOTAL PROTEIN 7.4 g/dL (6.4-8.2)
[2020-06-09] MEDS ORDERED: DOXA1TAB2 PO (05:20)
--- NOTE | 2020-06-09 05:44 | NUR ---
PATIENT RESTING IN BED WITH EYES CLOSED. SAFETY MAINTAINED. WILL CONTINUE TO MONITOR.
--- NOTE | 2020-06-09 06:44 | NUR ---
PATIENT RESTING IN BED IN NAD. SAFETY MAINTAINED. LEGAL HOLD INITIATED BY DR. MARQUIS
--- NOTE | 2020-06-09 06:49 | NUR ---
REPORT RECEIVED FROM KRISHNA JIMENEZ FOR TRANSFER OF PATIENT CARE.
--- NOTE | 2020-06-09 06:50 | NUR ---
REPORT GIVEN TO TRI KELLER
--- NOTE | 2020-06-09 07:08 | NUR ---
PATIENT SLEEPING IN GURNEY, RESP EVEN AND UNLABORED, SUICIDE PRECAUTIONS IN PLACE, NO SITTER MINESWEEPING OFFICER AWARE. THIS RN MAKING FREQUENT ROUNDS ON PATIENT.
--- NOTE | 2020-06-09 07:29 | NUR ---
PATIENT RESTING IN GURNEY, EYES CLOSED, RESP EVEN AND UNLABORED. SUICIDE PRECAUTIONS IN PLACE, NO SITTER UNTIL 1000 PER ACCORDION REPAIRER. FREQUENT ROUNDS BEING MADE BY THIS RN.
--- NOTE | 2020-06-09 07:59 | NUR ---
PATIENT RESTING IN GURNEY WITH EYES CLOSED, RESP EVEN AND UNLABORED, SUICIDE PRECAUTIONS IN PLACE, BREAKFAST TRAY HAS BEEN ORDERED.
--- NOTE | 2020-06-09 08:20 | NUR ---
BREAKFAST TRAY PROVIDED, NADN, SUICIDE PRECAUTIONS IN PLACE, PATIENT ENDORSES STILL FEELING SUICIDAL. FREQUENT CHECKS IN PLACE.
--- NOTE | 2020-06-09 08:34 | NUR ---
PATIENT NOW SLEEPING IN GURNEY, RESP EVEN AND UNLABORED, SUICIDE PRECAUTIONS IN PLACE, FREQUENT CHECKS BEING PERFORMED.
--- NOTE | 2020-06-09 09:00 | NUR ---
PATIENT RESTING IN GURNEY, EYES CLOSED, RESP EVEN AND UNLABORED, SUICIDE PRECAUTIONS IN PLACE, SITTER IN DOORWAY.
--- NOTE | 2020-06-09 12:00 | NUR ---
PSYCH FENCE INSTALLER FOREMAN, KAYLEE, AT BEDSIDE.
[2020-06-09] MEDS ORDERED: DIVALPROEX 500 MG TABLET.DR PO ONE (12:30)
[2020-06-09] MEDS ORDERED: QUETIAPINE 100MG TABLET PO ONE (12:30)
[2020-06-09] MEDS ORDERED: QUETIAPINE 100MG TABLET ONE (12:54)
[2020-06-09] MEDS ORDERED: DIVALPROEX 500 MG TAB.ER.24H ONE (12:54)
--- NOTE | 2020-06-09 13:01 | NUR ---
PT MEDICATED AND LUNCH TRAY SERVED.
[2020-06-09 13:57] VITALS: BP 129/77
== END 2020-06-09 14:02 | disposition home or self-care (01) ==
LOC: ED 04:15 → UNDOADMOB 06:27 → EDIP 06:27 → INTOOBSV 06:27 → ED 14:02
DX: F33.0 Major depressive disorder, recurrent, mild (principal); R45.851 Suicidal ideations; Z91.14 Patient's other noncompliance with medication regimen; I10 Essential (primary) hypertension; Z90.49 Acquired absence of other specified parts of digestive tract; Z88.8 Allergy status to other drugs, medicaments and biological substances
CPT/HCPCS: 36415; 80053; 80299; 80307; 80320; 80329; 85025; 99284; G0480

== ENCOUNTER 2020-06-17 00:57 | Emergency (ER) | payer MEDICAID ==
[~2020-06-17] VITALS: Ht 177.8 cm; Wt 92.0 kg
[~2020-06-17 00:57] MED LIST changes: +DOXA1TAB2 PO
[2020-06-17 01:02] VITALS: BP 121/52
--- NOTE | 2020-06-17 01:14 | NUR ---
PT AMBULATED BACK TO ROOM WITH A STEADY GAIT. ROOM SECURED. PT HAS HX OF SI AND PT SAYS HE HAS SI/HI WITH NO PLAN. WAITING FOR MD TO EVALUATE.
[2020-06-17] MEDS ORDERED: DIVALPROEX 500 MG TAB.ER.24H ONE (01:49)
--- NOTE | 2020-06-17 01:56 | NUR ---
PATIENT CLEARED FOR DISCHARGE. NO NOTED ACUTE DISTRESS. PATIENT REFUSED DISCHARGE VITAL SIGNS. UPDATED ON PLAN OF CARE. AND FOLLOW UP CARE, NO EVIDENCE OF LEARNING EXHIBITED.
[2020-06-17] MEDS ORDERED: DIVALPROEX 500 MG TAB.ER.24H PO ONE (02:00)
--- NOTE | 2020-06-17 02:20 | NUR ---
PATIENT BECAME VIOLENT. SECURITY CALLED, [place] [employer] ON SITE WITH PATIENT. PATIENT WILL BE TAKEN TO CARE HOME. MEDICAL CLEARANCE DISCHARGE PAPERWORK GIVEN TO [facility]. PATIENT AMBULATORY WITH PRD WITHOUT COMPLICATIONS.
== END 2020-06-17 02:31 | disposition home or self-care (01) ==
LOC: ED 01:20
DX: F32.1 Major depressive disorder, single episode, moderate (principal); F15.129 Other stimulant abuse with intoxication, unspecified; Z72.9 Problem related to lifestyle, unspecified; I10 Essential (primary) hypertension; F17.200 Nicotine dependence, unspecified, uncomplicated; G43.909 Migraine, unspecified, not intractable, without status migrainosus; Z90.49 Acquired absence of other specified parts of digestive tract
CPT/HCPCS: 99283

== ENCOUNTER 2020-07-02 18:07 | Emergency (ER) | payer MEDICAID ==
[~2020-07-02] VITALS: Ht 177.8 cm; Wt 85.9 kg
--- NOTE | 2020-07-02 18:48 | NUR ---
PT C/O SHIVERING SINCE YESTERDAY. NO OTHER COMPLAINTS AT THIS TIME. PT PROVIDED WARM BLANKETS.
[2020-07-02 19:27] LABS: BASOPHILS % (AUTO) 1 % (0-1); EOSINOPHILS % (AUTO) 1 % (1-7); LYMPHOCYTES % (AUTO) 18 % (22-44); MEAN CORPUSCULAR HEMOGLOBIN 31.3 pg (27.5-34.5); MEAN CORPUSCULAR HGB CONC 34.5 g/dL (33.2-36.2); MONOCYTES % (AUTO) 11 % (2-9); NEUTROPHILS % (AUTO) 70 % (42-75); PLATELET COUNT 344 x10^3/uL (130-400); RED BLOOD COUNT 4.71 x10^6/uL (4.38-5.82); RED CELL DISTRIBUTION WIDTH 12.4 % (9.4-14.8)
[2020-07-02 19:28] VITALS: BP 115/86
[2020-07-02 19:28] LABS: MD NO
[2020-07-02 19:38] LABS: ALBUMIN 3.9 g/dL (3.4-5.0); ANION GAP 4 mmol/L (5-15); CALCIUM 8.7 mg/dL (8.5-10.1); CHLORIDE 107 mmol/L (98-107); CREATININE 1.06 mg/dL (0.7-1.3)
--- NOTE | 2020-07-02 20:00 | NUR ---
PT NOT SHIVERING ANYMORE. PT REMOVED BLANKETS
--- NOTE | 2020-07-02 20:12 | NUR ---
ALL RESULTS ARE BACK AT THIS TIME. CHART UP FOR RECHECK.
== END 2020-07-02 20:39 | disposition home or self-care (01) ==
LOC: ED 19:00
DX: F16.10 Hallucinogen abuse, uncomplicated (principal); F41.9 Anxiety disorder, unspecified; R42 Dizziness and giddiness; R53.83 Other fatigue; I10 Essential (primary) hypertension; G43.909 Migraine, unspecified, not intractable, without status migrainosus; G40.909 Epilepsy, unspecified, not intractable, without status epilepticus; F17.200 Nicotine dependence, unspecified, uncomplicated; Z90.49 Acquired absence of other specified parts of digestive tract; Z90.89 Acquired absence of other organs
CPT/HCPCS: 36415; 80048; 82040; 85025; 93005; 99284